=== PATIENT | female | born 2000 | race Caucasian/White ===

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

== ENCOUNTER 2021-01-22 05:12 | Emergency (ER) | payer OTHER, SELFPAY ==
[2021-01-22 05:13] VITALS: BP 128/77; PULSE 70; RESP 18; TEMP 37.1; O2SAT 97; BMI 33.5
--- NOTE | 2021-01-22 05:40 | CT_ITS ---
PROCEDURE INFORMATION: Exam: CT Abdomen And Pelvis With Contrast Exam date and time: 01/22/2021 5:40 AM Age: 20 years old Clinical indication: Nausea and other: Diarrhea; Abdominal pain; Localized; Right upper quadrant (ruq); Patient HX: Ruq pain with nausea and diarrhea TECHNIQUE: Imaging protocol: Computed tomography of the abdomen and pelvis with contrast. Radiation optimization: All CT scans at this facility use at least one of these dose optimization techniques: automated exposure control; mA and/or kV adjustment per patient size (includes targeted exams where dose is matched to clinical indication); or iterative reconstruction. Contrast material: ISOVUE; Contrast volume: 75 ml; Contrast route: IV; COMPARISON: CT ABDOMEN PELVIS W CON 03/16/2020 11:07 PM FINDINGS: Lungs: Patchy peripheral consolidation at the lung bases. Liver: Normal. No mass. Gallbladder and bile ducts: Cholelithiasis. There is no evidence of biliary ductal dilation. Pancreas: Normal. No ductal dilation. Spleen: Normal. No splenomegaly. Adrenal glands: Normal. No mass. Kidneys and ureters: Normal. No hydronephrosis. Stomach and bowel: There is no evidence of intestinal perforation or obstruction. Appendix: A normal appendix is identified. Intraperitoneal space: Unremarkable. No free air. No significant fluid collection. Vasculature: Unremarkable. No abdominal aortic aneurysm. Lymph nodes: Unremarkable. No enlarged lymph nodes. Urinary bladder: The bladder is decompressed. Reproductive: The uterus and left ovary are unremarkable. Simple appearing 3.5 cm right ovarian cyst. Bones/joints: Unremarkable. No acute fracture. Soft tissues: There is a fat-containing umbilical hernia. IMPRESSION: 1. 3.5 cm simple right ovarian cyst. 2. Patchy peripheral consolidation at the lung bases. Commonly reported imaging features of COVID-19 pneumonia are present. Other processes such as influenza pneumonia and organizing pneumonia, as can be seen with drug toxicity and connective tissue disease, can cause a similar imaging pattern. 3. Cholelithiasis.
[2021-01-22 05:49] LABS: Microscopic, Urine URINE MICROSCOPIC (MICROSCOPIC)
[2021-01-22 05:52] LABS: Basophils % 0.7 % (0.1-2.0); Eosinophils # 0.1 K/mm3 (0.0-0.4); Eosinophils % 1.8 % (0.1-12.0); Hematocrit 34.3 % (37.0-47.0); Lymphocytes # 1.8 K/mm3 (0.7-4.5); Lymphocytes % 31.5 % (10-50); Mean Corpuscular Hemoglobin 22.7 pg (27.0-31.2); Mean Corpuscular Volume 71.1 fl (81-99); Mean Platelet Volume 7.3 fl (7.4-10.4); Monocytes # 0.5 K/mm3 (0.1-1.0); Monocytes % 8.6 % (1.7-9.3); Neutrophils # 3.2 K/mm3 (1.8-7.8); Neutrophils % 57.3 % (37.0-80.0); Platelet Count 445 K/mm3 (142-424); Red Blood Count 4.83 M/mm3 (4.20-5.40); White Blood Count 5.5 K/mm3 (4.5-13.0)
[2021-01-22 06:05] LABS: Alanine Aminotransferase 40 U/L (12-78); Albumin Level 4.4 g/dl (3.5-5.0); Albumin/Globulin Ratio 1.5 (1.1-1.8); Alkaline Phosphatase 93 U/L (38-126); Amylase 50 U/L (30-110); Anion Gap 12.9 mEq/L (5-15); Aspartate Amino Transferase 37 U/L (14-36); Bilirubin,Total 0.4 mg/dl (0.2-1.3); Blood Urea Nitrogen 10 mg/dl (7-17); Calcium 9.1 mg/dl (8.4-10.2); Carbon Dioxide 25 mmol/L (22.0-30.0); Chloride 108 mmol/L (98-107); Creatinine Clearance Estimated 175 mL/min (50-200); Estimated Glomerular Filt Rate 108 ml/min (>60); GFR (African American) 130 ML/MIN (>60); Glucose 86 mg/dl (74-100); Potassium 3.9 mmoL/L (3.5-5.1); Sodium 142 mmol/L (136-145); Total Protein,Serum 7.4 g/dl (6.3-8.2)
[2021-01-22 06:06] LABS: Lipase 17 U/L (23-300)
[2021-01-22 06:10] LABS: Appearance,Urine CLEAR (Clear); Bilirubin,Urine Negative (Negative); Blood, Urine Negative (Negative); Color,Urine YELLOW (Yellow); Glucose,Urine (UA) Negative (Negative); Ketones,Urine Negative (Negative); Leukocyte Esterase,Urine Negative (Negative); Nitrate,Urine Negative (Negative); PH,Urine 5.5 (5.0-8.5); Protein,Urine Negative (Negative); Specific Gravity, Urine >= 1.030 (1.005-1.030); Urobilinogen,Urine 0.2 EU/dl (0.2)
[2021-01-22 06:11] LABS: C-Reactive Protein 6.7 mg/L (0-4)
[2021-01-22 06:14] LABS: Urine Pregnancy, HCG Qual. Negative (Negative)
[2021-01-22 06:25] LABS: Erythrocyte Sedimentation Rate 49 mm/hr (0-20)
--- NOTE | 2021-01-22 06:39 | XR_ITS ---
PROCEDURE INFORMATION: Exam: XR Chest Exam date and time: 01/22/2021 6:39 AM Age: 20 years old Clinical indication: Cough TECHNIQUE: Imaging protocol: XR of the chest. Views: 2 views. COMPARISON: CT ABDOMEN PELVIS W CON 01/22/2021 6:27 AM FINDINGS: Lungs: Patchy right greater than left pulmonary opacities mainly in the mid and lower lungs. Pleural spaces: Unremarkable. No pleural effusion. No pneumothorax. Heart/Mediastinum: Unremarkable. No cardiomegaly. Bones/joints: Unremarkable. IMPRESSION: Patchy right greater than left pulmonary opacities mainly in the mid and lower lungs. Commonly reported imaging features of COVID-19 pneumonia are present. Other processes such as influenza pneumonia and organizing pneumonia, as can be seen with drug toxicity and connective tissue disease, can cause a similar imaging pattern.
--- NOTE | 2021-01-22 06:53 | HMH.EDNVD ---
ED Disposition Clinical Impression: COVID-19 Cholelithiasis Qualifiers: Cholelithiasis location: gallbladder Cholecystitis presence: without cholecystitis Biliary obstruction: without biliary obstruction Qualified Code(s): K80.20 - Calculus of gallbladder without cholecystitis without obstruction Disposition: Home, Self-Care Condition on Discharge: Good Instructions: DI for COVID-19 (Suspected or Confirmed ), DI for Gallstones Additional Instructions: see surg for follow up Referrals: Hunter Chang MD [Primary Care Provider] - Kevyn Noyola MD [Staff Physician] - Osman Cabral MD [Staff Physician] - - Critical Care Critical Care Time: No Attestation: On 01/22/21, the high probability of a clinically significant, sudden or life threatening deterioration of the following system(s) required my full and direct attention, intervention and personal management. The time I documented below is in addition to time spent performing reported procedures but includes the following listed in this critical care notation. Medical Decision Making - Medical Records Medical records reviewed: Yes: I reviewed the patient's medical records. - Baljeet Inquiry Pt receiving controlled substance: No Vital Signs: 01/22/21 05:13 Temperature 98.8 F Temperature Source Oral Pulse Rate [Right] 70 Respiratory Rate 18 Blood Pressure [Right Arm] 128/77 Blood Pressure Mean [Right Arm] 94 02 Sat by Pulse Oximetry 97 - Lab Data Lab results reviewed: Yes: I reviewed the patient's lab results. Lab Results 01/22/21 05:20: Urine Color Yellow, Urine Appearance Clear, Urine pH 5.5, Ur Specific [place] >= 1.030, Urine Protein Negative, Urine Glucose (UA) Negative, Urine Ketones Negative, Urine Blood Negative, Urine Nitrate Negative, Urine Bilirubin Negative, Urine Urobilinogen 0.2, Ur Leukocyte Esterase Negative, Urine RBC None, Urine WBC 3-5, Ur Squamous Epith Cells 3-5, Urine Bacteria None 01/22/21 05:20: Urine HCG, Qual Negative 01/22/21 05:29: WBC 5.5, RBC 4.83, Hgb 11.0 L, Hct 34.3 L, MCV 71.1 L, MCH 22.7 L, MCHC 32.0, RDW 16.0, Plt Count 445 H, MPV 7.3 L, Neut % (Auto) 57.3, Lymph % (Auto) 31.5, [place] % (Auto) 8.6, Eos % (Auto) 1.8, Baso % (Auto) 0.7, Neut # (Auto) 3.2, Lymph # (Auto) 1.8, [place] # (Auto) 0.5, Eos # (Auto) 0.1, Baso # (Auto) 0.0, ESR 49 H 01/22/21 05:29: Sodium 142, Potassium 3.9, Chloride 108 H, Carbon Dioxide 25, Anion Gap 12.9, BUN 10, Creatinine 0.70, Estimated Creat Clear 175, Estimated GFR 108, Est GFR ( Amer) 130, Glucose 86, Calcium 9.1, Total Bilirubin 0.4, AST 37 H, ALT 40, Alkaline Phosphatase 93, C-Reactive Protein 6.7 H, Total Protein 7.4, Albumin 4.4, Globulin 3.0, Albumin/Globulin Ratio 1.5, Amylase 50 01/22/21 05:29: Lipase 17 L 01/22/21 07:57: SARS-CoV-2 (PCR) Detected A, Influenza A Untype (PCR) Not detected, Influenza Type B (PCR) Not detected Result diagrams: 01/22/21 05:29 01/22/21 05:29 Orders (Tests/Meds): ED MEDICATIONS Discontinued Medications Generic Name Dose Route Start Last Admin Trade Name Freq PRN Reason Stop Dose Admin Iopamidol 75 ml 01/22/21 06:34 01/22/21 06:34 Iopamidol-370 (76%);100ml Bottle IV 01/22/21 06:35 75 ml ONCE ONE Administration Sodium Chloride 10 ml 01/22/21 06:34 01/22/21 06:34 Sodium Chloride 0.9% 10ml Syr (Rad Only) IV 01/22/21 06:35 10 ml ONCE ONE Administration ORDERS Category Date Time Status US gallbladder Stat Exams 01/22/21 08:33 Ordered - Radiology Data #1 Image(s): Chest Image Reviewed: Yes I reviewed the patient's radiology image, Yes I have reviewed radiologist's interpretation Preliminary Findings: Abnormal - CT Data CT Scan: Abdomen, Pelvis Time Received: 10:[address] Reviewed: Yes: I have viewed the radiologist's interpretation Preliminary Findings: Abnormal (see report ) - US Data US Images: Gallbladder ED US Reviewed: Yes: I have viewed radiologist's interpretation Findings Narrative:
[2021-01-22 08:07] LABS: Influenza A, PCR Not Detected (NotDetected); Influenza B, PCR Not Detected (NotDetected)
[2021-01-22 08:32] LABS: Coronavirus 19, PCR Detected (NotDetected)
--- NOTE | 2021-01-22 08:33 | US_ITS ---
PROCEDURE: US GALLBLADDER CLINICAL INDICATION: RUQ pain COMPARISON: No exams were available for comparison FINDINGS: Pancreas: Unremarkable/Not well seen Liver: Unremarkable. There is appropriate direction of blood flow within a non dilated portal vein. Right kidney: Unremarkable appearing. No hydronephrosis. Gallbladder: Gallbladder is slightly distended measuring 10 cm longitudinal. Stones are present in the fundus of the gallbladder. No gallbladder wall thickening. No pericholecystic fluid. IMPRESSION: Mildly distended gallbladder with cholelithiasis. Dictated by: Darin Jamison MD 01/22/2021 11:18 Darin Jamison MD in OV 01/22/2021 11:18
--- NOTE | 2021-01-22 08:33 | PC.NURSE ---
notified ER of pt covid positive result called per lab
--- NOTE | 2021-01-22 09:08 | PC.NURSE ---
rad at BS for u/s
[2021-01-22 10:55] VITALS: BP 110/69; PULSE 72; RESP 20; TEMP 36.8; O2SAT 97
== END 2021-01-22 10:55 | disposition home or self-care (01) ==
PROVIDERS: Emergency Provider Emergency Medicine; PCP Internal Medicine Adolescent Medicine
DX: U07.1 COVID-19 (principal); K80.20 Calculus of gallbladder without cholecystitis without obstruction
CPT/HCPCS: 71046; 74177; 76705; 80053; 81001; 81025; 82150; 83690; 85025; 85651; 86140; 99283; Q9967; U0003

== ENCOUNTER → 2021-01-23 13:53 | Outpatient (CLI) | payer OTHER, SELFPAY ==
[2021-01-23 14:01] LABS: Basophils # 0.1 K/mm3 (0-0.2); Basophils % 0.6 % (0.1-2.0); Eosinophils # 0.2 K/mm3 (0.0-0.4); Eosinophils % 2.1 % (0.1-12.0); Hematocrit 32.8 % (37.0-47.0); Hemoglobin 10.4 g/dL (12.2-16.2); Lymphocytes # 1.8 K/mm3 (0.7-4.5); Mean Corpuscular HGB Conc 31.6 g/dL (31.8-35.4); Mean Corpuscular Hemoglobin 22.7 pg (27.0-31.2); Mean Corpuscular Volume 71.9 fl (81-99); Mean Platelet Volume 7.1 fl (7.4-10.4); Monocytes # 0.5 K/mm3 (0.1-1.0); Monocytes % 6.1 % (1.7-9.3); Neutrophils # 5.4 K/mm3 (1.8-7.8); Neutrophils % 68.2 % (37.0-80.0); Platelet Count 466 K/mm3 (142-424); Red Blood Count 4.57 M/mm3 (4.20-5.40); Red Cell Distribution Width 16.3 % (11.5-17.5)
[2021-01-23 16:13] LABS: Chloride 108 mmol/L (98-107); Potassium 4.4 mmoL/L (3.5-5.1); Sodium 141 mmol/L (136-145)
[2021-01-23 16:15] LABS: Alanine Aminotransferase 28 U/L (12-78); Alkaline Phosphatase 99 U/L (38-126); Anion Gap 13.4 mEq/L (5-15); Aspartate Amino Transferase 30 U/L (14-36); Bilirubin,Total 0.2 mg/dl (0.2-1.3); Blood Urea Nitrogen 8 mg/dl (7-17); Carbon Dioxide 24 mmol/L (22.0-30.0); Estimated Glomerular Filt Rate 108 ml/min (>60); GFR (African American) 130 ML/MIN (>60)
[2021-01-23 16:16] LABS: Albumin/Globulin Ratio 1.5 (1.1-1.8); Calcium 8.7 mg/dl (8.4-10.2); Globulin 2.7 g/dL (1.3-3.2); Glucose 88 mg/dl (74-100); Lipase 28 U/L (23-300); Total Protein,Serum 6.7 g/dl (6.3-8.2)
== END ==
PROVIDERS: Visit Provider Internal Medicine Adolescent Medicine
DX: R10.11 Right upper quadrant pain (principal)
CPT/HCPCS: 80053; 83690; 85025

== ENCOUNTER 2021-02-07 06:02 | Day surgery (SDC) | payer OTHER, SELFPAY ==
[2021-01-29 14:07] VITALS: BMI 33.5
[2021-02-07] VITALS (11 sets, daily range): BP systolic 114–145; BP diastolic 59–85; PULSE 64–93; RESP 14–18; TEMP 36.1–36.6; O2SAT 97–100
[2021-02-07 06:21] LABS: Urine Pregnancy, HCG Qual. Negative (Negative)
--- NOTE | 2021-02-07 08:50 | HMH.OPNOTE ---
Date of procedure: 02/07/21 Pre-op Diagnosis:: Symptomatic cholelithiasis Post-op Diagnosis:: Acute calculus cholecystitis Gallbladder hydrops Procedure performed:: Laparoscopic cholecystectomy Surgeon:: Osman Cabral MD Anesthesia: GETYaya Estimated blood loss (mL): 10 Operative findings:: Hydropic gallbladder Severe infundibular thickening Dome down approach utilized secondary to severe infundibular/cystic duct thickening Operative note:: After informed consent was obtained, the patient was taken to the operating room and placed in the supine position. General anesthesia was induced and the abdomen was prepped and draped in a sterile fashion. After infiltration with local anesthetic an infraumbilical incision was made. A Veress needle was placed in position. The abdomen was insufflated. A 5 mm optical trocar was placed in position. Under direct visualization, a 12 mm trocar was placed in the subxiphoid position and 2 additional 5 mm trocars were placed in the right upper quadrant. The gallbladder was elevated up and over the liver margin. The tissue around the cystic duct and artery was carefully dissected. Gallbladder hydrops confirmed. Fairly severe distention noted. Severe thickening of the infundibulum and cystic duct region was noted. Careful dissection was completed bluntly and the decision was made to proceed with a dome down approach. The cystic artery itself was also fairly large. Clips were placed on the artery prior to transection with harmonic hussein. Harmonic hussein were used to separate the gallbladder from the liver margin. Endoloops (x2) were placed at the infundibulum/cystic duct margin. The gallbladder was transected above the Endoloops and placed in a retrieval bag. It was then removed through the subxiphoid trocar site. The right upper quadrant was thoroughly irrigated. No active bleeding or bile leak was noted. Fascia at the subxiphoid trocar site was reapproximated utilizing 0 Ethibond. The remaining trocars were removed. All wounds were irrigated and skin was closed with 4-0 Monocryl in a subcuticular fashion. Steri-Strips were applied. The patient's anesthetic agents were reversed and extubation was completed prior to transfer to recovery in stable condition. Condition: stable Disposition: PACU Specimens:: Gallbladder and contents Complications:: No immediate
--- NOTE | 2021-02-07 09:08 | HMH.ANESCL ---
[facility] Anesthesia Checklist - Patient Identification Patient Identification: Arm Band, Verbal (Name & ) - Structural Data Admitted From: Home Planned Operative Procedure/s: lap choly Consent for Planned Operative Procedure(s) Verified: Yes Verified Documents: History and Physical - NPO Status Verified Time NPO: 00:00 - Chart Verification Results Verified: CBC, BMP - Additional verifications Patient : No Anesthesia Reactions: No Hx Blood Transfusions: No Blood Transfusion Reaction: No Cephalosporin Allergy: No Previous Colonoscopy: No - Cardiovascular Assessment Heart Sounds: S1 & S2 Pulse Strength: Baseline Pulse Rhythm: Regular Peripheral Edema: No - Airway Assessment C-Spine Mobility Assessed: Yes TMJ Mobility Assessed: Yes Dentition: Good Dentition - Neurological Assessment Level of Consciousness: Awake, Alert, Appropriate Hx Seizures: No Numbness or tingling in extremities: No - Anesthesia Plan Anesthesia Risk discussed: Yes Anesthesia Plan: Verified ASA Class: II Anesthesia Type: General [facility] History I have reviewed the patient's past medical history: Yes Medical History: Denies:: Cancer, Diabetes Mellitus Type 1, Diabetes Mellitus Type 2, Internal Pacemaker, MRSA, Seizures *Have you ever received a pneumonia vaccine?: No *Have you received a flu vaccine this season?: No Other Medical History: Denies: Blood Transfusion Reaction Anesthesia experience/problems:: none Other Surgeries: Yes: No Previous Surgery. No: , Pacemaker Amputation: No Fractures: No - *Social History Last grade of school completed: High school graduate Smoking Status: Never smoker Alcohol Intake: never Alcohol Intake Frequency:: other Substance Use Type: denies use *Occupational Status:: employed Housing: house Household Members: family *Travel in the last 8 weeks: None Family Hx:: No significant family history
--- NOTE | 2021-02-07 09:09 | P.PN_ITS ---
[facility] Anesthesia Record Part I Intake, IV Amount: 750 Estimated blood loss (mL): 10 Urine output (mL): 0 Blood Products used (#): none Blood Pressure: 124/75 SaO2: 100 Pulse Rate: 83 Respiratory Rate: 16 Temperature: 97.0 F Patient is:: Drowsy, Nasal O2, Stable Stable to PACU at:: 09:03
--- NOTE | 2021-02-07 10:41 | P.PN_ITS ---
[facility] Anesthesia Record Part II Discharge Time: 09:33 Destination: Surgical Day Care (OP Surgery) PACU nurse assessment reviewed?: Yes Patient Condition:: Good Anesthesia Complications:: None Swallowing reflex intact?: Yes Cyanosis?: No Blood Pressure: 145/85 Pulse Rate: 64 Temperature: 97.0 F Mental Status: Alert & Oriented Pain level:: 2 Nausea and/or vomitting:: None Intake, IV Amount: 50
== END 2021-02-07 10:20 | disposition home or self-care (01) ==
LOC: OR 06:04
PROVIDERS: PCP Internal Medicine Adolescent Medicine; Visit Provider Surgery
PROC: 0FT44ZZ Resection of Gallbladder, Percutaneous Endoscopic Approach (ICD-10-PCS; CPT 47562; principal; 2021-02-07 07:30)
DX: K80.00 Calculus of gallbladder with acute cholecystitis without obstruction (principal); K82.1 Hydrops of gallbladder; Z86.16 Personal history of COVID-19
CPT/HCPCS: 47562; 81025; 96374; J0131; J2405; J2710

== ENCOUNTER 2021-03-09 20:11 | Emergency (ER) | payer OTHER, SELFPAY ==
[2021-03-09 20:20] VITALS: BP 132/78; PULSE 79; RESP 18; TEMP 36.6; O2SAT 100; BMI 24.7
--- NOTE | 2021-03-09 20:26 | PC.NURSE ---
Triaged pt- she has been having several faint positive urine tests with spotting. She is supposed to be having an IUD placed tomorrow. She is also concerned about occasional side pain that alternates from R to L, intermittent nausea, and headache. Pt elected to go to the [facility] d/t her baby in the car and family waiting. Pt states I just want my urine and blood checked for .
[2021-03-09 20:30] VITALS: BP 132/78; PULSE 79; RESP 18; TEMP 36.6; O2SAT 100; BMI 24.7
[2021-03-09 20:47] LABS: Apearance,Urine Clear (Clear); Color,Urine Yellow (Yellow)
[2021-03-09 20:47] LABS: UTC Pregnancy Test, Urine Negative (Negative)
[2021-03-09 20:48] LABS: Bilirubin,Urine Negative (Negative); Blood, Urine 3+ (Negative); Glucose,Urine (UA) Negative (Negative); Ketones,Urine TRACE (Negative); Protein,Urine 1+ (Negative); Specific Gravity, Urine 1.025 (1.005-1.030); UTC Leukocyte Esterase,Urine Negative (Negative); UTC Nitrate,Urine Negative (Negative); Urobilinogen,Urine 0.2 EU/dl (0.2)
--- NOTE | 2021-03-09 20:51 | HMH.EDUTC ---
[facility] [place] Disposition Clinical Impression: Negative test Disposition: Home, Self-Care Condition on Discharge: Good Instructions: DI for Nausea -- Adult, Nausea and Vomiting-Adult Additional Instructions: Follow up with OBGYN as scheduled tomorrow for further evaluation and treatment Return if needed Straight to ER if any life threatening symptoms Follow up with Family Doctor if no improvement Referrals: Hunter Chang MD [Primary Care Provider] - As needed Rodo Church MD [Staff Physician] - Time of Disposition: 21:13 Medical Decision Making - Baljeet Inquiry Pt receiving controlled substance: No Baljeet was queried for this patient: No Vital Signs: 03/09/21 20:20 03/09/21 20:30 Temperature 97.9 F 97.9 F Temperature Source Oral Oral Pulse Rate [Left] 79 79 Respiratory Rate 18 18 Blood Pressure [Left Arm] 132/78 132/78 Blood Pressure Mean [Left Arm] 96 96 Blood Pressure Source [Left Arm] Automatic Cuff Automatic Cuff Blood Pressure Position [Left Arm] Sitting 02 Sat by Pulse Oximetry 100 100 Oxygen Delivery Method Room Air Room Air - Lab Data Lab results reviewed: Yes: I reviewed the patient's lab results. Lab Results 03/09/21 20:39: Urine Color Yellow, Urine Appearance Clear, Urine pH 6.0, Ur Specific [place] 1.025, Urine Protein 1+, Urine Glucose (UA) Negative, Urine Ketones Trace, Urine Blood 3+, Urine Nitrate Negative, Urine Bilirubin Negative, Urine Urobilinogen 0.2, Ur Leukocyte Esterase Negative 03/09/21 20:40: [facility] Clinic Negative 03/09/21 20:55: Serum HCG, Qual Negative [facility] [place] HPI - General Stated complaint: V/D, OCHOA stomach and back pain Time Seen by Provider: 03/09/21 20:51 Mode of Arrival: Ambulatory Source of Information: Patient Limitations: No Limitations Description of Symptoms (Recalled from Triage Doc. by RN): PATIENT C/O SHARP PAIN TO BLQ AND CRAMPING X 2 WEEKS AND NAUSEA THAT STARTED THIS WEEK. ALSO C/O SPOTTING HEENT Symptoms (Recalled from RN notes): No Resp Symptoms (Recalled from RN notes): No Skin Symptoms (Recalled from RN notes): No MS Symptoms (Recalled from RN notes): No Functional Status (Recalled from RN notes): WNL - History of Present Illness Provider Complaint: Patient states that she had baby about 3 mths ago and recently had her gallbladder removed States that she is scheduled to have IUD placed tomorrow and has been having some spotting and Nausea States that she took a urine test at home and she could see a faint line States that she wanted to get checked for here tonight with urine and blood before her procedure tomorrow - Related Data Home Medications Medication Instructions Recorded Confirmed norgestimate-ethinyl estradioL 1 tab PO DAILY 03/09/21 03/09/21 [Previfem Tablet] Allergies Allergy/AdvReac Type Severity Reaction Status Date / Time No Known Allergies Allergy Verified 02/25/21 14:04 - Worker's Comp Is this a Worker's Comp case?: No [facility] History - Hepatitis A Screen Drug use history?: No High risk sexual behaviors?: No History of sexually transmitted infection?: No Currently employed?: No Childcare worker?: No Do you have indoor plumbing?: Yes Do you have electricity?: Yes Attestation statement:: This patient has been screened for Hepatitis A risk factors. I have reviewed the patient's past medical history: Yes Medical History: Denies:: Cancer, Diabetes Mellitus Type 1, Diabetes Mellitus Type 2, Internal Pacemaker, MRSA, Seizures Other Medical History: Denies: Blood Transfusion Reaction Other Surgeries: Yes: No Previous Surgery. No: , Pacemaker Amputation: No Fractures: No - Social History Smoking Status: Never smoker Alcohol Intake: never Alcohol Intake Frequency:: other Substance Use Type: denies use Occupational Status: employed Housing: house Household Members: family Family Hx:: No significant family history ROS Obtained: Yes All systems reviewed & no additiona
[2021-03-09 21:09] LABS: HCG Qualitative, Serum Negative (Negative)
[2021-03-09 21:13] VITALS: BP 132/78; PULSE 79; RESP 18; TEMP 36.6; O2SAT 100
== END 2021-03-09 21:18 | disposition home or self-care (01) ==
PROVIDERS: Emergency Provider Nurse Practitioner; PCP Internal Medicine Adolescent Medicine
DX: R10.30 Lower abdominal pain, unspecified (principal); Z32.02 Encounter for pregnancy test, result negative
CPT/HCPCS: 81003; 81025; 84703; 99203; G0463

== ENCOUNTER → 2021-03-17 13:52 | Outpatient (CLI) | payer OTHER, SELFPAY ==
--- NOTE | 2021-03-17 13:52 | US_ITS ---
PROCEDURE: US TRANSVAGINAL CLINICAL INDICATION: following up to ovarian cyst and pelvic pain COMPARISON: CT CT ABDOMEN PELVIS W CON from 01/22/2021 FINDINGS: UTERUS: 9cm x 5cmx 4cm with a combined endometrial thickness of 5.3mm LEFT OVARY: [id number] with a volume of 11.6ml. RIGHT OVARY: [id number] with a volume of 14.8ml. There are numerous small follicles involving both ovaries more numerous on the right compared to the left. The largest cyst on the right is approximately 14 mm. No cul-de-sac fluid is evident. IMPRESSION: Multiple small follicles involving the right ovary consistent with a polycystic ovary. The largest cyst is 14 mm. There are a few small follicles of the left ovary but does not meet the criteria for polycystic ovary Dictated by: Darin Jamison MD 03/18/2021 07:55 Darin Jamison MD in OV 03/18/2021 07:55
== END ==
PROVIDERS: PCP Internal Medicine Adolescent Medicine; Visit Provider Nurse Practitioner Obstetrics & Gynecology
DX: R10.2 Pelvic and perineal pain (principal); N83.209 Unspecified ovarian cyst, unspecified side
CPT/HCPCS: 76830

== ENCOUNTER 2021-03-27 02:28 | Emergency (ER) | payer OTHER, SELFPAY ==
[2021-03-27 02:29] VITALS: BP 109/76; PULSE 80; RESP 18; TEMP 36.6; O2SAT 99; BMI 27.4
--- NOTE | 2021-03-27 02:55 | XR_ITS ---
PROCEDURE INFORMATION: Exam: XR Abdomen Exam date and time: 03/27/2021 2:55 AM Age: 20 years old Clinical indication: Abdominal pain; Localized; Right; Prior surgery; Surgery date: 1-6 months; Patient HX: Gallbladder removed 2 months ago and is still having pain; Additional info: Epigastric pain with tenderness TECHNIQUE: Imaging protocol: XR of the abdomen. Views: 2 Views. Upright and supine views. COMPARISON: CT ABDOMEN PELVIS W CON 01/22/2021 6:27 AM FINDINGS: Gastrointestinal tract: There are clips identified within the right upper quadrant, compatible prior cholecystectomy. The abdominal bowel gas pattern is unremarkable. No evidence of soft tissue mass within the abdomen. The lung bases are unremarkable. Intraperitoneal space: Normal. No free air. Bones/joints: Unremarkable for age. IMPRESSION: No acute findings.
[2021-03-27 03:05] LABS: Microscopic, Urine URINE MICROSCOPIC (MICROSCOPIC)
[2021-03-27 03:06] LABS: Appearance,Urine SL CLOUDY (Clear); Bilirubin,Urine Negative (Negative); Blood, Urine TRACE-I (Negative); Color,Urine YELLOW (Yellow); Glucose,Urine (UA) Negative (Negative); Ketones,Urine Negative (Negative); Leukocyte Esterase,Urine TRACE (Negative); Nitrate,Urine Negative (Negative); PH,Urine 5.5 (5.0-8.5); Protein,Urine Negative (Negative); Specific Gravity, Urine >= 1.030 (1.005-1.030); Urobilinogen,Urine 0.2 EU/dl (0.2)
[2021-03-27 03:16] LABS: Urine Pregnancy, HCG Qual. Negative (Negative)
[2021-03-27 03:16] LABS: Basophils # 0.1 K/mm3 (0-0.2); Basophils % 0.6 % (0.1-2.0); Eosinophils # 0.1 K/mm3 (0.0-0.4); Eosinophils % 1.3 % (0.1-12.0); Hematocrit 35.6 % (37.0-47.0); Hemoglobin 10.6 g/dL (12.2-16.2); Lymphocytes # 1.9 K/mm3 (0.7-4.5); Lymphocytes % 18.8 % (10-50); Mean Corpuscular HGB Conc 29.8 g/dL (31.8-35.4); Mean Corpuscular Hemoglobin 23.4 pg (27.0-31.2); Mean Corpuscular Volume 78.3 fl (81-99); Mean Platelet Volume 7.8 fl (7.4-10.4); Monocytes # 0.4 K/mm3 (0.1-1.0); Monocytes % 4.3 % (1.7-9.3); Neutrophils # 7.5 K/mm3 (1.8-7.8); Neutrophils % 75.2 % (37.0-80.0); Platelet Count 352 K/mm3 (142-424); Red Blood Count 4.55 M/mm3 (4.20-5.40); Red Cell Distribution Width 15.2 % (11.5-17.5)
[2021-03-27 03:17] LABS: Bacteria,Urine 3+ /lpf; Mucus,Urine 2+ /lpf
--- NOTE | 2021-03-27 03:19 | HMH.EDNVD ---
ED Disposition Clinical Impression: Abdominal pain Qualifiers: Abdominal location: epigastric Qualified Code(s): R10.13 - Epigastric pain Disposition: Home, Self-Care Condition on Discharge: Good Instructions: DI for Acute Abdominal Pain Additional Instructions: use meds and call pcp for follow up Referrals: Hunter Chang MD [Primary Care Provider] - - Critical Care Critical Care Time: No Attestation: On 03/27/21, the high probability of a clinically significant, sudden or life threatening deterioration of the following system(s) required my full and direct attention, intervention and personal management. The time I documented below is in addition to time spent performing reported procedures but includes the following listed in this critical care notation. Medical Decision Making - Medical Records Medical records reviewed: Yes: I reviewed the patient's medical records. - Baljeet Inquiry Pt receiving controlled substance: No Vital Signs: 03/27/21 02:29 Temperature 97.9 F Temperature Source Oral Pulse Rate [Right] 80 Respiratory Rate 18 Blood Pressure [Right Arm] 109/76 L Blood Pressure Mean [Right Arm] 87 Blood Pressure Source [Right Arm] Automatic Cuff 02 Sat by Pulse Oximetry 99 Oxygen Delivery Method Room Air - Lab Data Lab results reviewed: Yes: I reviewed the patient's lab results. Lab Results 03/27/21 02:35: Urine Color Yellow, Urine Appearance Sl cloudy, Urine pH 5.5, Ur Specific [place] >= 1.030, Urine Protein Negative, Urine Glucose (UA) Negative, Urine Ketones Negative, Urine Blood Trace-i, Urine Nitrate Negative, Urine Bilirubin Negative, Urine Urobilinogen 0.2, Ur Leukocyte Esterase Trace, Urine RBC 3-5, Urine WBC 5-10, Ur Squamous Epith Cells 10-20, Urine Bacteria 3+, Urine Mucus 2+ 03/27/21 02:35: Urine HCG, Qual Negative 03/27/21 03:00: WBC 10.0, RBC 4.55, Hgb 10.6 L, Hct 35.6 L, MCV 78.3 L, MCH 23.4 L, MCHC 29.8 L, RDW 15.2, Plt Count 352, MPV 7.8, Neut % (Auto) 75.2, Lymph % (Auto) 18.8, [place] % (Auto) 4.3, Eos % (Auto) 1.3, Baso % (Auto) 0.6, Neut # (Auto) 7.5, Lymph # (Auto) 1.9, [place] # (Auto) 0.4, Eos # (Auto) 0.1, Baso # (Auto) 0.1 03/27/21 03:00: Sodium 140, Potassium 3.9, Chloride 106, Carbon Dioxide 26, Anion Gap 11.9, BUN 9, Creatinine 0.70, Estimated Creat Clear 148, Estimated GFR 108, Est GFR ( Amer) 130, Glucose 102 H, Calcium 9.0, Total Bilirubin 0.2, AST 75 H, ALT 44, Alkaline Phosphatase 85, C-Reactive Protein 2.7, Total Protein 6.9, Albumin 4.0, Globulin 2.9, Albumin/Globulin Ratio 1.4, Amylase 65, Lipase 27 Result diagrams: 03/27/21 03:00 03/27/21 03:00 Orders (Tests/Meds): ED MEDICATIONS Generic Name Dose Route Start Last Admin Trade Name Freq PRN Reason Stop Dose Admin Sodium Chloride 1,000 mls @ 999 mls/hr 03/27/21 03:15 03/27/21 03:00 Sod Chlor 0.9% 1000ml Bag IV 03/27/21 04:15 999 mls/hr .[id number] CHENCHO Administration Discontinued Medications Generic Name Dose Route Start Last Admin Trade Name Freq PRN Reason Stop Dose Admin Ketorolac Tromethamine 30 mg 03/27/21 03:01 03/27/21 03:22 Ketorolac 30mg/Ml Vial IV 03/27/21 03:02 30 mg ONCE ONE Administration Lorazepam 0.5 mg 03/27/21 03:01 03/27/21 03:22 Lorazepam 0.5mg Tablet PO 03/27/21 03:02 0.5 mg ONCE ONE Administration Ondansetron HCl 4 mg 03/27/21 03:01 03/27/21 03:22 Ondansetron 4mg/2ml Vial IV 03/27/21 03:02 4 mg ONCE ONE Administration ORDERS Category Date Time Status XR abdomen min 2V Stat Exams 03/27/21 02:55 Taken Amylase Stat Lab 03/27/21 03:00 Results C-Reactive Protein Stat Lab 03/27/21 03:00 Results Complete Blood Count Auto Diff Stat Lab 03/27/21 03:00 Results Comprehensive Metabolic Panel Stat Lab 03/27/21 03:00 Results Erythrocyte Sedimentation Rate Stat Lab 03/27/21 03:00 Results Lipase Stat Lab 03/27/21 03:00 Results Procalcitonin Stat Lab 03/27/21 03:00 Results Urine Culture Stat Micro 03/27/21 02:35 Received
[2021-03-27 03:22] LABS: Alanine Aminotransferase 44 U/L (12-78); Albumin/Globulin Ratio 1.4 (1.1-1.8); Alkaline Phosphatase 85 U/L (38-126); Amylase 65 U/L (30-110); Anion Gap 11.9 mEq/L (5-15); Aspartate Amino Transferase 75 U/L (14-36); Bilirubin,Total 0.2 mg/dl (0.2-1.3); Blood Urea Nitrogen 9 mg/dl (7-17); Carbon Dioxide 26 mmol/L (22.0-30.0); Chloride 106 mmol/L (98-107); Creatinine Clearance Estimated 148 mL/min (50-200); Estimated Glomerular Filt Rate 108 ml/min (>60); GFR (African American) 130 ML/MIN (>60); Globulin 2.9 g/dL (1.3-3.2); Glucose 102 mg/dl (74-100); Lipase 27 U/L (23-300); Potassium 3.9 mmoL/L (3.5-5.1); Sodium 140 mmol/L (136-145); Total Protein,Serum 6.9 g/dl (6.3-8.2)
[2021-03-27 03:28] LABS: C-Reactive Protein 2.7 mg/L (0-4)
[2021-03-27 03:49] VITALS: BP 111/70; PULSE 74; RESP 18; TEMP 36.7; O2SAT 99
[2021-03-27 03:56] LABS: Procalcitonin < 0.030 ng/mL (0.0-2.0)
[2021-03-27 05:04] LABS: Erythrocyte Sedimentation Rate 20 mm/hr (0-20)
== END 2021-03-27 03:59 | disposition home or self-care (01) ==
PROVIDERS: Emergency Provider Emergency Medicine; PCP Internal Medicine Adolescent Medicine
DX: M54.50 Low back pain, unspecified (principal); R10.13 Epigastric pain
CPT/HCPCS: 74019; 80053; 81001; 81025; 82150; 83690; 84145; 85025; 85651; 86140; 87086; 96365; 96375; 99283; J2405

== ENCOUNTER 2021-07-14 14:12 | Emergency (ER) | payer OTHER, SELFPAY ==
[2021-07-14 15:44] LABS: UTC Pregnancy Test, Urine Negative (Negative)
[2021-07-14 15:47] VITALS: BP 109/75; PULSE 81; RESP 16; TEMP 36.7; O2SAT 100; BMI 33.6
--- NOTE | 2021-07-14 15:53 | HMH.EDUTC ---
[facility] [place] Clinical Impression: Viral syndrome, Exposure to COVID-19 virus Pharyngitis Qualifiers: Pharyngitis/tonsillitis etiology: unspecified etiology Qualified Code(s): J02.9 - Acute pharyngitis, unspecified Disposition: Home, Self-Care Condition on Discharge: Good Instructions: Preventing the Spread of Coronavirus Discharge Instructions, DI for COVID-19 (Suspected or Confirmed ), DI for Pharyngitis/Tonsillopharyngitis -- Adult, Strep Throat, Sore Throat Additional Instructions: Drink plenty of fluids. Take tylenol or ibuprofen for pain or fever. Take the medications as directed. Follow up with your regular doctor. GO TO THE ER FOR ANY WORSENING SYMPTOMS Quarantine until you know the results of your covid-19 test. Notify your school or workplace of your results and follow their instructions regarding return to work/school. Prescriptions: Brompheniramine/Pseudoephed/Dm [Bromfed Dm Cough Syrup] 5 ml PO Q6HP PRN #240 ml PRN Reason: Cough Transmission Status: Sent to [facility] Ondansetron [Zofran 4mg ODT] 4 mg PO Q8HP PRN #20 tab PRN Reason: Nausea Transmission Status: Sent to [facility] methylPREDNISolone [Medrol] 4 mg PO DIRECTED 6 Days #21 packet Transmission Status: Sent to [facility] Azithromycin [Z-Sam 250mg Tab*] 250 mg PO UD DOSE PK #6 tab Transmission Status: Sent to [facility] Referrals: Hunter Chang MD [Primary Care Provider] - Forms: Work/School Release Time of Disposition: 16:31 Medical Decision Making - Medical Records Medical records reviewed: No: I reviewed the patient's medical records. - Baljeet Inquiry Pt receiving controlled substance: No Vital Signs: 07/14/21 15:47 Temperature 98.0 F Temperature Source Oral Pulse Rate [Right Brachial] 81 Respiratory Rate 16 Blood Pressure [Right Arm] 109/75 L Blood Pressure Mean [Right Arm] 86 Blood Pressure Source [Right Arm] Automatic Cuff 02 Sat by Pulse Oximetry 100 Oxygen Delivery Method Room Air - Lab Data Lab results reviewed: Yes: I reviewed the patient's lab results. Lab Results 07/14/21 15:39: Group A Strep Rapid Negative 07/14/21 15:40: [facility]st Clinic Negative Orders (Tests/Meds): ORDERS Category Date Time Status Strep Screen Confirmation Stat Micro 07/14/21 15:39 Received Urine Culture Stat Micro 07/14/21 15:59 Received [facility] [place] - General Stated complaint: sore throat, stomach pain Time Seen by Provider: 07/14/21 15:53 - History of Present Illness Provider Complaint: She states that for the past 1 weeks she has had a sore throat and felt bad. She has had nausea and gi upset at times. She also has had some body aches and chilling, but no documented fever. She denies any known exposure to covid-19. She has not been vaccinated against covid-19. - Related Data Home Medications Medication Instructions Recorded Confirmed fluticasone propionate 50 ml INTRANASAL 04/23/21 04/23/21 mcg/actuation nasal spray,suspension Previous Rx's Medication Instructions Recorded ibuprofen 200 mg capsule 200 mg PO ONCE #4 cap 04/23/21 terconazole 0.8 % vaginal cream 1 appful VAGINAL HS 3 Days #20 g 04/23/21 Azithromycin [Z-Sam 250mg Tab*] 250 mg PO UD DOSE PK #6 tab 07/14/21 Brompheniramine/Pseudoephed/Dm 5 ml PO Q6HP PRN #240 ml 07/14/21 [Bromfed Dm Cough Syrup] Ondansetron [Zofran 4mg ODT] 4 mg PO Q8HP PRN #20 tab 07/14/21 methylPREDNISolone [Medrol] 4 mg PO DIRECTED 6 Days #21 07/14/21 packet Allergies Allergy/AdvReac Type Severity Reaction Status Date / Time No Known Allergies Allergy Verified 04/23/21 16:16 [facility] History - Hepatitis A Screen Attestation statement:: This patient has been screened for Hepatitis A risk factors. I have reviewed the patient's past medical history: Yes Medical History: Denies:: Cancer, Diabetes Mellitus Type 1, Diabetes Mellitus Type 2, Internal Pacemaker,
[2021-07-14 16:09] LABS: Strep Scrn Group A (Rapid) Negative (Negative)
[2021-07-14 16:37] VITALS: BP 109/75; PULSE 81; RESP 16; TEMP 36.7; O2SAT 100
== END 2021-07-14 16:37 | disposition home or self-care (01) ==
PROVIDERS: Emergency Provider Nurse Practitioner Family; PCP Internal Medicine Adolescent Medicine
DX: J02.9 Acute pharyngitis, unspecified (principal); Z20.822 Contact with and (suspected) exposure to COVID-19
CPT/HCPCS: 81025; 87086; 87430; 99202; C9803; G0463; U0003; U0005

== ENCOUNTER 2021-08-20 18:26 | Emergency (ER) | payer OTHER, SELFPAY ==
[2021-08-20 19:04] VITALS: BP 141/81; PULSE 77; RESP 18; TEMP 37.1; O2SAT 98; BMI 31.9
[2021-08-20 19:05] LABS: Apearance,Urine Clear (Clear); Blood, Urine Trace (Negative); Color,Urine Yellow (Yellow); Glucose,Urine (UA) Negative (Negative); Ketones,Urine Negative (Negative); Protein,Urine Negative (Negative); Specific Gravity, Urine 1.025 (1.005-1.030)
[2021-08-20 19:06] LABS: Bilirubin,Urine Negative (Negative); UTC Leukocyte Esterase,Urine Negative (Negative); UTC Nitrate,Urine Negative (Negative); UTC Pregnancy Test, Urine Negative (Negative); Urobilinogen,Urine 0.2 EU/dl (0.2)
--- NOTE | 2021-08-20 19:22 | HMH.EDUTC ---
[facility] [place] Clinical Impression: Flank pain Disposition: Home, Self-Care Condition on Discharge: Good Instructions: DI for Low Back Pain Additional Instructions: Follow with OBGYN for further evaluation and examination Follow up with your Family Doctor if no improvement or any worsening of symptoms Return if needed Straight to ER if any life threatening symptoms Referrals: Hunter Chang MD [Primary Care Provider] - As needed Time of Disposition: 19:33 Medical Decision Making - Baljeet Inquiry Pt receiving controlled substance: No Baljeet was queried for this patient: No Vital Signs: 08/20/21 19:04 Temperature 98.7 F Temperature Source Oral Pulse Rate [Left] 77 Respiratory Rate 18 Blood Pressure [Right Arm] 141/81 H Blood Pressure Mean [Right Arm] 101 02 Sat by Pulse Oximetry 98 - Lab Data Lab results reviewed: Yes: I reviewed the patient's lab results. Lab Results 08/20/21 19:05: Urine Color Yellow, Urine Appearance Clear, Urine pH 6.0, Ur Specific [place] 1.025, Urine Protein Negative, Urine Glucose (UA) Negative, Urine Ketones Negative, Urine Blood Trace, Urine Nitrate Negative, Urine Bilirubin Negative, Urine Urobilinogen 0.2, Ur Leukocyte Esterase Negative, Tst Clinic Negative Medical Decision Narrative: Patient states that she has seen her PCP for this before and was diagnosed with IBS Discussed with patient and recommended follow up with PCP and OBGYN if symptoms persist [facility] [place] - General Stated complaint: BACK AND STOMACH CRAMPING Time Seen by Provider: 08/20/21 19:22 Mode of Arrival: Ambulatory Source of Information: Patient Limitations: No Limitations Description of Symptoms (Recalled from Triage Doc. by RN): PT C/O LOWER ABD PAIN AND LOWER BACK PAIN. X1 WK. PT STATES SHE IS HAVING MINIMAL BURNING WITH URINATION THAT COMES AND GOES. HEENT Symptoms (Recalled from RN notes): No Resp Symptoms (Recalled from RN notes): No Skin Symptoms (Recalled from RN notes): No MS Symptoms (Recalled from RN notes): No Functional Status (Recalled from RN notes): WNL - History of Present Illness Provider Complaint: Patient states that he has been having left side pain and lower back area on and off for about a year States that it seems to come and go States that he has been happening now on and off for about a week and she was having a little burning at times when she would urinate so she was worried that she may have a UTI - Related Data Home Medications Medication Instructions Recorded Confirmed fluticasone propionate 50 ml INTRANASAL 04/23/21 07/22/21 mcg/actuation nasal spray,suspension buspirone 10 mg tablet 10 mg PO tab 07/22/21 07/22/21 Previous Rx's Medication Instructions Recorded ibuprofen 200 mg capsule 200 mg PO ONCE #4 cap 04/23/21 Ondansetron [Zofran 4mg ODT] 4 mg PO Q8HP PRN #20 tab 07/14/21 naproxen 500 mg tablet 500 mg PO BID #60 tab 07/22/21 norgestimate 0.25 mg-ethinyl 1 tab PO DAILY #84 tab 07/22/21 estradiol 35 mcg tablet Allergies Allergy/AdvReac Type Severity Reaction Status Date / Time No Known Allergies Allergy Verified 07/22/21 10:55 - Worker's Comp Is this a Worker's Comp case?: No [facility] History - Hepatitis A Screen Drug use history?: No High risk sexual behaviors?: No History of sexually transmitted infection?: No Currently employed?: No Childcare worker?: No Do you have indoor plumbing?: Yes Do you have electricity?: Yes Attestation statement:: This patient has been screened for Hepatitis A risk factors. I have reviewed the patient's past medical history: Yes Medical History: Denies:: Cancer, Diabetes Mellitus Type 1, Diabetes Mellitus Type 2, Internal Pacemaker, MRSA, Seizures Other Medical History: Denies: Blood Transfusion Reaction Other Surgeries: Yes: No Previous Surgery. No: , Pacemaker Amputation: No Fractures: No - Social History Smoking Status: Never smoker Alcohol Intake: never
[2021-08-20 19:40] VITALS: BP 141/81; PULSE 77; RESP 18; TEMP 37.1
== END 2021-08-20 19:41 | disposition home or self-care (01) ==
PROVIDERS: Emergency Provider Nurse Practitioner; PCP Internal Medicine Adolescent Medicine
DX: R10.30 Lower abdominal pain, unspecified (principal); M54.50 Low back pain, unspecified
CPT/HCPCS: 81003; 81025; 99212; G0463

== ENCOUNTER → 2021-08-22 13:56 | Outpatient (CLI) | payer OTHER, SELFPAY ==
[2021-08-22 17:10] LABS: HCG,Quantitative < 2 mIU/ml (0-5.42)
== END ==
PROVIDERS: Visit Provider Nurse Practitioner Obstetrics & Gynecology
DX: N92.6 Irregular menstruation, unspecified (principal)
CPT/HCPCS: 36415; 84702

== ENCOUNTER → 2021-08-27 07:27 | Outpatient (CLI) | payer OTHER, SELFPAY ==
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
== END ==
PROVIDERS: PCP Internal Medicine Adolescent Medicine; Visit Provider Nurse Practitioner Obstetrics & Gynecology
DX: R10.2 Pelvic and perineal pain (principal); M54.50 Low back pain, unspecified
CPT/HCPCS: 74176

== ENCOUNTER → 2021-09-09 13:47 | Outpatient (CLI) | payer OTHER, SELFPAY ==
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
== END ==
PROVIDERS: PCP Internal Medicine Adolescent Medicine; Visit Provider Nurse Practitioner Obstetrics & Gynecology
DX: N83.202 Unspecified ovarian cyst, left side (principal)
CPT/HCPCS: 76830

== ENCOUNTER 2021-09-22 13:57 | Emergency (ER) | payer OTHER, SELFPAY ==
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
[2021-09-22 15:11] VITALS: BP 116/89; PULSE 61; RESP 19; TEMP 36.8; O2SAT 100; BMI 35.4
[2021-09-22 15:13] LABS: UTC Pregnancy Test, Urine Negative (Negative)
[2021-09-22 15:37] VITALS: BP 116/89; PULSE 61; RESP 19; TEMP 36.8
== END 2021-09-22 15:38 | disposition home or self-care (01) ==
PROVIDERS: Emergency Provider Nurse Practitioner Family; PCP Internal Medicine Adolescent Medicine
DX: M54.41 Lumbago with sciatica, right side (principal); R42 Dizziness and giddiness; Z79.1 Long term (current) use of non-steroidal anti-inflammatories (NSAID); Z79.51 Long term (current) use of inhaled steroids; Z79.890 Hormone replacement therapy; Z79.899 Other long term (current) drug therapy; V89.2XXA Person injured in unspecified motor-vehicle accident, traffic, initial encounter
CPT/HCPCS: 72100; 81025; 99213; G0463

== ENCOUNTER → 2021-10-11 11:44 | Outpatient (CLI) | payer OTHER, SELFPAY | PROVIDERS: PCP Nurse Practitioner Family; Visit Provider Nurse Practitioner Family | DX: R00.2 Palpitations (principal) | CPT/HCPCS: 93225; 93226 ==

== ENCOUNTER 2022-02-03 13:41 | Emergency (ER) | payer OTHER, SELFPAY ==
[2022-02-03 15:05] VITALS: BP 121/67; PULSE 113; RESP 20; TEMP 36.9; O2SAT 96; BMI 35.4
--- NOTE | 2022-02-03 15:30 | EXP.UTC ---
Discharge Plan Prescriptions Prescriptions: No Action fluticasone propionate 50 mcg/actuation spray,suspension INTRANASAL ibuprofen 200 mg capsule 200 mg PO ONCE Qty: 4 0RF naproxen 500 mg tablet 500 mg PO BID Qty: 60 1RF norgestimate-ethinyl estradiol [Sprintec (28)] 0.25-35 mg-mcg tablet 1 tab PO DAILY Qty: 84 4RF cyclobenzaprine 10 MG tablet 10 mg PO BIDP PRN (Reason: Muscle Spasm) Qty: 20 0RF ibuprofen 800 MG tablet 800 mg PO Q8HP PRN (Reason: Moderate Pain) Qty: 30 0RF Referrals Follow up/Referrals: Hunter Chang MD [Primary Care Provider] - See instructions Activity Restrictions/Add. Instructions Additional Instructions/Restrictions: *Monitor Temp, Over the counter Motrin or Tylenol as directed/as needed Tylenol every 4 hours and Motrin every 6 hours (as long as your family doctor has told you that you can take it) for fever or pain. and straight to ER if unable to lower temp less than 101.0 after medication given *Warm salt water gargles may help to soothe the throat *Throat Lozenges? *Warm fluids like tea with honey may help to soothe the throat? *Sleep elevated *Humidifier/Vaporizer Follow up IMMEDIATELY for new or worsening symptoms or no Noticeable improvement over the next 48-72 hours. 911 for difficulty breathing or swallowing You were tested for today for COVID19 your test result should be back in the next 24-48 hours, you may check your results on the [facility] My Health Portal Make sure to take your Vitamins Vit. C Vit D and Zinc if you can take them Clinical Impressions Clinical Impression: Exposure to COVID-19 virus Stand Alone Forms Stand Alone Forms: Work/School Release Instructions Patient Instructions: Coronavirus Disease 2019, Preventing the Spread of Coronavirus Discharge Instructions Discharge ED Provider: Sylvia Busby [facility] [place] General Stated complaint: Sore throat, cough, congestion, OCHOA Mode of Arrival: Ambulatory Source of Information: Patient Limitations: No Limitations Time Seen by Provider: 02/03/22 15:30 Description of Symptoms (Recalled from Triage Doc. by RN): COVID TEST D/T EXPOSURE. 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 States that yesterday she started with body aches, headache, sore throat and cough and achy feeling in her ears State that she wanted to get tested to see if she may have it now too Related Data Home Medications Medication Instructions Recorded Confirmed fluticasone propionate 50 ml intranasal 04/23/21 08/26/21 mcg/actuation nasal spray,suspension Previous Rx's Medication Instructions Recorded ibuprofen 200 mg capsule 200 mg PO ONCE pain #4 caps 04/23/21 naproxen 500 mg tablet 500 mg PO BID #60 tabs 07/22/21 cyclobenzaprine 10 mg tablet 10 mg PO BIDP PRN Muscle Spasm #20 09/22/21 tabs ibuprofen 800 mg tablet 800 mg PO Q8HP PRN Moderate Pain 09/22/21 #30 tabs norgestimate 0.25 mg-ethinyl 1 tab PO DAILY #84 tabs 11/18/21 estradiol 35 mcg tablet (Sprintec (28)) Allergies Allergy/AdvReac Type Severity Reaction Status Date / Time No Known Allergies Allergy Verified 08/26/21 10:20 Worker's Comp Is this a Worker's Comp case?: No PFSH PFSH Medical History (Updated 02/03/22 @ 15:35 by Sylvia Busby APRN) Dizziness Edema Social History Smoking Status: Never smoker second hand exposure: Yes alcohol intake: never substance use type: denies use current occupational status: employed household members: family housing: house current occupation: [employer] current
[2022-02-03 15:31] VITALS: BP 121/67; PULSE 113; RESP 20; TEMP 36.9; O2SAT 96
== END 2022-02-03 16:04 | disposition home or self-care (01) ==
LOC: UTC 13:42
PROVIDERS: Emergency Provider Nurse Practitioner; PCP Internal Medicine Adolescent Medicine
DX: U07.1 COVID-19
CPT/HCPCS: 99212; C9803; G0463; U0003; U0005

== ENCOUNTER 2022-03-10 20:01 | Emergency (ER) | payer OTHER, SELFPAY ==
[2022-03-10 20:15] VITALS: BP 111/76; PULSE 86; RESP 16; TEMP 36.9; O2SAT 99; BMI 35.4
--- NOTE | 2022-03-10 20:37 | CT_ITS ---
PROCEDURE INFORMATION: Exam: CT Abdomen And Pelvis Without Contrast Exam date and time: 03/10/2022 8:53 PM Age: 21 years old Clinical indication: Abdominal pain; Localized; Patient HX: Left lower abd pain , n/v TECHNIQUE: Imaging protocol: Computed tomography of the abdomen and pelvis without contrast. Radiation optimization: All CT scans at this facility use at least one of these dose optimization techniques: automated exposure control; mA and/or kV adjustment per patient size (includes targeted exams where dose is matched to clinical indication); or iterative reconstruction. COMPARISON: CT ABDOMEN PELVIS WO CON 08/27/2021 7:33 AM FINDINGS: Liver: Normal. No mass. Gallbladder and bile ducts: Gallbladder is surgically absent. No pathologic dilation of the biliary tree. Pancreas: Normal. No ductal dilation. Spleen: Normal. No splenomegaly. Adrenal glands: Normal. No mass. Kidneys and ureters: Normal. No hydronephrosis. Stomach and bowel: Unremarkable. No obstruction. No mucosal thickening. Appendix: No evidence of appendicitis. Intraperitoneal space: Unremarkable. No free air. No significant fluid collection. Vasculature: Unremarkable. No abdominal aortic aneurysm. Lymph nodes: A few prominent lymph nodes within the mid mesentery might be reflective of mesenteric adenitis or early adenopathy. These are unchanged. Urinary bladder: Unremarkable as visualized. Reproductive: Unremarkable as visualized. Bones/joints: Unremarkable. No acute fracture. Soft tissues: Unremarkable. IMPRESSION: 1. Gallbladder is surgically absent. No pathologic dilation of the biliary tree. 2. A few prominent lymph nodes within the mid mesentery might be reflective of mesenteric adenitis or early adenopathy. These are unchanged.
[2022-03-10 20:46] LABS: Appearance,Urine CLEAR (Clear); Bilirubin,Urine Negative (Negative); Blood, Urine 1+ (Negative); Color,Urine YELLOW (Yellow); Glucose,Urine (UA) Negative (Negative); Ketones,Urine Negative (Negative); Leukocyte Esterase,Urine Negative (Negative); Microscopic, Urine URINE MICROSCOPIC (MICROSCOPIC); Nitrate,Urine Negative (Negative); Protein,Urine Negative (Negative); Urobilinogen,Urine 0.2 EU/dl (0.2)
[2022-03-10 20:47] LABS: Basophils # 0.2 K/mm3 (0-0.2); Basophils % 1.4 % (0.1-2.0); Eosinophils # 0.2 K/mm3 (0.0-0.4); Eosinophils % 1.8 % (0.1-12.0); Hematocrit 41.2 % (37.0-47.0); Hemoglobin 13.2 g/dL (12.2-16.2); Lymphocytes # 2.8 K/mm3 (0.7-4.5); Lymphocytes % 24.8 % (10-50); Mean Corpuscular HGB Conc 32.1 g/dL (31.8-35.4); Mean Corpuscular Hemoglobin 26.4 pg (27.0-31.2); Mean Corpuscular Volume 82.2 fl (81-99); Mean Platelet Volume 7.3 fl (7.4-10.4); Monocytes # 0.6 K/mm3 (0.1-1.0); Monocytes % 5.5 % (1.7-9.3); Neutrophils # 7.5 K/mm3 (1.8-7.8); Neutrophils % 66.5 % (37.0-80.0); Platelet Count 439 K/mm3 (142-424); Red Blood Count 5.01 M/mm3 (4.20-5.40); Red Cell Distribution Width 14.8 % (11.5-17.5); White Blood Count 11.3 K/mm3 (4.5-13.0)
[2022-03-10 20:49] LABS: Amylase 57 U/L (30-110)
[2022-03-10 20:50] LABS: Alanine Aminotransferase 21 U/L (12-78); Albumin Level 4.3 g/dl (3.5-5.0); Albumin/Globulin Ratio 1.3 (1.1-1.8); Alkaline Phosphatase 89 U/L (38-126); Anion Gap 16.1 mEq/L (5-15); Aspartate Amino Transferase 28 U/L (14-36); Blood Urea Nitrogen 7 mg/dl (7-17); Calcium 8.8 mg/dl (8.4-10.2); Carbon Dioxide 24 mmol/L (22.0-30.0); Chloride 103 mmol/L (98-107); Creatinine Clearance Estimated 184 mL/min (50-200); Estimated Glomerular Filt Rate 107 ml/min (>60); GFR (African American) 129 ML/MIN (>60); Globulin 3.3 g/dL (1.3-3.2); Glucose 85 mg/dl (74-100); Lipase 31 U/L (23-300); Potassium 4.1 mmoL/L (3.5-5.1); Sodium 139 mmol/L (136-145); Total Protein,Serum 7.6 g/dl (6.3-8.2)
[2022-03-10 20:51] LABS: Urine Pregnancy, HCG Qual. Negative (Negative)
[2022-03-10 20:55] LABS: C-Reactive Protein 6.1 mg/L (0-4)
[2022-03-10 21:05] VITALS: BP 122/65; PULSE 61; RESP 18; O2SAT 100
[2022-03-10 21:07] VITALS: BP 122/65; PULSE 64; RESP 18; O2SAT 100
[2022-03-10 21:22] LABS: Bilirubin,Total < 0.1 mg/dl (0.2-1.3); Procalcitonin < 0.030 ng/mL (0.0-2.0)
[2022-03-10 21:25] LABS: Erythrocyte Sedimentation Rate 15 mm/hr (0-20)
[2022-03-10 21:30] VITALS: BP 128/70; PULSE 63; RESP 18; O2SAT 100
--- NOTE | 2022-03-10 21:31 | PC.NURSE ---
Patient is resting in bed. States that the medication is helping with both the nausea and the abdominal pain.
--- NOTE | 2022-03-10 21:38 | HMH.EDABDPAI ---
Discharge Plan Disposition Patient Disposition: Home, Self-Care Chief Complaint: Abdominal Pain Referrals Follow up/Referrals: Hunter Chang MD [Primary Care Provider] - See instructions Clinical Impressions Clinical Impression: Abdominal pain Instructions Patient Instructions: DI for Acute Abdominal Pain Discharge ED Provider: Mateo Noyola Abdominal Pain HPI General Chief Complaint: Abdominal Pain Stated Complaint: Abd Pain, Vomiting Time Seen by Provider: 03/10/22 21:38 Mode of Arrival: Ambulatory Source of Information: Patient and Medical Record Limitations: No Limitations Description of Symptoms (Recalled from ER Triage Doc. by RN): Pt c/o left sided lower abd pain that radiates into her left lower back. Says the abdominal pain has been going on for the prior month, the back pain for the prior week but the nausea and vomiting is new and she has been having difficulty keeping fluids down. History of Present Illness HPI narrative: lt sided lt lower abd pain over the last few days - assoc with n/v MD complaint: abdominal pain Onset (ago): day(s) Consistency: intermittent Location: LLQ Severity: moderate Quality: sharp Associated symptoms: nausea and vomiting Related Data Allergies Allergy/AdvReac Type Severity Reaction Status Date / Time No Known Allergies Allergy Verified 08/26/21 10:20 PFSH PFSH Medical History (Updated 03/10/22 @ 23:55 by Mateo Noyola MD) Dizziness Edema Social History (Updated 02/03/22 @ 15:35 by Sylvia Busby APRN) Smoking Status: Never smoker second hand exposure: Yes alcohol intake: never substance use type: denies use current occupational status: employed Travel in the last 8 weeks: None household members: family housing: house current occupation: [employer] current occupational exposures/hazards: No caffeine: Yes ROS Obtained: Yes All systems reviewed & no additional complaints except as documented Physical Exam General General appearance: alert and in no apparent distress Head Head exam: normocephalic Eye Eye exam: Present PERRL and EOMI ENT ENT exam: Present normal oropharynx Neck Neck exam: Present trachea midline Respiratory Respiratory exam: Absent respiratory distress Cardiovascular Cardiovascular exam: Present regular rate Abdominal Exam Abdominal exam: Present soft Extremities Exam Extremities exam: Present full ROM Neurological Exam Neurological exam: Present alert, oriented X3 and CN II-XII intact Psychiatric Psychiatric exam: Present normal affect Skin Skin exam: Absent rash Medical Decision Making Medical Records Medical records reviewed: Yes I reviewed the patient's medical records. Baljeet Inquiry Pt receiving controlled substance: No Vital Signs: 03/10/22 20:15 03/10/22 21:05 03/10/22 21:07 Temperature 98.4 F Temperature Source Oral Pulse Rate 61 64 Pulse Rate [Apical] 86 Respiratory Rate 16 18 18 Blood Pressure 122/65 122/65 Blood Pressure [Right Arm] 111/76 Blood Pressure Mean 91 Blood Pressure Mean [Right Arm] 87 Blood Pressure Source [Right Arm] Automatic Cuff Blood Pressure Position [Right Arm] Sitting 02 Sat by Pulse Oximetry 99 100 100 Oxygen Delivery Method Room Air 03/10/22 21:30 Temperature Temperature Source Pulse Rate 63 Pulse Rate [Apical] Respiratory Rate 18 Blood Pressure 128/70 Blood Pressure [Right Arm] Blood Pressure Mean 96 Blood Pressure Mean [Right Arm] Blood Pressure Source [Right Arm] Blood Pressure Position [Right Arm] 02 Sat by Pulse Oximetry 100 Oxygen Delivery Method Lab Data Lab results reviewed: Yes I reviewed the patient's lab results. Lab Results 03/10/22 20:11: Urine Color Yellow, Urine Appearance Clear, Urine pH 8.0, Ur Specific [place] 1.020, Urine Protein Negative, Urine Glucose (UA) Negative, Urine Ketones Negative, Urine Blood 1+, Urine Nitrate Negative, Urine Bilirubin Negative, Urine Urobilinogen 0.2
[2022-03-10 21:47] LABS: Bacteria,Urine 1+ /lpf
[2022-03-10 23:55] VITALS: BP 125/49; PULSE 67; RESP 16; TEMP 36.6; O2SAT 99
== END 2022-03-11 00:02 | disposition home or self-care (01) ==
PROVIDERS: Emergency Provider Emergency Medicine; PCP Internal Medicine Adolescent Medicine
DX: R10.9 Unspecified abdominal pain (principal)
CPT/HCPCS: 74176; 80053; 81001; 81025; 82150; 83690; 84145; 85025; 85651; 86140; 96365; 96375; 99284; J2405

== ENCOUNTER 2022-04-08 18:06 | Emergency (ER) | payer OTHER, SELFPAY ==
[2022-04-08 18:08] VITALS: BP 117/71; PULSE 82; RESP 16; TEMP 36.9; O2SAT 97; BMI 35.4
[2022-04-08 18:24] VITALS: BMI 35.4
[2022-04-08 18:29] LABS: Microscopic, Urine URINE MICROSCOPIC (MICROSCOPIC)
[2022-04-08 18:37] LABS: Appearance,Urine CLEAR (Clear); Blood, Urine 3+ (Negative); Color,Urine YELLOW (Yellow); Glucose,Urine (UA) Negative (Negative); Ketones,Urine 3+ (Negative); Leukocyte Esterase,Urine Negative (Negative); Nitrate,Urine Negative (Negative); Protein,Urine 1+ (Negative); Specific Gravity, Urine >= 1.030 (1.005-1.030)
[2022-04-08 18:40] LABS: Urine Pregnancy, HCG Qual. Positive (Negative)
[2022-04-08 19:00] VITALS: BP 119/70; PULSE 79; RESP 18; O2SAT 100
[2022-04-08 19:00] LABS: Bilirubin,Urine 2+ (Negative)
[2022-04-08 19:02] LABS: Bacteria,Urine 2+ /lpf
--- NOTE | 2022-04-08 19:02 | PC.NURSE ---
SPOKE WITH NIGHTWATCH REGARDING ZOFRAN FOR EARLY , THAT IS THEIR RECOMMENDATION
[2022-04-08 19:07] LABS: Basophils # 0.1 K/mm3 (0-0.2); Basophils % 0.6 % (0.1-2.0); Eosinophils # 0.1 K/mm3 (0.0-0.4); Eosinophils % 0.7 % (0.1-12.0); Hematocrit 40.7 % (37.0-47.0); Hemoglobin 13.7 g/dL (12.2-16.2); Lymphocytes # 1.7 K/mm3 (0.7-4.5); Lymphocytes % 12.8 % (10-50); Mean Corpuscular HGB Conc 33.6 g/dL (31.8-35.4); Mean Corpuscular Hemoglobin 27.6 pg (27.0-31.2); Mean Platelet Volume 7.4 fl (7.4-10.4); Monocytes # 0.6 K/mm3 (0.1-1.0); Monocytes % 4.1 % (1.7-9.3); Neutrophils # 10.9 K/mm3 (1.8-7.8); Neutrophils % 81.8 % (37.0-80.0); Platelet Count 451 K/mm3 (142-424); Red Blood Count 4.96 M/mm3 (4.20-5.40); Red Cell Distribution Width 14.3 % (11.5-17.5); White Blood Count 13.3 K/mm3 (4.5-13.0)
[2022-04-08 19:09] LABS: Chloride 97 mmol/L (98-107); Sodium 135 mmol/L (136-145)
[2022-04-08 19:10] LABS: Potassium 3.8 mmoL/L (3.5-5.1)
[2022-04-08 19:12] LABS: Alanine Aminotransferase 41 U/L (12-78); Alkaline Phosphatase 100 U/L (38-126); Anion Gap 19.8 mEq/L (5-15); Aspartate Amino Transferase 41 U/L (14-36); Blood Urea Nitrogen 13 mg/dl (7-17); Carbon Dioxide 22 mmol/L (22.0-30.0); Creatinine Clearance Estimated 184 mL/min (50-200); Estimated Glomerular Filt Rate 107 ml/min (>60); GFR (African American) 129 ML/MIN (>60); Lipase 22 U/L (23-300)
[2022-04-08 19:13] LABS: Albumin Level 4.6 g/dl (3.5-5.0); Albumin/Globulin Ratio 1.4 (1.1-1.8); Calcium 9.6 mg/dl (8.4-10.2); Globulin 3.4 g/dL (1.3-3.2); Glucose 67 mg/dl (74-100); Magnesium 1.8 mg/dl (1.6-2.3)
--- NOTE | 2022-04-08 19:19 | PC.NURSE ---
shift change report given to mindy stafford and rajeevrn
--- NOTE | 2022-04-08 19:40 | HMH.EDGENADL ---
Discharge Plan Disposition Patient Disposition: Home, Self-Care Condition: Good Prescriptions Prescriptions: New ondansetron 4 mg tablet,disintegrating 4 mg PO Q8H PRN (Reason: nausea and vomiting) 4 Days Qty: 12 0RF Referrals Follow up/Referrals: Hunter Chang MD [Primary Care Provider] - See instructions Activity Restrictions/Add. Instructions Additional Instructions/Restrictions: You were evaluated in the emergency department today for vomiting. supervisor [employer] your prescription for Zofran and take as needed. Follow-up with your primary care provider over the next 3 days. Follow-up with OB. Return to the emergency department for any new or worsening symptoms. Clinical Impressions Clinical Impression: Hyperemesis affecting , antepartum Instructions Patient Instructions: DI for Hyperemesis Gravidarum Discharge ED Provider: Barbi Foreman General Adult HPI General Chief complaint: Nausea/Vomiting/Diarrhea Stated complaint: 7 weeks with vomiting,lightheaded Time Seen by Provider: 04/08/22 18:23 Mode of Arrival: Ambulatory Source of Information: Patient Limitations: No Limitations Description of Symptoms (Recalled from ER Triage Doc. by RN): Pt reports approx 7 weeks gestation, see OB for first visit on Wednesday of this week, states will be seeing Dr. Church. Reports has been vomiting multiple times a day everyday for approx 1 week. Pt reports not peeing much. Pt reports has had a headache today and feels dizzy at times. History of Present Illness HPI narrative: This patient is a 21-year-old female G2, P1 presenting to the emergency department for evaluation of vomiting. She reports that she has been vomiting for 1 week and took a test and found that she is , approximately 7 weeks by last menstrual period. She states that she had issues like this with her first , and she had to come to the hospital frequently for IV fluids because she vomits this to many times. She states that she is not even able to keep down water. She denies any fevers, chills, abdominal pain, abnormal vaginal discharge, vaginal bleeding, or other concerns she also denies any dysuria. Nothing seems to make her symptoms better or worse Related Data Previous Rx's Medication Instructions Recorded ondansetron 4 mg disintegrating 4 mg PO Q8H PRN nausea and 04/08/22 tablet vomiting 4 days #12 tabs Allergies Allergy/AdvReac Type Severity Reaction Status Date / Time No Known Allergies Allergy Verified 08/26/21 10:20 PFSH PFSH Medical History Dizziness Edema Social History Smoking Status: Never smoker second hand exposure: Yes alcohol intake: never substance use type: denies use current occupational status: employed Travel in the last 8 weeks: None household members: family housing: house current occupation: [employer] current occupational exposures/hazards: No caffeine: Yes ROS Obtained: Yes All systems reviewed & no additional complaints except as documented 14 point review of systems obtained and negative except as mentioned in HPI. Physical Exam General General appearance: alert and in no apparent distress Head Head exam: atraumatic and normocephalic Eye Eye exam: Present normal appearance, PERRL and EOMI ENT ENT exam: Present normal exam and normal oropharynx Neck Neck exam: Present normal inspection and full ROM Chest Chest inspection: Present normal inspection and symmetric chest wall rise Respiratory Respiratory exam: Present normal lung sounds bilaterally; Absent respiratory distress Cardiovascular Cardiovascular exam: Present regular rate and normal rhythm Abdominal Exam Abdominal exam: Present soft; Absent distention, tenderness or guarding Extremities Exam Extremities exam: Present normal inspection Back Exam Back exam: Present normal
[2022-04-08 20:04] LABS: HCG,Quantitative 63665 mIU/ml (0-5.42)
[2022-04-08 20:35] VITALS: BP 122/69; PULSE 79; RESP 18; TEMP 36.9; O2SAT 100
== END 2022-04-08 20:36 | disposition home or self-care (01) ==
PROVIDERS: Emergency Provider Emergency Medicine; PCP Internal Medicine Adolescent Medicine
DX: O21.1 Hyperemesis gravidarum with metabolic disturbance (principal); O26.91 Pregnancy related conditions, unspecified, first trimester; R51.9 Headache, unspecified; O12.01 Gestational edema, first trimester; Z3A.01 Less than 8 weeks gestation of pregnancy
CPT/HCPCS: 80053; 81001; 81025; 83690; 83735; 84702; 85025; 87086; 96361; 96374; 99284; J2405

== ENCOUNTER → 2022-04-10 17:00 | Outpatient (CLI) | payer OTHER, SELFPAY ==
[2022-04-14 03:36] LABS: Neisseria gonorrhoeae, NAA Negative (Negative)
== END ==
PROVIDERS: Visit Provider Nurse Practitioner Obstetrics & Gynecology
DX: Z34.90 Encounter for supervision of normal pregnancy, unspecified, unspecified trimester (principal)
CPT/HCPCS: 87491; 87591

== ENCOUNTER → 2022-06-16 10:21 | Outpatient (CLI) | payer OTHER, SELFPAY ==
--- NOTE | 2022-06-16 10:21 | US_ITS ---
FINAL REPORT CLINICAL HISTORY: for dates FINDINGS: There is a single live intrauterine gestation. Presentation is breech. The cervix is closed and measures 4.5 cm. Placenta is anterior grade 1. movement is noted. Heart rate is detected at 147 beats per minute. MEASUREMENTS: ULTRASOUND AGE: 17 weeks 2 days. GESTATION AGE: 16 weeks 6 days. ESTIMATED WEIGHT: 185 g GROWTH PERCENTILE: 66 % BPD: 3.63 cm corresponding to 17 weeks 1 day. OFD: 4.90 cm corresponding to 17 weeks 6 days. HC: 13.55 cm corresponding to 7 weeks 1 day. AC: 12.13 cm corresponding to 17 weeks 6 days. FL: 2.20 cm corresponding to 16 weeks 5 days. HC/AC: 1.12 CI: 74% FL/BPD: 61% FL/AC: 18% IMPRESSION: Single living IUP with an ultrasound age of 17 weeks 2 days. Reviewed, Interpreted and Dictated by Kevyn Segura III, MD Transcribed by Ella Edmond Authenticated and . [facility]
== END ==
PROVIDERS: PCP Internal Medicine Adolescent Medicine; Visit Provider Nurse Practitioner Obstetrics & Gynecology
DX: Z34.90 Encounter for supervision of normal pregnancy, unspecified, unspecified trimester (principal); Z3A.11 11 weeks gestation of pregnancy
CPT/HCPCS: 76805

== ENCOUNTER 2022-06-30 19:51 | Emergency (ER) | payer OTHER, SELFPAY ==
[2022-06-30 20:14] VITALS: BMI 34.5
[2022-06-30 20:18] VITALS: BP 129/81; PULSE 78; RESP 18; TEMP 36.6; O2SAT 98; BMI 34.5
[2022-06-30 20:21] LABS: Microscopic, Urine URINE MICROSCOPIC (MICROSCOPIC)
--- NOTE | 2022-06-30 20:24 | PC.NURSE ---
heart tones obtained. 158bpm
[2022-06-30 20:28] LABS: Appearance,Urine CLEAR (Clear); Bilirubin,Urine Negative (Negative); Blood, Urine 1+ (Negative); Color,Urine YELLOW (Yellow); Glucose,Urine (UA) Negative (Negative); Ketones,Urine Negative (Negative); Leukocyte Esterase,Urine Negative (Negative); Nitrate,Urine Negative (Negative); Protein,Urine Negative (Negative); Urobilinogen,Urine 0.2 EU/dl (0.2)
[2022-06-30 20:34] VITALS: BP 113/67; PULSE 75; RESP 14; O2SAT 98
[2022-06-30 20:39] LABS: Bacteria,Urine Trace /lpf; RBC,Urine Occasional #/hpf (0-3)
[2022-06-30 20:46] LABS: Basophils # 0.1 K/mm3 (0-0.2); Basophils % 0.7 % (0.1-2.0); Eosinophils # 0.3 K/mm3 (0.0-0.4); Hematocrit 35.3 % (37.0-47.0); Hemoglobin 11.9 g/dL (12.2-16.2); Lymphocytes # 2.9 K/mm3 (0.7-4.5); Mean Corpuscular HGB Conc 33.6 g/dL (31.8-35.4); Mean Corpuscular Volume 83.3 fl (81-99); Mean Platelet Volume 7.7 fl (7.4-10.4); Monocytes # 0.8 K/mm3 (0.1-1.0); Monocytes % 5.8 % (1.7-9.3); Neutrophils # 9.6 K/mm3 (1.8-7.8); Neutrophils % 70.5 % (37.0-80.0); Platelet Count 443 K/mm3 (142-424); Red Blood Count 4.24 M/mm3 (4.20-5.40); Red Cell Distribution Width 13.7 % (11.5-17.5); White Blood Count 13.7 K/mm3 (4.5-13.0)
[2022-06-30 20:51] LABS: Chloride 110 mmol/L (98-107); Potassium 3.7 mmoL/L (3.5-5.1); Sodium 140 mmol/L (136-145)
[2022-06-30 20:53] LABS: Lipase 27 U/L (23-300)
[2022-06-30 20:54] LABS: Alanine Aminotransferase 14 U/L (12-78); Albumin Level 3.7 g/dl (3.5-5.0); Albumin/Globulin Ratio 1.1 (1.1-1.8); Alkaline Phosphatase 66 U/L (38-126); Amylase 59 U/L (30-110); Anion Gap 12.7 mEq/L (5-15); Aspartate Amino Transferase 19 U/L (14-36); Bilirubin,Total 0.2 mg/dl (0.2-1.3); Blood Urea Nitrogen 2 mg/dl (7-17); Calcium 8.6 mg/dl (8.4-10.2); Carbon Dioxide 21 mmol/L (22.0-30.0); Creatinine Clearance Estimated 251 mL/min (50-200); Estimated Glomerular Filt Rate 157 ml/min (>60); GFR (African American) 190 ML/MIN (>60); Globulin 3.3 g/dL (1.3-3.2); Glucose 77 mg/dl (74-100)
[2022-06-30 21:12] VITALS: BP 117/57; PULSE 77; RESP 12; O2SAT 99
[2022-06-30 21:18] LABS: HCG Qualitative, Serum Positive (Negative)
--- NOTE | 2022-06-30 21:28 | PC.NURSE ---
Dr. Noyola s/w Dr. Church
--- NOTE | 2022-06-30 21:30 | PC.NURSE ---
ER speaking with pt at this time
--- NOTE | 2022-06-30 21:33 | HMH.EDABDPAI ---
Discharge Plan Disposition Patient Disposition: Home, Self-Care Chief Complaint: Abdominal Pain Prescriptions Prescriptions: No Action prenat.vits,leila,[id number] Tablet 1 tab PO DAILY promethazine 12.5 mg tablet 12.5 mg PO Q6H PRN (Reason: nausea and vomiting) Qty: 30 1RF promethazine 12.5 mg suppository 12.5 mg OK Q6H PRN (Reason: nausea and vomiting) Qty: 12 2RF ondansetron 4 mg tablet,disintegrating 4 mg PO Q6H Referrals Follow up/Referrals: Hunter Chang MD [Primary Care Provider] - See instructions Rodo Church MD [Staff Physician] - See instructions Clinical Impressions Clinical Impression: Instructions Patient Instructions: DI for -- Discomforts and Remedies Discharge ED Provider: Mateo Noyola Abdominal Pain HPI General Chief Complaint: Abdominal Pain Stated Complaint: 19 WK Preg Abd Pain, Bleeding Time Seen by Provider: 06/30/22 21:33 Mode of Arrival: Ambulatory Source of Information: Patient, Spouse and Medical Record Limitations: No Limitations Description of Symptoms (Recalled from ER Triage Doc. by RN): Patient arrived pov c co abdominal pain and vaginal spotting. Pt states that she is 19 weeks and has had abdominal pain and spotting throughout her entire . States that she has been having lower abdominal pain that is occassionally sharp, hurts bilaterally but is worse in her right side. Occassionally has accompanying lower back pain that is occassionally sharp. States that this pain is similar to what she has been experiencing, however, tonight she noticed that she was spotting was slightly heavier than what she has been having. States that the bleeding is just slightly heavier than spotting tonight which is more than what it has been. States she saw her obgyn 2 weeks ago for these symptoms and obtained an ultrasound but she has not heard back regarding the results of her ultrasound. Denies any burning with urination. History of Present Illness HPI narrative: has crampy abd pain with spotting over the last few weeks - recent u/s was ok and fht ok - no fever or vomiting complaint: abdominal pain Onset (ago): day(s) Severity: mild Related Data Home Medications Medication Instructions Recorded Confirmed prenat.vits,leila,[id number] 1 tab PO DAILY supplemental 04/10/22 06/30/22 ondansetron 4 mg disintegrating 4 mg PO Q6H Nausea & vomiting 06/30/22 06/30/22 tablet Previous Rx's Medication Instructions Recorded promethazine 12.5 mg tablet 12.5 mg PO Q6H PRN nausea and 04/10/22 vomiting #30 tabs promethazine 12.5 mg rectal 12.5 mg OK Q6H PRN nausea and 04/16/22 suppository vomiting #12 ea Allergies Allergy/AdvReac Type Severity Reaction Status Date / Time No Known Allergies Allergy Verified 06/09/22 10:46 [facility] Disclaimer: The information contained in this section may have been updated after the patient was seen, as this information can be updated by other users. Medical History Dizziness Edema Social History Smoking Status: Never smoker second hand exposure: Yes alcohol intake: never substance use type: denies use current occupational status: employed Travel in the last 8 weeks: None household members: family housing: house current occupation: [employer] current occupational exposures/hazards: No caffeine: Yes ROS Obtained: Yes All systems reviewed & no additional complaints except as documented Physical Exam General General appearance: alert Head Head exam: normocephalic Eye Eye exam: Present PERRL and EOMI ENT ENT exam: Present mucous membranes moist Neck Neck exam: Absent tenderness Respiratory Respiratory exam: Absent respiratory distress Cardiovascular Cardiovascular exam: Present regular rate Abdominal Exam Abdominal exam: Present soft
[2022-06-30 21:45] VITALS: BP 110/70; PULSE 75; RESP 12; O2SAT 100
[2022-06-30 21:50] VITALS: BP 110/70; PULSE 70; RESP 18; TEMP 36.6; O2SAT 99
== END 2022-06-30 21:51 | disposition home or self-care (01) ==
PROVIDERS: Emergency Provider Emergency Medicine; PCP Internal Medicine Adolescent Medicine
DX: O46.8X2 Other antepartum hemorrhage, second trimester (principal); Z3A.19 19 weeks gestation of pregnancy; O26.892 Other specified pregnancy related conditions, second trimester; R10.30 Lower abdominal pain, unspecified
CPT/HCPCS: 80053; 81001; 82150; 83690; 84703; 85025; 99285

== ENCOUNTER → 2022-07-07 13:29 | Outpatient (CLI) | payer OTHER, SELFPAY ==
--- NOTE | 2022-07-07 13:29 | US_ITS ---
FINAL REPORT CLINICAL HISTORY: sga FINDINGS: There is a single live intrauterine gestation. Presentation is cephalic. The cervix is closed and measures 3.6 cm. Placenta is anterior, grade 1. There are multiple vascular lacunae noted in the placenta. There is also absence of the retroplacental clear zone in some areas. 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 There is no evidence of placental previa identified. movement is noted. Three-vessel cord with satisfactory umbilical cord insertion. Four-chamber heart is noted. brain and ventricles are unremarkable. Chest and diaphragm are unremarkable. ABDOMEN: Both kidneys are unremarkable. Stomach is unremarkable. SPINE: No anomalies identified. Both arms and legs noted. AMNIOTIC FLUID: Appropriate amount. MEASUREMENTS: ULTRASOUND AGE: 20 weeks 1 days. GESTATION AGE: 19 weeks 6 days. ESTIMATED WEIGHT: 344 g GROWTH PERCENTILE: 70% LMP percentile BPD: 4.5 cm corresponding with 19 weeks 6 days. OFD: 6.0 cm corresponding with 20 weeks 3 days. HC: 16.7 cm corresponding with 19 weeks 3 days. AC: 15.3 cm corresponding with 20 weeks 4 days. FL: 3.3 cm corresponding with 20 weeks 2 days. CEREBELLUM: 2.0 cm corresponding with 20 weeks 1 days. HUMERUS: 3.1 cm corresponding with 20 weeks 4 days. HC/AC: 1.09 CI: 76% FL/BPD: 72% FL/AC: 21% IMPRESSION: Single living IUP with an ultrasound age of 20 weeks 1 day. 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 Additional follow-up ultrasound may be helpful. Reviewed, Interpreted and Dictated by Kevyn Segura III, MD Transcribed by Homa Hoyos Authenticated and . [facility]
== END ==
PROVIDERS: PCP Internal Medicine Adolescent Medicine; Visit Provider Nurse Practitioner Obstetrics & Gynecology
DX: Z34.90 Encounter for supervision of normal pregnancy, unspecified, unspecified trimester (principal)
CPT/HCPCS: 76811

== ENCOUNTER → 2022-08-27 09:35 | Outpatient (CLI) | payer OTHER, SELFPAY ==
[2022-08-27 09:54] LABS: Basophils # 0.1 K/mm3 (0-0.2); Basophils % 0.7 % (0.1-2.0); Eosinophils # 0.3 K/mm3 (0.0-0.4); Eosinophils % 2.3 % (0.1-12.0); Hematocrit 32.9 % (37.0-47.0); Lymphocytes # 2.9 K/mm3 (0.7-4.5); Lymphocytes % 19.4 % (10-50); Mean Corpuscular HGB Conc 33.4 g/dL (31.8-35.4); Mean Corpuscular Hemoglobin 26.9 pg (27.0-31.2); Mean Corpuscular Volume 80.6 fl (81-99); Monocytes # 0.8 K/mm3 (0.1-1.0); Monocytes % 5.1 % (1.7-9.3); Neutrophils # 10.7 K/mm3 (1.8-7.8); Neutrophils % 72.5 % (37.0-80.0); Platelet Count 449 K/mm3 (142-424); Red Blood Count 4.09 M/mm3 (4.20-5.40); Red Cell Distribution Width 13.9 % (11.5-17.5); White Blood Count 14.7 K/mm3 (4.8-10.8)
[2022-08-27 10:11] LABS: Glucose,Fasting 80 mg/dl (74-100)
[2022-08-27 11:35] LABS: Glucose 1 Hour 133 mg/dL (74-100)
== END ==
PROVIDERS: PCP Internal Medicine Adolescent Medicine; Visit Provider Nurse Practitioner Obstetrics & Gynecology
DX: Z34.90 Encounter for supervision of normal pregnancy, unspecified, unspecified trimester (principal); Z3A.27 27 weeks gestation of pregnancy
CPT/HCPCS: 36415; 82951; 85025

== ENCOUNTER 2022-09-21 15:03 | Outpatient (CLI) | payer OTHER, SELFPAY ==
[2022-09-21 15:24] VITALS: BP 121/81; PULSE 86; RESP 18; TEMP 36.8; O2SAT 98; BMI 38.0
[2022-09-21 16:07] LABS: Microscopic, Urine URINE MICROSCOPIC (MICROSCOPIC)
[2022-09-21 16:11] LABS: Appearance,Urine CLEAR (Clear); Bilirubin,Urine Negative (Negative); Blood, Urine 1+ (Negative); Color,Urine YELLOW (Yellow); Glucose,Urine (UA) Negative (Negative); Ketones,Urine Negative (Negative); Leukocyte Esterase,Urine Negative (Negative); Nitrate,Urine Negative (Negative); Protein,Urine Negative (Negative); Urobilinogen,Urine 0.2 EU/dl (0.2)
[2022-09-21 16:24] LABS: Creatinine,Urine Random 136 mg/dL (Not Estab.); RBC,Urine Occasional #/hpf (0-3)
[2022-09-21 16:26] LABS: Microalbumin/Creatinine Ratio 14.4
[2022-09-21 16:28] LABS: Amphetamine/Metha Screen,Urine Negative ng/ml (<1000)
[2022-09-21 16:29] LABS: Barbiturates Screen,Urine Negative ng/ml (<200)
[2022-09-21 16:30] LABS: Benzodiazepines Screen,Urine Negative ng/ml (<200); Cocaine Screen,Urine Negative ng/ml (<300)
[2022-09-21 16:31] LABS: Methadone Screen,Urine Negative ng/ml (<300)
[2022-09-21 16:32] LABS: Cannabinoid Screen,Urine Negative ng/ml (<50); Opiate Screen,Urine Negative ng/ml (<300)
[2022-09-21 16:33] LABS: Phencyclidine Screen,Urine Negative ng/ml (<25)
[2022-09-21 16:37] LABS: Basophils % 0.2 % (0.1-2.0); Eosinophils # 0.2 K/mm3 (0.0-0.4); Eosinophils % 1.4 % (0.1-12.0); Hematocrit 33.7 % (37.0-47.0); Hemoglobin 10.7 g/dL (12.2-16.2); Lymphocytes # 2.7 K/mm3 (0.7-4.5); Lymphocytes % 18.2 % (10-50); Mean Corpuscular HGB Conc 31.7 g/dL (31.8-35.4); Mean Corpuscular Hemoglobin 24.9 pg (27.0-31.2); Mean Corpuscular Volume 78.4 fl (81-99); Mean Platelet Volume 7.4 fl (7.4-10.4); Monocytes # 0.8 K/mm3 (0.1-1.0); Monocytes % 5.1 % (1.7-9.3); Platelet Count 443 K/mm3 (142-424); Red Cell Distribution Width 14.5 % (11.5-17.5); White Blood Count 14.7 K/mm3 (4.8-10.8)
[2022-09-21 16:43] LABS: Alanine Aminotransferase 21 U/L (12-78); Albumin Level 3.6 g/dl (3.5-5.0); Albumin/Globulin Ratio 1.1 (1.1-1.8); Alkaline Phosphatase 116 U/L (38-126); Anion Gap 7.8 mEq/L (5-15); Aspartate Amino Transferase 23 U/L (14-36); Bilirubin,Total 0.3 mg/dl (0.2-1.3); Blood Urea Nitrogen 3 mg/dl (7-17); Calcium 8.5 mg/dl (8.4-10.2); Carbon Dioxide 20 mmol/L (22.0-30.0); Chloride 107 mmol/L (98-107); Creatinine Clearance Estimated 274 mL/min (50-200); Estimated Glomerular Filt Rate 156 ml/min (>60); GFR (African American) 188 ML/MIN (>60); Globulin 3.4 g/dL (1.3-3.2); Glucose 62 mg/dl (74-100); Potassium 3.8 mmoL/L (3.5-5.1); Sodium 131 mmol/L (136-145)
[2022-09-23 11:15] LABS: Rapid Plasma Reagin Ab Titer Non Reactive (NonRea<1:1); Rubella Antibodies, IgG <0.90 index (Immune >0.99)
[2022-09-23 15:01] LABS: HIV Screen 4th Generation wRfx Non Reactive (Non Reactive); Hepatitis B Surface Antigen Negative (Negative)
== END 2022-09-21 16:25 | disposition home or self-care (01) ==
LOC: OBOUT 15:05 → OB 15:06
PROVIDERS: PCP Internal Medicine Adolescent Medicine; Visit Provider Obstetrics & Gynecology
DX: O16.9 Unspecified maternal hypertension, unspecified trimester (principal); O26.891 Other specified pregnancy related conditions, first trimester; Z3A.31 31 weeks gestation of pregnancy
CPT/HCPCS: 36415; 59025; 80053; 80305; 81001; 82043; 82570; 84550; 85025; 86593; 86762; 86850; 87340; G0463

== ENCOUNTER 2022-10-10 11:52 | Outpatient (CLI) | payer OTHER, SELFPAY ==
[2022-10-10 12:04] VITALS: BMI 37.5
[2022-10-10 12:11] LABS: Microscopic, Urine URINE MICROSCOPIC (MICROSCOPIC)
[2022-10-10 12:13] LABS: Appearance,Urine CLEAR (Clear); Bilirubin,Urine Negative (Negative); Blood, Urine TRACE-I (Negative); Color,Urine YELLOW (Yellow); Glucose,Urine (UA) Negative (Negative); Ketones,Urine Negative (Negative); Leukocyte Esterase,Urine Negative (Negative); Nitrate,Urine Negative (Negative); Protein,Urine Negative (Negative); Specific Gravity, Urine 1.015 (1.005-1.030); Urobilinogen,Urine 0.2 EU/dl (0.2)
[2022-10-10 12:25] LABS: Barbiturates Screen,Urine Negative ng/ml (<200)
[2022-10-10 12:26] LABS: Benzodiazepines Screen,Urine Negative ng/ml (<200)
[2022-10-10 12:27] LABS: Amphetamine/Metha Screen,Urine Negative ng/ml (<1000); Cannabinoid Screen,Urine Negative ng/ml (<50)
[2022-10-10 12:28] LABS: Cocaine Screen,Urine Negative ng/ml (<300); Methadone Screen,Urine Negative ng/ml (<300)
[2022-10-10 12:29] LABS: Bacteria,Urine Trace /lpf; Opiate Screen,Urine Negative ng/ml (<300); RBC,Urine Occasional #/hpf (0-3); Squamous Epithelial Cell,Urine Occasional #/hpf (0-5)
[2022-10-10 12:30] LABS: Phencyclidine Screen,Urine Negative ng/ml (<25)
[2022-10-10 12:42] VITALS: BP 121/61; PULSE 92; RESP 16; TEMP 36.7; O2SAT 98; BMI 37.5
[2022-10-10 13:33] LABS: Fetal Fibronectin (Rapid) Negative (Negative)
== END 2022-10-10 13:50 | disposition home or self-care (01) ==
LOC: OBOUT 11:53 → OB 11:53
PROVIDERS: PCP Internal Medicine Adolescent Medicine; Visit Provider Obstetrics & Gynecology
DX: O26.893 Other specified pregnancy related conditions, third trimester (principal); Z3A.33 33 weeks gestation of pregnancy; R10.9 Unspecified abdominal pain
CPT/HCPCS: 59025; 80305; 81001; 82731; 87086; G0463

== ENCOUNTER 2022-10-11 19:24 | Outpatient (CLI) | payer OTHER, SELFPAY ==
[2022-10-11 19:32] VITALS: BMI 37.5
[2022-10-11 19:38] LABS: Microscopic, Urine URINE MICROSCOPIC (MICROSCOPIC)
[2022-10-11 19:39] LABS: Appearance,Urine CLEAR (Clear); Bilirubin,Urine Negative (Negative); Blood, Urine Negative (Negative); Color,Urine YELLOW (Yellow); Glucose,Urine (UA) Negative (Negative); Ketones,Urine Negative (Negative); Leukocyte Esterase,Urine Negative (Negative); Nitrate,Urine Negative (Negative); PH,Urine 6.5 (5.0-8.5); Protein,Urine Negative (Negative); Urobilinogen,Urine 0.2 EU/dl (0.2)
[2022-10-11 19:50] VITALS: BP 122/74; PULSE 100; RESP 18; TEMP 36.9; O2SAT 98
[2022-10-11 19:51] LABS: Benzodiazepines Screen,Urine Negative ng/ml (<200)
[2022-10-11 19:52] LABS: Amphetamine/Metha Screen,Urine Negative ng/ml (<1000)
[2022-10-11 19:53] LABS: Bacteria,Urine Trace /lpf; Barbiturates Screen,Urine Negative ng/ml (<200); Cannabinoid Screen,Urine Negative ng/ml (<50); Squamous Epithelial Cell,Urine Occasional #/hpf (0-5); WBC,Urine Occasional #/hpf (0-3)
[2022-10-11 19:54] LABS: Cocaine Screen,Urine Negative ng/ml (<300)
[2022-10-11 19:55] LABS: Methadone Screen,Urine Negative ng/ml (<300)
[2022-10-11 19:56] LABS: Opiate Screen,Urine Negative ng/ml (<300)
[2022-10-11 19:57] LABS: Phencyclidine Screen,Urine Negative ng/ml (<25)
[2022-10-11 20:07] LABS: Fetal Membrane Rupture (Rapid) Negative (Negative)
[2022-10-11 20:25] VITALS: BP 120/73; PULSE 88; RESP 16; TEMP 36.7; O2SAT 99
[2022-10-11 20:26] VITALS: BP 122/74; PULSE 100; RESP 18; TEMP 36.9; O2SAT 98; BMI 37.5
== END 2022-10-11 20:50 | disposition home or self-care (01) ==
LOC: OBOUT 19:25 → OB 19:26
PROVIDERS: PCP Internal Medicine Adolescent Medicine; Visit Provider Obstetrics & Gynecology
DX: O47.03 False labor before 37 completed weeks of gestation, third trimester (principal); O36.8130 Decreased fetal movements, third trimester, not applicable or unspecified; R11.0 Nausea; R51.9 Headache, unspecified; Z3A.34 34 weeks gestation of pregnancy
CPT/HCPCS: 59025; 80305; 81001; 84112; G0463

== ENCOUNTER → 2022-10-29 23:35 | Outpatient (CLI) | payer OTHER, SELFPAY | PROVIDERS: PCP Internal Medicine Adolescent Medicine; Visit Provider Nurse Practitioner Obstetrics & Gynecology | DX: Z34.90 Encounter for supervision of normal pregnancy, unspecified, unspecified trimester (principal) | CPT/HCPCS: 86403 ==

== ENCOUNTER → 2022-11-04 16:27 | Outpatient (CLI) | payer OTHER, SELFPAY ==
--- NOTE | 2022-11-04 16:29 | US_ITS ---
PROCEDURE INFORMATION: Exam: US After First Trimester, Transabdominal Exam date and time: 11/04/2022 4:33 PM Age: 22 years old Clinical indication: Lmp or gestational age (in weeks): 37+2; Other: Sga; TECHNIQUE: Imaging protocol: Real-time transabdominal obstetrical ultrasound of the maternal pelvis and a second or third trimester with image documentation. COMPARISON: US OB /MATERNAL DETAIL 07/07/2022 1:32 PM FINDINGS: Uterus: A single, live intrauterine gestation in cephalic/vertex presentation. Normal cardiac activity was seen at 134 bmp. . Amniotic Fluid: HANH 11.1 cm, MVP 5.3 cm. . Placenta: The placenta is anterior, Grade 1, without evidence of previa or placental abruption. . measurements: BPD - 35 weeks and 3 days HC - 35 weeks and 6 days AC - 37 weeks and 4 days FL - 35 weeks and 1 day . Sonographic Gestational Age: Composite gestational age is 36 weeks and 0 days ??? 1-2 weeks with estimated date of confinement of 12/02/2022. Estimated Weight is 2945 g corresponding to 36 percentile. . Survey: Visualized anatomy is unremarkable. . Adnexa: No adnexal mass or abnormality. No free fluid within the pelvis. IMPRESSION: Single VIABLE intrauterine gestation. COMMENT: Estimated date of confinement by current sonogram is 12/02/2022 compared to 11/23/2022 by prior sonogram dated 07/07/2022.
== END ==
PROVIDERS: PCP Internal Medicine Adolescent Medicine; Visit Provider Nurse Practitioner Obstetrics & Gynecology
DX: O09.299 Supervision of pregnancy with other poor reproductive or obstetric history, unspecified trimester (principal)
CPT/HCPCS: 76816

== ENCOUNTER 2022-11-15 00:11 | Outpatient (CLI) | payer OTHER, SELFPAY ==
[2022-11-15 00:14] VITALS: BMI 38.4
[2022-11-15 00:28] LABS: Microscopic, Urine URINE MICROSCOPIC (MICROSCOPIC)
[2022-11-15 00:34] LABS: Appearance,Urine CLEAR (Clear); Bilirubin,Urine Negative (Negative); Blood, Urine Negative (Negative); Color,Urine YELLOW (Yellow); Glucose,Urine (UA) Negative (Negative); Ketones,Urine Negative (Negative); Leukocyte Esterase,Urine TRACE (Negative); Nitrate,Urine Negative (Negative); Protein,Urine Negative (Negative); Urobilinogen,Urine 0.2 EU/dl (0.2)
[2022-11-15 00:39] VITALS: BP 123/70; PULSE 79; RESP 18; TEMP 36.7; O2SAT 98; BMI 38.4
[2022-11-15 00:49] LABS: Amorphous Sediment,Urine Trace /lpf; Bacteria,Urine Trace /lpf; RBC,Urine Occasional #/hpf (0-3); WBC,Urine Occasional #/hpf (0-3)
[2022-11-15 00:55] LABS: Amphetamine/Metha Screen,Urine Negative ng/ml (<1000)
[2022-11-15 00:56] LABS: Barbiturates Screen,Urine Negative ng/ml (<200); Benzodiazepines Screen,Urine Negative ng/ml (<200)
[2022-11-15 00:57] LABS: Cannabinoid Screen,Urine Negative ng/ml (<50)
[2022-11-15 00:58] LABS: Cocaine Screen,Urine Negative ng/ml (<300); Methadone Screen,Urine Negative ng/ml (<300)
[2022-11-15 00:59] LABS: Opiate Screen,Urine Negative ng/ml (<300)
[2022-11-15 01:00] LABS: Phencyclidine Screen,Urine Negative ng/ml (<25)
[2022-11-15 01:06] LABS: Fetal Membrane Rupture (Rapid) Negative (Negative)
== END 2022-11-15 02:00 | disposition home or self-care (01) ==
LOC: OBOUT 00:11 → OB 00:12
PROVIDERS: PCP Internal Medicine Adolescent Medicine; Visit Provider Obstetrics & Gynecology
DX: Z34.90 Encounter for supervision of normal pregnancy, unspecified, unspecified trimester (principal)
CPT/HCPCS: 59025; 80305; 81001; 84112; G0463

== ENCOUNTER 2022-11-16 05:02 | Inpatient (IN) | payer OTHER, SELFPAY ==
[2022-11-16 05:12] VITALS: BMI 38.4
[2022-11-16 05:40] LABS: Microscopic, Urine URINE MICROSCOPIC (MICROSCOPIC)
[2022-11-16 05:40] LABS: Coronavirus 19, PCR Not Detected (NotDetected); Influenza A, PCR Not Detected (NotDetected); Influenza B, PCR Not Detected (NotDetected)
[2022-11-16 05:44] LABS: Appearance,Urine CLEAR (Clear); Bilirubin,Urine Negative (Negative); Blood, Urine TRACE-I (Negative); Color,Urine YELLOW (Yellow); Glucose,Urine (UA) Negative (Negative); Ketones,Urine 1+ (Negative); Leukocyte Esterase,Urine TRACE (Negative); Nitrate,Urine Negative (Negative); PH,Urine 5.5 (5.0-8.5); Protein,Urine Negative (Negative); Specific Gravity, Urine 1.025 (1.005-1.030); Urobilinogen,Urine 0.2 EU/dl (0.2)
[2022-11-16 05:46] LABS: Basophils % 0.3 % (0.1-2.0); Eosinophils # 0.2 K/mm3 (0.0-0.4); Eosinophils % 1.7 % (0.1-12.0); Hemoglobin 9.7 g/dL (12.2-16.2); Lymphocytes # 2.8 K/mm3 (0.7-4.5); Lymphocytes % 20.2 % (10-50); Mean Corpuscular HGB Conc 31.3 g/dL (31.8-35.4); Mean Corpuscular Hemoglobin 22.1 pg (27.0-31.2); Mean Corpuscular Volume 70.8 fl (81-99); Mean Platelet Volume 8.4 fl (7.4-10.4); Monocytes # 0.7 K/mm3 (0.1-1.0); Monocytes % 4.7 % (1.7-9.3); Neutrophils # 10.2 K/mm3 (1.8-7.8); Neutrophils % 73.1 % (37.0-80.0); Platelet Count 462 K/mm3 (142-424); Red Blood Count 4.39 M/mm3 (4.20-5.40); Red Cell Distribution Width 16.5 % (11.5-17.5); White Blood Count 13.9 K/mm3 (4.8-10.8)
[2022-11-16 05:56] LABS: Amphetamine/Metha Screen,Urine Negative ng/ml (<1000); Barbiturates Screen,Urine Negative ng/ml (<200)
[2022-11-16 05:57] LABS: Benzodiazepines Screen,Urine Negative ng/ml (<200)
[2022-11-16 05:58] LABS: Cannabinoid Screen,Urine Negative ng/ml (<50); Cocaine Screen,Urine Negative ng/ml (<300)
[2022-11-16 05:59] LABS: Methadone Screen,Urine Negative ng/ml (<300)
[2022-11-16 06:00] LABS: Bacteria,Urine Trace /lpf; Opiate Screen,Urine Negative ng/ml (<300); Phencyclidine Screen,Urine Negative ng/ml (<25); WBC,Urine Occasional #/hpf (0-3)
[2022-11-16 06:01] VITALS: BP 106/58; PULSE 89; RESP 17; O2SAT 98; BMI 38.4
--- NOTE | 2022-11-16 07:11 | HMH.PHAINT1 ---
Pharmacy Intervention Comments: MEDICATION RECONCILIATION COMPLETED ON PATIENT USING EXTERNAL FILL HISTORY FROM PHARMACY. -KANDIS FELTON, DEVAND
--- NOTE | 2022-11-16 09:56 | P.PN_ITS ---
[facility] Disclaimer: The information contained in this section may have been updated after the patient was seen, as this information can be updated by other users. Medical History Cholelithiasis Circumvallate placenta during in second trimester, antepartum Dizziness Edema Maternal obesity affecting , antepartum Placenta previa affecting delivery Rubella non-immune status, antepartum Surgical History History of cholecystectomy Family History Other No significant family history Social History (Updated 11/16/22 @ 06:07 by Lisa Mujica RN) Smoking Status: Never smoker second hand exposure: Yes alcohol intake: never substance use type: denies use current occupational status: unemployed Travel in the last 8 weeks: None household members: family housing: house current occupation: [employer] current occupational exposures/hazards: No caffeine: Yes [facility] Anesthesia Checklist Patient Identification Patient Identification: Arm Band Structural Data Admitted From: Inpatient Planned Operative Procedure/s: Labor Epidural Consent for Planned Operative Procedure(s) Verified: Yes Verified Documents: Surgical Consent and History and Physical NPO Status Verified Time NPO: 00:00 Additional verifications Anesthesia Reactions: No Hx Blood Transfusions: No Blood Transfusion Reaction: No Airway Assessment C-Spine Mobility Assessed: Yes TMJ Mobility Assessed: Yes Neurological Assessment Level of Consciousness: Awake and Alert Anesthesia Plan Anesthesia Risk discussed: Yes Anesthesia Plan: Verified ASA Class: II Anesthesia Type: Epidural
--- NOTE | 2022-11-16 12:22 | EXP.LABOR.NO ---
Labor Note Subjective: Date: 11/16/22 Time: 08:30 regular contraction Objective: NST:: Reactive Contractions:: every 2-3 minutes Cervical Dilation:: 3 Effacement:: 75% Station: -2 Membranes: artificially ruptured Fetus: Monitoring?: Yes monitoring type:: External Comment:: I ruptured her membranes and there was clear fluid. Assessment: Labor progressing?: Yes Cephalopelvic disproportion?: No Plan: Anesthesia for epidural?: Yes Continue to labor down?: Yes Plan for ?: No Continue to monitor?: Yes Start pushing?: No
--- NOTE | 2022-11-16 12:23 | EXP.LABOR.NO ---
Labor Note Subjective: Date: 11/16/22 Time: 12:23 regular contraction Objective: NST:: Reactive Contractions:: every 2-3 minutes Cervical Dilation:: 8-9 Effacement:: 100% Station: 0 Membranes: artificially ruptured Fetus: Monitoring?: Yes monitoring type:: Internal and External Comment:: I inserted an IUPC. Assessment: Labor progressing?: Yes Cephalopelvic disproportion?: No Plan: Anesthesia for epidural?: Yes Continue to labor down?: Yes Plan for ?: No Continue to monitor?: Yes Start pushing?: No
--- NOTE | 2022-11-16 15:19 | P.PCN_ITS ---
Delivery Note Delivery Date:: 11/16/22 Delivery Time:: 14:47 Anesthesia Type: Epidural Was labor medically induced?: Yes Induction method: per pitocin protocol Gestational age (weeks): 39 delivered prior to 39 weeks?: No Infant Gender: Female at 1 minute: 8 at 5 minutes: 9 LAC or MLE?: LAC Delivery Procedure:: She was started on IV oxytocin and had her membranes ruptured. Under labor epidural she progressed to full dilation and delivered spontaneously a liveborn female child at 2:47 PM in the afternoon of November 16, 2022. On delivery the head there was a loose nuchal cord which was reduced. This was followed by the anterior shoulder and the rest the infant's body atraumatically. The oropharynx and nasopharynx were bulb suction and the baby cried spontaneously. We allowed the cord to continue to pulsate for approximately 1 minute. The cord was then doubly clamped and cut and the was placed on the mother's abdomen for further care. The nurse assigned Apgars of 8 at 1 minute and 9 at 5 minutes. We then obtained cord blood. She received IV oxytocin using gentle traction on the cord and countertraction the fundus I was able to easily deliver the placenta intact. It had a normal three-vessel cord. She had a small first-degree posterior vaginal laceration that was repaired with a single interrupted 3-0 Vicryl Rapide suture. Her deoiling machine operator is Dr. Jolley. She had an estimated blood loss of 200 cc. Laceration:: vaginal Placental Delivery Description: Spontaneous
--- NOTE | 2022-11-16 15:23 | EXP.HP ---
History of Present Illness *Admission Date: 11/16/22 *Reason for visit:: Induction for vaginal delivery. *History of present illness: She is a 22-year-old 2 para 1 who is 39+ weeks gestational age. She has had some contractions and pressure and wanted to go ahead and deliver. As result of that she was offered induction of labor at term. [facility] Disclaimer: The information contained in this section may have been updated after the patient was seen, as this information can be updated by other users. Medical History Cholelithiasis Circumvallate placenta during in second trimester, antepartum Dizziness Edema Maternal obesity affecting , antepartum Placenta previa affecting delivery Rubella non-immune status, antepartum Surgical History History of cholecystectomy Family History No significant family history Social History Smoking Status: Never smoker second hand exposure: Yes alcohol intake: never substance use type: denies use current occupational status: unemployed Travel in the last 8 weeks: None household members: family housing: house current occupation: [employer] current occupational exposures/hazards: No caffeine: Yes Review of Systems Review of Systems Review of systems:: pertinent systems reviewed and negative unless documented below Meds Home Medications and Allergies Home Medications Medication Instructions Recorded Confirmed Type ondansetron 4 mg disintegrating 4 mg PO Q6HP PRN Nausea And 06/30/22 11/16/22 History tablet Vomiting vits no.124-ferrous fum 1 tab PO DAILY Supplement 11/16/22 11/16/22 History 27 mg iron-folic acid 800 mcg tablet ( Vitamin) New Prescriptions to Start Prescriptions: Allergies Allergy/AdvReac Type Severity Reaction Status Date / Time No Known Allergies Allergy Verified 11/11/22 16:33 Exam Data for Last 24 hours Vital signs and Labs for Last 24 Hours: Pulse Resp BP Pulse Ox 89 17 106/58 L 98 11/16/22 06:01 11/16/22 06:01 11/16/22 06:01 11/16/22 06:01 Laboratory Results - last 24 hr 11/16/22 05:20: Urine Color Yellow, Urine Appearance Clear, Urine pH 5.5, Ur Specific [place] 1.025, Urine Protein Negative, Urine Glucose (UA) Negative, Urine Ketones 1+, Urine Blood Trace-i, Urine Nitrate Negative, Urine Bilirubin Negative, Urine Urobilinogen 0.2, Ur Leukocyte Esterase Trace, Urine RBC None, Urine WBC Occasional, Ur Squamous Epith Cells 5-10, Urine Bacteria Trace 11/16/22 05:20: Urine Opiates Screen Negative, Urine Methadone Screen Negative, Ur Barbituates Screen Negative, Ur Phencyclidine Scrn Negative, Ur Amphetamines Screen Negative, U Benzodiazepines Scrn Negative, Urine Cocaine Screen Negative, U Marijuana (THC) Screen Negative 11/16/22 05:23: SARS-CoV-2 (PCR) Not detected, Influenza A Untype (PCR) Not detected, Influenza Type B (PCR) Not detected 11/16/22 05:25: WBC 13.9 H, RBC 4.39, Hgb 9.7 L, Hct 31.0 L, MCV 70.8 L, MCH 22.1 L, MCHC 31.3 L, RDW 16.5, Plt Count 462 H, MPV 8.4, Neut % (Auto) 73.1, Lymph % (Auto) 20.2, [place] % (Auto) 4.7, Eos % (Auto) 1.7, Baso % (Auto) 0.3, Neut # (Auto) 10.2 H, Lymph # (Auto) 2.8, [place] # (Auto) 0.7, Eos # (Auto) 0.2, Baso # (Auto) 0.0 11/16/22 05:25: Blood Type A Positive, Antibody Screen Negative I & O for Last 24 hours: Intake & Output 11/14/22 11/15/22 11/16/22 11/17/22 11:59 11:59 11:59 11:59 Weight 217 lb 0.016 oz Constitutional Constitutional: no acute distress *Routine HEENT Exam Head: Present normocephalic Eye: Present EOMI and PERRL ENT: Present mucous membranes moist *Routine Neck Exam Neck: Present supple; Absent lymphadenopathy *Routine Respiratory Exam Respiratory: Present CTA bilaterally *Routine Cardio
[2022-11-17 07:29] LABS: Hematocrit 28.3 % (37.0-47.0); Hemoglobin 8.9 g/dL (12.2-16.2)
--- NOTE | 2022-11-17 08:19 | EXP.ACUTE.PN ---
Subjective *Date: 11/17/22 *Time: 08:19 Interval history: She is doing well this morning. She is eating and drinking and ambulating. Her hemoglobin is slightly low. She was anemic prior to her delivery. We plan to give her some Venofer this morning. Medical Exam Vital signs and Labs for Last 24 Hours: Laboratory Results - last 24 hr 11/17/22 06:16: Hgb 8.9 L, Hct 28.3 L I & O for Labs for Last 24 Hours: Intake & Output 11/14/22 11/15/22 11/16/22 11/17/22 11:59 11:59 11:59 11:59 Weight 217 lb 0.016 oz Head: Present atraumatic Neck: Present normal inspection Respiratory: Present normal respiratory effort; Absent accessory muscle use Assessment and Plan *Assessment and plan (1) Rubella non-immune status, antepartum: Status: Acute Category: Medical Code(s): O09.899 - Supervision of other high risk pregnancies, unspecified trimester; Z28.39 - Other underimmunization status (2) Maternal obesity affecting , antepartum: Status: Acute Category: Medical Code(s): O99.210 - Obesity complicating , unspecified trimester (3) Normal delivery: Status: Resolved Category: Medical Code(s): O80 - Encounter for full-term uncomplicated delivery (4) Anemia during , delivered, current hospitalization: Status: Acute Category: Medical Code(s): O99.02 - Anemia complicating childbirth Plan She is doing very well this morning. We will plan to give her Venofer this morning since she has iron deficiency anemia. We will plan to discharge her home tomorrow.
[2022-11-17 08:39] VITALS: BP 117/66; PULSE 81; RESP 18; TEMP 36.6; O2SAT 99
[2022-11-17 16:20] VITALS: BP 156/59; PULSE 78; RESP 18; TEMP 36.7; O2SAT 92
[2022-11-18 08:26] VITALS: BP 117/69; PULSE 85; RESP 16; TEMP 36.5; O2SAT 98
--- NOTE | 2022-11-18 09:24 | EXP.DC.SUM ---
General Admission date:: 11/16/22 Discharge date: 11/18/22 HPI HPI HPI: PPD # 2 s/p She is feeling well. Pain controlled. Light lochia. She is formula feeding. Tolerating regular diet. Voiding without difficulty and passing flatus. She has had a BM since delivery. Denies fever/chills, chest pain and shortness of breath. No headaches or vision changes. Admits to lower extremity swelling. Ambulating well ad matt. Hospital Course Hospital Course Hospital Course: Ms Anai Duncan is a 22 yo at 39w0d who presented to [facility] for scheduled elective induction of labor. She underwent induction of labor with Pitocin. GBS negative. She had a normal spontaneous vaginal delivery with 1st degree perineal laceration on 11/16/22 at 1447. She delivered a live female baby (baby's name is Samina) weighing 7 lb 8 oz, APGARs 8, 9. EBL 200 mL. She did well . Pain controlled. She is formula feeding. Light lochia. Tolerating regular diet. Voiding without difficulty and passing flatus. She had a BM after delivery. Vital signs stable, afebrile. She received Venofer 200 mg IV x 1 dose for acute blood loss anemia. Heart was regular rate and rhythm. Lungs clear to ascultation. Abdomen soft, nontender. She had +1 bilateral lower extremity edema, no calf tenderness to palpation. Normal hospital course. Exam Data for Last 24 hours Vital signs and Labs for Last 24 Hours: Temp Pulse Resp BP Pulse Ox 97.7 F 85 16 117/69 98 11/18/22 08:26 11/18/22 08:26 11/18/22 08:26 11/18/22 08:26 11/18/22 08:26 I & O for Last 24 hours: Intake & Output 11/15/22 11/16/22 11/17/22 11/18/22 23:59 23:59 23:59 23:59 Weight 217 lb 0.016 oz Constitutional Constitutional: no acute distress *Routine HEENT Exam Head: Present normocephalic and atraumatic Eye: Absent conjunctivae pink ENT: Present mucous membranes moist *Routine Neck Exam Neck: Present full ROM *Routine Respiratory Exam Respiratory: Present CTA bilaterally and normal respiratory effort *Routine Cardiovascular Exam Cardiovascular: Present RRR *Routine Abdominal Exam Abdominal: Present soft and normoactive bowel sounds; Absent tenderness or distended Comments: Uterine fundus firm and below umbilicus *Routine Rectal Exam Patient deferred: visual exam *Routine Exam Patient deferred: external exam *Routine Extremities Exam Extremities: Present edema (+1 bilateral lower extremity edema) and full ROM; Absent calf tenderness *Routine Neurological Exam Neurological: Present alert, oriented X3 and moving all extremities Routine Psychiatric Exam Psychiatric: Present normal affect and cooperative DS: Diagnosis Discharge Diagnosis (1) with 39 completed weeks gestation: Status: Acute Code(s): Z3A.39 - 39 weeks gestation of (2) Maternal obesity affecting , antepartum: Status: Acute Code(s): O99.210 - Obesity complicating , unspecified trimester (3) Anemia during , delivered, current hospitalization: Status: Acute Code(s): O99.02 - Anemia complicating childbirth (4) Rubella non-immune status, antepartum: Status: Acute Code(s): O09.899 - Supervision of other high risk pregnancies, unspecified trimester; Z28.39 - Other underimmunization status (5) Normal delivery: Status: Resolved Code(s): O80 - Encounter for full-term uncomplicated delivery (6) Acute blood loss anemia: Status: Acute Code(s): D62 - Acute posthemorrhagic anemia Meds Home Medications and Allergies Home Medications Medication Instructions Recorded Confirmed Type ibuprofen 400 mg tablet 800 mg PO Q8HP PRN pain #40 tabs 11/18/22 Rx New Prescriptions to Start Prescriptions: Nuria Kirkland Allergies Allergy/AdvReac Type Severity Reaction Status Date / Time No Known Allergies Allergy Verified 11/11/22 16:33 Discharge Plan Di
--- NOTE | 2022-11-19 09:21 | P.PNANES_ITS ---
[facility] Anesthesia Record Part II Anesthesia Record Part II Discharge Time: 14:47 Destination: Obstetric PACU nurse assessment reviewed?: Yes Patient Condition:: Good Anesthesia Complications:: None Swallowing reflex intact?: Yes Cyanosis?: No Blood Pressure: 153/63 Pulse Rate: 75 Temperature: 97.8 F Mental Status: Alert & Oriented Pain level:: 0 Nausea and/or vomitting:: None Intake, IV Amount: 0
[2022-11-19 09:25] VITALS: BP 153/63; PULSE 75; TEMP 36.6
== END 2022-11-18 11:55 | disposition home or self-care (01) | DRG 806 ==
PROVIDERS: Admitting Provider Nurse Practitioner Obstetrics & Gynecology; PCP Internal Medicine Adolescent Medicine; Visit Provider Nurse Practitioner Obstetrics & Gynecology
DX: O69.81X0 Labor and delivery complicated by cord around neck, without compression, not applicable or unspecified (principal); D62 Acute posthemorrhagic anemia; Z37.0 Single live birth; O70.0 First degree perineal laceration during delivery; Z23 Encounter for immunization; O99.02 Anemia complicating childbirth; Z3A.39 39 weeks gestation of pregnancy; O99.214 Obesity complicating childbirth
CPT/HCPCS: 59409; 59025; 80305; 81001; 84112; 85014; 85018; 85025; 86850; 87636; 94761; C1758; C9803; G0283; G0463; J1756; J2405; U0003; U0005

== ENCOUNTER 2022-12-15 09:49 | Outpatient (CLI) | payer OTHER, SELFPAY ==
[2022-12-15 10:10] VITALS: BP 101/58; PULSE 48; RESP 18; TEMP 36.4; O2SAT 96
[2022-12-15 10:44] VITALS: BP 119/80; PULSE 68; RESP 18
== END 2022-12-15 10:44 | disposition home or self-care (01) ==
LOC: INF 09:50
PROVIDERS: PCP Internal Medicine; Visit Provider Nurse Practitioner Obstetrics & Gynecology
DX: E61.1 Iron deficiency (principal)
CPT/HCPCS: 96365; J1439

== ENCOUNTER 2022-12-22 10:01 | Outpatient (CLI) | payer OTHER, SELFPAY ==
[2022-12-22 10:30] VITALS: BP 107/68; PULSE 56; RESP 18; O2SAT 99
[2022-12-22 11:05] VITALS: BP 121/77; PULSE 50; RESP 18
== END 2022-12-22 11:05 | disposition home or self-care (01) ==
LOC: INF 10:02
PROVIDERS: PCP Internal Medicine; Visit Provider Nurse Practitioner Obstetrics & Gynecology
DX: E61.1 Iron deficiency (principal)
CPT/HCPCS: 96365; J1439

== ENCOUNTER → 2022-12-23 09:31 | Outpatient (CLI) | payer OTHER, SELFPAY ==
--- NOTE | 2022-12-23 09:39 | ECG_ITS ---
APPROVED REPORT Exam: Resting ECG HR:56 bpm ECG Measurements Heart Rate 56 AXES VT 150 P 40 QRSd 83 QRS 35 QT 391 T 17 QTc 382 Conclusion SINUS BRADYCARDIA WITH MARKED SINUS ARRHYTHMIA LOW QRS VOLTAGE IN PRECORDIAL LEADS [QRS DEFLECTION < 1.0 mV IN CHEST LEADS] BORDERLINE ECG UNCONFIRMED REPORT Electronically signed by : Hunter Chang MD 12/23/2022 21:01:38
[2022-12-23 10:00] LABS: Basophils # 0.1 K/mm3 (0-0.2); Basophils % 0.8 % (0.1-2.0); Eosinophils # 0.3 K/mm3 (0.0-0.4); Eosinophils % 4.3 % (0.1-12.0); Hematocrit 34.8 % (37.0-47.0); Lymphocytes # 2.1 K/mm3 (0.7-4.5); Lymphocytes % 32.8 % (10-50); Mean Corpuscular HGB Conc 31.6 g/dL (31.8-35.4); Mean Corpuscular Hemoglobin 23.9 pg (27.0-31.2); Mean Corpuscular Volume 75.6 fl (81-99); Mean Platelet Volume 7.4 fl (7.4-10.4); Monocytes # 0.3 K/mm3 (0.1-1.0); Monocytes % 5.3 % (1.7-9.3); Neutrophils # 3.6 K/mm3 (1.8-7.8); Neutrophils % 56.9 % (37.0-80.0); Platelet Count 359 K/mm3 (142-424); Red Blood Count 4.61 M/mm3 (4.20-5.40); Red Cell Distribution Width 20.4 % (11.5-17.5); White Blood Count 6.3 K/mm3 (4.8-10.8)
[2022-12-23 11:08] LABS: HCG,Quantitative < 2 mIU/ml (0-5.42)
[2022-12-24 10:13] LABS: Rapid Plasma Reagin Ab Titer Non Reactive (NonRea<1:1)
[2023-01-16 17:06] LABS: HIV Screen 4th Generation wRfx Non Reactive; Hepatitis B Surface Antigen Negative
[2023-01-16 17:07] LABS: Hepatitis C Antibody Non Reactive; Rubella Antibodies, IgG <0.90
== END ==
PROVIDERS: PCP Internal Medicine; Visit Provider Nurse Practitioner Obstetrics & Gynecology
DX: Z39.2 Encounter for routine postpartum follow-up (principal); R09.89 Other specified symptoms and signs involving the circulatory and respiratory systems
CPT/HCPCS: 84702; 85025; 86593; 86703; 86762; 86850; 87340; 87380; 93005; G0432

== ENCOUNTER → 2023-01-05 09:58 | Outpatient (CLI) | payer OTHER, SELFPAY ==
[2023-01-05 10:36] LABS: Basophils % 0.5 % (0.1-2.0); Eosinophils # 0.4 K/mm3 (0.0-0.4); Eosinophils % 4.9 % (0.1-12.0); Hematocrit 38.7 % (37.0-47.0); Hemoglobin 12.2 g/dL (12.2-16.2); Lymphocytes # 2.1 K/mm3 (0.7-4.5); Mean Corpuscular HGB Conc 31.5 g/dL (31.8-35.4); Mean Corpuscular Hemoglobin 24.5 pg (27.0-31.2); Mean Corpuscular Volume 77.8 fl (81-99); Mean Platelet Volume 7.2 fl (7.4-10.4); Monocytes # 0.4 K/mm3 (0.1-1.0); Monocytes % 5.1 % (1.7-9.3); Neutrophils # 4.2 K/mm3 (1.8-7.8); Neutrophils % 59.4 % (37.0-80.0); Platelet Count 374 K/mm3 (142-424); Red Blood Count 4.98 M/mm3 (4.20-5.40); Red Cell Distribution Width 21.4 % (11.5-17.5)
[2023-01-05 11:30] LABS: Alanine Aminotransferase 26 U/L (12-78); Albumin Level 4.1 g/dl (3.5-5.0); Alkaline Phosphatase 82 U/L (38-126); Anion Gap 12.3 mEq/L (5-15); Aspartate Amino Transferase 26 U/L (14-36); Bilirubin,Indirect 0.3 mg/dL (0.0-0.9); Bilirubin,Total 0.3 mg/dl (0.2-1.3); Bilirubin,Unconjugated 0.5 mg/dL (0.0-1.1); Blood Urea Nitrogen 10 mg/dl (7-17); Carbon Dioxide 25 mmol/L (22.0-30.0); Chloride 108 mmol/L (98-107); Chol/HDL Ratio 4.3 (1-3.5); Cholesterol 154 mg/dl (140-200); Estimated Glomerular Filt Rate 106 ml/min (>60); GFR (African American) 128 ML/MIN (>60); Glucose 81 mg/dl (74-100); HDL Cholesterol 36 mg/dl (40-60); Magnesium 1.7 mg/dl (1.6-2.3); Potassium 4.3 mmoL/L (3.5-5.1); Sodium 141 mmol/L (136-145); Total Protein,Serum 6.8 g/dl (6.3-8.2); Triglycerides 157 mg/dl (30-150); VLDL Cholesterol 31 mg/dL (0-40)
[2023-01-05 11:47] LABS: Free T4 (Free Thyroxine) 0.71 ng/dl (0.78-2.19)
[2023-01-05 11:52] LABS: Direct LDL Cholesterol 85.97 mg/dL (100-129)
[2023-01-05 12:01] LABS: Thyroid Stimulating Hormone 3.46 uIU/mL (0.465-4.68)
== END ==
PROVIDERS: PCP Internal Medicine; Visit Provider Internal Medicine
DX: R06.00 Dyspnea, unspecified (principal); O90.89 Other complications of the puerperium, not elsewhere classified; R00.1 Bradycardia, unspecified; R42 Dizziness and giddiness; D62 Acute posthemorrhagic anemia
CPT/HCPCS: 36415; 80048; 80061; 80076; 83735; 84439; 84443; 85025; 93225; 93226

== ENCOUNTER → 2023-01-07 08:31 | Outpatient (CLI) | payer OTHER, SELFPAY ==
--- NOTE | 2023-01-07 10:29 | CA_ITS ---
APPROVED REPORT Exam: Exercise Treadmill Technologist: Leslie Jacobson, Ht: 5 ft 3 in Wt: 201 lbs BSA: 1.94 m2 HR: 67 bpm BP: 121/66 mmHg Rhythm: NSR Medical History Medications: Ferrous sulfate,,,,, Ibuprofen,,,,, Stress Test Details Test: Dayron HR Resting HR: 73 bpm Max Heart Rate (APMHR): 199 bpm Max HR Achieved: 168 bpm Target HR (85% APMHR): 169 bpm % of APMHR: 84 Recovery HR: 72 bpm HR response to stress: Borderline normal HR response to stress BP Resting BP: 123.0/65.0 mmHg Max BP: 166.0/70.0 mmHg Recovery BP: 105.0/68.0 mmHg BP response to stress: Normal blood pressure response to stress. ECG Resting ECG: Sinus arrhythmia Stress ECG: < 0.[address] depression Arrhythmia: PACs Recovery ECG: Return to baseline within 3 minutes of recovery Recovery Arrhythmia: PACs Clinical Exercise duration: 09:00 min Highest Stage Achieved: III Exercise capacity: 10.1 METs Overall Exercise Capacity for Age: Average Stress ECG Conclusion The patient was able to exercise for a total of 9:00 on Dayron Protocol. She achieved 10.1 METs. She has an average exercise capacity compared to age and sex matched peers. She has normal HR and BP response to exercise. Max HR: 168 % of PM: 84% Max BP: 166/70 METs: 10.1 Test stopped due to: SOA, fatigue Symptoms: Sharp CP at peak exercise. Arrhythmias/Ectopy: PACs ST-T Changes: Normal ST response to exercise. Conclusion: Chest pain at peak stress. average exercise capacity. Normal ECG stress findings to HR achieved. GXT only (no imaging) Test Summary REST . . . . . . . Sitting REST . . . . . . . Standing REST 03:12 0.0 0.0 73 . 123/ 65 . . Stage 1 01:00 10.0 1.7 111 . . . . Stage 1 02:00 10.0 1.7 123 . . . . Stage 1 03:00 10.0 1.7 115 . 136/ 80 . . Stage 2 01:00 12.0 2.5 126 . . . . Stage 2 02:00 12.0 2.5 137 . . . . Stage 2 03:00 12.0 2.5 139 . 150/ 74 . . Stage 3 01:00 14.0 3.4 156 . . . . Stage 3 02:00 14.0 3.4 165 . . . . Stage 3 03:00 14.0 3.4 167 . 166/ 70 . Stop exercise at 09:00 RECOVERY 01:00 0.0 0.0 115 . . . . RECOVERY 02:00 0.0 0.0 76 . . . . RECOVERY 03:00 0.0 0.0 90 . 142/ 71 . . RECOVERY 04:00 0.0 0.0 70 . 124/ 55 . . RECOVERY 05:00 0.0 0.0 77 . 105/ 68 . . RECOVERY 05:13 0.0 0.0 79 . 105/ 68 . . Electronically signed by : Alberta Canales, 01/10/2023 19:20:44
== END ==
LOC: RT 08:32
PROVIDERS: PCP Internal Medicine; Visit Provider Internal Medicine
DX: R06.00 Dyspnea, unspecified (principal); R00.1 Bradycardia, unspecified; R42 Dizziness and giddiness; O90.89 Other complications of the puerperium, not elsewhere classified
CPT/HCPCS: 93017

== ENCOUNTER → 2023-01-20 08:09 | Outpatient (CLI) | payer OTHER, SELFPAY ==
--- NOTE | 2023-01-20 08:10 | CA_ITS ---
APPROVED REPORT EXAM: Comprehensive 2D, Doppler, and color-flow Echocardiogram Sap Basis: Kait Deutsch RVT Ht: 5 ft 3 in Wt: 201lbs BSA: 1.94 BP: 111/68 mmHg Indications: BRADYCARDIA,SOA 2D Dimensions LVOT 2.13 cm (M/F) 1.5-2.5 LA Volume 32.10 mL LA Volume Index 16.55 mL/m2 (M/F) 16-34 M-Mode Dimensions RVDd 3.14 cm (0.9-2.6) LA Diam 3.58 cm (1.9-4.0) LVDd 3.96 cm (3.5-5.7) Ao Diam 2.65 cm (2.0-3.7) LVDs 2.53 cm (3.5-5.7) IVSd 0.71 cm (0.6-1.1) PWd 0.36 cm (0.6-1.1) EF (Teich) 66.30% FS 36.10% EDV (Teich) 68.30 mL TAPSE 2.70 (<1.7) ESV (Teich) 23.00 mL LV Diastology E Decel Time 150.00 (160-240 msec) E/A Ratio 1.5 MED E' 12.40 (< 7 cm/sec) E'/MED E' Ratio 6.85 (>14) LAT E' 16.60 (<10 cm/sec) E/LAT E' Ratio 5.12 (>14) Aortic Valve AO Peak GR. 4.80 mmHg Mitral Valve MV E Max Sunil. 85.00 (40-130 cm/s) MV A Velocity 57.00 (40-130 cm/s) E/A Ratio 1.49 MV Decel. Time 150.00 (160-240 ms) MV PHT 44.00 ms Pulmonary Valve PV Peak Velocity 100.00 (50-150 cm/s) Left Ventricle The left ventricle is normal size. The left ventricular systolic function is normal. The left ventricular ejection fraction is within the normal range. There is normal left ventricular wall thickness. There is normal LV segmental wall motion. The left ventricular diastolic function is normal. LVEF is 60%. Right Ventricle The right ventricle is mildly dilated. The right ventricular systolic function is normal. Atria The left atrium size is normal. The right atrium size is normal. There is no Doppler evidence of interatrial shunt. Aortic Valve The aortic valve is normal in structure. There is no aortic valvular stenosis. No aortic regurgitation is present. Mitral Valve The mitral valve is normal in structure. No evidence of mitral valve stenosis. There is trace mitral valve regurgitation noted. Tricuspid Valve The tricuspid valve leaflets are thin and pliable. Trace tricuspid regurgitation. RVSP is normal. Pulmonic Valve The pulmonary valve is normal in structure. Trace pulmonic regurgitation. Great Vessels The aortic root is normal in size. The ascending aorta is normal in size. IVC is normal in size and collapses >50% with inspiration. Pericardium There is no pericardial effusion. Conclusion Normal biventricular systolic function. No significant valvular disease. Electronically signed by : Alberta Canales, 01/21/2023 11:00:18
== END ==
PROVIDERS: PCP Internal Medicine; Visit Provider Internal Medicine
DX: R06.00 Dyspnea, unspecified (principal); R42 Dizziness and giddiness; R00.1 Bradycardia, unspecified; O90.89 Other complications of the puerperium, not elsewhere classified
CPT/HCPCS: 93306

== ENCOUNTER → 2023-02-17 08:07 | Outpatient (CLI) | payer OTHER, SELFPAY ==
[2023-02-17 08:53] VITALS: BMI 35.4
[2023-02-17 09:04] LABS: Anion Gap 12.8 mEq/L (5-15); Blood Urea Nitrogen 10 mg/dl (7-17); Calcium 8.7 mg/dl (8.4-10.2); Carbon Dioxide 24 mmol/L (22.0-30.0); Chloride 105 mmol/L (98-107); Creatinine Clearance Estimated 182 mL/min (50-200); Estimated Glomerular Filt Rate 106 ml/min (>60); GFR (African American) 128 ML/MIN (>60); Glucose 80 mg/dl (74-100); Potassium 3.8 mmoL/L (3.5-5.1); Sodium 138 mmol/L (136-145)
[2023-02-17 09:05] LABS: Urine Pregnancy, HCG Qual. Negative (Negative)
[2023-02-17 09:21] VITALS: BP 139/71; PULSE 58
--- NOTE | 2023-02-17 09:21 | PC.NURSE ---
Taken to CT, BP 139/71 Notro 0.8mg SL given per CTA standing orders.
[2023-02-17 10:02] VITALS: BP 128/82
--- NOTE | 2023-02-17 10:02 | PC.NURSE ---
CTA complete, VSS. Transported to post op-stable. Report given to Sol Casillas RN.
[2023-02-17 10:08] VITALS: BP 134/71; PULSE 50; RESP 17; O2SAT 100
== END | disposition home or self-care (01) ==
PROVIDERS: PCP Internal Medicine Adolescent Medicine; Visit Provider Internal Medicine
DX: R00.1 Bradycardia, unspecified (principal); R06.00 Dyspnea, unspecified; R07.9 Chest pain, unspecified; R42 Dizziness and giddiness
CPT/HCPCS: 75574; 80048; 81025; Q9967

== ENCOUNTER → 2023-03-16 18:19 | Outpatient (CLI) | payer OTHER, SELFPAY | PROVIDERS: PCP Nurse Practitioner Family; Visit Provider Nurse Practitioner Family | DX: M54.50 Low back pain, unspecified (principal) | CPT/HCPCS: 87086 ==

== ENCOUNTER 2023-03-22 20:50 | Emergency (ER) | payer OTHER, SELFPAY ==
[2023-03-22 20:52] VITALS: BP 129/75; PULSE 83; RESP 16; TEMP 36.8; O2SAT 99; BMI 35.2
--- NOTE | 2023-03-22 21:33 | XR_ITS ---
PROCEDURE INFORMATION: Exam: XR Right Knee Exam date and time: 03/22/2023 9:53 PM Age: 22 years old Clinical indication: Pain; Knee; Right; Additional info: Right knee pop and pain TECHNIQUE: Imaging protocol: Radiologic exam of the right knee. Views: 3 views. COMPARISON: CR [id number] XR knee RT 3V 07/20/2018 10:12 AM FINDINGS: Bones/joints: Normal. Soft tissues: Normal. IMPRESSION: No acute findings.
--- NOTE | 2023-03-22 22:00 | HMH.EDGENADL ---
Discharge Plan Disposition Patient Disposition: Home, Self-Care Chief Complaint: Extremity Injury, Lower Prescriptions Prescriptions: No Action famotidine 20 mg tablet 20 mg PO DAILY Qty: 30 2RF Referrals Follow up/Referrals: Hunter Chang MD [Primary Care Provider] - See instructions Activity Restrictions/Add. Instructions Additional Instructions/Restrictions: Call your family doctor to establish care for this visit to the emergency department and schedule follow-up within 48 hours to ensure improvement. If you have any worsening of your condition or any other concerning signs or symptoms, return to the emergency department or your primary care doctor for further evaluation. If you continue to have pain, talk to family doctor about following up with orthopedics for further imaging. Take Tylenol 1000 mg every 6 hours (4 times daily) and ibuprofen 400 mg every 6 hours (4 times daily) as needed with food and water to prevent GI upset and kidney damage. Clinical Impressions Clinical Impression: MCL sprain of right knee Qualifiers: Encounter type: initial encounter Qualified Code(s): S83.411A - Sprain of medial collateral ligament of right knee, initial encounter Discharge ED Provider: Ramiro Pearce General Adult HPI General Chief complaint: Extremity Injury, Lower Stated complaint: right knee pain swelling Time Seen by Provider: 03/22/23 21:09 Mode of Arrival: Ambulatory Source of Information: Patient Limitations: No Limitations Description of Symptoms (Recalled from ER Triage Doc. by RN): pt c/o rt knee pain after getting off the floor. History of Present Illness HPI narrative: 22-year-old female with history of previous right knee injury presenting with right knee pain. Patient states that 24 hours prior to arrival, she was standing up with her legs crossed and felt a pop. Grinding noise. Had immediate pain, has not had swelling, but has had difficulty bearing weight. Was initially more painful than it is now. Initially improved, is now a little bit worse. Able to bear weight, but with pain. Pain is moderate in intensity, does not radiate. Made worse by straightening leg. Has not noticed anything that makes it better. Related Data Previous Rx's Medication Instructions Recorded famotidine 20 mg tablet 20 mg PO DAILY #30 tabs 03/16/23 Allergies Allergy/AdvReac Type Severity Reaction Status Date / Time No Known Allergies Allergy Verified 03/16/23 16:06 [facility] Disclaimer: The information contained in this section may have been updated after the patient was seen, as this information can be updated by other users. Medical History Acute blood loss anemia Cholelithiasis Dizziness Dyspnea Edema Lightheadedness Placenta previa affecting delivery complication Rubella non-immune status, antepartum Surgical History History of cholecystectomy Family History Other No significant family history Social History Smoking Status: Current every day smoker second hand exposure: Yes alcohol intake: never substance use type: denies use current occupational status: employed Travel in the last 8 weeks: None household members: family housing: house current occupation: [employer] current occupational exposures/hazards: No caffeine: Yes ROS Obtained: Yes All systems reviewed & no additional complaints except as documented Physical Exam General General appearance: alert and in no apparent distress Head Head exam: atraumatic and normocephalic Eye Eye exam: Present normal appearance, PERRL and EOMI ENT ENT exam: Present mucous membranes moist Neck Neck exam: Present normal inspection, full ROM and trachea midline Respiratory Respiratory exam: Absent respiratory di
[2023-03-22 23:37] VITALS: BP 117/75; PULSE 80; RESP 16; TEMP 36.8; O2SAT 99
== END 2023-03-22 23:42 | disposition home or self-care (01) ==
PROVIDERS: Emergency Provider Emergency Medicine; PCP Internal Medicine Adolescent Medicine
DX: S83.411A Sprain of medial collateral ligament of right knee, initial encounter (principal); F17.210 Nicotine dependence, cigarettes, uncomplicated; X50.0XXA Overexertion from strenuous movement or load, initial encounter
CPT/HCPCS: 73562; 99283

== ENCOUNTER → 2023-04-01 14:57 | Outpatient (CLI) | payer OTHER, SELFPAY | PROVIDERS: PCP Nurse Practitioner Family; Visit Provider Nurse Practitioner Family | DX: M25.561 Pain in right knee (principal) ==

== ENCOUNTER → 2023-04-20 07:36 | Outpatient (CLI) | payer OTHER, SELFPAY | PROVIDERS: PCP Orthopaedic Surgery; Visit Provider Orthopaedic Surgery | DX: M25.561 Pain in right knee (principal) ==

== ENCOUNTER → 2023-04-20 15:16 | Outpatient (CLI) | payer OTHER, SELFPAY | PROVIDERS: PCP Nurse Practitioner Family; Visit Provider Nurse Practitioner Family | DX: R50.9 Fever, unspecified (principal) | CPT/HCPCS: 87635 ==

== ENCOUNTER → 2023-04-21 08:34 | Outpatient (CLI) | payer OTHER, SELFPAY ==
--- NOTE | 2023-04-21 08:35 | MR_ITS ---
FINAL REPORT CLINICAL HISTORY: right knee pain. KNEE POPPED AND MEDIAL SIDED KNEE PAIN. KNEE INSTABILITY. COMPARISON: 07/26/2017 FINDINGS: Multi planar MR imaging was performed of the right knee. The anterior and posterior cruciate ligaments are intact. The quadriceps and patellar tendons are intact. The medial and lateral menisci are intact without evidence of tear. The medial and lateral collateral ligaments appear intact. The medial and lateral retinacula appear intact. There is no evidence of bone marrow edema or osteochondral defect. No evidence of soft tissue inflammatory reaction. IMPRESSION: No evidence of significant internal derangement. Reviewed, Interpreted and Dictated by Warren Valenzuela MD Transcribed by Mercedez Poon Authenticated and [facility]
== END ==
PROVIDERS: PCP Orthopaedic Surgery; Visit Provider Orthopaedic Surgery
DX: S83.411A Sprain of medial collateral ligament of right knee, initial encounter (principal)
CPT/HCPCS: 73721

== ENCOUNTER 2023-04-23 14:31 | Emergency (ER) | payer OTHER, SELFPAY ==
[2023-04-23 14:33] VITALS: BP 121/81; PULSE 59; RESP 16; TEMP 36.6; O2SAT 98; BMI 34.7
--- NOTE | 2023-04-23 14:51 | US_ITS ---
PROCEDURE INFORMATION: Exam: US Pelvis, Transvaginal Exam date and time: 04/23/2023 3:09 PM Age: 22 years old Clinical indication: Pelvic pain; Additional info: Sudden pelvic pain/ RO torsion/ovarian cyst TECHNIQUE: Imaging protocol: Real-time transvaginal pelvic ultrasound with image documentation. Transvaginal imaging was used for better evaluation of the endometrium, adnexa, and/or cervix. COMPARISON: US TRANSVAGINAL 09/09/2021 1:55 PM FINDINGS: Uterus: Uterus measures 8.93 cm x 3.73 cm. Endometrial stripe thickness 8 mm anterior-posterior. Intrauterine device appears to be in correct position. Right ovary/adnexa: Right ovary measures 3.69 cm x 2.71 cm x 2.65 cm. Right ovarian volume is 13.88 mL. Multiple right ovarian follicles suggestive of polycystic ovary. Left ovary/adnexa: Left ovary measures 4.43 cm x 3.25 cm x 3.46 cm. Left ovarian volume is 26.08 mL. 2.4 x 1.4 x 2.4 cm partially collapsed simple appearing left ovarian cyst. Intraperitoneal space: Small simple appearing fluid in the posterior pelvic cul-de-sac. IMPRESSION: 1. 2.4 x 1.4 x 2.4 cm partially collapsed simple appearing left ovarian cyst. 2. Multiple right ovarian follicles suggestive of polycystic ovary. 3. No ultrasound evidence of ovarian torsion. 4. Small simple appearing fluid in the posterior pelvic cul-de-sac.
--- NOTE | 2023-04-23 14:53 | HMH.EDGENADL ---
Discharge Plan Disposition Patient Disposition: Home, Self-Care Prescriptions Prescriptions: No Action famotidine 20 mg tablet 20 mg PO DAILY Qty: 30 2RF sertraline 25 mg tablet 25 mg PO DAILY Qty: 30 2RF hydroxyzine pamoate 25 mg capsule 25 mg PO BID PRN (Reason: anxiety) Qty: 30 2RF Referrals Follow up/Referrals: Jo Barragan APRN [Primary Care Provider] - See instructions Activity Restrictions/Add. Instructions Additional Instructions/Restrictions: Call your family doctor to establish care for this visit to the emergency department and schedule follow-up within 48 hours to ensure improvement. If you have any worsening of your condition or any other concerning signs or symptoms, return to the emergency department or your primary care doctor for further evaluation. Take Tylenol 1000 mg every 6 hours (4 times daily) and ibuprofen 400 mg every 6 hours (4 times daily) as needed with food and water to prevent GI upset and kidney damage. Clinical Impressions Clinical Impression: Pelvic pain, Ruptured cyst of left ovary Discharge ED Provider: Ramiro Pearce General Adult HPI <Last Bertrand MD - Last Filed: 04/23/23 14:55> General Chief complaint: PAIN Stated complaint: IUD may be out place, physican referral Time Seen by Provider: 04/23/23 14:47 Mode of Arrival: Family Vehicle Source of Information: Patient Limitations: No Limitations Description of Symptoms (Recalled from ER Triage Doc. by RN): Pt c/o low pelvic and L > R pain. States it started suddenly around 1330 today. She had a IUD placed by Dr. Church approx 3 mn ago and she called his office and directed her to the ER to ensure the IUD has not migrated. She also reports nausea. States pain worsens with movement, sitting or bending. States she was supposed to have a CT scan to check for kidney stones. She is approx 5 mn post-. Denies any gross hematuria, dysuria, vaginal discharge, fever, or chills. History of Present Illness HPI narrative: Patient is a 22-year-old female presented today with sudden suprapubic and bilateral adnexal pain which began about 130 earlier today. She states she had an IUD placed 3 to 4 months ago and has not had any significant abnormalities associated with this. She called her physician Dr. Pinedo who told her to come to the emergency department. She has had no symptoms associated with dysuria frequency urgency any vaginal bleeding or vaginal discharge. She has a history of an ovarian cyst in the past. Related Data Previous Rx's Medication Instructions Recorded famotidine 20 mg tablet 20 mg PO DAILY #30 tabs 03/16/23 hydroxyzine pamoate 25 mg capsule 25 mg PO BID PRN anxiety #30 caps 04/23/23 sertraline 25 mg tablet 25 mg PO DAILY #30 tabs 04/23/23 Allergies Allergy/AdvReac Type Severity Reaction Status Date / Time No Known Allergies Allergy Verified 04/23/23 10:11 [facility] <J Melquiades Bertrand MD - Last Filed: 04/23/23 14:55> [facility] Disclaimer: The information contained in this section may have been updated after the patient was seen, as this information can be updated by other users. Medical History Acute blood loss anemia Cholelithiasis Dizziness Dyspnea Edema Lightheadedness Placenta previa affecting delivery complication Rubella non-immune status, antepartum Surgical History History of cholecystectomy Family History Other No significant family history Social History Smoking Status: Current some day smoker second hand exposure: Yes alcohol intake: never substance use type: denies use current occupational status: employed Travel in the last 8 weeks: None household members: family housing: house current occupation: [employer] current occupational
[2023-04-23 15:12] LABS: Microscopic, Urine URINE MICROSCOPIC (MICROSCOPIC)
[2023-04-23 15:14] LABS: Basophils % 0.5 % (0.1-2.0); Eosinophils # 0.3 K/mm3 (0.0-0.4); Eosinophils % 3.2 % (0.1-12.0); Hematocrit 41.7 % (37.0-47.0); Hemoglobin 13.9 g/dL (12.2-16.2); Mean Corpuscular HGB Conc 33.4 g/dL (31.8-35.4); Mean Corpuscular Hemoglobin 29.5 pg (27.0-31.2); Mean Corpuscular Volume 88.3 fl (81-99); Mean Platelet Volume 7.5 fl (7.4-10.4); Monocytes # 0.4 K/mm3 (0.1-1.0); Monocytes % 5.1 % (1.7-9.3); Neutrophils # 5.7 K/mm3 (1.8-7.8); Neutrophils % 67.2 % (37.0-80.0); Platelet Count 352 K/mm3 (142-424); Red Blood Count 4.72 M/mm3 (4.20-5.40); White Blood Count 8.5 K/mm3 (4.8-10.8)
[2023-04-23 15:24] LABS: HCG Qualitative, Serum Negative (Negative)
[2023-04-23 15:32] LABS: Appearance,Urine CLEAR (Clear); Bilirubin,Urine Negative (Negative); Blood, Urine 1+ (Negative); Color,Urine YELLOW (Yellow); Glucose,Urine (UA) Negative (Negative); Ketones,Urine Negative (Negative); Leukocyte Esterase,Urine Negative (Negative); Nitrate,Urine Negative (Negative); Protein,Urine Negative (Negative); Specific Gravity, Urine 1.025 (1.005-1.030); Urobilinogen,Urine 0.2 EU/dl (0.2)
[2023-04-23 15:56] LABS: RBC,Urine Occasional #/hpf (0-3); Squamous Epithelial Cell,Urine Occasional #/hpf (0-5)
[2023-04-23 16:07] LABS: Chloride 106 mmol/L (98-107)
[2023-04-23 16:08] LABS: Potassium 3.9 mmoL/L (3.5-5.1); Sodium 139 mmol/L (136-145)
[2023-04-23 16:10] LABS: Alanine Aminotransferase 29 U/L (12-78); Alkaline Phosphatase 72 U/L (38-126); Aspartate Amino Transferase 31 U/L (14-36); Bilirubin,Total 0.5 mg/dl (0.2-1.3); Blood Urea Nitrogen 7 mg/dl (7-17); Creatinine Clearance Estimated 156 mL/min (50-200); Estimated Glomerular Filt Rate 91 ml/min (>60); GFR (African American) 110 ML/MIN (>60)
[2023-04-23 16:11] LABS: Albumin Level 4.5 g/dl (3.5-5.0); Albumin/Globulin Ratio 1.5 (1.1-1.8); Anion Gap 9.9 mEq/L (5-15); Calcium 8.8 mg/dl (8.4-10.2); Carbon Dioxide 27 mmol/L (22.0-30.0); Glucose 75 mg/dl (74-100); Total Protein,Serum 7.5 g/dl (6.3-8.2)
[2023-04-23 16:21] VITALS: BP 112/69; PULSE 75; RESP 18; TEMP 36.7; O2SAT 98
== END 2023-04-23 16:22 | disposition home or self-care (01) ==
PROVIDERS: Student in an Organized Health Care Education/Training Program; Emergency Provider Emergency Medicine; PCP Nurse Practitioner Family
DX: R10.2 Pelvic and perineal pain (principal); N83.292 Other ovarian cyst, left side; F17.210 Nicotine dependence, cigarettes, uncomplicated
CPT/HCPCS: 76830; 80053; 81001; 84703; 85025; 96361; 96374; 99284

== ENCOUNTER → 2023-04-23 23:31 | Outpatient (CLI) | payer OTHER, SELFPAY ==
[2023-04-23 17:12] LABS: Basophils # 0.1 K/mm3 (0-0.2); Basophils % 0.9 % (0.1-2.0); Eosinophils # 0.2 K/mm3 (0.0-0.4); Eosinophils % 2.8 % (0.1-12.0); Hematocrit 41.2 % (37.0-47.0); Lymphocytes # 1.9 K/mm3 (0.7-4.5); Mean Corpuscular HGB Conc 34.1 g/dL (31.8-35.4); Mean Corpuscular Hemoglobin 30.3 pg (27.0-31.2); Mean Corpuscular Volume 88.9 fl (81-99); Mean Platelet Volume 8.2 fl (7.4-10.4); Monocytes # 0.5 K/mm3 (0.1-1.0); Monocytes % 6.2 % (1.7-9.3); Neutrophils % 65.2 % (37.0-80.0); Platelet Count 358 K/mm3 (142-424); Red Blood Count 4.64 M/mm3 (4.20-5.40); Red Cell Distribution Width 13.2 % (11.5-17.5); White Blood Count 7.7 K/mm3 (4.8-10.8)
[2023-04-23 17:47] LABS: T4 (Thyroxine) 6.1 ug/dl (5.53-11.0); Triiodothryronine (T3) Uptake 32 % (23.5-40.5)
[2023-04-23 18:01] LABS: Thyroid Stimulating Hormone 1.03 uIU/mL (0.465-4.68)
== END ==
LOC: LAB.DROPOF 23:33
PROVIDERS: PCP Nurse Practitioner Family; Visit Provider Nurse Practitioner Family
DX: R53.83 Other fatigue (principal)
CPT/HCPCS: 84436; 84443; 84479; 85025

== ENCOUNTER 2023-06-22 18:29 | Emergency (ER) | payer OTHER, SELFPAY ==
[2023-06-22 18:40] VITALS: BP 123/72; PULSE 68; RESP 20; TEMP 37.2; O2SAT 98; BMI 34.7
--- NOTE | 2023-06-22 18:48 | EXP.UTC ---
Discharge Plan Disposition Patient Disposition: Still a Patient Condition: Good Referrals Follow up/Referrals: Jo Barragan APRN [Primary Care Provider] - See instructions [place]charge ED Provider[place] Syl[place] Bus[place] [facility] [place] General Stated complaint: headaches, back pain , abdominal pain Mode of Arrival: Ambulatory Source of Information: Patient Limitations: No Limitations Time Seen by Provider: 06/22/23 18:49 Description of Symptoms (Recalled from Triage Doc. by RN): PATIENT C/O HEADACHE, DIZZINESS, FEELING SHAKY, LOWER BACK AND SIDE PAIN X 2 WEEKS HEENT Symptoms (Recalled from RN notes): Yes Resp Symptoms (Recalled from RN notes): No Skin Symptoms (Recalled from RN notes): No MS Symptoms (Recalled from RN notes): Yes Functional Status (Recalled from RN notes): WNL History of Present Illness Provider Complaint: Patient states that for the last 2 weeks she has been having headache, dizziness on and off and pain in her left flank area that shoots around her side into her lower abdomen that has continued to get worse States that earlier she felt a little shaky feeling States that she has hx of ruptured ovarian cyst States that this evening the pain in her flank and lower abdomen was worse this evening so she came in Related Data Allergies Allergy/AdvReac Type Severity Reaction Status Date / Time No Known Allergies Allergy Verified 04/28/23 09:43 Worker's Comp Is this a Worker's Comp case?: No [facility] Disclaimer: The information contained in this section may have been updated after the patient was seen, as this information can be updated by other users. Medical History (Updated 04/28/23 @ 09:44 by ALISON Figueroa) Acute blood loss anemia Cholelithiasis Dizziness Dyspnea Edema Lightheadedness Rubella non-immune status, antepartum Surgical History History of cholecystectomy Family History Other No significant family history Social History (Updated 04/28/23 @ 09:52 by ALISON Figueroa) Smoking Status: Former smoker second hand exposure: Yes alcohol intake: never substance use type: denies use current occupational status: employed Travel in the last 8 weeks: None household members: family housing: house current occupation: [employer] current occupational exposures/hazards: No caffeine: Yes ROS Obtained: Yes All systems reviewed & no additional complaints except as documented and Yes Systems reviewed as appropriate & no additional complaints except as documented Constitutional Constitutional: Reports system reviewed and no additional complaints, except as documented, Reports as per HPI and Reports headache(s) ENT Ears, Nose, Mouth, and Throat: Reports system reviewed and no additional complaints, except as documented, Reports dizziness and Reports headache(s) Cardiovascular Cardiovascular: Reports system reviewed and no additional complaints, except as documented and Reports as per HPI Respiratory Respiratory: Reports system reviewed and no additional complaints, except as documented and Reports as per HPI Gastrointestinal Gastrointestingal: Reports system reviewed and no additional complaints, except as documented, as per HPI and abdominal pain (left lower abdomen pain); Denies nausea or vomiting Genitourinary Female Genitourinary: Reports system reviewed and no additional complaints, except as documented, Reports as per HPI and Reports flank pain (left flank that radiates around left side to left lower abdomen) Musculoskeletal Musculoskeletal: Reports system reviewed and no additional complaints, except as documented and Reports as per HPI Neurologic Neurologic: Reports system reviewed and no additional complaints, except as documented, Reports as per HPI, Reports dizziness, Reports headache(s) and Reports other (felt shaky earlier ) Physical Exam General General appearance: alert and in no apparent distress Respiratory Respiratory exam: Present normal lung sounds bilaterally; Absent respiratory distress or wheezes Cardiovascular Cardiovascular exam: Present regular rate, normal rhythm and normal heart sounds Abdominal Exam Abdominal exam: Present soft and tenderness (reports tenderness with palpation in left lower abdomen) Neurological Exam Neurological exam: Present alert, oriented X3 and normal gait Medical Decision Making Baljeet Inquiry Pt receiving controlled substance: No Baljeet was queried for this patient: No Vital Signs: 06/22/23 18:40 Temperature 98.9 F Temperature Source Oral Pulse Rate [Right Brachial] 68 Respiratory Rate 20 Blood Pressure [Right Arm] 123/72 Blood Pressure Mean [Right Arm] 89 Blood Pressure Source [Right Arm] Automatic Cuff Blood Pressure Position [Right Arm] Sitting 02 Sat by Pulse Oximetry 98 Oxygen Delivery Method Room Air Lab Data Lab results reviewed: Yes I reviewed the patient's lab results. Medical Decision Narrative: [facility] showed Mod[facility] Blood with small leukocytes concerned with kidney stone, patient has hx of ruptured ovarian cyst Discussed with patient and recommended transfer to the ED for further work up and evaluation and patient agreed Called ED spoke with staff and patient will be moved to the ED for further work up and evaluation
[2023-06-22 18:52] LABS: Apearance,Urine Clear (Clear); Bilirubin,Urine Negative (Negative); Blood, Urine 2+ (Negative); Color,Urine Yellow (Yellow); Glucose,Urine (UA) Negative (Negative); Ketones,Urine Negative (Negative); PH,Urine 5.5 (5.0-8.5); Protein,Urine Negative (Negative); Specific Gravity, Urine 1.025 (1.005-1.030); UTC Leukocyte Esterase,Urine 1+ (Negative); UTC Nitrate,Urine Negative (Negative); Urobilinogen,Urine 0.2 EU/dl (0.2)
[2023-06-22 18:59] LABS: UTC Pregnancy Test, Urine Negative (Negative)
--- NOTE | 2023-06-22 19:10 | PC.NURSE ---
PATIENT SENT TO ER PER Paris HENRIQUEZ APRN FOR FURTHER EVALUATION. REPORT GIVEN TO DR. LEW BY Paris HENRIQUEZ APRN. PATIENT AMBULATED TO ER WITH [facility] STAFF ASSIST
--- NOTE | 2023-06-22 19:17 | ED_ITS ---
Discharge Plan Disposition Patient Disposition: Home, Self-Care Condition: Good Referrals Follow up/Referrals: Jo Barragan APRN [Primary Care Provider] - See instructions Activity Restrictions/Add. Instructions Additional Instructions/Restrictions: Call your family doctor to establish care for this visit to the emergency department and schedule follow-up within 48 hours to ensure improvement. If you have any worsening of your condition or any other concerning signs or symptoms, return to the emergency department or your primary care doctor for further evaluation. Take cefdinir twice daily for 10 days Clinical Impressions Clinical Impression: Acute flank pain, Hematuria, UTI (urinary tract infection), Left nephrolithiasis Instructions Patient Instructions: DI for Acute Abdominal Pain Discharge ED Provider: Ramiro Pearce General Adult HPI General Chief complaint: Abdominal Pain Stated complaint: headaches, back pain , abdominal pain Time Seen by Provider: 06/22/23 18:49 Mode of Arrival: Ambulatory Source of Information: Patient Limitations: No Limitations Description of Symptoms (Recalled from ER Triage Doc. by RN): PATIENT C/O HEADACHE, DIZZINESS, FEELING SHAKY, LOWER BACK AND SIDE PAIN X 2 WEEKS History of Present Illness HPI narrative: 22-year-old female history of ovarian cysts and ruptured ovarian cyst, abdominal pain, cholelithiasis presenting with left flank pain. Patient states been going on for about 2 weeks. Since that it has gotten a little bit worse, is now mostly in her left lower quadrant. No dysuria or hematuria. No change in bowel. No fevers or chills, nausea or vomiting or overlying skin changes. Patient went to the urgent care, was sent here out of concern for kidney stone. Related Data Allergies Allergy/AdvReac Type Severity Reaction Status Date / Time No Known Allergies Allergy Verified 04/28/23 09:43 [facility] Disclaimer: The information contained in this section may have been updated after the patient was seen, as this information can be updated by other users. Medical History (Updated 06/22/23 @ 19:46 by Ramiro Pearce MD) Acute blood loss anemia Cholelithiasis Dizziness Dyspnea Edema Lightheadedness Rubella non-immune status, antepartum Surgical History History of cholecystectomy Family History Other No significant family history Social History (Updated 04/28/23 @ 09:52 by ALISON Figueroa) Smoking Status: Current every day smoker second hand exposure: Yes alcohol intake: never substance use type: denies use current occupational status: employed Travel in the last 8 weeks: None household members: family housing: house current occupation: [employer] current occupational exposures/hazards: No caffeine: Yes ROS Obtained: Yes All systems reviewed & no additional complaints except as documented Physical Exam General General appearance: alert and in no apparent distress Head Head exam: atraumatic and normocephalic Eye Eye exam: Present normal appearance, PERRL and EOMI ENT ENT exam: Present mucous membranes moist Neck Neck exam: Present normal inspection, full ROM and trachea midline Respiratory Respiratory exam: Absent respiratory distress, wheezes, stridor, accessory muscle use or prolonged expiratory phase Cardiovascular Cardiovascular exam: Present normal rhythm Abdominal Exam Abdominal exam: Present soft; Absent distention, tenderness, guarding, rebound or rigidity Extremities Exam Extremities exam: Absent edema Back Exam Back exam: Present CVA tenderness (L); Absent CVA tenderness (R) Neurological Exam Neurological exam: Present alert, oriented X3, CN II-XII intact and normal gait; Absent motor sensory deficit Skin Skin exam: Present warm and dry; Absent diaphoresis or erythema Medical Decision Making Medical Records Medical records reviewed: Yes I reviewed the patient's medical records. Baljeet Inquiry Pt receiving controlled substance: No Baljeet was queried for this patient: No Vital Signs: 06/22/23 18:40 06/22/23 19:23 Temperature 98.9 F 98.3 F Temperature Source Oral Oral Pulse Rate [Right Brachial] 68 92 H Respiratory Rate 20 16 Blood Pressure [Right Arm] 123/72 117/80 Blood Pressure Mean [Right Arm] 89 92 Blood Pressure Source [Right Arm] Automatic Cuff Automatic Cuff Blood Pressure Position [Right Arm] Sitting Sitting 02 Sat by Pulse Oximetry 98 98 Oxygen Delivery Method Room Air Room Air Lab Data Lab Results 06/22/23 18:51: Urine Color Yellow, Urine Appearance Clear, Urine pH 5.5, Ur Specific [place] 1.025, Urine Protein Negative, Urine Glucose (UA) Negative, Urine Ketones Negative, Urine Blood 2+, Urine Nitrate Negative, Urine Bilirubin Negative, Urine Urobilinogen 0.2, Ur Leukocyte Esterase 1+ A, Tst Clinic Negative Orders (Tests/Meds): ED MEDICATIONS Discontinued Medications Generic Name Dose Route Start Last Admin Trade Name Ananthq PRN Reason Stop Dose Admin Cefdinir 300 mg 06/22/23 19:46 06/22/23 19:53 Cefdinir 300mg Capsule PO 06/22/23 19:47 300 mg ONCE ONE Administration ORDERS Category Date Time Status POCUS Point of Care (ER Only) Stat Exams 06/22/23 19:31 Ordered Urine Culture Stat Micro 06/22/23 18:40 Received Medical Decision Narrative: 22-year-old female history of ovarian cysts and ruptured ovarian cyst, abdominal pain, cholelithiasis presenting with left flank pain. Patient states been going on for about 2 weeks. Since that it has gotten a little bit worse, is now mostly in her left lower quadrant. No dysuria or hematuria. No change in bowel. No fevers or chills, nausea or vomiting or overlying skin changes. Patient went to the urgent care, was sent here out of concern for kidney stone. History was obtained via conversation with patient. On arrival, patient hemodynamically stable, alert, oriented x4, appropriate, GCS 15, moving all extremities spontaneously, pupils equal and reactive to light. Full physical exam performed and significant for well-appearing, no acute distress. Patient has no abdominal tenderness on my exam, but does have left flank tenderness. No overlying skin changes. Differential includes nephrolithiasis, ureterolithiasis, UTI, pyelonephritis, , or ruptured ovarian cyst, among others. Patient was given cefdinir p.o. for symptomatic management and correction of underlying abnormalities. Workup independently interpreted and significant for hematuria and leukocyte esterase on UA. Bedside [id number] ultrasound concerning for ureteral dilation without hydronephrosis, which is concerning for distal stone. On reevaluation, patient resting comfortably bed, given first dose of cefdinir. Conversation was had with patient regarding CT scan versus not, she opted for no CT scan at this time, I think this is very reasonable given workup and imaging. Given patient presentation, workup, history, this most likely represents left- sided ureterolithiasis with associated UTI. Because patient at baseline without signs or symptoms of clinical decompensation, deemed appropriate for discharge. Results were relayed to patient who voiced understanding and were agreeable to outpatient management and follow up. At the time of discharge the patient was hemodynamically stable, tolerating PO, and mobilizing appropriately. Return precautions given Procedures Limited Ultrasound Indication:: Limited renal ultrasound Indication: A focused ultrasound of the kidneys was performed to evaluate for hydronephrosis and nephrolithiasis. The ultrasound was performed with the following indications, as noted in the H&P: Flank pain, left lower abdominal pain Identified structures: Left kidney Findings: Left kidney with hydroureter without hydronephrosis. Flank tenderness on ultrasound examination Impression: Left-sided hydroureter without significant hydronephrosis or visualized calculus. Images were saved to permanent archive The study was technically adequate CPT: 94028-44 This study was performed by me, and I personally interpreted all images/videos. Based on my clinical judgement, these images were adequate and did not necessitate further imaging. Critical Care Critical Care Time Critical Care Time: No
[2023-06-22 19:23] VITALS: BP 117/80; PULSE 92; RESP 16; TEMP 36.8; O2SAT 98; BMI 34.7
[2023-06-22] MEDS: CEFDINIR 300MG CAPSULE 300 MG PO (19:53)
[2023-06-22 20:06] VITALS: BP 111/73; PULSE 86; RESP 16; TEMP 36.7; O2SAT 98
== END 2023-06-22 20:10 | disposition home or self-care (01) ==
LOC: UTC 19:05 → ER 19:12
PROVIDERS: Nurse Practitioner; Emergency Provider Emergency Medicine; PCP Nurse Practitioner Family
DX: N39.0 Urinary tract infection, site not specified (principal); B96.29 Other Escherichia coli [E. coli] as the cause of diseases classified elsewhere; R10.32 Left lower quadrant pain; N20.0 Calculus of kidney; N13.4 Hydroureter; R31.9 Hematuria, unspecified; F17.210 Nicotine dependence, cigarettes, uncomplicated
CPT/HCPCS: 81003; 81025; 87086; 99284

== ENCOUNTER 2023-06-28 17:45 | Emergency (ER) | payer OTHER, SELFPAY ==
[2023-06-28 17:47] VITALS: BP 144/84; PULSE 58; RESP 16; TEMP 37; O2SAT 100; BMI 34.7
[2023-06-28 18:13] LABS: Microscopic, Urine URINE MICROSCOPIC (MICROSCOPIC)
[2023-06-28 18:19] LABS: Appearance,Urine CLEAR (Clear); Bilirubin,Urine Negative (Negative); Blood, Urine 2+ (Negative); Color,Urine YELLOW (Yellow); Glucose,Urine (UA) Negative (Negative); Ketones,Urine Negative (Negative); Leukocyte Esterase,Urine Negative (Negative); Nitrate,Urine Negative (Negative); Protein,Urine Negative (Negative); Urobilinogen,Urine 0.2 EU/dl (0.2)
[2023-06-28 18:27] LABS: Alanine Aminotransferase 29 U/L (12-78); Albumin Level 4.4 g/dl (3.5-5.0); Albumin/Globulin Ratio 1.4 (1.1-1.8); Alkaline Phosphatase 68 U/L (38-126); Anion Gap 9.2 mEq/L (5-15); Aspartate Amino Transferase 24 U/L (14-36); Bilirubin,Total 0.3 mg/dl (0.2-1.3); Blood Urea Nitrogen 10 mg/dl (7-17); Calcium 8.7 mg/dl (8.4-10.2); Carbon Dioxide 28 mmol/L (22.0-30.0); Chloride 106 mmol/L (98-107); Creatinine Clearance Estimated 156 mL/min (50-200); Estimated Glomerular Filt Rate 91 ml/min (>60); GFR (African American) 110 ML/MIN (>60); Globulin 3.1 g/dL (1.3-3.2); Glucose 89 mg/dl (74-100); Potassium 4.2 mmoL/L (3.5-5.1); Sodium 139 mmol/L (136-145); Total Protein,Serum 7.5 g/dl (6.3-8.2)
[2023-06-28 18:28] LABS: Basophils # 0.1 K/mm3 (0-0.2); Basophils % 0.8 % (0.1-2.0); Eosinophils # 0.2 K/mm3 (0.0-0.4); Eosinophils % 2.3 % (0.1-12.0); Hematocrit 42.5 % (37.0-47.0); Hemoglobin 14.5 g/dL (12.2-16.2); Lymphocytes # 2.6 K/mm3 (0.7-4.5); Lymphocytes % 29.2 % (10-50); Mean Corpuscular Hemoglobin 30.5 pg (27.0-31.2); Mean Corpuscular Volume 89.7 fl (81-99); Mean Platelet Volume 7.5 fl (7.4-10.4); Monocytes # 0.5 K/mm3 (0.1-1.0); Monocytes % 5.5 % (1.7-9.3); Neutrophils # 5.6 K/mm3 (1.8-7.8); Neutrophils % 62.3 % (37.0-80.0); Platelet Count 335 K/mm3 (142-424); Red Blood Count 4.74 M/mm3 (4.20-5.40); Red Cell Distribution Width 12.4 % (11.5-17.5)
[2023-06-28 18:35] LABS: HCG Qualitative, Serum Negative (Negative)
[2023-06-28 18:58] LABS: Bacteria,Urine Trace /lpf
--- NOTE | 2023-06-28 19:54 | CT_ITS ---
PROCEDURE INFORMATION: Exam: CT Abdomen And Pelvis With Contrast Exam date and time: 06/28/2023 8:09 PM Age: 22 years old Clinical indication: Abdominal pain; Additional info: L flank pain, now R flank pain with hematuria TECHNIQUE: Imaging protocol: Computed tomography of the abdomen and pelvis with contrast. Radiation optimization: All CT scans at this facility use at least one of these dose optimization techniques: automated exposure control; mA and/or kV adjustment per patient size (includes targeted exams where dose is matched to clinical indication); or iterative reconstruction. Contrast material: ISOVUE; Contrast volume: 75 ml; Contrast route: IV; COMPARISON: CT ABDOMEN PELVIS WO CON 03/10/2022 8:53 PM FINDINGS: Liver: Normal. No mass. Gallbladder and bile ducts: Status post cholecystectomy. No significant biliary ductal dilitation. Pancreas: Normal. No ductal dilation. Spleen: Normal. No splenomegaly. Adrenal glands: Normal. No mass. Kidneys and ureters: Normal. No hydronephrosis. Stomach and bowel: Unremarkable. No obstruction. No mucosal thickening. Appendix: No evidence of appendicitis. Intraperitoneal space: Unremarkable. No free air. No significant fluid collection. Vasculature: Unremarkable. No abdominal aortic aneurysm. Lymph nodes: Unremarkable. No enlarged lymph nodes. Urinary bladder: Unremarkable as visualized. Reproductive: IUD is positioned in the endometrial canal. The position appears oblique to the endometrium and the arms of the IUD may be extending into the myometrium. Bones/joints: Unremarkable. No acute fracture. Soft tissues: Small fat containing umbilical hernia. IMPRESSION: 1. No acute findings. 2. IUD is positioned in the endometrial canal. The position appears oblique to the endometrium and the arms of the IUD may be extending into the myometrium.
--- NOTE | 2023-06-28 19:54 | ED_ITS ---
Discharge Plan Disposition Patient Disposition: Home, Self-Care Chief Complaint: Abdominal Pain Prescriptions Prescriptions: No Action cephalexin 500 mg capsule 1,000 mg PO BID 7 Days Qty: 28 0RF Referrals Follow up/Referrals: Ryne Pérez MD [Primary Care Provider] - See instructions Activity Restrictions/Add. Instructions Additional Instructions/Restrictions: At this time it was felt you are safe to be discharged home. If new or worsening symptoms please do not hesitate to return the emergency department. If symptoms persist please follow-up with your family doctor or director water and waste services as you are able. Please take your antibiotics that were previously prescribed you. You did have a small amount of blood and bacteria in your urine which may be indicative of continued infection. Please follow-up for repeat urinalysis with your family doctor to ensure it resolves. Clinical Impressions Clinical Impression: Malpositioned intrauterine device, Abdominal pain, Hematuria Instructions Patient Instructions: DI for Acute Abdominal Pain Discharge ED Provider: Vick Nur General Adult HPI General Chief complaint: Abdominal Pain Stated complaint: Abdominal pain,nausea,lower back pain,unable to pe Time Seen by Provider: 06/28/23 19:00 Mode of Arrival: Ambulatory Source of Information: Patient Limitations: No Limitations Description of Symptoms (Recalled from ER Triage Doc. by RN): pt presents to ED c/o low back pain, abdominal pain, and difficulty urinating. per report pt was seen in ED recently and diagnosed with UTI and kidney stone. pt states she was unable to get her antibiotics filled. History of Present Illness HPI narrative: Patient is a 22-year-old with past medical history of recently diagnosed urinary tract infection who presents emergency department for evaluation abdominal pain. Patient states that she was diagnosed with a suspected kidney stone based on ultrasound and was discharged with a course of antibiotics. She has been unable to fill those antibiotics until today, her left flank pain has since evolved into bilateral flank pain and nausea. No other acute complaints at this time. Related Data Previous Rx's Medication Instructions Recorded cephalexin 500 mg capsule 1,000 mg PO BID 7 days #28 caps 06/23/23 Allergies Allergy/AdvReac Type Severity Reaction Status Date / Time No Known Allergies Allergy Verified 04/28/23 09:43 [facility] Disclaimer: The information contained in this section may have been updated after the patient was seen, as this information can be updated by other users. Medical History (Updated 06/28/23 @ 21:00 by Vick Nur MD) Acute blood loss anemia Cholelithiasis Dizziness Dyspnea Edema Lightheadedness Rubella non-immune status, antepartum Surgical History History of cholecystectomy Family History Other No significant family history Social History (Updated 04/28/23 @ 09:52 by ALISON Figueroa) Smoking Status: Never smoker second hand exposure: Yes alcohol intake: never substance use type: denies use current occupational status: employed Travel in the last 8 weeks: None household members: family housing: house current occupation: [employer] current occupational exposures/hazards: No caffeine: Yes ROS Obtained: Yes Systems reviewed as appropriate & no additional complaints except as documented Physical Exam General General appearance: alert and in no apparent distress Head Head exam: atraumatic and normocephalic Eye Eye exam: Present PERRL and EOMI ENT ENT exam: Present mucous membranes moist Neck Neck exam: Present normal inspection Chest Chest inspection: Present normal inspection and symmetric chest wall rise Respiratory Respiratory exam: Present normal lung sounds bilaterally; Absent respiratory distress Cardiovascular Cardiovascular exam: Present regular rate and normal rhythm Abdominal Exam Abdominal exam: Present soft and tenderness (Left flank); Absent guarding Extremities Exam Extremities exam: Present normal inspection Neurological Exam Neurological exam: Present alert Psychiatric Psychiatric exam: Present normal affect Skin Skin exam: Present warm and dry Medical Decision Making Baljeet Inquiry Pt receiving controlled substance: No Vital Signs: 06/28/23 17:47 Temperature 98.6 F Temperature Source Oral Pulse Rate [Left Apical] 58 L Respiratory Rate 16 Blood Pressure [Left Arm] 144/84 H Blood Pressure Mean [Left Arm] 104 Blood Pressure Source [Left Arm] Automatic Cuff Blood Pressure Position [Left Arm] Sitting 02 Sat by Pulse Oximetry 100 Oxygen Delivery Method Room Air Lab Data Lab Results 06/28/23 18:05: Urine Color Yellow, Urine Appearance Clear, Urine pH 7.0, Ur Specific [place] 1.020, Urine Protein Negative, Urine Glucose (UA) Negative, Urine Ketones Negative, Urine Blood 2+, Urine Nitrate Negative, Urine Bilirubin Negative, Urine Urobilinogen 0.2, Ur Leukocyte Esterase Negative, Urine RBC 5- 10, Urine WBC None, Ur Squamous Epith Cells 10-20, Urine Bacteria Trace 06/28/23 18:06: WBC 9.0, RBC 4.74, Hgb 14.5, Hct 42.5, MCV 89.7, MCH 30.5, MCHC 34.0, RDW 12.4, Plt Count 335, MPV 7.5, Neut % (Auto) 62.3, Lymph % (Auto) 29.2, [place] % (Auto) 5.5, Eos % (Auto) 2.3, Baso % (Auto) 0.8, Neut # (Auto) 5.6, Lymph # (Auto) 2.6, [place] # (Auto) 0.5, Eos # (Auto) 0.2, Baso # (Auto) 0.1, Sodium 139, Potassium 4.2, Chloride 106, Carbon Dioxide 28, Anion Gap 9.2, BUN 10, Creatinine 0.80, Estimated Creat Clear 156, Estimated GFR 91, Est GFR ( Amer) 110, Glucose 89, Calcium 8.7, Total Bilirubin 0.3, AST 24, ALT 29, Alkaline Phosphatase 68, Total Protein 7.5, Albumin 4.4, Globulin 3.1, Albumin/G lobulin Ratio 1.4, Serum HCG, Qual Negative 06/28/23 18:06 06/28/23 18:06 Orders (Tests/Meds): ED MEDICATIONS Generic Name Dose Route Start Last Admin Trade Name Freq PRN Reason Stop Dose Admin Sodium Chloride 10 ml 06/28/23 18:05 Sodium Chloride 0.9% 10ml Flush Syringe IV 07/28/23 18:04 NEEDED PRN Maintain IV Site Sodium Chloride 10 ml 06/28/23 20:14 06/28/23 20:14 Sodium Chloride 0.9% 10ml Syr (Rad Only) IV 07/28/23 20:13 10 ml NEEDED PRN Administration Maintain IV Site Discontinued Medications Generic Name Dose Route Start Last Admin Trade Name Freq PRN Reason Stop Dose Admin Acetaminophen 1,000 mg 06/28/23 19:58 06/28/23 20:12 Acetaminophen 1,000mg/100ml Vial IV 06/28/23 19:59 1,000 mg ONCE ONE Administration Iopamidol 75 ml 06/28/23 20:14 06/28/23 20:14 Iopamidol-370 (76%);100ml Bottle IV 06/28/23 20:15 75 ml ONCE ONE Administration Ketorolac Tromethamine 30 mg 06/28/23 19:58 06/28/23 20:12 Ketorolac 30mg/Ml Vial IV 06/28/23 19:59 30 mg ONCE ONE Administration Ondansetron HCl 4 mg 06/28/23 19:58 06/28/23 20:13 Ondansetron 4mg/2ml Vial IV 06/28/23 19:59 4 mg ONCE ONE Administration ORDERS Category Date Time Status CT abdomen pelvis w con Stat Cat Scan 06/28/23 19:54 Completed Complete Blood Count Auto Diff Stat Lab 06/28/23 18:06 Completed Comprehensive Metabolic Panel Stat Lab 06/28/23 18:06 Completed HCG Qualitative, Serum Stat Lab 06/28/23 18:06 Completed Urinalysis and Microscopic Stat Lab 06/28/23 18:05 Completed Medical Decision Narrative: In summary patient is a 22-year-old female past medical history described above who presents emergency department for evaluation of bilateral flank pain. Patient is hemodynamically stable nontoxic-appearing upon arrival, afebrile. Differential diagnosis includes ureterolithiasis, bladder outlet stone, urinary tract infection, among others. Workup will be conducted with hematologic labs, CT abdomen pelvis IV contrast, urinalysis. Interventions include Tylenol, Toradol, Zofran. Initial workup reviewed by me, hematologic labs are nonactionable, hCG negative. Urinalysis has red blood cells, trace bacteria, significantly contaminated with squamous cells. CT imaging shows no acute findings, IUD may be malpositioned which could explain patient's pain. On repeat evaluation patient was tolerating p.o. and remained hemodynamically stable and is appropriate for discharge at this time. Critical Care Critical Care Time Critical Care Time: No
[2023-06-28] MEDS: KETOROLAC 30MG/ML VIAL 30 MG IV (20:12)
[2023-06-28] MEDS: ACETAMINOPHEN 1,000MG/100ML VIAL 1000 MG IV (20:12)
[2023-06-28] MEDS: ONDANSETRON 4MG/2ML VIAL 4 MG IV (20:13)
[2023-06-28] MEDS: IOPAMIDOL-370 (76%);100ML BOTTLE 75 ML IV (20:14)
[2023-06-28] MEDS: SODIUM CHLORIDE 0.9% 10ML SYR (RAD ONLY) 10 ML IV (20:14)
[2023-06-28 21:02] VITALS: BP 125/76; PULSE 75; RESP 18; TEMP 36.7
== END 2023-06-28 21:13 | disposition home or self-care (01) ==
PROVIDERS: Emergency Provider Emergency Medicine; PCP Family Medicine
DX: R10.9 Unspecified abdominal pain (principal); M54.50 Low back pain, unspecified; R31.9 Hematuria, unspecified; T83.32XA Displacement of intrauterine contraceptive device, initial encounter
CPT/HCPCS: 74177; 80053; 81001; 84703; 85025; 96374; 96375; 99285; J0131; J2405; Q9967

== ENCOUNTER 2023-07-19 08:55 | Emergency (ER) | payer OTHER, SELFPAY ==
[2023-07-19 10:25] VITALS: BP 110/71; PULSE 67; RESP 21; TEMP 36.8; O2SAT 97; BMI 35.5
--- NOTE | 2023-07-19 10:41 | EXP.UTC ---
Discharge Plan Disposition Patient Disposition: Home, Self-Care Condition: Good Prescriptions Prescriptions: New amoxicillin 500 mg capsule 500 mg PO BID 10 Days Qty: 20 0RF No Action sertraline 50 mg tablet 50 mg PO DAILY Qty: 30 2RF Referrals Follow up/Referrals: Jo Barragan APRN [Primary Care Provider] - See instructions Activity Restrictions/Add. Instructions Additional Instructions/Restrictions: *Monitor Temp, Over the counter Motrin or Tylenol as directed/as needed Tylenol every 4 hours and Motrin every 6 hours (as long as your family doctor has told you that you can take it) for fever or pain. and straight to ER if unable to lower temp less than 101.0 after medication given *Warm salt water gargles may help to soothe the throat *Throat Lozenges? *Warm fluids like tea with honey may help to soothe the throat? *Sleep elevated *Humidifier/Vaporizer *If you did not take Penicillin shot or was unable to, start taking antibiotic immediately and make sure that you take it for the FULL length of time although you should start to feel better in 24-48 hours *change toothbrush and toothpaste 24-48 hours after starting to take antibiotics so you do not reinfect yourself Monitor Temp. Tylenol and/or Ibuprofen as needed. ER if fever is no less than 101 despite alternating Tylenol and Ibuprofen * Encourage fluids, water, Gatorade, powerade, pedialyte if infant/toddler/or child *Cold fluids, popsicles and ice cream may feel good on his throat Follow up IMMEDIATELY for new or worsening symptoms or no Noticeable improvement over the next 48-72 hours. 911 for difficulty breathing or swallowing Clinical Impressions Clinical Impression: Strep throat Stand Alone Forms Stand Alone Forms: Work/School Release Instructions Patient Instructions: Strep Throat, DI for Strep Throat Discharge ED Provider: Sylvia Busby [facility] [place] HPI General Stated complaint: body aches, fever, cough Mode of Arrival: Ambulatory Source of Information: Patient Limitations: No Limitations Time Seen by Provider: 07/19/23 10:41 Description of Symptoms (Recalled from Triage Doc. by RN): PATIENT C/O BODY ACHES, FEVER, CONGESTION, AND SORE THROAT THAT STARTED THIS MORNING HEENT Symptoms (Recalled from RN notes): Yes Resp Symptoms (Recalled from RN notes): No Skin Symptoms (Recalled from RN notes): No MS Symptoms (Recalled from RN notes): No Functional Status (Recalled from RN notes): WNL History of Present Illness Provider Complaint: Patient states that he daughter had flu last week and now she has started this morning with fever, chills, sore throat, headache and body aches so she came in to get checked Related Data Previous Rx's Medication Instructions Recorded sertraline 50 mg tablet 50 mg PO DAILY #30 tabs 07/06/23 amoxicillin 500 mg capsule 500 mg PO BID 10 days #20 caps 07/19/23 Allergies Allergy/AdvReac Type Severity Reaction Status Date / Time No Known Allergies Allergy Verified 07/06/23 09:56 Worker's Comp Is this a Worker's Comp case?: No [facility] Disclaimer: The information contained in this section may have been updated after the patient was seen, as this information can be updated by other users. Medical History Acute blood loss anemia Cholelithiasis Dizziness Dyspnea Edema Lightheadedness Rubella non-immune status, antepartum Surgical History History of cholecystectomy Family History Other No significant family history Social History Smoking Status: Never smoker second hand exposure: Yes alcohol intake: never substance use type: denies use current occupational status: employed Travel in the last 8 weeks: None household members: family housing: house current occupation: [employer] current occupational exposures/hazards: No caffeine: Yes ROS Obtained: Yes All systems reviewed & no additional complaints except as documented and Yes Systems reviewed as appropriate & no additional complaints except as documented Constitutional Constitutional: Reports system reviewed and no additional complaints, except as documented, Reports as per HPI, Reports body ache, Reports chills, Reports fever(s) and Reports headache(s) ENT Ears, Nose, Mouth, and Throat: Reports system reviewed and no additional complaints, except as documented, Reports as per HPI, Reports headache(s) and Reports sore throat Cardiovascular Cardiovascular: Reports system reviewed and no additional complaints, except as documented and Reports as per HPI Respiratory Respiratory: Reports system reviewed and no additional complaints, except as documented and Reports as per HPI Gastrointestinal Gastrointestingal: Reports system reviewed and no additional complaints, except as documented and as per HPI Neurologic Neurologic: Reports headache(s) Physical Exam General General appearance: alert and in no apparent distress ENT ENT exam: Present mucous membranes moist Expanded ENT Exam Nose exam: Absent sinus tenderness Throat exam: Present tonsillar erythema and tonsillar exudate Respiratory Respiratory exam: Present normal lung sounds bilaterally; Absent respiratory distress or wheezes Cardiovascular Cardiovascular exam: Present regular rate, normal rhythm and normal heart sounds Abdominal Exam Abdominal exam: Present soft and normal bowel sounds; Absent distention or tenderness Neurological Exam Neurological exam: Present alert, oriented X3 and normal gait Medical Decision Making Baljeet Inquiry Pt receiving controlled substance: No Baljeet was queried for this patient: No Vital Signs: 07/19/23 10:25 Temperature 98.2 F Temperature Source Oral Pulse Rate [Left Brachial] 67 Respiratory Rate 21 Blood Pressure [Left Arm] 110/71 Blood Pressure Mean [Left Arm] 84 Blood Pressure Source [Left Arm] Automatic Cuff Blood Pressure Position [Left Arm] Sitting 02 Sat by Pulse Oximetry 97 Oxygen Delivery Method Room Air Lab Data Lab results reviewed: Yes I reviewed the patient's lab results.
[2023-07-19 10:49] LABS: UTC Strep Screen (Rapid) Positive (Negative)
[2023-07-19 10:50] VITALS: BP 110/71; PULSE 67; RESP 21; TEMP 36.8; O2SAT 97
[2023-07-19 10:50] LABS: UTC Influenza A Antigen Negative (Negative); UTC Influenza B Antigen Negative (Negative)
== END 2023-07-19 10:53 | disposition home or self-care (01) ==
PROVIDERS: Emergency Provider Nurse Practitioner; PCP Nurse Practitioner Family
DX: J02.0 Streptococcal pharyngitis (principal); R07.0 Pain in throat; R50.9 Fever, unspecified; R51.9 Headache, unspecified; M79.18 Myalgia, other site
CPT/HCPCS: 87804; 87880; 99212; 99214; G0463

== ENCOUNTER 2023-08-24 09:24 | Emergency (ER) | payer OTHER, SELFPAY ==
[2023-08-24 09:25] VITALS: BP 118/80; PULSE 75; RESP 16; TEMP 36.8; O2SAT 100; BMI 35.4
--- NOTE | 2023-08-24 09:25 | PC.NURSE ---
Dr. Pearce at [facility] for pt eval
--- NOTE | 2023-08-24 09:31 | US_ITS ---
PROCEDURE INFORMATION: Exam: US Pelvis, Transvaginal Exam date and time: 08/24/2023 10:05 AM Age: 23 years old Clinical indication: Pelvic pain; Additional info: History of pelvic cysts, acute severe pain LABS AND CLINICAL REPORTS: Last menstrual period start date: 08/04/2023 TECHNIQUE: Imaging protocol: Real-time transvaginal pelvic ultrasound with image documentation. Transvaginal imaging was used for better evaluation of the endometrium, adnexa, and/or cervix. COMPARISON: US TRANSVAGINAL 04/23/2023 3:09 PM FINDINGS: Uterus: Uterus measures 9.6 cm x 5.1 cm x 3.7 cm. Endometrium measures 0.8-1.1 cm. Right ovary/adnexa: Right ovary measures 4.1 cm x 2.4 cm x 2.7 cm. Right ovarian volume is 13.56 mL. Several subcentimeter follicles are peripherally arranged. Left ovary/adnexa: Left ovary measures 3.6 cm x 2.9 cm x 2.4 cm. Left ovarian volume is 13.05 mL. Several subcentimeter follicles are peripherally arranged. Central 1.3 cm simple cyst. Intraperitoneal space: No free fluid. IMPRESSION: 1. Ovaries have peripherally arranged subcentimeter follicles that may indicate polycystic ovary syndrome. 2. Previous 2.4 cm left ovary cyst now measures 1.3 cm. 3. No other acute findings in the pelvis.
--- NOTE | 2023-08-24 09:33 | ED_ITS ---
Discharge Plan Disposition Patient Disposition: Home, Self-Care Prescriptions Prescriptions: New ondansetron 4 mg tablet,disintegrating 4 mg PO Q6H PRN (Reason: nausea and vomiting) Qty: 10 0RF No Action norgestimate-ethinyl estradiol [Sprintec (28)] 0.25-35 mg-mcg tablet 1 tab PO DAILY sertraline 50 mg tablet 50 mg PO DAILY Qty: 30 2RF Referrals Follow up/Referrals: Provider,Referral, MD [Primary Care Provider] - See instructions Activity Restrictions/Add. Instructions Additional Instructions/Restrictions: Call your family doctor to establish care for this visit to the emergency department and schedule follow-up within 48 hours to ensure improvement. If you have any worsening of your condition or any other concerning signs or symptoms, return to the emergency department or your primary care doctor for further evaluation. Clinical Impressions Clinical Impression: Abdominal pain, Vomiting Instructions Patient Instructions: DI for Acute Abdominal Pain Discharge ED Provider: Ramiro Pearce General Adult HPI General Chief complaint: Abdominal Pain Stated complaint: phy ref, possible cyst rupture Time Seen by Provider: 08/24/23 09:26 History of Present Illness HPI narrative: This is a 21-year-old female with history of pelvic cysts, chronic abdominal pain, IBS presenting with abdominal pain and pelvic pain. Patient states that last night, 08/22 around 11 PM or midnight she had an acute onset, left-sided lower pelvic pain. It has been 8-10 out of 10 in intensity, more or less waxing and waning. She has not taken any meds for the pain. It is stabbing, sharp, does not radiate. Patient states that she is spotting, but no abnormal vaginal discharge or bleeding otherwise. No diarrhea, constipation, urinary symptoms, fevers or chills. Patient states that she had 1 episode of vomiting just prior to this visit today secondary to pain. Called NURSE ADMINISTRATOR's office NURSE ADMINISTRATOR recommended she come to the emergency department for further evaluation Please note that above description of symptoms, in this electronic medical record under categorization of recalled from ER triage doctor by RN are reflective of an initial nursing assessment, however, is not reflective of my full history and physical exam that was personally taken and clarified. Consequentially, this preceding description of symptoms, which may include the patient's categorized chief complaint in the EMR, do not reflect my personal clinical impression, and the ultimate description of history of present illness and patient stated complaints should be deferred to this section of the note. Unless stated otherwise or congruent with this section of the note, additional signs, symptoms, or incongruence should be interpreted as inaccurate with my clinical impression. Related Data Home Medications Medication Instructions Recorded Confirmed norgestimate 0.25 mg-ethinyl 1 tab PO DAILY 07/19/23 08/23/23 estradiol 35 mcg tablet (Sprintec (28)) Previous Rx's Medication Instructions Recorded sertraline 50 mg tablet 50 mg PO DAILY #30 tabs 07/06/23 ondansetron 4 mg disintegrating 4 mg PO Q6H PRN nausea and 08/24/23 tablet vomiting #10 tabs Allergies Allergy/AdvReac Type Severity Reaction Status Date / Time No Known Allergies Allergy Verified 08/23/23 10:08 [facility] Disclaimer: The information contained in this section may have been updated after the patient was seen, as this information can be updated by other users. Medical History Lightheadedness Dyspnea Cholelithiasis Dizziness Edema Surgical History History of cholecystectomy Family History Other No significant family history Social History Smoking Status: Current every day smoker second hand exposure: Yes alcohol intake: never substance use type: denies use current occupational status: employed Travel in the last 8 weeks: None household members: family housing: house current occupation: [employer] current occupational exposures/hazards: No caffeine: Yes ROS Obtained: Yes All systems reviewed & no additional complaints except as documented Physical Exam General General appearance: alert and in no apparent distress Head Head exam: atraumatic and normocephalic Eye Eye exam: Present normal appearance, PERRL and EOMI ENT ENT exam: Present mucous membranes moist Neck Neck exam: Present normal inspection, full ROM and trachea midline Respiratory Respiratory exam: Absent respiratory distress, wheezes, stridor, accessory muscle use or prolonged expiratory phase Cardiovascular Cardiovascular exam: Present normal rhythm Abdominal Exam Abdominal exam: Present soft, tenderness and guarding (Involuntary right and left lower quadrants); Absent distention, rebound or rigidity Abdominal tenderness: Present RLQ, LLQ and moderate Extremities Exam Extremities exam: Absent edema Neurological Exam Neurological exam: Present alert, oriented X3, CN II-XII intact and normal gait; Absent motor sensory deficit Skin Skin exam: Present warm and dry; Absent diaphoresis or erythema Medical Decision Making Medical Records Medical records reviewed: Yes I reviewed the patient's medical records. Baljeet Inquiry Pt receiving controlled substance: No Baljeet was queried for this patient: No Vital Signs: 08/24/23 09:25 08/24/23 09:54 08/24/23 10:00 Temperature 98.2 F Temperature Source Oral Pulse Rate 73 87 Pulse Rate [Right] 75 Respiratory Rate 16 Blood Pressure 108/64 L 106/69 L Blood Pressure [Right Arm] 118/80 Blood Pressure Mean [Right Arm] 92 Blood Pressure Source [Right Arm] Automatic Cuff 02 Sat by Pulse Oximetry 100 98 97 Oxygen Delivery Method Room Air Room Air Room Air Lab Data Lab Results 08/24/23 09:32: WBC 9.3, RBC 4.73, Hgb 14.9, Hct 44.2, MCV 93.4, MCH 31.5 H, MCHC 33.7, RDW 12.3, Plt Count 357, MPV 7.6, Neut % (Auto) 71.2, Lymph % (Auto) 21.7, [place] % (Auto) 3.7, Eos % (Auto) 2.4, Baso % (Auto) 0.9, Neut # (Auto) 6.7, Lymph # (Auto) 2.0, [place] # (Auto) 0.4, Eos # (Auto) 0.2, Baso # (Auto) 0.1, Sodium 138, Potassium 3.9, Chloride 105, Carbon Dioxide 27, Anion Gap 9.9, BUN 12, Creatinine 0.80, Estimated Creat Clear 158, Estimated GFR 90, Est GFR ( Amer) 109, Glucose 84, Calcium 9.1, Total Bilirubin 0.4, AST 30, ALT 35, Alkaline Phosphatase 74, Total Protein 7.3, Albumin 4.3, Globulin 3.0, Albumin/Globulin Ratio 1.4, HCG, Quant < 2 08/24/23 09:37: Urine Color Straw, Urine Appearance Clear, Urine pH 5.5, Ur Specific [place] <= 1.005, Urine Protein Negative, Urine Glucose (UA) Negative, Urine Ketones Negative, Urine Blood 2+, Urine Nitrate Negative, Urine Bilirubin Negative, Urine Urobilinogen 0.2, Ur Leukocyte Esterase Negative, Urine RBC 3-5, Urine WBC 3-5, Ur Squamous Epith Cells 3-5, Urine Bacteria Trace 08/24/23 09:32 08/24/23 09:32 Orders (Tests/Meds): ED MEDICATIONS Generic Name Dose Route Start Last Admin Trade Name Freq PRN Reason Stop Dose Admin Sodium Chloride 10 ml 08/24/23 09:42 Sodium Chloride 0.9% 10ml Flush Syringe IV 09/23/23 09:41 NEEDED PRN Maintain IV Site Discontinued Medications Generic Name Dose Route Start Last Admin Trade Name Freq PRN Reason Stop Dose Admin Acetaminophen 1,000 mg 08/24/23 09:31 08/24/23 09:43 Acetaminophen 500mg Tab PO 08/24/23 09:32 1,000 mg ONCE ONE Administration Ketorolac Tromethamine 15 mg 08/24/23 09:31 08/24/23 09:43 Ketorolac 30mg/Ml Vial IV 08/24/23 09:32 15 mg ONCE ONE Administration Ondansetron HCl 4 mg 08/24/23 09:31 08/24/23 09:43 Ondansetron 4mg/2ml Vial IV 08/24/23 09:32 4 mg ONCE ONE Administration ORDERS Category Date Time Status US transvaginal Stat Exams 08/24/23 09:31 Taken CBC w/Auto Diff [Complete Blood Count Auto Diff] Stat Lab 08/24/23 09:32 Completed CMP [Comprehensive Metabolic Panel] Stat Lab 08/24/23 09:32 Completed HCG,Quantitative Stat Lab 08/24/23 09:32 Completed UA [Urinalysis and Microscopic] Stat Lab 08/24/23 09:37 Completed Medical Decision Narrative: This is a 21-year-old female with history of pelvic cysts status post debridement and drainage of left ovarian cyst, cholecystectomy, chronic abdominal pain, IBS presenting with abdominal pain and pelvic pain. Patient states that last night, 08/22 around 11 PM or midnight she had an acute onset, left-sided lower pelvic pain. It has been 8-10 out of 10 in intensity, more or less waxing and waning. She has not taken any meds for the pain. It is stabbing, sharp, does not radiate. Patient states that she is spotting, but no abnormal vaginal discharge or bleeding otherwise. No diarrhea, constipation, urinary symptoms, fevers or chills. Patient states that she had 1 episode of vomiting just prior to this visit today secondary to pain. Called NURSE ADMINISTRATOR's office NURSE ADMINISTRATOR recommended she come to the emergency department for further evaluation. History was obtained via conversation with patient. On arrival, patient hemodynamically stable, alert, oriented x4, appropriate, GCS 15, moving all extremities spontaneously, pupils equal and reactive to light. Full physical exam performed and significant for no abdominal distention. Patient does have moderate tenderness in bilateral lower quadrants with involuntary guarding concerning for peritoneal irritation. It is most noticeable in the left lower quadrant, mild in the right. No overlying skin changes. Patient has no flank tenderness. Differential includes , ectopic , ovarian torsion, ovarian cyst rupture, PID, SBO, colitis, diverticulitis, nephrolithiasis, UTI, , appendicitis, hepatitis, among others Patient was given Toradol IV 15 mg, 1000 mg Tylenol p.o. for symptomatic management and correction of underlying abnormalities. Workup independently interpreted and significant for nonactionable CBC or chemistry. Kidney function normal. Patient has scant blood. In urine, likely secondary to vaginal spotting. No concern for UTI. Pelvic ultrasound with bilateral ovarian cysts about 1 cm in max diameter. No evidence of torsion. No free fluid. IUD not currently in place. See radiology read for full review of final results. On reevaluation, patient feeling better, although still having mild pain. Repeat abdominal exam without guarding and patient appears to be much more comfortable. Conversation was had with patient regarding home-going versus CT. Given that patient is feeling so much better, looks comfortable, and had CT scan within the last few weeks with no renal pathology, bowel pathology, or anything to explain patient's current pain, after shared decision making and discussion of risks and benefits, patient opted for home-going and conservative management. Given patient presentation, workup, history, this most likely represents intra- abdominal adhesion related pain. Because patient at baseline without signs or symptoms of clinical decompensation, deemed appropriate for discharge. Results were relayed to patient who voiced understanding and were agreeable to outpatient management and follow up. I discussed my clinical impression with patient and answered all questions. At this time, the evidence for any other entities in the differential is insufficient to warrant any further testing or ED observation. This was explained as well. Advisory was given that persistent or worsening symptoms require further evaluation. I confirmed the understanding of this discussion. Critical Care Critical Care Time Critical Care Time: No
--- NOTE | 2023-08-24 09:39 | PC.NURSE ---
PT ambulatory to bathroom and back to bed. Pt changed into gown and provided with a warm blanket.
[2023-08-24 09:41] LABS: Microscopic, Urine URINE MICROSCOPIC (MICROSCOPIC)
[2023-08-24] MEDS: ONDANSETRON 4MG/2ML VIAL 4 MG IV (09:43)
[2023-08-24] MEDS: KETOROLAC 30MG/ML VIAL 15 MG IV (09:43)
[2023-08-24] MEDS: ACETAMINOPHEN 500MG TAB 1000 MG PO (09:43)
[2023-08-24 09:47] LABS: Appearance,Urine CLEAR (Clear); Bilirubin,Urine Negative (Negative); Blood, Urine 2+ (Negative); Glucose,Urine (UA) Negative (Negative); Ketones,Urine Negative (Negative); Leukocyte Esterase,Urine Negative (Negative); Nitrate,Urine Negative (Negative); PH,Urine 5.5 (5.0-8.5); Protein,Urine Negative (Negative); Specific Gravity, Urine <= 1.005 (1.005-1.030); Urobilinogen,Urine 0.2 EU/dl (0.2)
[2023-08-24 09:50] LABS: Color,Urine Straw (Yellow)
[2023-08-24 09:53] LABS: Chloride 105 mmol/L (98-107)
[2023-08-24 09:54] VITALS: BP 108/64; PULSE 73; O2SAT 98
[2023-08-24 09:54] LABS: Potassium 3.9 mmoL/L (3.5-5.1); Sodium 138 mmol/L (136-145)
[2023-08-24 09:56] LABS: Alanine Aminotransferase 35 U/L (12-78); Alkaline Phosphatase 74 U/L (38-126); Anion Gap 9.9 mEq/L (5-15); Aspartate Amino Transferase 30 U/L (14-36); Basophils # 0.1 K/mm3 (0-0.2); Basophils % 0.9 % (0.1-2.0); Bilirubin,Total 0.4 mg/dl (0.2-1.3); Blood Urea Nitrogen 12 mg/dl (7-17); Carbon Dioxide 27 mmol/L (22.0-30.0); Creatinine Clearance Estimated 158 mL/min (50-200); Eosinophils # 0.2 K/mm3 (0.0-0.4); Eosinophils % 2.4 % (0.1-12.0); Estimated Glomerular Filt Rate 90 ml/min (>60); GFR (African American) 109 ML/MIN (>60); Hematocrit 44.2 % (37.0-47.0); Hemoglobin 14.9 g/dL (12.2-16.2); Lymphocytes % 21.7 % (10-50); Mean Corpuscular HGB Conc 33.7 g/dL (31.8-35.4); Mean Corpuscular Hemoglobin 31.5 pg (27.0-31.2); Mean Corpuscular Volume 93.4 fl (81-99); Mean Platelet Volume 7.6 fl (7.4-10.4); Monocytes # 0.4 K/mm3 (0.1-1.0); Monocytes % 3.7 % (1.7-9.3); Neutrophils # 6.7 K/mm3 (1.8-7.8); Neutrophils % 71.2 % (37.0-80.0); Platelet Count 357 K/mm3 (142-424); Red Blood Count 4.73 M/mm3 (4.20-5.40); Red Cell Distribution Width 12.3 % (11.5-17.5); White Blood Count 9.3 K/mm3 (4.8-10.8)
[2023-08-24 09:57] LABS: Albumin Level 4.3 g/dl (3.5-5.0); Albumin/Globulin Ratio 1.4 (1.1-1.8); Calcium 9.1 mg/dl (8.4-10.2); Glucose 84 mg/dl (74-100); Total Protein,Serum 7.3 g/dl (6.3-8.2)
--- NOTE | 2023-08-24 09:59 | PC.NURSE ---
radiology contacted about us order
[2023-08-24 10:00] VITALS: BP 106/69; PULSE 87; O2SAT 97
--- NOTE | 2023-08-24 10:06 | PC.NURSE ---
pt gone to u/s via wheelchair
[2023-08-24 10:11] LABS: Bacteria,Urine Trace /lpf
[2023-08-24 10:14] LABS: HCG,Quantitative < 2 mIU/ml (0-5.42)
--- NOTE | 2023-08-24 10:31 | PC.NURSE ---
Pt returned from u/s
--- NOTE | 2023-08-24 10:38 | PC.NURSE ---
Dr. Pearce at BS to update pt on results and POC
[2023-08-24 10:48] VITALS: BP 120/58; PULSE 67; RESP 16; TEMP 36.8; O2SAT 98
--- NOTE | 2023-08-24 10:49 | [facility].EDGENADL ---
Discharge Plan Disposition Patient Disposition: Home, Self-Care Prescriptions Prescriptions: New ondansetron 4 mg tablet,disintegrating 4 mg PO Q6H PRN (Reason: nausea and vomiting) Qty: 10 0RF No Action norgestimate-ethinyl estradiol [Sprintec (28)] 0.25-35 mg-mcg tablet 1 tab PO DAILY sertraline 50 mg tablet 50 mg PO DAILY Qty: 30 2RF Referrals Follow up/Referrals: Provider,Referral, MD [Primary Care Provider] - See instructions Activity Restrictions/Add. Instructions Additional Instructions/Restrictions: Call your family doctor to establish care for this visit to the emergency department and schedule follow-up within 48 hours to ensure improvement. If you have any worsening of your condition or any other concerning signs or symptoms, return to the emergency department or your primary care doctor for further evaluation. Clinical Impressions Clinical Impression: Abdominal pain, Vomiting Instructions Patient Instructions: DI for Acute Abdominal Pain Discharge ED Provider: Ramiro Pearce General Adult [facility] General Chief complaint: Abdominal Pain Stated complaint: phy ref, possible cyst rupture Time Seen by Provider: 08/24/23 09:26 Mode of Arrival: Ambulatory Source of Information: Patient Limitations: No Limitations Description of Symptoms (Recalled from ER Triage Doc. by RN): Patient states she feels like she has had an ovarian cyst rupture. Reports pain that started last night and has gotten worse. Patient states she has pain in left lower quadrant and low back with some vomiting and some spotting. Related Data Home Medications Medication Instructions Recorded Confirmed norgestimate 0.25 mg-ethinyl 1 tab PO DAILY 07/19/23 08/23/23 estradiol 35 mcg tablet (Sprintec (28)) Previous Rx's Medication Instructions Recorded sertraline 50 mg tablet 50 mg PO DAILY #30 tabs 07/06/23 ondansetron 4 mg disintegrating 4 mg PO Q6H PRN nausea and 08/24/23 tablet vomiting #10 tabs Allergies Allergy/AdvReac Type Severity Reaction Status Date / Time No Known Allergies Allergy Verified 08/23/23 10:08 [facility] Disclaimer: The information contained in this section may have been updated after the patient was seen, as this information can be updated by other users. Medical History Lightheadedness Dyspnea Cholelithiasis Dizziness Edema Surgical History History of cholecystectomy Family History Other No significant family history Social History Smoking Status: Current every day smoker second hand exposure: Yes alcohol intake: never substance use type: denies use current occupational status: employed Travel in the last 8 weeks: None household members: family housing: house current occupation: [employer] current occupational exposures/hazards: No caffeine: Yes Physical Exam General General appearance: alert and in no apparent distress Medical Decision Making Vital Signs: 08/24/23 09:25 08/24/23 09:54 08/24/23 10:00 Temperature 98.2 F Temperature Source Oral Pulse Rate 73 87 Pulse Rate [Right] 75 Respiratory Rate 16 Blood Pressure 108/64 L 106/69 L Blood Pressure [Right Arm] 118/80 Blood Pressure Mean [Right Arm] 92 Blood Pressure Source Blood Pressure Source [Right Arm] Automatic Cuff 02 Sat by Pulse Oximetry 100 98 97 Oxygen Delivery Method Room Air Room Air Room Air 08/24/23 10:48 Temperature 98.2 F Temperature Source Oral Pulse Rate 67 Pulse Rate [Right] Respiratory Rate 16 Blood Pressure 120/58 L Blood Pressure [Right Arm] Blood Pressure Mean [Right Arm] Blood Pressure Source Automatic Cuff Blood Pressure Source [Right Arm] 02 Sat by Pulse Oximetry Oxygen Delivery Method Room Air Lab Data Lab Results 08/24/23 09:32: WBC 9.3, RBC 4.73, Hgb 14.9, Hct 44.2, MCV 93.4, MCH 31.5 H, MCHC 33.7, RDW 12.3, Plt Count 357, MPV 7.6, Neut % (Auto) 71.2, Lymph % (Auto) 21.7, [place] % (Auto) 3.7, Eos % (Auto) 2.4, Baso % (Auto) 0.9, Neut # (Auto) 6.7, Lymph # (Auto) 2.0, [place] # (Auto) 0.4, Eos # (Auto) 0.2, Baso # (Auto) 0.1, Sodium 138, Potassium 3.9, Chloride 105, Carbon Dioxide 27, Anion Gap 9.9, BUN 12, Creatinine 0.80, Estimated Creat Clear 158, Estimated GFR 90, Est GFR ( Amer) 109, Glucose 84, Calcium 9.1, Total Bilirubin 0.4, AST 30, ALT 35, Alkaline Phosphatase 74, Total Protein 7.3, Albumin 4.3, Globulin 3.0, Albumin/Globulin Ratio 1.4, HCG, Quant < 2 08/24/23 09:37: Urine Color Straw, Urine Appearance Clear, Urine pH 5.5, Ur Specific [place] <= 1.005, Urine Protein Negative, Urine Glucose (UA) Negative, Urine Ketones Negative, Urine Blood 2+, Urine Nitrate Negative, Urine Bilirubin Negative, Urine Urobilinogen 0.2, Ur Leukocyte Esterase Negative, Urine RBC 3-5, Urine WBC 3-5, Ur Squamous Epith Cells 3-5, Urine Bacteria Trace 08/24/23 09:32 08/24/23 09:32 Orders (Tests/Meds): ED MEDICATIONS Discontinued Medications Generic Name Dose Route Start Last Admin Trade Name Freq PRN Reason Stop Dose Admin Acetaminophen 1,000 mg 08/24/23 09:31 08/24/23 09:43 Acetaminophen 500mg Tab PO 08/24/23 09:32 1,000 mg ONCE ONE Administration Ketorolac Tromethamine 15 mg 08/24/23 09:31 08/24/23 09:43 Ketorolac 30mg/Ml Vial IV 08/24/23 09:32 15 mg ONCE ONE Administration Ondansetron HCl 4 mg 08/24/23 09:31 08/24/23 09:43 Ondansetron 4mg/2ml Vial IV 08/24/23 09:32 4 mg ONCE ONE Administration Sodium Chloride 10 ml 08/24/23 09:42 Sodium Chloride 0.9% 10ml Flush Syringe IV 09/23/23 09:41 NEEDED PRN Maintain IV Site ORDERS Category Date Time Status US transvaginal Stat Exams 08/24/23 09:31 Completed CBC w/Auto Diff [Complete Blood Count Auto Diff] Stat Lab 08/24/23 09:32 Completed CMP [Comprehensive Metabolic Panel] Stat Lab 08/24/23 09:32 Completed HCG,Quantitative Stat Lab 08/24/23 09:32 Completed UA [Urinalysis and Microscopic] Stat Lab 08/24/23 09:37 Completed
== END 2023-08-24 10:50 | disposition home or self-care (01) ==
PROVIDERS: Emergency Provider Emergency Medicine
DX: R10.2 Pelvic and perineal pain (principal); R11.10 Vomiting, unspecified; F17.200 Nicotine dependence, unspecified, uncomplicated; N83.201 Unspecified ovarian cyst, right side; N83.202 Unspecified ovarian cyst, left side
CPT/HCPCS: 76830; 80053; 81001; 84702; 85025; 96374; 96375; 99285; J2405

== ENCOUNTER 2023-10-17 20:13 | Emergency (ER) | payer OTHER, SELFPAY ==
[2023-10-17 20:15] VITALS: BP 117/76; PULSE 74; RESP 16; TEMP 36.7; O2SAT 100; BMI 35.4
--- NOTE | 2023-10-17 20:33 | XR_ITS ---
PROCEDURE INFORMATION: Exam: XR Left Foot Exam date and time: 10/17/2023 8:37 PM Age: 23 years old Clinical indication: Pain; Foot; Left TECHNIQUE: Imaging protocol: Radiologic exam of the left foot. Views: 3 or more views. COMPARISON: No relevant prior studies available. FINDINGS: Bones/joints: Osseous alignment is normal. No acute fracture. No significant arthritic change. Soft tissues: Normal. IMPRESSION: Negative left foot
--- NOTE | 2023-10-17 20:43 | ED_ITS ---
<Statement entered by Vick Nur MD - 10/17/23 23:42> I was consulted by the HELENE, and we discussed the complexity of the problems being addressed. I approved the treatment and management plan for this patient's care in the emergency department, thus performing a substantive portion of the medical decision making. Vick Nur MD Discharge Plan Disposition Patient Disposition: Home, Self-Care Condition: Good Prescriptions Prescriptions: New levofloxacin 750 mg tablet 750 mg PO DAILY 7 Days Qty: 7 0RF sulfamethoxazole-trimethoprim [Bactrim DS] 800-160 mg tablet 1 tab PO Q12H 7 Days Qty: 14 0RF No Action norgestimate-ethinyl estradiol [Sprintec (28)] 0.25-35 mg-mcg tablet 1 tab PO DAILY sertraline 50 mg tablet 50 mg PO DAILY Qty: 30 2RF sumatriptan succinate 25 mg tablet See Rx Instructions PO .COMPLEX Qty: 14 1RF Rx Instructions: take 1 tab at onset of headache; if no relief may repeat 1 tab after at least 2 hrs; max = 4 tabs/24 hr PO Referrals Follow up/Referrals: Jo Barragan APRN [Primary Care Provider] - See instructions Activity Restrictions/Add. Instructions Additional Instructions/Restrictions: Please call in the morning to make an appointment with Dr. Dawson. Your prescriptions have been sent to your pharmacy. Return to the emergency department as needed for any worsening signs or symptoms. Clinical Impressions Clinical Impression: Arthralgia of ankle, left Discharge ED Provider: Vick Nur General Adult HPI General Chief complaint: PAIN Stated complaint: Left foot swollen,red Time Seen by Provider: 10/17/23 20:24 Mode of Arrival: Ambulatory Source of Information: Patient Limitations: No Limitations Description of Symptoms (Recalled from ER Triage Doc. by RN): Pt presents to ED for L foot pain and swelling with NKI. Pt rates pain 6. Pt is A&O*4 at this time History of Present Illness HPI narrative: Patient presents for evaluation of left ankle pain. Patient reports that yesterday she began having discomfort at the lateral malleolus inferiorly without any known trauma. This morning she woke up and she noted that her pain was worse along with some redness about the lateral malleolus along with some swelling. Patient again denies any known trauma although she did go fishing yesterday. She denies subjective fever chills hemoptysis hematochezia melena nausea vomit diarrhea. Related Data Home Medications Medication Instructions Recorded Confirmed norgestimate 0.25 mg-ethinyl 1 tab PO DAILY 07/19/23 09/06/23 estradiol 35 mcg tablet (Sprintec (28)) Previous Rx's Medication Instructions Recorded sertraline 50 mg tablet 50 mg PO DAILY #30 tabs 07/06/23 sumatriptan succinate 25 mg tablet See Rx Instructions PO .COMPLEX 09/06/23 #14 tabs levofloxacin 750 mg tablet 750 mg PO DAILY 7 days #7 tabs 10/17/23 sulfamethoxazole 800 1 tab PO Q12H 7 days #14 tabs 10/17/23 mg-trimethoprim 160 mg tablet (Bactrim DS) Allergies Allergy/AdvReac Type Severity Reaction Status Date / Time No Known Allergies Allergy Verified 09/06/23 10:33 [facility] Disclaimer: The information contained in this section may have been updated after the patient was seen, as this information can be updated by other users. Medical History Lightheadedness Dyspnea Cholelithiasis Dizziness Edema Surgical History History of cholecystectomy Family History Other No significant family history Social History Smoking Status: Never smoker second hand exposure: Yes alcohol intake: never substance use type: denies use current occupational status: employed Travel in the last 8 weeks: None household members: family housing: house current occupation: [employer] current occupational exposures/hazards: No caffeine: Yes ROS Obtained: Yes Systems reviewed as appropriate & no additional complaints except as documented Physical Exam General General appearance: alert Respiratory Respiratory exam: Present normal lung sounds bilaterally Cardiovascular Cardiovascular exam: Present regular rate Neurological Exam Neurological exam: Present alert and oriented X3 Other Other exam information: Patient has tenderness to palpation inferiorly to the lateral malleolus of the left ankle. There is erythema in the same area along with some slight fullness. I do not feel any deformities. I do not feel any fluctuance. Patient is neurovascular intact distally. Medical Decision Making Medical Records Medical records reviewed: Yes I reviewed the patient's medical records. Baljeet Inquiry Pt receiving controlled substance: No Vital Signs: 10/17/23 20:15 Temperature 98.0 F Temperature Source Oral Pulse Rate [Left] 74 Respiratory Rate 16 Blood Pressure [Right Arm] 117/76 Blood Pressure Mean [Right Arm] 89 02 Sat by Pulse Oximetry 100 Oxygen Delivery Method Room Air Lab Data Lab results reviewed: Yes I reviewed the patient's lab results. Lab Results 10/17/23 22:02: WBC 9.1, RBC 4.41, Hgb 13.3, Hct 40.4, MCV 91.7, MCH 30.2, MCHC 32.9, RDW 12.7, Plt Count 343, MPV 7.6, Neut % (Auto) 63.8, Lymph % (Auto) 28.0, [place] % (Auto) 4.9, Eos % (Auto) 2.5, Baso % (Auto) 0.7, Neut # (Auto) 5.8, Lymph # (Auto) 2.6, [place] # (Auto) 0.5, Eos # (Auto) 0.2, Baso # (Auto) 0.1, ESR 16, Sodium 140, Potassium 4.0, Chloride 104, Carbon Dioxide 28, Anion Gap 12.0, BUN 9, Creatinine 0.80, Estimated Creat Clear 158, Estimated GFR 90, Est GFR ( Amer) 109, Glucose 84, Uric Acid 4.7, Calcium 9.4, C-Reactive Protein 2.6 10/17/23 22:02 10/17/23 22:02 Orders (Tests/Meds): ED MEDICATIONS Generic Name Dose Route Start Last Admin Trade Name Freq PRN Reason Stop Dose Admin Levofloxacin 750 mg 10/17/23 22:35 Levofloxacin 750 Mg Tablet PO 10/17/23 22:36 ONCE ONE Trimethoprim/Sulfamethoxazole 1 each 10/17/23 22:35 Sulfa/Trimethoprim 1 Tablet PO 10/17/23 22:36 ONCE ONE Discontinued Medications Generic Name Dose Route Start Last Admin Trade Name Freq PRN Reason Stop Dose Admin Acetaminophen 1,000 mg 10/17/23 20:35 10/17/23 20:55 Acetaminophen 500mg Tab PO 10/17/23 20:36 1,000 mg ONCE ONE Administration Dexamethasone Sodium Phosphate 10 mg 10/17/23 22:27 10/17/23 22:35 Dexamethasone 4mg/Ml 5ml Mdv IV 10/17/23 22:28 10 mg ONCE ONE Administration Ibuprofen 800 mg 10/17/23 20:39 10/17/23 20:55 Ibuprofen 800 Mg Tablet PO 10/17/23 20:40 800 mg ONCE ONE Administration ORDERS Category Date Time Status XR foot LT min 3V Stat Exams 10/17/23 20:33 Completed BMP [Basic Metabolic Panel] Stat Lab 10/17/23 22:02 Completed CBC w/Auto Diff [Complete Blood Count Auto Diff] Stat Lab 10/17/23 22:02 Completed CRP [C-Reactive Protein] Stat Lab 10/17/23 22:02 Completed ESR [Erythrocyte Sedimentation Rate] Stat Lab 10/17/23 22:02 Completed Uric Acid Stat Lab 10/17/23 22:02 Completed Medical Decision Narrative: In summary patient is a 23-year-old female who presents to the emergency department for evaluation of ankle pain. Patient is hemodynamically stable upon arrival, afebrile. Physical exam is remarkable for tenderness to palpation at the lateral malleolus without any evidence of trauma but there is some erythema and edema noted. Patient is neurovascular intact distally. Differential diagnosis includes arthralgia versus arthritis versus infection versus sprain versus strain. Initial workup will be conducted with hematologic labs plain film x-rays. Initial interventions include Toradol and Tylenol. Initial workup reviewed by me is that her hematologic labs are nonactionable and my informal review of her plain film x-ray shows no acute processes. Upon repeat evaluation patient still reports the exact same level of pain and discomfort. At this point we have ruled out any acute or serious condition however an over abundance of caution we will initiate the patient on p.o. antibiotics with first dose given here. Given this patient is appropriate for discharge with referral to Dr. Dr. Dawson for further evaluation. Critical Care Critical Care Time Critical Care Time: No
[2023-10-17] MEDS: ACETAMINOPHEN 500MG TAB 1000 MG PO (20:55)
[2023-10-17] MEDS: IBUPROFEN 800 MG TABLET PO (20:55)
[2023-10-17 22:13] LABS: Basophils # 0.1 K/mm3 (0-0.2); Basophils % 0.7 % (0.1-2.0); Eosinophils # 0.2 K/mm3 (0.0-0.4); Eosinophils % 2.5 % (0.1-12.0); Hematocrit 40.4 % (37.0-47.0); Hemoglobin 13.3 g/dL (12.2-16.2); Lymphocytes # 2.6 K/mm3 (0.7-4.5); Mean Corpuscular HGB Conc 32.9 g/dL (31.8-35.4); Mean Corpuscular Hemoglobin 30.2 pg (27.0-31.2); Mean Corpuscular Volume 91.7 fl (81-99); Mean Platelet Volume 7.6 fl (7.4-10.4); Monocytes # 0.5 K/mm3 (0.1-1.0); Monocytes % 4.9 % (1.7-9.3); Neutrophils # 5.8 K/mm3 (1.8-7.8); Neutrophils % 63.8 % (37.0-80.0); Platelet Count 343 K/mm3 (142-424); Red Blood Count 4.41 M/mm3 (4.20-5.40); Red Cell Distribution Width 12.7 % (11.5-17.5); White Blood Count 9.1 K/mm3 (4.8-10.8)
[2023-10-17 22:18] LABS: Blood Urea Nitrogen 9 mg/dl (7-17); Calcium 9.4 mg/dl (8.4-10.2); Carbon Dioxide 28 mmol/L (22.0-30.0); Chloride 104 mmol/L (98-107); Creatinine Clearance Estimated 158 mL/min (50-200); Estimated Glomerular Filt Rate 90 ml/min (>60); GFR (African American) 109 ML/MIN (>60); Glucose 84 mg/dl (74-100); Sodium 140 mmol/L (136-145); Uric Acid 4.7 mg/dl (2.5-6.2)
[2023-10-17 22:24] LABS: C-Reactive Protein 2.6 mg/L (0-4)
[2023-10-17] MEDS: DEXAMETHASONE 4MG/ML 5ML MDV 10 MG IV (22:35)
[2023-10-17 22:40] LABS: Erythrocyte Sedimentation Rate 16 mm/hr (0-20)
[2023-10-17] MEDS: SULFA/TRIMETHOPRIM 1 TABLET 1 EACH PO (22:41)
[2023-10-17] MEDS: levoFLOXacin 750 MG TABLET PO (22:41)
[2023-10-17 22:45] VITALS: BP 122/87; PULSE 65; RESP 18; TEMP 36.4; O2SAT 97
== END 2023-10-17 22:48 | disposition home or self-care (01) ==
PROVIDERS: Physician Assistant; Emergency Provider Emergency Medicine; PCP Nurse Practitioner Family
DX: M25.572 Pain in left ankle and joints of left foot (principal)
CPT/HCPCS: 73630; 80048; 84550; 85025; 85651; 86140; 96374; 99284

== ENCOUNTER 2023-12-29 13:06 | Outpatient (CLI) | payer OTHER, SELFPAY ==
[2023-12-29 14:12] LABS: HCG,Quantitative 5 mIU/ml (0-5.42)
[2023-12-31 08:21] LABS: Progesterone 3.6 ng/mL (.)
== END 2023-12-29 23:59 | disposition home or self-care (01) ==
LOC: LAB 13:07
PROVIDERS: PCP Nurse Practitioner Family; Visit Provider Nurse Practitioner Obstetrics & Gynecology
DX: Z30.9 Encounter for contraceptive management, unspecified (principal)
CPT/HCPCS: 36415; 84144; 84702

== ENCOUNTER 2023-12-31 14:34 | Outpatient (CLI) | payer OTHER, SELFPAY ==
[2023-12-31 16:53] LABS: HCG,Quantitative 4 mIU/ml (0-5.42)
== END 2023-12-31 23:59 | disposition home or self-care (01) ==
LOC: LAB 14:35
PROVIDERS: PCP Nurse Practitioner Family; Visit Provider Obstetrics & Gynecology
DX: N92.6 Irregular menstruation, unspecified (principal)
CPT/HCPCS: 36415; 84702

== ENCOUNTER 2024-01-01 15:28 | Emergency (ER) | payer OTHER, SELFPAY ==
[2024-01-01 15:30] VITALS: BP 124/76; PULSE 73; RESP 18; TEMP 36.9; O2SAT 100; BMI 35.4
[2024-01-01 15:33] VITALS: BP 124/76; PULSE 76
--- NOTE | 2024-01-01 15:49 | US_ITS ---
PROCEDURE INFORMATION: Exam: US , Transvaginal Exam date and time: 01/01/2024 4:29 PM Age: 23 years old Clinical indication: complicated by abdominal or pelvic pain; Left lower quadrant; First trimester (<14 weeks 0 days); Gestational age or lmp: 4w 5d; ; Additional info: Llq pain, early , no imaging hcg not risi LABS AND CLINICAL REPORTS: Last menstrual period start date: 11/29/2023 Gestational age (Established): 4 w 5 d Estimated due date (Established): 09/04/2024 TECHNIQUE: Imaging protocol: Real-time transvaginal obstetrical ultrasound of the maternal pelvis with image documentation. Transvaginal imaging was used for better evaluation of the fetus, adnexa, and/or cervix. COMPARISON: US TRANSVAGINAL 08/24/2023 10:05 AM FINDINGS: Gestation: No intrauterine gestation. MATERNAL: Uterus: Normal-appearing uterus without fibroids. Normal endometrial thickness measuring 7 mm. Right ovary/adnexa: Normal. Normal blood flow. Right ovary measures 3.3 x 2.4 x 2.4 cm. Right ovarian volume is 10.3 mL. Left ovary/adnexa: Normal. Normal blood flow. Left ovary measures 3.3 x 2.1 x 2.2 cm. Left ovarian volume is 8.0 mL. Intraperitoneal space: No pelvic free fluid. IMPRESSION: No intrauterine gestation or adnexal masses. No pelvic free fluid. In the setting of a positive test findings are consistent with a of uncertain location which could be due to an early or recent failure.
--- NOTE | 2024-01-01 15:51 | HMH.EDGENADL ---
Discharge Plan Disposition Patient Disposition: Home, Self-Care Condition: Good Chief Complaint: Urogenital-Female Prescriptions Prescriptions: No Action omeprazole 20 mg capsule,delayed release(DR/EC) PO DAILY etonogestrel-ethinyl estradiol [NuvaRing] 0.12-0.015 mg/24 hr ring 1 vag ring vaginal Q4W Qty: 3 0RF Rx Instructions: leave in place for 3 weeks of a 4-week cycle amitriptyline 25 mg tablet 25 mg PO HS Qty: 30 2RF rizatriptan 10 mg tablet,disintegrating See Rx Instructions PO .COMPLEX Qty: 14 2RF Rx Instructions: take 1 tab at onset of headache; if no relief may repeat 1 tab after at least 2 hrs; max = 3 tabs/24 hr PO sertraline 50 mg tablet 50 mg PO DAILY Qty: 30 2RF Referrals Follow up/Referrals: Jo Barragan APRN [Primary Care Provider] - See instructions Nuria Ivan DO [Staff Physician] - See instructions Activity Restrictions/Add. Instructions Additional Instructions/Restrictions: Your repeat hCG today was 4 which was consistent with that taken yesterday. Your ultrasound did not show a at this time. You should follow-up closely with your OB for continued management and return for any new or worsening symptoms. Clinical Impressions Clinical Impression: Vaginal bleeding in patient at less than 20 weeks gestation Instructions Patient Instructions: DI for Vaginal Bleeding During , Early Bleeding Print Language Print Language: Greek Discharge ED Provider: Lisa Cullen Adult [facility] General Chief complaint: Urogenital-Female Stated complaint: 4 wk cramping, spotting Time Seen by Provider: 01/01/24 15:35 Mode of Arrival: Ambulatory Source of Information: Patient Limitations: No Limitations Description of Symptoms (Recalled from ER Triage Doc. by RN): early bleeding History of Present Illness HPI narrative: Patient is a 23-year-old female with past medical history PCOS, IBS, nephrolithiasis and migraines presenting with abdominal pain and vaginal bleeding. She states that she had a positive test on 724 with an hCG level of 5 after some home test that were positive. She had her level rechecked on 12/30 but she was not able to see the level, per chart review it was 4. She had some abdominal pain worse on the left and started to have some vaginal bleeding no more than adequate. Today but she was told that if she starts to bleed to come to the emergency department for further evaluation. She does note some lightheadedness during this time but denies any fevers, dysuria, nausea, vomiting. Related Data Home Medications ?Medication ?Instructions ?Recorded ?Confirmed omeprazole 20 mg capsule,delayed mg PO DAILY 10/27/23 12/17/23 release Previous Rx's ?Medication ?Instructions ?Recorded sertraline 50 mg tablet 50 mg PO DAILY #30 tabs 07/06/23 etonogestrel 0.12 mg-ethinyl 1 vag ring vaginal Q4W #3 ea 11/25/23 estradiol 0.015 mg/24 hr vaginal ring (NuvaRing) amitriptyline 25 mg tablet 25 mg PO HS #30 tabs 12/17/23 rizatriptan 10 mg disintegrating See Rx Instructions PO .COMPLEX 12/17/23 tablet #14 tabs Allergies Allergy/AdvReac Type Severity Reaction Status Date / Time No Known Allergies Allergy Verified 12/17/23 11:19 [facility] Disclaimer: The information contained in this section may have been updated after the patient was seen, as this information can be updated by other users. Medical History Dysmenorrhea Irregular periods/menstrual cycles Endometriosis Dyspareunia Lightheadedness Dyspnea Cholelithiasis Dizziness Edema Surgical History History of cholecystectomy Family History Other No significant family history Social History Smoking Status: Current every day smoker second hand exposure: Yes alcohol intake: never substance use type: denies use current occupational status: employed Travel in the last 8 weeks: None household members: family housing: house current occupation: [employer] current occupational exposures/hazards: No caffeine: Yes ROS Obtained: Yes All systems reviewed & no additional complaints except as documented Physical Exam General General appearance: alert and in no apparent distress Respiratory Respiratory exam: Present normal lung sounds bilaterally; Absent respiratory distress Cardiovascular Cardiovascular exam: Present regular rate and normal rhythm Abdominal Exam Abdominal exam: Present soft and tenderness (Tenderness to palpation in the lower abdomen particularly on the left without rebound or guarding) Extremities Exam Extremities exam: Present normal inspection Neurological Exam Neurological exam: Present alert and oriented X3 Skin Skin exam: Present warm and dry Medical Decision Making Medical Records Medical records reviewed: Yes I reviewed the patient's medical records. Baljeet Inquiry Pt receiving controlled substance: No Baljeet was queried for this patient: No Vital Signs: 01/01/24 15:30 01/01/24 15:33 Temperature 98.4 F Temperature Source Oral Pulse Rate 76 Pulse Rate [Right] 73 Respiratory Rate 18 Blood Pressure 124/76 Blood Pressure [Right Arm] 124/76 Blood Pressure Mean [Right Arm] 92 02 Sat by Pulse Oximetry 100 Oxygen Delivery Method Room Air Lab Data Lab results reviewed: Yes I reviewed the patient's lab results. Lab Results 01/01/24 15:40: Urine Color Dark yellow, Urine Appearance Slightly cloudy, Urine pH 6.0, Ur Specific [place] >= 1.030, Urine Protein 1+, Urine Glucose (UA) Negative, Urine Ketones Negative, Urine Blood 3+, Urine Nitrate Negative, Urine Bilirubin 1+ A, Urine Urobilinogen 0.2, Ur Leukocyte Esterase Trace, Urine RBC 50-100, Urine WBC 5-10, Ur Squamous Epith Cells 5-10, Urine Bacteria 1+ 01/01/24 16:04: WBC 7.5, RBC 4.14 L, Hgb 13.0, Hct 37.8, MCV 91.4, MCH 31.4 H, MCHC 34.3, RDW 12.7, Plt Count 350, MPV 7.6, Neut % (Auto) 61.7, Lymph % (Auto) 29.1, [place] % (Auto) 6.5, Eos % (Auto) 1.9, Baso % (Auto) 0.8, Neut # (Auto) 4.7, Lymph # (Auto) 2.2, [place] # (Auto) 0.5, Eos # (Auto) 0.1, Baso # (Auto) 0.1, Sodium 141, Potassium 4.1, Chloride 110 H, Carbon Dioxide 27, Anion Gap 8.1, BUN 7, Creatinine 0.80, Estimated Creat Clear 158, Estimated GFR 90, Est GFR ( Amer) 109, Glucose 80, Calcium 9.1, Total Bilirubin 0.3, AST 25, ALT 23, Alkaline Phosphatase 66, Total Protein 7.0, Albumin 4.1, Globulin 2.9, Albumin/Globulin Ratio 1.4, HCG, Quant 4 01/01/24 16:04 01/01/24 16:04 Orders (Tests/Meds): ORDERS Category Date Time Status CBC w/Auto Diff [Complete Blood Count Auto Diff] Stat Lab 01/01/24 16:04 Completed CMP [Comprehensive Metabolic Panel] Stat Lab 01/01/24 16:04 Completed HCG,Quantitative Stat Lab 01/01/24 16:04 Completed Urinalysis-Acute [Urinalysis and Microscopic] Stat Lab 01/01/24 15:40 Completed US OB transvaginal Stat Ultrasound 01/01/24 15:49 Completed Medical Decision Narrative: Patient is a 23-year-old female with past medical history PCOS, migraine, nephrolithiasis presenting with abdominal pain worse on the left, early test 3 days ago with hCG of 5 and repeat 1 day ago with hCG of 4 and now with vaginal bleeding. She states that the pain preceded the vaginal bleeding which started today and has no more than that of a normal period, not bleeding through more than 1 pad an hour. She does note some lightheadedness. Her exam is overall unremarkable except for some lower abdominal tenderness to palpation particularly worse on the left without rebound or guarding. Will obtain labs and imaging for further evaluation considering hCG not rising as expected with the and concern for rule out ectopic. CBC and CMP nonactionable, UA does appear consistent with blood present likely in the setting of vaginal bleeding, does have positive leukocyte esterase and some epithelial cells but does not appear consistent with a UTI. hCG remains for today which is the same as yesterday. We did perform a transvaginal ultrasound today to rule out ectopic given inappropriately rising hCG and patient's pain with vaginal bleeding and this was negative for ectopic or identified . Did discuss with patient results and that this could be consistent with early miscarriage or nonviable but would recommend close follow-up with her OB provider Dr. Ivan to which patient is agreeable. Discharged in stable condition. Critical Care Critical Care Time Critical Care Time: No
[2024-01-01 16:01] LABS: Microscopic, Urine URINE MICROSCOPIC (MICROSCOPIC)
[2024-01-01 16:04] LABS: Blood, Urine 3+ (Negative); Glucose,Urine (UA) Negative (Negative); Ketones,Urine Negative (Negative); Leukocyte Esterase,Urine TRACE (Negative); Nitrate,Urine Negative (Negative); Protein,Urine 1+ (Negative); Specific Gravity, Urine >= 1.030 (1.005-1.030); Urobilinogen,Urine 0.2 EU/dl (0.2)
[2024-01-01 16:17] LABS: Albumin Level 4.1 g/dl (3.5-5.0); Chloride 110 mmol/L (98-107); Potassium 4.1 mmoL/L (3.5-5.1); Sodium 141 mmol/L (136-145)
[2024-01-01 16:20] LABS: Alanine Aminotransferase 23 U/L (12-78); Albumin/Globulin Ratio 1.4 (1.1-1.8); Alkaline Phosphatase 66 U/L (38-126); Anion Gap 8.1 mEq/L (5-15); Aspartate Amino Transferase 25 U/L (14-36); Bilirubin,Total 0.3 mg/dl (0.2-1.3); Blood Urea Nitrogen 7 mg/dl (7-17); Calcium 9.1 mg/dl (8.4-10.2); Carbon Dioxide 27 mmol/L (22.0-30.0); Creatinine Clearance Estimated 158 mL/min (50-200); Estimated Glomerular Filt Rate 90 ml/min (>60); GFR (African American) 109 ML/MIN (>60); Globulin 2.9 g/dL (1.3-3.2); Glucose 80 mg/dl (74-100)
--- NOTE | 2024-01-01 16:32 | PC.NURSE ---
PT TO US
[2024-01-01 16:37] LABS: HCG,Quantitative 4 mIU/ml (0-5.42)
--- NOTE | 2024-01-01 16:55 | PC.NURSE ---
PT RETURNED FROM US
[2024-01-01 17:16] LABS: Appearance,Urine Slightly Cloudy (Clear); Bilirubin,Urine 1+ (Negative); Color,Urine Dark Yellow (Yellow)
[2024-01-01 17:18] LABS: Bacteria,Urine 1+ /lpf; RBC,Urine 50-100 #/hpf (0-3)
[2024-01-01 17:23] LABS: Basophils # 0.1 K/mm3 (0-0.2); Basophils % 0.8 % (0.1-2.0); Eosinophils # 0.1 K/mm3 (0.0-0.4); Eosinophils % 1.9 % (0.1-12.0); Hematocrit 37.8 % (37.0-47.0); Lymphocytes # 2.2 K/mm3 (0.7-4.5); Lymphocytes % 29.1 % (10-50); Mean Corpuscular HGB Conc 34.3 g/dL (31.8-35.4); Mean Corpuscular Hemoglobin 31.4 pg (27.0-31.2); Mean Corpuscular Volume 91.4 fl (81-99); Mean Platelet Volume 7.6 fl (7.4-10.4); Monocytes # 0.5 K/mm3 (0.1-1.0); Monocytes % 6.5 % (1.7-9.3); Neutrophils # 4.7 K/mm3 (1.8-7.8); Neutrophils % 61.7 % (37.0-80.0); Platelet Count 350 K/mm3 (142-424); Red Blood Count 4.14 M/mm3 (4.20-5.40); Red Cell Distribution Width 12.7 % (11.5-17.5); White Blood Count 7.5 K/mm3 (4.8-10.8)
[2024-01-01 17:53] VITALS: BP 124/76; PULSE 76; RESP 16; TEMP 36.7; O2SAT 99
== END 2024-01-01 17:54 | disposition home or self-care (01) ==
PROVIDERS: Emergency Provider Emergency Medicine; PCP Nurse Practitioner Family
DX: O20.9 Hemorrhage in early pregnancy, unspecified (principal); R10.32 Left lower quadrant pain; R42 Dizziness and giddiness; Z3A.01 Less than 8 weeks gestation of pregnancy
CPT/HCPCS: 76817; 80053; 81001; 84702; 85025; 99284

== ENCOUNTER 2024-01-03 11:07 | Outpatient (CLI) | payer OTHER, SELFPAY ==
[2024-01-03 12:05] LABS: HCG,Quantitative 5 mIU/ml (0-5.42)
[2024-01-04 12:55] LABS: Progesterone 0.3 ng/mL (.)
== END 2024-01-03 23:59 | disposition home or self-care (01) ==
LOC: LAB 11:08
PROVIDERS: PCP Nurse Practitioner Family; Visit Provider Obstetrics & Gynecology
DX: N92.6 Irregular menstruation, unspecified (principal)
CPT/HCPCS: 36415; 84144; 84702

== ENCOUNTER 2024-01-10 11:40 | Outpatient (CLI) | payer OTHER, SELFPAY ==
[2024-01-10 13:15] LABS: HCG,Quantitative < 2 mIU/ml (0-5.42)
[2024-01-11 08:54] LABS: LH 8.4 mIU/mL (.)
== END 2024-01-10 23:59 | disposition home or self-care (01) ==
LOC: LAB 11:41
PROVIDERS: PCP Nurse Practitioner Family; Visit Provider Obstetrics & Gynecology
DX: N80.9 Endometriosis, unspecified (principal); N92.6 Irregular menstruation, unspecified
CPT/HCPCS: 36415; 83002; 84702

== ENCOUNTER 2024-01-20 12:33 | Emergency (ER) | payer OTHER, SELFPAY ==
[2024-01-20 13:05] VITALS: BP 102/65; PULSE 85; RESP 18; TEMP 37.2; O2SAT 97; BMI 35.4
--- NOTE | 2024-01-20 13:42 | EXP.UTC ---
Discharge Plan Disposition Patient Disposition: Home, Self-Care Condition: Good Prescriptions Prescriptions: New [id number] [Bromfed DM] 2-30-10 mg/5 mL Syrup 5 ml PO Q6H PRN (Reason: Cough) Qty: 240 0RF ondansetron 4 mg Tablet,Disintegrating 4 mg PO Q8H PRN (Reason: Nausea) Qty: 12 0RF No Action amitriptyline 25 mg tablet 25 mg PO HS Qty: 30 2RF rizatriptan 10 mg tablet,disintegrating See Rx Instructions PO .COMPLEX Qty: 14 2RF Rx Instructions: take 1 tab at onset of headache; if no relief may repeat 1 tab after at least 2 hrs; max = 3 tabs/24 hr PO sertraline 50 mg tablet 50 mg PO DAILY Qty: 30 2RF Referrals Follow up/Referrals: Jo Barragan APRN [Primary Care Provider] - See instructions Activity Restrictions/Add. Instructions Additional Instructions/Restrictions: Drink plenty of fluids. Take tylenol or ibuprofen for pain or fever. Take the medications as directed. Follow up with your regular doctor. GO TO THE ER FOR ANY WORSENING SYMPTOMS Clinical Impressions Clinical Impression: Acute viral syndrome, Exposure to 2019 novel coronavirus Stand Alone Forms Stand Alone Forms: Work/School Release Instructions Patient Instructions: Coronavirus Disease 2019, Preventing the Spread of Coronavirus Discharge Instructions Print Language Print Language: [place] Discharge ED Provider: Philippe Cottrell [facility] [place] General Stated complaint: headache, runny nose, vomiting Mode of Arrival: Ambulatory Source of Information: Patient Limitations: No Limitations Time Seen by Provider: 01/20/24 13:33 Description of Symptoms (Recalled from Triage Doc. by RN): headache,body aches,runny nose,cough HEENT Symptoms (Recalled from RN notes): Yes Resp Symptoms (Recalled from RN notes): Yes Skin Symptoms (Recalled from RN notes): No MS Symptoms (Recalled from RN notes): No Functional Status (Recalled from RN notes): na Related Data Previous Rx's ?Medication ?Instructions ?Recorded sertraline 50 mg tablet 50 mg PO DAILY #30 tabs 07/06/23 amitriptyline 25 mg tablet 25 mg PO HS #30 tabs 12/17/23 rizatriptan 10 mg disintegrating See Rx Instructions PO .COMPLEX 12/17/23 tablet #14 tabs [id number] 5 ml PO Q6H PRN Cough #240 mL 01/20/24 2 mg-30 mg-10 mg/5 mL oral syrup (Bromfed DM) ondansetron 4 mg disintegrating 4 mg PO Q8H PRN Nausea #12 tabs 01/20/24 tablet Allergies Allergy/AdvReac Type Severity Reaction Status Date / Time No Known Allergies Allergy Verified 01/06/24 14:51 Worker's Comp Is this a Worker's Comp case?: No Is this an [facility] Worker's Comp?: No Is this a [place] Worker's Comp?: No [facility] Disclaimer: The information contained in this section may have been updated after the patient was seen, as this information can be updated by other users. Medical History Dysmenorrhea Irregular periods/menstrual cycles Endometriosis Dyspareunia Lightheadedness Dyspnea Cholelithiasis Dizziness Edema Surgical History History of cholecystectomy Family History Other No significant family history Social History Smoking Status: Current every day smoker second hand exposure: Yes alcohol intake: never substance use type: denies use current occupational status: employed Travel in the last 8 weeks: None household members: family housing: house current occupation: [employer] current occupational exposures/hazards: No caffeine: Yes ROS Obtained: Yes All systems reviewed & no additional complaints except as documented Constitutional Constitutional: Reports chills and Reports fever(s) Eyes Eyes: Denies eye discharge ENT Ears, Nose, Mouth, and Throat: Reports as per HPI Cardiovascular Cardiovascular: Denies chest pain Respiratory Respiratory: Denies chest congestion and Reports cough Gastrointestinal Gastrointestingal: Reports nausea; Denies abdominal pain, constipation, cramping, diarrhea or vomiting Musculoskeletal Musculoskeletal: Denies arthralgias Integumentary/Breasts Skin/Breast: Denies rash Neurologic Neurologic: Denies paresthesias Physical Exam General General appearance: alert and in no apparent distress Head Head exam: atraumatic, normocephalic and normal inspection Eye Eye exam: Present normal appearance, PERRL and EOMI ENT ENT exam: Present normal exam, normal oropharynx, mucous membranes moist, TM's normal bilaterally and normal external ear exam Neck Neck exam: Present normal inspection, full ROM and trachea midline; Absent meningismus or lymphadenopathy Chest Chest inspection: Present normal inspection and symmetric chest wall rise; Absent tenderness Respiratory Respiratory exam: Present normal lung sounds bilaterally; Absent respiratory distress Cardiovascular Cardiovascular exam: Present regular rate and normal rhythm; Absent JVD Abdominal Exam Abdominal exam: Present soft and normal bowel sounds; Absent distention, tenderness or guarding Extremities Exam Extremities exam: Present normal inspection, full ROM and normal capillary refill; Absent calf tenderness Back Exam Back exam: Present normal inspection; Absent tenderness Neurological Exam Neurological exam: Present alert and oriented X3 Psychiatric Psychiatric exam: Present normal affect and normal mood Skin Skin exam: Present warm, dry, intact and normal color Lymphatic Lymphatic Findings: no adenopathy Medical Decision Making Medical Records Medical records reviewed: Yes I reviewed the patient's medical records. Baljeet Inquiry Pt receiving controlled substance: No Vital Signs: 01/20/24 13:05 Temperature 99 F Temperature Source Oral Pulse Rate [Right] 85 Respiratory Rate 18 Blood Pressure [Right Arm] 102/65 L Blood Pressure Mean [Right Arm] 77 02 Sat by Pulse Oximetry 97 Oxygen Delivery Method Room Air Lab Data Lab results reviewed: Yes I reviewed the patient's lab results. Orders (Tests/Meds): ORDERS Category Date Time Status Covid-19 Nasal PCR ([facility]) Routine Lab 01/20/24 12:52 Received
[2024-01-20 13:53] VITALS: BP 102/65; PULSE 85; RESP 18; TEMP 37.2; O2SAT 97
== END 2024-01-20 13:54 | disposition home or self-care (01) ==
PROVIDERS: Emergency Provider Nurse Practitioner Family; PCP Nurse Practitioner Family
DX: R51.9 Headache, unspecified (principal); R05.9 Cough, unspecified; R09.81 Nasal congestion; M79.18 Myalgia, other site; B34.9 Viral infection, unspecified; Z20.822 Contact with and (suspected) exposure to COVID-19
CPT/HCPCS: 87635; 99212; 99214; G0463

== ENCOUNTER 2024-02-04 15:23 | Emergency (ER) | payer OTHER, SELFPAY ==
[2024-02-04 15:40] VITALS: BP 116/62; PULSE 83; RESP 19; TEMP 37.1; O2SAT 98; BMI 35.4
[2024-02-04 15:55] LABS: UTC Strep Screen (Rapid) Negative (Negative)
--- NOTE | 2024-02-04 16:03 | EXP.UTC ---
Discharge Plan Disposition Patient Disposition: Home, Self-Care Condition: Good Referrals Follow up/Referrals: Jo Barragan APRN [Primary Care Provider] - See instructions Activity Restrictions/Add. Instructions Additional Instructions/Restrictions: Monitor Temp, Over the counter Motrin or Tylenol as directed/as needed Tylenol every 4 hours and Motrin every 6 hours (as long as your family doctor has told you that you can take it) for fever or pain. and straight to ER if unable to lower temp less than 101.0 after medication given *Warm salt water gargles may help to soothe the throat *Throat Lozenges? *Warm fluids like tea with honey may help to soothe the throat? *Sleep elevated *Humidifier/Vaporizer Your throat swab was sent for culture. Those results are typically sent to your primary care. Be sure to follow up in 2-3 days with your family doctor/primary care physician if no improvement so they can review those result and treat if necessary. If you don?t have a primary care doctor, I recommend you get one but in the mean time, you will have to return to a walk in clinic Follow up IMMEDIATELY for new or worsening symptoms or no Noticeable improvement over the next 48-72 hours. 911 for difficulty breathing or swallowing You were tested for today for COVID19 your test result should be back in the next 24 hours, you may check your [facility] for your results they will post there for you to review your results Clinical Impressions Clinical Impression: Viral upper respiratory infection Instructions Patient Instructions: Sore Throat, DI for Nasal Congestion Print Language Print Language: Ethiopian Discharge ED Provider: Sylvia Busby [facility] [place] General Stated complaint: sore throat,OCHOA,congestion Mode of Arrival: Ambulatory Source of Information: Patient Limitations: No Limitations Time Seen by Provider: 02/04/24 16:04 Description of Symptoms (Recalled from Triage Doc. by RN): PATIENT C/O COUGH, SORE THROAT AND CONGESTION THAT STARTED TODAY HEENT Symptoms (Recalled from RN notes): Yes Resp Symptoms (Recalled from RN notes): Yes Skin Symptoms (Recalled from RN notes): No MS Symptoms (Recalled from RN notes): No Functional Status (Recalled from RN notes): WNL History of Present Illness Provider Complaint: Patient states that she woke up this morning with nasal congestion, sore throat and a little cough States that as the day went on her throat continued to bother her so she came in to get checked worried she may have strep throat Related Data Allergies Allergy/AdvReac Type Severity Reaction Status Date / Time No Known Allergies Allergy Verified 01/06/24 14:51 Worker's Comp Is this a Worker's Comp case?: No PFSH PFS Disclaimer: The information contained in this section may have been updated after the patient was seen, as this information can be updated by other users. Medical History Dysmenorrhea Irregular periods/menstrual cycles Endometriosis Dyspareunia Lightheadedness Dyspnea Cholelithiasis Dizziness Edema Surgical History History of cholecystectomy Family History Other No significant family history Social History Smoking Status: Current every day smoker second hand exposure: Yes alcohol intake: never substance use type: denies use current occupational status: employed Travel in the last 8 weeks: None household members: family housing: house current occupation: [employer] current occupational exposures/hazards: No caffeine: Yes ROS Obtained: Yes All systems reviewed & no additional complaints except as documented and Yes Systems reviewed as appro
[2024-02-04 16:10] VITALS: BP 116/62; PULSE 83; RESP 19; TEMP 37.1; O2SAT 98
== END 2024-02-04 16:16 | disposition home or self-care (01) ==
PROVIDERS: Emergency Provider Nurse Practitioner; PCP Nurse Practitioner Family
DX: R07.0 Pain in throat (principal); J06.9 Acute upper respiratory infection, unspecified; B34.9 Viral infection, unspecified
CPT/HCPCS: 87635; 87880; 99212; 99213; G0463

== ENCOUNTER 2024-03-10 11:37 | Outpatient (CLI) | payer OTHER, SELFPAY ==
[2024-03-10 12:09] LABS: Albumin Level 4.6 g/dl (3.5-5.0); Chloride 103 mmol/L (98-107); Potassium 3.9 mmoL/L (3.5-5.1); Sodium 139 mmol/L (136-145)
[2024-03-10 12:12] LABS: Alanine Aminotransferase 31 U/L (12-78); Albumin/Globulin Ratio 1.5 (1.1-1.8); Alkaline Phosphatase 73 U/L (38-126); Anion Gap 11.9 mEq/L (5-15); Aspartate Amino Transferase 30 U/L (14-36); Bilirubin,Total 0.4 mg/dl (0.2-1.3); Blood Urea Nitrogen 9 mg/dl (7-17); Calcium 9.7 mg/dl (8.4-10.2); Carbon Dioxide 28 mmol/L (22.0-30.0); Estimated Glomerular Filt Rate 90 ml/min (>60); GFR (African American) 109 ML/MIN (>60); Globulin 3.1 g/dL (1.3-3.2); Glucose 71 mg/dl (74-100); Total Protein,Serum 7.7 g/dl (6.3-8.2)
[2024-03-10 12:19] LABS: Basophils # 0.1 K/mm3 (0-0.2); Basophils % 1.1 % (0.1-2.0); Eosinophils # 0.2 K/mm3 (0.0-0.4); Eosinophils % 2.7 % (0.1-12.0); Hematocrit 43.2 % (37.0-47.0); Hemoglobin 14.1 g/dL (12.2-16.2); Lymphocytes # 1.6 K/mm3 (0.7-4.5); Lymphocytes % 22.3 % (10-50); Mean Corpuscular HGB Conc 32.7 g/dL (31.8-35.4); Mean Corpuscular Hemoglobin 30.1 pg (27.0-31.2); Mean Corpuscular Volume 92.3 fl (81-99); Mean Platelet Volume 6.8 fl (7.4-10.4); Monocytes # 0.5 K/mm3 (0.1-1.0); Monocytes % 6.1 % (1.7-9.3); Neutrophils % 67.8 % (37.0-80.0); Platelet Count 357 K/mm3 (142-424); Red Blood Count 4.69 M/mm3 (4.20-5.40); Red Cell Distribution Width 12.3 % (11.5-17.5); White Blood Count 7.3 K/mm3 (4.8-10.8)
[2024-03-10 12:33] LABS: HCG,Quantitative < 2 mIU/ml (0-5.42)
== END 2024-03-10 23:59 | disposition home or self-care (01) ==
LOC: PREOP 11:40
PROVIDERS: PCP Nurse Practitioner Family; Visit Provider Obstetrics & Gynecology
DX: N94.6 Dysmenorrhea, unspecified (principal)
CPT/HCPCS: 80053; 84702; 85025

== ENCOUNTER 2024-03-11 12:46 | Emergency (ER) | payer OTHER, SELFPAY ==
[2024-03-11 14:01] VITALS: BP 105/68; PULSE 65; RESP 16; TEMP 36.6; O2SAT 100; BMI 35.6
--- NOTE | 2024-03-11 14:25 | EXP.UTC ---
Discharge Plan Disposition Patient Disposition: Home, Self-Care Condition: Good Prescriptions Prescriptions: No Action amitriptyline 10 mg tablet 10 mg PO HS phentermine [Adipex-P] 37.5 mg tablet 37.5 mg PO DAILY Qty: 30 1RF Rx Instructions: must administer 30 minutes before or 1-2 hours after breakfast Referrals Follow up/Referrals: Jo Barragan APRN [Primary Care Provider] - See instructions Activity Restrictions/Add. Instructions Additional Instructions/Restrictions: use Biofreeze or muscle rub on the neck and shoulder area as needed. As you are having surgery on Wednesday take only Tylenol as needed for pain. Clinical Impressions Clinical Impression: Muscle ache Instructions Patient Instructions: DI for Cervical Muscle Strain Print Language Print Language: Ethiopian Discharge ED Provider: Nuria Gonzalez [facility] General Stated complaint: painful knot on neck Mode of Arrival: Ambulatory Source of Information: Patient Time Seen by Provider: 03/11/24 14:24 Description of Symptoms (Recalled from Triage Doc. by RN): KNOT ON RIGHT SIDE OF NECK HEENT Symptoms (Recalled from RN notes): No Resp Symptoms (Recalled from RN notes): No Skin Symptoms (Recalled from RN notes): Yes MS Symptoms (Recalled from RN notes): Yes Functional Status (Recalled from RN notes): WNL History of Present Illness Provider Complaint: Pt reports that she has had pain in the right side of her neck when she lays on that side and it goes down into her shoulder. She reports that she feels a small knot on that side and wants to make sure she does not have an infection as she is having surgery on Wednesday. Related Data Home Medications ?Medication ?Instructions ?Recorded ?Confirmed amitriptyline 10 mg tablet 10 mg PO HS 02/16/24 03/11/24 Previous Rx's ?Medication ?Instructions ?Recorded phentermine 37.5 mg tablet 37.5 mg PO DAILY Weight loss #30 03/01/24 (Adipex-P) tabs Allergies Allergy/AdvReac Type Severity Reaction Status Date / Time No Known Allergies Allergy Verified 03/10/24 11:44 Worker's Comp Is this a Worker's Comp case?: No [facility] Disclaimer: The information contained in this section may have been updated after the patient was seen, as this information can be updated by other users. Medical History Dysmenorrhea Irregular periods/menstrual cycles Endometriosis Dyspareunia Lightheadedness Dyspnea Cholelithiasis Dizziness Edema Surgical History History of cholecystectomy Family History Other No significant family history Social History Smoking Status: Current every day smoker second hand exposure: Yes alcohol intake: never substance use type: denies use current occupational status: employed Travel in the last 8 weeks: None household members: family housing: house current occupation: [employer] current occupational exposures/hazards: No caffeine: Yes ROS Obtained: Yes All systems reviewed & no additional complaints except as documented Constitutional Constitutional: Reports system reviewed and no additional complaints, except as documented Eyes Eyes: Reports system reviewed and no additional complaints, except as documented ENT Ears, Nose, Mouth, and Throat: Reports system reviewed and no additional complaints, except as documented and Reports neck pain Cardiovascular Cardiovascular: Reports system reviewed and no additional complaints, except as documented Respiratory Respiratory: Reports system reviewed and no additional complaints, except as documented Gastrointestinal Gastrointestingal: Reports system reviewed and no additional complaints, except as documented Genitourinary Female Genitourinary: Reports system reviewed and no additional complaints, except as documented Musculoskeletal Musculoskeletal: Reports system reviewed and no additional complaints, except as documented, Reports myalgias, Reports neck pain and Reports stiffness Integumentary/Breasts Skin/Breast: Reports system reviewed and no additional complaints, except as documented Neurologic Neurologic: Reports system reviewed and no additional complaints, except as documented Endocrine Endocrine: Reports system reviewed and no additional complaints, except as documented Hematologic/Lymphatic Henatologic/Lymphatic: Reports system reviewed and no additional complaints, except as documented Allergic/Immunologic Allergic/Immunologic: Reports system reviewed and no additional complaints, except as documented Physical Exam General General appearance: alert and in no apparent distress Head Head exam: atraumatic and normocephalic Eye Eye exam: Present normal appearance ENT ENT exam: Present normal exam and normal oropharynx Neck Neck exam: Present lymphadenopathy (pea sized anterior neck right side) Expanded Neck Exam Neck exam focused ED: Present tenderness (other) Comment: right side of neck with tenderness noted with palpitation . Chest Chest inspection: Present normal inspection and symmetric chest wall rise Respiratory Respiratory exam: Present normal lung sounds bilaterally Cardiovascular Cardiovascular exam: Present regular rate and normal rhythm Abdominal Exam Abdominal exam: Present soft and normal bowel sounds Extremities Exam Extremities exam: Present tenderness (right shoulder with palpitation) Back Exam Back exam: Present normal inspection Neurological Exam Neurological exam: Present alert and oriented X3 Psychiatric Psychiatric exam: Present normal affect and normal mood Skin Skin exam: Present warm, dry and intact Lymphatic Lymphatic Findings: no adenopathy Medical Decision Making Medical Records Screening: Per USPSTF and CDC recommendations, given the prevalence of disease in our region, it is our hospital?s policy to screen for HIV and viral Hepatitis for all patients aged 18 and over and those with ongoing risk factors. Baljeet Inquiry Pt receiving controlled substance: No Baljeet was queried for this patient: No Vital Signs: 03/11/24 14:01 Temperature 97.9 F Temperature Source Oral Pulse Rate [Left Radial] 65 Respiratory Rate 16 Blood Pressure [Left Arm] 105/68 L Blood Pressure Mean [Left Arm] 80 02 Sat by Pulse Oximetry 100
[2024-03-11 14:36] VITALS: BP 105/68; PULSE 65; RESP 16; TEMP 36.6
== END 2024-03-11 14:39 | disposition home or self-care (01) ==
PROVIDERS: Emergency Provider Nurse Practitioner Family; PCP Nurse Practitioner Family
DX: M79.10 Myalgia, unspecified site (principal)
CPT/HCPCS: 99213; G0381

== ENCOUNTER 2024-03-13 06:07 | Day surgery (SDC) | payer OTHER, SELFPAY ==
[2024-03-08 11:50] VITALS: BMI 35.9
[2024-03-13] VITALS (10 sets, daily range): BP systolic 105–130; BP diastolic 55–69; PULSE 61–89; RESP 16–18; TEMP 36.2–37.2; O2SAT 98–100
[2024-03-13] MEDS: LACTATED RINGERS 1000ML 1,000 ML 25 ML IV (06:27)
[2024-03-13] MEDS: ACETAMINOPHEN 500MG TAB 1000 MG PO (06:27)
--- NOTE | 2024-03-13 07:01 | P.PNANES_ITS ---
[facility] Disclaimer: The information contained in this section may have been updated after the patient was seen, as this information can be updated by other users. Medical History Dysmenorrhea Irregular periods/menstrual cycles Endometriosis Dyspareunia Lightheadedness Dyspnea Cholelithiasis Dizziness Edema Surgical History History of cholecystectomy Family History Other No significant family history Social History Smoking Status: Current every day smoker second hand exposure: Yes alcohol intake: never substance use type: denies use current occupational status: employed Travel in the last 8 weeks: None household members: family housing: house current occupation: [employer] current occupational exposures/hazards: No caffeine: Yes [facility] Anesthesia Checklist Patient Identification Patient Identification: Arm Band and Family Structural Data Admitted From: Home Planned Operative Procedure/s: Diagnostic Lap to check for endometriosis Consent for Planned Operative Procedure(s) Verified: Yes Verified Documents: Surgical Consent and History and Physical NPO Status Verified Time NPO: 00:00 Additional verifications Patient : No Anesthesia Reactions: No Hx Blood Transfusions: No Blood Transfusion Reaction: No Cephalosporin Allergy: No Previous Colonoscopy: Yes Airway Assessment Mallampati Score:: Class II C-Spine Mobility Assessed: Yes TMJ Mobility Assessed: Yes Dentition: Good Dentition Neurological Assessment Level of Consciousness: Awake, Alert, Appropriate and Follows Commands Hx Seizures: No Numbness or tingling in extremities: No Anesthesia Plan Anesthesia Risk discussed: Yes ASA Class: II Anesthesia Type: General Preoperative Comments Pre-Operative Comments: Checking for endometriosis. Two broken teeth, upper back.
[2024-03-13] MEDS: LIDOCAINE 1% W/EPI 1:100,000 20ML VIAL 20 ML (07:48)
--- NOTE | 2024-03-13 08:20 | EXP.ANES.CKL ---
[facility] Disclaimer: The information contained in this section may have been updated after the patient was seen, as this information can be updated by other users. Medical History Dysmenorrhea Irregular periods/menstrual cycles Endometriosis Dyspareunia Lightheadedness Dyspnea Cholelithiasis Dizziness Edema Surgical History History of cholecystectomy Family History Other No significant family history Social History Smoking Status: Current every day smoker second hand exposure: Yes alcohol intake: never substance use type: denies use current occupational status: employed Travel in the last 8 weeks: None household members: family housing: house current occupation: [employer] current occupational exposures/hazards: No caffeine: Yes [facility] Anesthesia Checklist Patient Identification Patient Identification: Verbal (Name & ) Structural Data Admitted From: Home Planned Operative Procedure/s: dx lap NPO Status Verified Time NPO: 00:00 Additional verifications Anesthesia Reactions: No Hx Blood Transfusions: No Blood Transfusion Reaction: No Cephalosporin Allergy: No Airway Assessment Mallampati Score:: Class II C-Spine Mobility Assessed: Yes TMJ Mobility Assessed: Yes Dentition: Good Dentition Neurological Assessment Level of Consciousness: Awake, Alert and Appropriate Anesthesia Plan Anesthesia Risk discussed: Yes Anesthesia Plan: Verified ASA Class: II Anesthesia Type: General
--- NOTE | 2024-03-13 08:20 | EXP.ANES.I ---
[facility] Anesthesia Record Part I Anesthesia Record I Intake, IV Amount: 1,500 Hydration: Adequate Estimated blood loss (mL): 0 Urine output (mL): 0 Blood Pressure: 122/64 SaO2: 100 Pulse Rate: 84 Airway Patency: Patent Respiratory Rate: 16 Temperature: 99 F Patient is:: Awake and Stable Stable to PACU at:: 08:20
--- NOTE | 2024-03-13 08:37 | P.OP_ITS ---
Date of procedure: 03/13/24 Pre-op Diagnosis:: 1. Dysmenorrhea 2. Irregular periods/menstrual cycles 3. Endometriosis 4. Dyspareunia 5. Abdominal pain Post-op Diagnosis:: 1. Dysmenorrhea 2. Irregular periods/menstrual cycles 3. Endometriosis 4. Dyspareunia 5. Abdominal pain Procedure performed:: Diagnostic laparoscopy Surgeon:: Nuria Ivan DO Ticket Speculator(s):: N/a TRANSPORTATION OFFICER:: Joni Horton Anesthesia: GETA Estimated blood loss (mL): 0 Clinical Note:: Ms Anai Gray is a 23 yo P2002 who presents to [facility] for scheduled procedure. She complains of LLQ pain and dyspareunia, dysmenorrhea and AUB. She had IUD in place and developed sudden LLQ pain in April 2023. Pelvic ultrasound demonstrated IUD looked to be in correct position but pain persisted. IUD was removed and pain persisted. She states she saw GI for possible IBS and had a colonoscopy and all was normal. Pelvic ultrasound 08/24/23 demonstrated ovaries have peripherally arranged subcentimeter follicles that may indicate polycystic ovary syndrome. 2. Previous 2.4 cm left ovary cyst now measures 1.3 cm. 3. No other acute findings in the pelvis. She tried Sprintec for one month and admits OCPS make her feel crazy. She doesn't tolerate them well. She admits LLQ pain is always present but worse with intercourse. She reports two periods a month and pain with periods. She admits she can't really have intercourse because the pain is so bad. P2002 - x 2. Pelvic ultrasound 01/01/24 demonstrated normal-appearing uterus without fibroids. Normal endometrial thickness measuring 7 mm. Right ovary/adnexa: Normal. Normal blood flow. Right ovary measures 3.3 x 2.4 x 2.4 cm. Right ovarian volume is 10.3 mL. Left ovary/adnexa: Normal. Normal blood flow. Left ovary measures 3.3 x 2.1 x 2.2 cm. Left ovarian volume is 8.0 mL. In traperitoneal space: No pelvic free fluid. Operative findings:: 1. Upon bimanual exam, uterus normal size and shape, midposition. No adnexal masses palpated 2. On laparoscopic exam, liver, stomach, omentum and bowel appeared grossly normal. Uterus, bilateral fallopian tubes and ovaries appeared grossly normal. No endomtriosis, lesions, cysts or masses noted. Operative note:: Risks, benefits and alternatives were discussed with the patient. Risks include but are not limited to bleeding, infection, damage to adjacent structures and VTE. Patient voiced understanding and agreed to proceed with surgery. She was wheeled back to the operating room and placed under general anesthesia without difficulty. She was placed in the dorsal lithotomy position and prepped and draped in normal sterile fashion. A straight catheter was used to drain the bladder. A bimanual exam was performed. A weighted Auvard was placed in the vaginal vault. A single tooth tenaculum was placed on the anterior lip of the cervix. [place] manipulator was inserted into the cervical canal and attached to the tenaculum. Weighted Auvard was removed from the vagina. Attention was then drawn to the abdomen. A 1.5cm infraumbilical incision was made. Veress needle was tested and inserted intraabdominally without difficulty. Opening pressure of 9 mm Hg. Veress needle was removed and reinserted with opening pressure of 8 mm Hg that quickly increased to 12. Veress needle was removed. Laparoscope was inserted into 11 mm trocar and trocar was inserted under direct visualization. Opening pressure of 4 mm Hg when CO2 was started. Abdomen was then insulflated to 15 mm Hg. Abdomen was viewed in its entirety. See findings above. Pictures were taken. Pneumoperitoneum was released into the atmosphere. Infraumbilical trocar was removed under direct laparoscopic visualization to ensure no herniation of bowel or omentum. Skin incision was closed with 3-0 Vicryl. Dermabond was applied over closed skin incision. All instruments were removed from the vagina. Tenaculum site was noted to be hemostatic. Patient was cleaned and placed into the dorsal supine position. She awoke from anesthesia without difficulty. She was transported to the recovery room in stable condition. She was given instructions for discharge and to follow-up in the office in 2 weeks. Condition: stable Disposition: same day Specimens:: N/a Complications:: None
--- NOTE | 2024-03-13 14:34 | P.PNANES_ITS ---
[facility] Anesthesia Record Part II Anesthesia Record Part II Discharge Time: 08:50 Destination: Surgical Day Care (OP Surgery) PACU nurse assessment reviewed?: Yes Patient Condition:: Good Anesthesia Complications:: None Swallowing reflex intact?: Yes Airway Patency: Patent Cyanosis?: No Blood Pressure: 117/55 SaO2: 100 Respiratory Rate: 18 Pulse Rate: 74 Temperature: 99 F Mental Status: Alert & Oriented Pain level:: 0 Nausea and/or vomitting:: None Intake, IV Amount: 0 Hydration: Adequate
== END 2024-03-13 09:12 | disposition home or self-care (01) ==
PROVIDERS: PCP Nurse Practitioner Family; Visit Provider Obstetrics & Gynecology
PROC: (CPT 49320; principal; 2024-03-13 07:30)
DX: N94.6 Dysmenorrhea, unspecified (principal); N92.1 Excessive and frequent menstruation with irregular cycle; N94.10 Unspecified dyspareunia; R10.32 Left lower quadrant pain
CPT/HCPCS: 49320; J1100; J2250; J2405; J2710; J3010; J7120

== ENCOUNTER 2024-04-09 13:24 | Outpatient (CLI) | payer OTHER, SELFPAY | END 2024-04-09 23:59 | disposition home or self-care (01) | LOC: LAB.DROPOF 05-10 09:30 | PROVIDERS: PCP Family Medicine; Visit Provider Family Medicine | DX: R82.79 Other abnormal findings on microbiological examination of urine (principal) | CPT/HCPCS: 87086 ==

== ENCOUNTER 2024-05-02 18:05 | Emergency (ER) | payer OTHER, SELFPAY ==
[2024-05-02 19:15] VITALS: BP 133/78; PULSE 75; RESP 20; TEMP 36.9; O2SAT 100; BMI 32.9
--- NOTE | 2024-05-02 19:39 | EXP.UTC ---
Discharge Plan Disposition Patient Disposition: Home, Self-Care Condition: Good Prescriptions Prescriptions: No Action phentermine 37.5 mg tablet 37.5 mg PO DIRECTED Patient Comments: 37.5 mg orally daily for Weight loss; must administer 30 minutes before or 1-2 hours after breakfast amitriptyline 25 mg tablet 25 mg PO DIRECTED Referrals Follow up/Referrals: Ryne Pérez MD [Primary Care Provider] - See instructions Activity Restrictions/Add. Instructions Additional Instructions/Restrictions: GO home lay down and sleep If you continue having headaches and elevated blood pressures follow up with your Family Doctor Make sure while taking Phenteramine that you are drinking plenty of water, no staying hydrated enough on this medication can cause headaches Straight to ER if any life threatening symptoms Clinical Impressions Clinical Impression: Headache Qualifiers: Headache type: unspecified Headache chronicity pattern: unspecified pattern Intractability: not intractable Qualified Code(s): R51.9 - Headache, unspecified Instructions Patient Instructions: DI for Migraine, DI for Headache Print Language Print Language: [place] Discharge ED [place] [facility] [place] General Stated complaint: OCHOA, HBP Mode of Arrival: Ambulatory Source of Information: Patient Time Seen by Provider: 05/02/24 19:39 Description of Symptoms (Recalled from Triage Doc. by RN): MIGRAIN X3-4 DAYS AND BP 140S/90S STATES SHE GETS BLURRY VISION FROM IT HEENT Symptoms (Recalled from RN notes): Yes Resp Symptoms (Recalled from RN notes): No Skin Symptoms (Recalled from RN notes): No MS Symptoms (Recalled from RN notes): No Functional Status (Recalled from RN notes): WNL History of Present Illness Provider Complaint: Patient states that she started with headache on Wednesday States that she has a hx of migraines and this is like others she has had in the past States that her eyes have felt tired and she noticed her blood pressure was slightly elevated earlier today so she came in to see if she could get something to help with the migraine, her migraine medication hasnt worked and she took Motrin this morning and Tylenol this evening Denies blurry vision at this time Denies worse headache of her life Related Data Home Medications ?Medication ?Instructions ?Recorded ?Confirmed amitriptyline 25 mg tablet 25 mg PO DIRECTED 05/02/24 05/02/24 phentermine 37.5 mg tablet 37.5 mg PO DIRECTED 05/02/24 05/02/24 Allergies Allergy/AdvReac Type Severity Reaction Status Date / Time No Known Allergies Allergy Verified 04/04/24 13:01 Worker's Comp Is this a Worker's Comp case?: No PFSH PFS Disclaimer: The information contained in this section may have been updated after the patient was seen, as this information can be updated by other users. Medical History Dysmenorrhea Irregular periods/menstrual cycles Endometriosis Dyspareunia Lightheadedness Dyspnea Cholelithiasis Dizziness Edema Surgical History Hx of laparoscopy History of cholecystectomy Family History Other No significant family history Social History Smoking Status: Current every day smoker second hand exposure: Yes alcohol intake: never substance use type: denies use current occupational status: employed household members: family housing: house current occupation: [employer] current occupational exposures/hazards: No caffeine: Yes ROS Obtained: Yes All systems reviewed & no additional complaints except as documented and Yes Systems reviewed as appropriate & no additional complaints except as documented Constitutional Constitutional: Reports system reviewed and no additional complaints, except as documented, Reports as per HPI and Reports headache(s) Eyes Eyes: Reports system reviewed and no additional complaints, except as documented, Reports as per HPI and Reports blurry vision (on Wednesday none since reports eye just felt tired ) ENT Ears, Nose, Mouth, and Throat: Reports system reviewed and no additional complaints, except as documented, Reports as per HPI and Reports headache(s) Cardiovascular Cardiovascular: Reports system reviewed and no additional complaints, except as documented, Reports as per HPI and Denies chest pain Respiratory Respiratory: Reports system reviewed and no additional complaints, except as documented and Reports as per HPI Gastrointestinal Gastrointestingal: Reports system reviewed and no additional complaints, except as documented and as per HPI Genitourinary Female Genitourinary: Reports system reviewed and no additional complaints, except as documented and Reports as per HPI Neurologic Neurologic: Reports headache(s) Physical Exam General General appearance: alert and in no apparent distress Eye Eye exam: Present normal appearance, PERRL and EOMI ENT ENT exam: Present normal exam, normal oropharynx, mucous membranes moist and TM's normal bilaterally Respiratory Respiratory exam: Present normal lung sounds bilaterally; Absent respiratory distress or wheezes Cardiovascular Cardiovascular exam: Present regular rate, normal rhythm and normal heart sounds Abdominal Exam Abdominal exam: Present soft and normal bowel sounds; Absent distention, tenderness or guarding Neurological Exam Neurological exam: Present alert, oriented X3 and normal gait Medical Decision Making Medical Records Screening: Per USPSTF and CDC recommendations, given the prevalence of disease in our region, it is our hospital?s policy to screen for HIV and viral Hepatitis for all patients aged 18 and over and those with ongoing risk factors. Baljeet Inquiry Pt receiving controlled substance: No Baljeet was queried for this patient: No Vital Signs: 05/02/24 19:15 Temperature 98.4 F Temperature Source Oral Pulse Rate [Left Radial] 75 Respiratory Rate 20 Blood Pressure [Right Arm] 133/78 Blood Pressure Mean [Right Arm] 96 02 Sat by Pulse Oximetry 100 Medical Decision Narrative: Patient denies just got off her period Discussed migraine cocktail and patient declined just wanting the Toradol injection to help with the migraine
[2024-05-02] MEDS: KETOROLAC 30MG/ML VIAL 30 MG IM (19:48)
[2024-05-02 20:04] VITALS: BP 133/78; PULSE 75; RESP 20; TEMP 36.9
== END 2024-05-02 20:08 | disposition home or self-care (01) ==
PROVIDERS: Emergency Provider Nurse Practitioner; PCP Family Medicine
DX: R51.9 Headache, unspecified (principal)
CPT/HCPCS: 96372; 99213; G0381; J1885

== ENCOUNTER 2024-05-09 11:00 | Outpatient (CLI) | payer OTHER, SELFPAY | END 2024-05-09 23:59 | disposition home or self-care (01) | LOC: LAB.DROPOF 05-16 10:32 | PROVIDERS: PCP Family Medicine; Visit Provider Family Medicine | DX: N39.0 Urinary tract infection, site not specified (principal); R11.2 Nausea with vomiting, unspecified | CPT/HCPCS: 87086 ==

== ENCOUNTER 2024-05-13 11:10 | Outpatient (CLI) | payer OTHER, SELFPAY ==
[2024-05-13 13:06] LABS: HCG,Quantitative < 2 mIU/ml (0-5.42)
[2024-05-14 06:41] LABS: Progesterone 4.2 ng/mL (.)
== END 2024-05-13 23:59 | disposition home or self-care (01) ==
LOC: LAB 11:12
PROVIDERS: PCP Nurse Practitioner Family; Visit Provider Obstetrics & Gynecology
DX: Z34.90 Encounter for supervision of normal pregnancy, unspecified, unspecified trimester (principal)
CPT/HCPCS: 36415; 84144; 84702

== ENCOUNTER 2024-05-23 10:53 | Emergency (ER) | payer OTHER, SELFPAY ==
[2024-05-23 11:05] VITALS: BP 120/80; PULSE 96; RESP 19; TEMP 37; O2SAT 97; BMI 33.1
[2024-05-23 11:23] LABS: UTC Strep Screen (Rapid) Negative (Negative)
[2024-05-23 11:24] LABS: UTC Influenza A Antigen Negative (Negative); UTC Influenza B Antigen Negative (Negative)
--- NOTE | 2024-05-23 11:33 | ED_ITS ---
Discharge Plan Disposition Patient Disposition: Home, Self-Care Condition: Good Prescriptions Prescriptions: No Action phentermine 37.5 mg tablet 37.5 mg PO DIRECTED Patient Comments: 37.5 mg orally daily for Weight loss; must administer 30 minutes before or 1- 2 hours after breakfast Referrals Follow up/Referrals: Jo Barragan APRN [Primary Care Provider] - See instructions Activity Restrictions/Add. Instructions Additional Instructions/Restrictions: *Monitor Temp, Over the counter Motrin or Tylenol as directed/as needed Tylenol every 4 hours and Motrin every 6 hours (as long as your family doctor has told you that you can take it) for fever or pain. and straight to ER if unable to lower temp less than 101.0 after medication given *Warm salt water gargles may help to soothe the throat *Throat Lozenges? *Warm fluids like tea with honey may help to soothe the throat? *Sleep elevated *Humidifier/Vaporizer Your throat swab was sent for culture. Those results are typically sent to your primary care. Be sure to follow up in 2-3 days with your family doctor/primary care physician if no improvement so they can review those result and treat if necessary. If you don?t have a primary care doctor, I recommend you get one but in the mean time, you will have to return to a walk in clinic Follow up IMMEDIATELY for new or worsening symptoms or no Noticeable improvement over the next 48-72 hours. 911 for difficulty breathing or swallowing You was tested for COVID your test result should be back later today and available on the [facility] Clinical Impressions Clinical Impression: Viral syndrome Instructions Patient Instructions: DI for Viral Syndrome Print Language Print Language: [place] Discharge ED Provider: Sylvia Busby [facility] [place] HPI General Stated complaint: sore throat, headache, body aches Mode of Arrival: Ambulatory Source of Information: Patient Limitations: No Limitations Time Seen by Provider: 05/23/24 11:33 Description of Symptoms (Recalled from Triage Doc. by RN): PATIENT C/O COUGH, HEADACHE, FEVER, SORE THROAT, BODY ACHES, NAUSEA, EAR PAIN AND CONGESTION THAT STARTED LAST NIGHT HEENT Symptoms (Recalled from RN notes): Yes Resp Symptoms (Recalled from RN notes): Yes Skin Symptoms (Recalled from RN notes): No MS Symptoms (Recalled from RN notes): No Functional Status (Recalled from RN notes): WNL History of Present Illness Provider Complaint: Patient states that she started feeling bad last night with flu like symptoms States that she has started with cough, nasal congestion, runny nose, sore throat, body ache, chills, headache and feeling achy all over States sister dx with walking pneumonia yesterday Related Data Home Medications ?Medication ?Instructions ?Recorded ?Confirmed phentermine 37.5 mg tablet 37.5 mg PO DIRECTED 05/02/24 05/23/24 Allergies Allergy/AdvReac Type Severity Reaction Status Date / Time No Known Allergies Allergy Verified 05/09/24 12:57 Worker's Comp Is this a Worker's Comp case?: No [facility] Disclaimer: The information contained in this section may have been updated after the patient was seen, as this information can be updated by other users. Medical History Dysmenorrhea Irregular periods/menstrual cycles Endometriosis Dyspareunia Lightheadedness Dyspnea Cholelithiasis Dizziness Edema Surgical History Hx of laparoscopy History of cholecystectomy Family History Other No significant family history Social History Smoking Status: Current every day smoker second hand exposure: Yes alcohol intake: never substance use type: denies use current occupational status: employed Travel in the last 8 weeks: None household members: family housing: house current occupation: [employer] current occupational exposures/hazards: No caffeine: Yes Have you lived/traveled outside [place] in past 30 days?: No Contact w/someone who lives/traveled outside US past 30 days?: No Exposure to someone with infectious disease in past 14 days?: No Do you have a fever (greater than 100.4 F or 38 C)?: No Have you tested positive for COVID-19: No Exposed to someone with COVID-19 in past 14 days?: No Do you have a sore throat?: Yes Do you have a cough?: No Do you have any weakness?: No Do you have any diarrhea?: No Are you experiencing any unusual bleeding?: No Do you have any muscle aches/pain?: Yes Do you have any abdominal pain?: No Are you experiencing loss of taste or smell?: No ROS Obtained: Yes All systems reviewed & no additional complaints except as documented and Yes Systems reviewed as appropriate & no additional complaints except as documented Constitutional Constitutional: Reports system reviewed and no additional complaints, except as documented, Reports as per HPI, Reports body ache, Reports chills and Reports headache(s) ENT Ears, Nose, Mouth, and Throat: Reports system reviewed and no additional complaints, except as documented, Reports as per HPI, Reports otalgia, Reports headache(s), Reports nasal congestion, Reports nasal discharge and Reports sore throat Cardiovascular Cardiovascular: Reports system reviewed and no additional complaints, except as documented and Reports as per HPI Respiratory Respiratory: Reports system reviewed and no additional complaints, except as documented, Reports as per HPI, Denies shortness of breath, Denies chest congestion, Reports cough, Denies pain on inspiration and Denies pain with cough Gastrointestinal Gastrointestingal: Reports system reviewed and no additional complaints, except as documented and as per HPI Neurologic Neurologic: Reports headache(s) Physical Exam General General appearance: alert and in no apparent distress ENT ENT exam: Present normal exam, normal oropharynx, mucous membranes moist and TM's normal bilaterally Respiratory Respiratory exam: Present normal lung sounds bilaterally; Absent respiratory distress or wheezes Cardiovascular Cardiovascular exam: Present regular rate, normal rhythm and normal heart sounds Abdominal Exam Abdominal exam: Present soft and normal bowel sounds; Absent distention or tenderness Neurological Exam Neurological exam: Present alert, oriented X3 and normal gait Medical Decision Making Medical Records Screening: Per USPSTF and CDC recommendations, given the prevalence of disease in our region, it is our hospital?s policy to screen for HIV and viral Hepatitis for all patients aged 18 and over and those with ongoing risk factors. Baljeet Inquiry Pt receiving controlled substance: No Baljeet was queried for this patient: No Vital Signs: 05/23/24 11:05 Temperature 98.6 F Temperature Source Oral Pulse Rate [Left Brachial] 96 H Respiratory Rate 19 Blood Pressure [Left Arm] 120/80 Blood Pressure Mean [Left Arm] 93 Blood Pressure Source [Left Arm] Automatic Cuff Blood Pressure Position [Left Arm] Sitting 02 Sat by Pulse Oximetry 97 Oxygen Delivery Method Room Air Lab Data Lab results reviewed: Yes I reviewed the patient's lab results. Lab Results 05/23/24 11:04: Influenza Type A Ag Negative, Influenza Type B Ag Negative, Strep Scn Rapid Clinic Negative Orders (Tests/Meds): ORDERS Category Date Time Status Covid-19 Nasal PCR ([facility]) Routine Lab 05/23/24 11:32 Ordered Strep Screen Confirmation Stat Micro 05/23/24 11:04 Received
[2024-05-23 11:42] VITALS: BP 120/80; PULSE 96; RESP 19; TEMP 37; O2SAT 97
== END 2024-05-23 11:44 | disposition home or self-care (01) ==
PROVIDERS: Emergency Provider Nurse Practitioner; PCP Nurse Practitioner Family
DX: B34.9 Viral infection, unspecified (principal); R07.0 Pain in throat; R51.9 Headache, unspecified; R50.9 Fever, unspecified; R11.0 Nausea; H92.09 Otalgia, unspecified ear; R09.81 Nasal congestion; R05.9 Cough, unspecified
CPT/HCPCS: 87635; 87804; 87880; 99212; G0381

== ENCOUNTER 2024-07-05 10:17 | Emergency (ER) | payer OTHER, SELFPAY ==
[2024-07-05 11:52] VITALS: BP 115/70; PULSE 93; RESP 18; TEMP 37; O2SAT 100; BMI 32.1
--- NOTE | 2024-07-05 11:52 | ED_ITS ---
Discharge Plan Disposition Patient Disposition: Home, Self-Care Condition: Good Prescriptions Prescriptions: New oseltamivir [Tamiflu] 75 mg capsule 75 mg PO BID 5 Days Qty: 10 0RF [id number]-[id number] [Bromfed DM] 2-30-10 mg/5 mL Syrup 5 ml PO Q6H PRN (Reason: Cough) Qty: 240 0RF ondansetron 4 mg Tablet,Disintegrating 4 mg PO Q8H PRN (Reason: Nausea) Qty: 12 0RF No Action phentermine 37.5 mg tablet 37.5 mg PO DIRECTED Patient Comments: 37.5 mg orally daily for Weight loss; must administer 30 minutes before or 1- 2 hours after breakfast Referrals Follow up/Referrals: Jo Barragan APRN [Primary Care Provider] - See instructions Activity Restrictions/Add. Instructions Additional Instructions/Restrictions: Drink plenty of fluids. Take tylenol or ibuprofen for pain or fever. Take the medications as directed. Follow up with your regular doctor. GO TO THE ER FOR ANY WORSENING SYMPTOMS Clinical Impressions Clinical Impression: Influenza, Acute viral syndrome Instructions Patient Instructions: DI for Influenza -- Adult, Ondansetron, Oseltamivir Print Language Print Language: German Discharge ED Provider: Philippe Cottrell [facility] General Stated complaint: cough, flu exp. Time Seen by Provider: 07/05/24 11:48 Related Data Home Medications ?Medication ?Instructions ?Recorded ?Confirmed phentermine 37.5 mg tablet 37.5 mg PO DIRECTED 05/02/24 06/19/24 Previous Rx's ?Medication ?Instructions ?Recorded ilrcagovaqtzldg-hrksdqrubujlejj-DS 5 ml PO Q6H PRN Cough #240 mL 07/05/24 2 mg-30 mg-10 mg/5 mL oral syrup (Bromfed DM) ondansetron 4 mg disintegrating 4 mg PO Q8H PRN Nausea #12 tabs 07/05/24 tablet oseltamivir 75 mg capsule (Tamiflu) 75 mg PO BID 5 days #10 caps 07/05/24 Allergies Allergy/AdvReac Type Severity Reaction Status Date / Time No Known Allergies Allergy Verified 05/09/24 12:57 [facility] Disclaimer: The information contained in this section may have been updated after the patient was seen, as this information can be updated by other users. Medical History Dysmenorrhea Irregular periods/menstrual cycles Endometriosis Dyspareunia Lightheadedness Dyspnea Cholelithiasis Dizziness Edema Surgical History Hx of laparoscopy History of cholecystectomy Family History Other No significant family history Social History Smoking Status: Current every day smoker second hand exposure: Yes alcohol intake: never substance use type: denies use current occupational status: employed Travel in the last 8 weeks: None household members: family housing: house current occupation: [employer] current occupational exposures/hazards: No caffeine: Yes Have you lived/traveled outside US in past 30 days?: No Contact w/someone who lives/traveled outside US past 30 days?: No Exposure to someone with infectious disease in past 14 days?: Yes Do you have a fever (greater than 100.4 F or 38 C)?: No Have you tested positive for COVID-19: No Exposed to someone with COVID-19 in past 14 days?: No Do you have a sore throat?: No Do you have a cough?: Yes Do you have any weakness?: No Do you have any diarrhea?: No Are you experiencing any unusual bleeding?: No Do you have any muscle aches/pain?: No Do you have any abdominal pain?: No Are you experiencing loss of taste or smell?: No ROS Obtained: Yes All systems reviewed & no additional complaints except as documented Constitutional Constitutional: Reports chills and Reports fever(s) Eyes Eyes: Denies eye discharge ENT Ears, Nose, Mouth, and Throat: Reports as per HPI Cardiovascular Cardiovascular: Denies chest pain Respiratory Respiratory: Denies chest congestion and Reports cough Gastrointestinal Gastrointestingal: Reports nausea; Denies abdominal pain, constipation, cramping, diarrhea or vomiting Musculoskeletal Musculoskeletal: Denies arthralgias Integumentary/Breasts Skin/Breast: Denies rash Neurologic Neurologic: Denies paresthesias Physical Exam General General appearance: alert and in no apparent distress Head Head exam: atraumatic, normocephalic and normal inspection Eye Eye exam: Present normal appearance, PERRL and EOMI ENT ENT exam: Present normal exam, normal oropharynx, mucous membranes moist, TM's normal bilaterally and normal external ear exam Neck Neck exam: Present normal inspection, full ROM and trachea midline; Absent meningismus or lymphadenopathy Chest Chest inspection: Present normal inspection and symmetric chest wall rise; Absent tenderness Respiratory Respiratory exam: Present normal lung sounds bilaterally; Absent respiratory distress Cardiovascular Cardiovascular exam: Present regular rate and normal rhythm; Absent JVD Abdominal Exam Abdominal exam: Present soft and normal bowel sounds; Absent distention, tenderness or guarding Extremities Exam Extremities exam: Present normal inspection, full ROM and normal capillary refill; Absent calf tenderness Back Exam Back exam: Present normal inspection; Absent tenderness Neurological Exam Neurological exam: Present alert and oriented X3 Psychiatric Psychiatric exam: Present normal affect and normal mood Skin Skin exam: Present warm, dry, intact and normal color Lymphatic Lymphatic Findings: no adenopathy Medical Decision Making Medical Records Medical records reviewed: No I reviewed the patient's medical records. Screening: Per USPSTF and CDC recommendations, given the prevalence of disease in our region, it is our hospital?s policy to screen for HIV and viral Hepatitis for all patients aged 18 and over and those with ongoing risk factors. Baljeet Inquiry Pt receiving controlled substance: No Lab Data Lab results reviewed: Yes I reviewed the patient's lab results.
[2024-07-05 12:01] LABS: UTC Influenza A Antigen Negative (Negative); UTC Influenza B Antigen Negative (Negative)
[2024-07-05 12:38] VITALS: BP 115/70; PULSE 93; RESP 18; TEMP 37
== END 2024-07-05 12:38 | disposition home or self-care (01) ==
PROVIDERS: Emergency Provider Nurse Practitioner Family; PCP Nurse Practitioner Family
DX: J11.1 Influenza due to unidentified influenza virus with other respiratory manifestations (principal); B34.9 Viral infection, unspecified
CPT/HCPCS: 87804; 99213; G0381

== ENCOUNTER 2024-07-12 10:50 | Emergency (ER) | payer OTHER, SELFPAY ==
[2024-07-12] VITALS (9 sets, daily range): BP systolic 91–117; BP diastolic 57–71; PULSE 58–93; RESP 14–16; TEMP 36.9; O2SAT 97–100; BMI 31.8
--- NOTE | 2024-07-12 11:11 | CT_ITS ---
FINAL REPORT TECHNIQUE: After the administration of oral and intravenous contrast, axial images were obtained through the abdomen and pelvis by computed tomography. The study was performed with techniques to keep radiation dose as low as reasonably achievable, (ALARA). Individual dose reduction techniques using automated exposure control or adjustment of mA and/or kV according to the patient's size were employed. CLINICAL HISTORY: LLQ pain/n/v/delaney COMPARISON: None FINDINGS: Abdomen: The lung bases are clear. The liver parenchyma is homogeneous. The gallbladder is absent. The spleen, pancreas, adrenals and kidneys appear unremarkable. The aorta is normal in caliber. There is no free fluid or adenopathy. Pelvis: The appendix is not identified. The urinary bladder is unremarkable. The uterus is anteverted. There is an enhancing mural nodule in the left adnexa adjacent to a left adnexal cyst, measuring up to 1.7 cm in size, best seen on image #99 of series 3. Favor physiologic etiology. There is no free fluid or adenopathy. IMPRESSION: Enhancing mural nodule in the left adnexa, 1.7 cm, favor physiologic. If clinically indicated, would suggest an endovaginal ultrasound in 6 weeks for further evaluation. Otherwise, unremarkable CT of the abdomen and pelvis. Reviewed, Interpreted and Dictated by Warren Valenzuela MD Transcribed by Mercedez Poon Authenticated and [facility]
[2024-07-12 11:15] LABS: Microscopic, Urine URINE MICROSCOPIC (MICROSCOPIC)
[2024-07-12 11:16] LABS: Basophils % 0.4 % (0.1-2.0); Eosinophils # 0.1 K/mm3 (0.0-0.4); Eosinophils % 1.3 % (0.1-12.0); Hematocrit 41.4 % (37.0-47.0); Hemoglobin 13.6 g/dL (12.2-16.2); Lymphocytes # 1.9 K/mm3 (0.7-4.5); Lymphocytes % 25.6 % (10-50); Mean Corpuscular HGB Conc 32.9 g/dL (31.8-35.4); Mean Corpuscular Hemoglobin 28.4 pg (27.0-31.2); Mean Corpuscular Volume 86.4 fl (81-99); Mean Platelet Volume 9.4 fl (7.4-10.4); Monocytes # 0.5 K/mm3 (0.1-1.0); Monocytes % 6.6 % (1.7-9.3); Neutrophils # 4.9 K/mm3 (1.8-7.8); Neutrophils % 65.8 % (37.0-80.0); Platelet Count 398 K/mm3 (142-424); Red Blood Count 4.79 M/mm3 (4.20-5.40); Red Cell Distribution Width 11.8 % (11.5-17.5); White Blood Count 7.5 K/mm3 (4.8-10.8)
[2024-07-12 11:17] LABS: Appearance,Urine CLEAR (Clear); Bilirubin,Urine Negative (Negative); Blood, Urine 2+ (Negative); Color,Urine YELLOW (Yellow); Glucose,Urine (UA) Negative (Negative); Ketones,Urine Negative (Negative); Leukocyte Esterase,Urine Negative (Negative); Nitrate,Urine Negative (Negative); Protein,Urine Negative (Negative); Specific Gravity, Urine 1.015 (1.005-1.030); Urobilinogen,Urine 0.2 EU/dl (0.2)
[2024-07-12 11:18] LABS: Albumin Level 4.8 g/dl (3.5-5.0); Chloride 106 mmol/L (98-107); Potassium 3.6 mmoL/L (3.5-5.1); Sodium 140 mmol/L (136-145)
--- NOTE | 2024-07-12 11:18 | HMH.EDGENADL ---
Discharge Plan Disposition Patient Disposition: Home, Self-Care Condition: Good Prescriptions Prescriptions: New ondansetron 4 mg tablet,disintegrating 4 mg PO Q8H PRN (Reason: nausea and vomiting) 4 Days Qty: 12 0RF Referrals Follow up/Referrals: Jo Barragan APRN [Primary Care Provider] - See instructions Activity Restrictions/Add. Instructions Additional Instructions/Restrictions: You were evaluated in the emergency department today. Please follow-up closely with your health insurance specialist for further evaluation of your ovarian cyst in about 6 weeks. For your nausea, vomiting, and diarrhea, I feel that this is most likely infectious. 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 Make sure you stay hydrated. Eat a bland diet until your symptoms have resolved. Return to the emergency department for new or worsening symptoms. Clinical Impressions Clinical Impression: Cyst of left ovary, Nausea, vomiting and diarrhea Stand Alone Forms Stand Alone Forms: Work/School Release Instructions Patient Instructions: DI for Diarrhea and Traveler's Diarrhea -- Adult, DI for Acute Abdominal Pain, DI for Vomiting -- Adult Print Language Print Language: [place] Discharge ED Provider: Barbi Foreman General Adult HPI General Chief complaint: Abdominal Pain Stated complaint: abd pain vomiting diharrea Time Seen by Provider: 07/12/24 11:00 Mode of Arrival: Ambulatory Source of Information: Patient Limitations: No Limitations Description of Symptoms (Recalled from ER Triage Doc. by RN): pt c/o LLQ pain and N/V/D. pt states the abd pain is sharp/shooting and 7/10. pt denies urinary symptoms, SOA, or chest pain. pt is tender to palpation on her LLQ. pt has a hx of a amanda and PCOS. History of Present Illness HPI narrative: This patient is a 23-year-old female who has a history of PCOS and prior cholecystectomy presenting to the emergency department for evaluation with concern for abdominal pain, nausea, vomiting, and diarrhea. Patient states that she has been having nausea for about a week, and now has significant pain in the left lower quadrant is 7 out of 10. She complains of vomiting and diarrhea that started today. Emesis and diarrhea are nonbloody. No fevers, chills, urinary symptoms, abnormal vaginal discharge, or other concerns. She states she has a history of prior colonoscopy which was normal. Related Data Previous Rx's ?Medication ?Instructions ?Recorded ondansetron 4 mg disintegrating 4 mg PO Q8H PRN nausea and 07/12/24 tablet vomiting 4 days #12 tabs Allergies Allergy/AdvReac Type Severity Reaction Status Date / Time No Known Allergies Allergy Verified 07/12/24 11:16 [facility] Disclaimer: The information contained in this section may have been updated after the patient was seen, as this information can be updated by other users. Medical History Dysmenorrhea Irregular periods/menstrual cycles Endometriosis Dyspareunia Lightheadedness Dyspnea Cholelithiasis Dizziness Edema Surgical History Hx of laparoscopy History of cholecystectomy Family History Other No significant family history Social History Smoking Status: Current every day smoker second hand exposure: Yes alcohol intake: never substance use type: denies use current occupational status: employed Travel in the last 8 weeks: None household members: family housing: house current occupation: [employer] current occupational exposures/hazards: No caffeine: Yes Have you lived/traveled outside [place] in past 30 days?: No Contact w/someone who lives/traveled outside [place] past 30 days?: No Exposure to someone with infectious disease in past 14 days?: No Do you have a fever (greater than 100.4 F or 38 C)?: No Have you tested positive for COVID-19: No Exposed to someone with COVID-19 in past 14 days?: No Do you have a sore throat?: No Do you have a cough?: No Do you have any weakness?: No Do you have any diarrhea?: Yes Are you experiencing any unusual bleeding?: No Do you have any muscle aches/pain?: No Do you have any abdominal pain?: Yes Are you experiencing loss of taste or smell?: No Other Medical History Have you received the Flu Vaccine for this season: No Have you received the Pneumonia Vaccine: No ROS Obtained: Yes All systems reviewed & no additional complaints except as documented Physical Exam General General appearance: alert and in no apparent distress Head Head exam: atraumatic and normocephalic Eye Eye exam: Present normal appearance, PERRL and EOMI ENT ENT exam: Present normal exam, normal oropharynx, mucous membranes moist and normal external ear exam Neck Neck exam: Present normal inspection, full ROM and trachea midline; Absent tenderness Chest Chest inspection: Present normal inspection and symmetric chest wall rise; Absent tenderness Respiratory Respiratory exam: Present normal lung sounds bilaterally; Absent respiratory distress, wheezes, stridor or accessory muscle use Cardiovascular Cardiovascular exam: Present regular rate and normal rhythm Abdominal Exam Abdominal exam: Present soft and tenderness (Left lower quadrant); Absent distention, guarding, rebound or rigidity Extremities Exam Extremities exam: Present normal inspection, full ROM and normal capillary refill; Absent tenderness or edema Back Exam Back exam: Present normal inspection and full ROM; Absent tenderness Neurological Exam Neurological exam: Present alert, oriented X3, CN II-XII intact and normal gait; Absent motor sensory deficit Psychiatric Psychiatric exam: Present normal affect and normal mood Skin Skin exam: Present warm and dry Medical Decision Making Medical Records Medical records reviewed: Yes I reviewed the patient's medical records. Screening: Per USPSTF and CDC recommendations, given the prevalence of disease in our region, it is our hospital?s policy to screen for HIV and viral Hepatitis for all patients aged 18 and over and those with ongoing risk factors. Baljeet Inquiry Pt receiving controlled substance: No Vital Signs: 07/12/24 10:59 07/12/24 11:00 07/12/24 11:02 Temperature 98.4 F Temperature Source Oral Pulse Rate 90 91 H Pulse Rate [Left] 84 Respiratory Rate 14 Blood Pressure 101/69 L 117/57 L Blood Pressure [Right Arm] 101/69 L Blood Pressure Mean 79 Blood Pressure Mean [Right Arm] 79 Blood Pressure Source [Right Arm] Automatic Cuff Blood Pressure Position [Right Arm] Sitting 02 Sat by Pulse Oximetry 100 99 100 Oxygen Delivery Method Room Air Room Air Room Air 07/12/24 11:31 07/12/24 12:00 07/12/24 12:30 Temperature Temperature Source Pulse Rate 84 66 58 L Pulse Rate [Left] Respiratory Rate Blood Pressure 93/58 L 101/61 L 93/57 L Blood Pressure [Right Arm] Blood Pressure Mean Blood Pressure Mean [Right Arm] Blood Pressure Source [Right Arm] Blood Pressure Position [Right Arm] 02 Sat by Pulse Oximetry 99 97 100 Oxygen Delivery Method Room Air Room Air Room Air 07/12/24 12:51 Temperature Temperature Source Pulse Rate 63 Pulse Rate [Left] Respiratory Rate Blood Pressure 91/58 L Blood Pressure [Right Arm] Blood Pressure Mean Blood Pressure Mean [Right Arm] Blood Pressure Source [Right Arm] Blood Pressure Position [Right Arm] 02 Sat by Pulse Oximetry 99 Oxygen Delivery Method Room Air Lab Data Lab results reviewed: Yes I reviewed the patient's lab results. Lab Results 07/12/24 10:55: Urine Color Yellow, Urine Appearance Clear, Urine pH 6.0, Ur Specific [place] 1.015, Urine Protein Negative, Urine Glucose (UA) Negative, Urine Ketones Negative, Urine Blood 2+ A, Urine Nitrate Negative, Urine Bilirubin Negative, Urine Urobilinogen 0.2, Ur Leukocyte Esterase Negative, Urine RBC 5-10, Urine WBC None, Ur Squamous Epith Cells 3-5, Urine Bacteria Trace 07/12/24 11:02: WBC 7.5, RBC 4.79, Hgb 13.6, Hct 41.4, MCV 86.4, MCH 28.4, MCHC 32.9, RDW 11.8, Plt Count 398, MPV 9.4, Neut % (Auto) 65.8, Lymph % (Auto) 25.6, Brantley % (Auto) 6.6, Eos % (Auto) 1.3, Baso % (Auto) 0.4, Neut # (Auto) 4.9, Lymph # (Auto) 1.9, Brantley # (Auto) 0.5, Eos # (Auto) 0.1, Baso # (Auto) 0.0, Sodium 140, Potassium 3.6, Chloride 106, Carbon Dioxide 25, Anion Gap 12.6, BUN 4 L, Creatinine 0.70, Estimated Creat Clear 162, Estimated GFR 105, Est GFR ( Amer) 127, Glucose 76, Calcium 8.7, Total Bilirubin 0.3, AST 31, ALT 37, Alkaline Phosphatase 84, Total Protein 7.3, Albumin 4.8, Globulin 2.5, Albumin/Globulin Ratio 1.9 H, Lipase 33, Serum HCG, Qual Negative, HCV Ab BRIDGETT w/Rflx PCR Qn Negative, HIV Ag/Ab Combo Qual Negative 07/12/24 11:18: SARS-CoV-2 (PCR) Not detected, Influenza A Untype (PCR) Not detected, Influenza Type B (PCR) Not detected 07/12/24 11:02 07/12/24 11:02 Orders (Tests/Meds): ED MEDICATIONS Discontinued Medications Generic Name Dose Route Start Last Admin Trade Name Edmund PRN Reason Stop Dose Admin Acetaminophen 1,000 mg 07/12/24 11:09 07/12/24 11:22 Acetaminophen 1,000mg/100ml Vial IV 07/12/24 11:10 1,000 mg ONCE ONE Administration Lactated Ringer's 1,000 mls @ 999 mls/hr 07/12/24 11:09 07/12/24 11:22 Lactated Ringer's 1000 Ml Bag IV 07/12/24 12:09 999 mls/hr .Q1H1M ONE Administration Iopamidol 75 ml 07/12/24 11:44 07/12/24 11:52 Iopamidol-370 (76%);100ml Bottle IV 07/12/24 11:45 75 ml ONCE ONE Administration Ketorolac Tromethamine 15 mg 07/12/24 11:09 07/12/24 11:56 Ketorolac 30mg/Ml Vial IV 07/12/24 11:10 15 mg ONCE ONE Administration Ondansetron HCl 4 mg 07/12/24 11:09 07/12/24 11:22 Ondansetron 4mg/2ml Vial IV 07/12/24 11:10 4 mg ONCE ONE Administration Sodium Chloride 10 ml 07/12/24 11:44 07/12/24 11:52 Sodium Chloride 0.9% 10ml Syr (Rad Only) IV 07/12/24 11:45 10 ml ONCE ONE Administration ORDERS Category Date Time Status CT abdomen pelvis w con Stat Cat Scan 07/12/24 11:11 Completed Complete Blood Count Auto Diff Stat Lab 07/12/24 11:02 Completed Comprehensive Metabolic Panel Stat Lab 07/12/24 11:02 Completed Diarrhea 23 Panel, PCR Stat Lab 07/12/24 11:09 Ordered HIV Combo Stat Lab 07/12/24 11:02 Completed Hepatitis C Ab Qual. W/ RFX Stat Lab 07/12/24 11:02 Completed Lipase Stat Lab 07/12/24 11:02 Completed Rapid PCR Covid and Flu A/B Stat Lab 07/12/24 11:18 Completed Serum [HCG Qualitative, Serum] Stat Lab 07/12/24 11:02 Completed UA [Urinalysis and Microscopic] Stat Lab 07/12/24 10:55 Completed Urine Chlam/Gono/Trich, RADHA Stat Lab 07/12/24 10:55 Received Medical Decision Narrative: In summary, this patient is a 23-year-old female presenting to the Emergency Department for evaluation of left lower quadrant abdominal pain, nausea, vomiting, and diarrhea. Differential diagnoses considered include but are not limited to infectious colitis, inflammatory colitis, gastroenteritis, diverticulitis, cystitis, pyelonephritis. Ruling out the most morbid conditions drove assessment. It should be noted patient's history includes PCOS and obesity which are not at goal therapy. This complicates all aspects of care by increasing patient's risk for morbidity. I reviewed patient's past medical records and noted previous evaluations for gynecology for dysmenorrhea with last evaluation 07/10/2024. On exam, the patient is lying in bed in no acute distress with reassuring vital signs on cardiac telemetry. She has left lower quadrant tenderness but no rebound or guarding. Workup included CBC, CMP, lipase, urinalysis, urine STI testing, diarrhea panel, test, CT abdomen pelvis with IV contrast. Patient was given a bolus of IV fluids as well as IV Toradol, acetaminophen, Zofran for symptomatic improvement. I independently interpreted CT scan prior to the radiologist read and noted no obvious inflammation of the colon. Please see their read for final interpretation. Labs were obtained that demonstrated reassuring CBC with no significant leukocytosis, reassuring chemistry with normal liver enzymes, normal kidney function. Urinalysis is not concerning for infection. test negative. On reassessment, patient had good improvement after administration of interventions above. She is able to tolerate oral intake and has not vomited since arrival to the emergency department. Abdominal exam remains benign. She did have a left ovarian cyst, which I notified her of and advised that she follow-up closely with gynecology for reassessment. Ultimately at this time, feel that she is appropriate for discharge home with instructions for supportive management of likely viral gastroenteritis. She was not able to provide stool specimen here for testing. She was given prescription for Zofran, instructions for close follow-up with primary care, instruction for supportive management, and strict return precautions. She was discharged after all questions were answered. Critical Care Critical Care Time Critical Care Time: No
--- NOTE | 2024-07-12 11:18 | PC.NURSE ---
covid/flu swab sent to lab. Pt reports no other needs at this time.
[2024-07-12 11:20] LABS: Alanine Aminotransferase 37 U/L (12-78); Aspartate Amino Transferase 31 U/L (14-36); Bilirubin,Total 0.3 mg/dl (0.2-1.3); Blood Urea Nitrogen 4 mg/dl (7-17); Creatinine Clearance Estimated 162 mL/min (50-200); Estimated Glomerular Filt Rate 105 ml/min (>60); GFR (African American) 127 ML/MIN (>60)
[2024-07-12 11:21] LABS: Coronavirus 19, PCR Not Detected (NotDetected); Influenza A, PCR Not Detected (NotDetected); Influenza B, PCR Not Detected (NotDetected)
[2024-07-12 11:21] LABS: Albumin/Globulin Ratio 1.9 (1.1-1.8); Alkaline Phosphatase 84 U/L (38-126); Anion Gap 12.6 mEq/L (5-15); Calcium 8.7 mg/dl (8.4-10.2); Carbon Dioxide 25 mmol/L (22.0-30.0); Globulin 2.5 g/dL (1.3-3.2); Glucose 76 mg/dl (74-100); Lipase 33 U/L (23-300); Total Protein,Serum 7.3 g/dl (6.3-8.2)
[2024-07-12] MEDS: ACETAMINOPHEN 1,000MG/100ML VIAL 1000 MG IV (11:22)
[2024-07-12] MEDS: LACTATED RINGERS 1000ML 1,000 ML 999 ML IV (11:22)
[2024-07-12] MEDS: ONDANSETRON 4MG/2ML VIAL 4 MG IV (11:22)
[2024-07-12 11:23] LABS: Bacteria,Urine Trace /lpf
[2024-07-12 11:31] LABS: HCG Qualitative, Serum Negative (Negative)
--- NOTE | 2024-07-12 11:32 | PC.NURSE ---
Dr. Foreman s/w MRI regarding imaging and order. States they can do this today and will come and get the pt in approx 15 min. Pt and her parents updated on this information.
[2024-07-12] MEDS: IOPAMIDOL-370 (76%);100ML BOTTLE 75 ML IV (11:52)
[2024-07-12] MEDS: SODIUM CHLORIDE 0.9% 10ML SYR (RAD ONLY) 10 ML IV (11:52)
[2024-07-12] MEDS: KETOROLAC 30MG/ML VIAL 15 MG IV (11:56)
--- NOTE | 2024-07-12 12:00 | PC.NURSE ---
I rounded on patient; pt sitting up on ED stretcher looking at phone. She is hooked up to monitor and reports no needs at this time. Call christian within reach
[2024-07-12 12:20] LABS: HIV Combo NEGATIVE (Negative)
[2024-07-12 12:28] LABS: Hepatitis C Ab Qual. W/ RFX NEGATIVE (Negative)
--- NOTE | 2024-07-12 12:53 | PC.NURSE ---
I rounded on the pt. I took her some peanut butter, crackers and water for a PO challenge. no new complaints. no needs voiced at this time. call christian in reach.
--- NOTE | 2024-07-12 12:58 | PC.NURSE ---
DR HANNON AT BEDSIDE TO UPDATE PT
--- NOTE | 2024-07-12 13:15 | PC.NURSE ---
pt had a successful PO challenge. no needs voiced. call christian in reach.
--- NOTE | 2024-07-12 13:37 | PC.NURSE ---
ROUNDED ON THE PT. THE PT VOICES THAT SHE DOES NOT NEED ANYTHING AT THIS TIME. CALL LIGHT IS WITHIN REACH OF THE PT.
[2024-07-13 08:38] LABS: Chlamydia trachomatis Negative (Negative); Neisseria gonorrhoeae Negative (Negative); Trichomonas vaginalis Negative (Negative)
== END 2024-07-12 13:39 | disposition home or self-care (01) ==
PROVIDERS: Emergency Provider Emergency Medicine; PCP Nurse Practitioner Family
DX: N83.202 Unspecified ovarian cyst, left side (principal); R11.2 Nausea with vomiting, unspecified; R19.7 Diarrhea, unspecified; R10.32 Left lower quadrant pain
CPT/HCPCS: 74177; 80053; 81001; 83690; 84703; 85025; 86803; 87389; 87491; 87591; 87636; 87661; 96365; 96374; 96375; 99285; J0131; J1885; J2405; J7120; Q9967

== ENCOUNTER 2024-08-08 09:43 | Outpatient (CLI) | payer OTHER, SELFPAY ==
[2024-08-08 20:04] LABS: HCG,Quantitative < 2 mIU/ml (0-5.42)
== END 2024-08-08 23:59 | disposition home or self-care (01) ==
LOC: LAB.DROPOF 08-09 09:44
PROVIDERS: PCP Obstetrics & Gynecology; Visit Provider Obstetrics & Gynecology
DX: Z32.01 Encounter for pregnancy test, result positive (principal)
CPT/HCPCS: 84144; 84702

== ENCOUNTER 2024-10-20 08:34 | Outpatient (CLI) | payer OTHER, SELFPAY ==
--- NOTE | 2024-10-20 08:45 | MR_ITS ---
FINAL REPORT TECHNIQUE: Multiplanar and multisequence imaging of the brain was obtained without contrast. CLINICAL HISTORY: MIGRAINE headache. DIZZINESS AND BLURRED VISION COMPARISON: None FINDINGS: Brain parenchymal: There is no mass effect or midline shift. There are no areas of abnormal signal intensity.The cerebellum and brainstem are without acute abnormality. Ventricles: The ventricles are symmetric in size and configuration without hydrocephalus. Extra-axial spaces: No extra-axial fluid collections. Diffusion imaging: No areas of restricted diffusion to suggest acute infarct. Flow voids: Flow voids within the major intracranial vessels are preserved. Soft tissues: There are mucous retention cysts or polyps present in the floors of the bilateral maxillary sinuses. IMPRESSION: No acute intracranial abnormality. Reviewed, Interpreted and Dictated by Ashley Wu MD Transcribed by Mercedez Poon Authenticated and [facility]
== END 2024-10-20 23:59 | disposition home or self-care (01) ==
LOC: RAD 08:34
PROVIDERS: PCP Obstetrics & Gynecology; Visit Provider Specialist
DX: R51.9 Headache, unspecified (principal); R42 Dizziness and giddiness; H53.8 Other visual disturbances; M27.40 Unspecified cyst of jaw
CPT/HCPCS: 70551

== ENCOUNTER 2024-11-28 10:36 | Outpatient (CLI) | payer OTHER, SELFPAY ==
--- OUTSIDE RECORDS SUMMARY | 2024-11-28 10:38 | XMS_ITS | Referral Summary ---
Author Organization [employer] Address [address] [place] [address] Care Team Providers Care Mobile Designer Name Role Phone Jo Barragan NP Primary Care Provider Encounters Date Type Department Care Team Description 08/29/2024 Travel 08/29/2024 10:42 AM EDT - 08/29/2024 12:42 PM EDT Emergency [facility] Emergency Department [address] [place] [phone] Silvia Velasquez MD Constipation, unspecified constipation type (Primary Dx) Discharge Disposition: Home or Self Care from Last 3 Months Allergies No known active allergies Medications No known medications Social History Tobacco Use Types Packs/Day Years Used Date Smoking Tobacco: Every Day Passive Smoke Exposure: Never Smokeless Tobacco: Never Comments:vape Alcohol Use Standard Drinks/Week Comments Never 0 (1 standard drink = 0.6 oz pur e alcohol) Comments No Sex and Gender Information Value Date Recorded Sex Assigned at Not on file Legal Sex Female 9:38 AM CDT Gender Identity Not on file Sexual Orientation Not on file Last Filed Vital Signs Vital Sign Reading Time Taken Comments Blood Pressure 100/63 08/29/2024 12:39 PM EDT Pulse 58 08/29/2024 12:40 PM EDT Temperature 36.8 C (98.2 F) 08/29/2024 10:54 AM EDT Respiratory Rate 16 08/29/2024 12:39 PM EDT Oxygen Saturation 96% 08/29/2024 12:40 PM EDT Inhaled Oxygen Concentration - - Weight - - Height - - Body Mass Index - - Plan of Treatment Not on file Procedures Procedure Name Priority Date/Time Associated Diagnosis Comments XR ABDOMEN/KUB 1 VIEW PORTABLE STAT 08/29/2024 11:22 AM EDT [place] RED TOP (EXTRA TUBES) STAT 08/29/2024 11:19 AM EDT [place] BLUE TOP (EXTRA TUBES) STAT 08/29/2024 11:19 AM EDT [place] EXTRA TUBES STAT 08/29/2024 11:19 AM EDT URINALYSIS MICROSCOPIC STAT 11:15 AM EDT SCREEN, URINE STAT 08/29/2024 11:15 AM EDT URINALYSIS, REFLEX MICROSCOPIC AND CULTURE IF INDICATED STAT 08/29/2024 11:15 AM EDT MAGNESIUM STAT 08/29/2024 11:13 AM EDT LIPASE STAT 08/29/2024 11:13 AM EDT COMPREHENSIVE METABOLIC PANEL STAT 08/29/2024 11:13 AM EDT CBC W/ AUTO DIFF STAT 08/29/2024 11:1 3 AM EDT from Last 3 Months Results * XR Abdomen / KUB 1 view portable (08/29/2024 11:22 AM EDT) Anatomical Region Laterality Modality Abdomen X-Ray 08/29/2024 12:2 6 PM EDT Impressions 08/29/2024 12:30 PM EDT Nonspecific bowel gas pattern. Images reviewed, interpreted, and dictated by Dr. Omid Willett. Transcribed by Grisel Britton PA-C. Narrative 08/29/2024 12:30 PM EDT SINGLE VIEW ABDOMEN HISTORY: Constipation. ABDOMEN: Single view of the abdomen demonstrates a nonspecific bowel gas pattern. No abnormal calcifications are identified. There are changes from prior cholecystectomy. Procedure Note Yaya Willett MD - 08/29/2024 SINGLE VIEW ABDOMEN HISTORY: Constipation. ABDOMEN: Single view of the abdomen demonstrates a nonspecific bowel gas pattern. No abnormal calcifications are identified. There are changes from prior cholecystectomy. IMPRESSION: Nonspecific bowel gas pattern. Images reviewed, interpreted, and dictated by Dr. Omid Willett. Transcribed by Grisel Britton PA-C. Renan Donald APRN IMG DIAGNOSTIC IMAGIN G ORDERABLES Final Result * Red Top Extra Tubes (08/29/2024 11:19 AM EDT) HOLD SPECIMEN (SJ - BKR) Hold for add-ons. 08/29/2024 1:00 PM EDT [facility] Comment:Auto resulted. Blood Venipuncture / Unknown 08/29/2024 11:19 AM EDT 08/29/2024 11:22 AM EDT Renan Donald COIN MACHINE ASSEMBLER LAB BLOOD ORDERABLES Final Result Performing Organization Address [facility]/ZIP Co de Phone Number [facility] [address] [place] [address] * Blue Top Extra Tubes (08/29/2024 11:19 AM EDT) HOLD SPECIMEN (SJ - BKR) Hold for add-ons. 08/29/2024 1:00 PM EDT [facility] Comment:Auto resulted. Blood Venipuncture / Unknown 08/29/2024 11:19 AM EDT 08/29/2024 11:22 AM EDT Renan Donald COIN MACHINE ASSEMBLER LAB BLOOD ORDERABLES Final Result Performing Organization Address [facility]/ZIP Co de Phone Number [facility] [address] [place] [address] * (ABNORMAL) Urinalysis, Reflex Microscopic and Culture If Indicated (08/29/2024 11:15 AM EDT) Color, UA Straw 08/29/2024 11:33 AM EDT [facility] Clarity, UA Clear 08/29/2024 11:33 AM EDT [facility] Specific Stanton, UA <=1.005 1.002 - 1.030 08/29/2024 11:33 AM EDT [facility] pH, UA 6.0 5.0 - 9.0 08/29/2024 11:33 AM EDT [facility] Leukocytes, UA Negative Negative 08/29/2024 11:33 AM EDT [facility] Nitrite, UA Negative Negative 08/29/2024 11:33 AM EDT [facility] Protein, UA Negative Negative 08/29/2024 11:33 AM EDT [facility] Glucose, UA Negative Negative 08/29/2024 11:33 AM EDT [facility] Ketones, UA Negative Negative 08/29/2024 11:33 AM EDT [facility] Bilirubin, UA Negative Negative 08/29/2024 11:33 AM EDT [facility] Blood, UA 2+(A) Negative 08/29/2024 11:33 AM EDT [facility] Urobilinogen, UA 0.2 mg/dL Normal 08/29/2024 11:33 AM EDT [facility] Specimen Source Urine, Clean Catch 08/29/2024 11:33 AM EDT [facility] Urine URINE SPECIMEN COLLECTION, CLEAN CATCH / Unknown 08/29/2024 11:15 AM EDT 08/29/2024 11:22 AM EDT us Renan Donald COIN MACHINE ASSEMBLER URINE ORDERABLES Hetal l Result [facility] [address] [place] [address] * (ABNORMAL) Urinalysis Microscopic Only (08/29/2024 11:15 AM EDT) WBC, UA Occasional None Seen, Occasional , 0-5 /HPF 08/29/2024 11:41 AM EDT [facility] RBC, UA 5-10(A) None Seen, Rare /HPF 08/29/2024 11:41 AM EDT [facility] Bacteria, UA Trace(A) None Seen 08/29/2024 11:41 AM EDT [facility] SQUAMOUS EPITHELIAL 0-5(A) None Seen, Rare /HPF 08/29/2024 11:41 AM EDT [facility] Urine URINE SPECIMEN COLLECTION, CLEAN CATCH / Unknown 08/29/2024 11:15 AM EDT 08/29/2024 11:22 AM EDT Renan Donald COIN MACHINE ASSEMBLER URINE ORDERABLES Hetal l Result [facility] [address] [place] [address] * Screen, urine (08/29/2024 11:15 AM EDT) Preg Test, Ur Negative Negative, Inconclusive 08/29/2024 11:32 AM EDT [facility] Urine 08/29/2024 11:1 5 AM EDT 08/29/2024 11:25 AM EDT Renan Donald COIN MACHINE ASSEMBLER URINE ORDERABLES Hetal l Result [facility] [address] [place] [address] * (ABNORMAL) CBC with Auto Diff (08/29/2024 11:13 AM EDT) WBC 7.9 4.8 - 10.8 K/ L 08/29/2024 11:26 AM EDT [facility] RBC 4.99 3.50 - 5.20 M/ L 08/29/2024 11:26 AM EDT [facility] Hemoglobin 14.6 11.7 - 15.8 GM/DL 08/29/2024 11:26 AM EDT [facility] Hematocrit 43.1 35.0 - 47.0 % 08/29/2024 11:26 AM EDT [facility] MCV 86 81 - 101 fL 08/29/2024 11:26 AM EDT [facility] MCH 29.3 27.0 - 34.0 pg 08/29/2024 11:26 AM EDT [facility] MCHC 33.9 32.0 - 36.0 GM/DL 08/29/2024 11:26 AM EDT [facility] RDW 11.8 11.5 - 14.5 % 08/29/2024 11:26 AM EDT [facility] Platelets 355 150 - 400 K/CU MM 08/29/2024 11:26 AM EDT [facility] MPV 9.4 9.4 - 12.4 fL 08/29/2024 11:26 AM EDT [facility] Nucleated Red Blood Cell 0.0 0 - 0.2 % 08/29/2024 11:26 AM EDT [facility] % Neutros 67 37 - 80 % 08/29/2024 11:26 AM EDT [facility] % Lymphs 23 10 - 50 % 08/29/2024 11:26 AM EDT [facility] % Monos 6 5 - 13 % 08/29/2024 11:26 AM EDT [facility] % Eos 2 0 - 7 % 08/29/2024 11:26 AM EDT [facility] % Baso 1 0 - 3 % 08/29/2024 11:26 AM EDT [facility] NRBC Absolute <0.01 0 - 0.012 K/ul 08/29/2024 11:26 AM EDT [facility] # Neutros 5.32 2.00 - 6.90 K/ L 08/29/2024 11:26 AM EDT [facility] # Lymphs 1.84 0.60 - 3.40 K/ L 08/29/2024 11:26 AM EDT [facility] # Monos 0.45 0.00 - 0.90 K/ L 08/29/2024 11:26 AM EDT [facility] # Eos 0.18 0.00 - 0.70 K/ L 08/29/2024 11:26 AM EDT [facility] # Baso 0.07 0.00 - 0.20 K/ L 08/29/2024 11:26 AM EDT [facility] Immature Granulocytes-Re lative 0.30 % 08/29/2024 11:26 AM EDT [facility] # IG 0.02(H) 0.00 - 0.00 K/uL 08/29/2024 11:26 AM EDT [facility] Blood Venipuncture / Unknown 08/29/2024 11:13 AM EDT 08/29/2024 11:22 AM EDT Narrative [facility] - 08/29/2024 11:26 AM EDT When CBC w/ Auto Diff is ordered the lab will add a Manual Differential as a quality check at no additional charge if: Lymphocytes greater than seventy five percent with normal or increased WBC Monocytes greater than Fifteen percent Basophil greater than four percent Bands >10% or several immature myeloids are seen on scan Blast? Flag noted Atypical Lymph flag noted Renan Donald APRN LAB BLOOD ORDERABLES Final Result [facility] [address] [place], [place] [address] [phone] * Magnesium (08/29/2024 11:13 AM EDT) Magnesium 1.9 1.8 - 2.4 mg/dL 08/29/2024 11:56 AM EDT [facility] Blood Venipuncture / Unknown 08/29/2024 11:13 AM EDT 08/29/2024 11:22 AM EDT Renan Donald COIN MACHINE ASSEMBLER LAB BLOOD ORDERABLES Final Result Performing Organization Address City/[facility]/ZIP Co de Phone Number [facility] [address] [place] [address] * (ABNORMAL) Lipase (08/29/2024 11:13 AM EDT) Lipase 15(L) 16 - 77 U/L 08/29/2024 11:56 AM EDT [facility] Blood Venipuncture / Unknown 08/29/2024 11:13 AM EDT 08/29/2024 11:22 AM EDT Renan Donald APRN LAB BLOOD ORDERABLES Final Result Performing Organization Address [facility] Co de Phone Number [facility] [address] [place] [address] * (ABNORMAL) Comprehensive metabolic panel (08/29/2024 11:13 AM EDT) Sodium 136 136 - 145 meq/L 08/29/2024 11:56 AM EDT [facility] Potassium 4.0 3.5 - 5.1 meq/L 08/29/2024 11:56 AM EDT [facility] Chloride 104 98 - 107 meq/L 08/29/2024 11:56 AM EDT [facility] CO2 26 21 - 32 meq/L 08/29/2024 11:56 AM EDT [facility] Calcium 8.9 8.5 - 10.1 mg/dL 08/29/2024 11:56 AM EDT [facility] Glucose 81 70 - 99 mg/dL 08/29/2024 11:56 AM EDT [facility] BUN 9.0 7.0 - 18.0 mg/dL 08/29/2024 11:56 AM EDT [facility] Creatinine 1.07 0.55 - 1.10 mg/dL 08/29/2024 11:56 AM EDT [facility] BUN/Creatinine 8 08/29/2024 11:56 AM EDT [facility] Albumin 4.0 3.4 - 5.0 g/dL 08/29/2024 11:56 AM EDT [facility] Alkaline Phosphatase 76 46 - 116 U/L 08/29/2024 11:56 AM EDT [facility] ALT 20 12 - 78 U/L 08/29/2024 11:56 AM EDT [facility] AST 14(L) 15 - 37 U/L 08/29/2024 11:56 AM EDT [facility] Total Bilirubin 0.4 0.2 - 1.0 mg/dL 08/29/2024 11:56 AM EDT [facility] Protein, Total 8.0 6.4 - 8.2 gm/dL 08/29/2024 11:56 AM EDT [facility] Anion Gap 10(L) 11 - 08/29/2024 11:56 AM EDT [facility] A/G Ratio 1.0 08/29/2024 11:56 AM EDT [facility] Globulin 4.0 g/dL 08/29/2024 11:56 AM EDT [facility] Osmolality Calc 269.7 mOsm/kg 11:56 AM EDT [facility] eGFR (mL/min/1.73m2) >60 >=60 mL/min/1.7 3m2 08/29/2024 11:56 AM EDT [facility] Comment:ESTIMATED GFR IS NOT ACCURATE CREATININE CLEARANCE IN PREDICTING GLOMERULAR FILTRATION RATE. ESTIMATED GFR IS NOT APPLICABLE FOR DIALYSIS PATIENTS. Blood Venipuncture / Unknown 08/29/2024 11:13 AM EDT 08/29/2024 11:22 AM EDT us Renan Donald COIN MACHINE ASSEMBLER LAB BLOOD ORDERABLES Final Result [facility] [address] [place] [address], [facility] [phone] from Last 3 Months Insurance [employer] [facility] Care Teams Mobile Designer Relationship Specialty Start Date End Date Jo Barragan NP [address] [place] [address] PCP - General Nurse Practitioner 08/29/24
--- OUTSIDE RECORDS SUMMARY | 2024-11-28 10:38 | XMS_ITS | Clinical Summary ---
Author Organization [employer] Address [address] [place] [address] Care Team Providers Care Cable Television Installer Name Role Phone Jo Barragan NP Primary Care Provider Allergies No known active allergies Medications No known medications Encounters Date Type Department Care Team Description 08/29/2024 10:42 AM EDT - 08/29/2024 12:42 PM EDT Emergency [facility] Emergency Department [address] [place] [phone] Silvia Velasquez MD Constipation, unspecified constipation type (Primary Dx) Discharge Disposition: Home or Self Care 08/29/2024 Travel from Last 3 Months Social History Tobacco Use Types Packs/Day Years [...] Mass Index - - Plan of Treatment Health Maintenance Due Date Last Done Comments Depression Screening (12+) 2013 Tobacco Cessation Counseling and Screening (12+) 07/28 HIV Screening 2016 Meningococcal B Vaccine (1 of 2 - Standard) 2017 Hepatitis C Screening 2019 DTAP/TDAP/TD VACCINES (1 - Tdap) 2020 Pneumococcal Vaccine: 0-49 Years (1 of 2 - PCV) 2020 Lipid Panel 2021 Pap Smear 2022 COVID-19 VACCINE (1 - season) 2024 Influenza Vaccine (Season Ended) 2025 Procedures Procedure Name Priority Date/Time Associated Diagnosis [...] are changes from prior cholecystectomy. Procedure Note Kristen Willett MD - 08/29/2024 SINGLE VIEW ABDOMEN [...] Hold for add-ons. 08/29/2024 1:00 PM EDT [facility] Comment:Auto resulted. Blood Venipuncture / Unknown 08/29/2024 11:19 AM EDT 08/29/2024 11:22 AM EDT Renan Donald APRN LAB BLOOD ORDERABLES Final Result [facility] [address] [place], [place] [id number] [phone] * Blue Top Extra Tubes (08/29/2024 11:19 AM EDT) HOLD SPECIMEN (SJ - BKR) Hold for add-ons. 08/29/2024 1:00 PM EDT [facility] Comment:Auto resulted. Blood Venipuncture / Unknown 08/29/2024 11:19 AM EDT 08/29/2024 11:22 AM EDT Renan Donald REGULATORY CONSULTANT LAB BLOOD ORDERABLES Final Result [facility] [address] [id number] [phone] * (ABNORMAL) Urinalysis, Reflex Microscopic and Culture If Indicated (08/29/2024 11:15 AM EDT) Color, UA Straw 08/29/2024 11:33 AM EDT [facility] Clarity, UA Clear 08/29/2024 11:33 AM EDT [facility] Specific [place], UA <=1.005 1.002 - 1.030 08/29/2024 11:33 AM EDT [facility] pH, UA 6.0 5.0 - 9.0 08/29/2024 11:33 AM EDT [facility] Leukocytes, UA Negative Negative 08/29/2024 11:33 AM EDT [facility] Nitrite, UA Negative Negative 08/29/2024 11:33 AM EDT [facility] Protein, UA Negative Negative 08/29/2024 11:33 AM EDT [facility] Glucose, UA Negative Negative 08/29/2024 11:33 AM EDT [facility] Ketones, UA Negative Negative 08/29/2024 11:33 AM EDT [facility] Bilirubin, UA Negative Negative 08/29/2024 11:33 AM EDT [facility] Blood, UA 2+(A) Negative 08/29/2024 11:33 AM EDT [facility] Urobilinogen, UA 0.2 mg/dL Normal 08/29/2024 11:33 AM EDT [facility] Specimen Source Urine, Clean Catch 08/29/2024 11:33 AM EDT [facility] Urine URINE SPECIMEN COLLECTION, CLEAN CATCH / Unknown 08/29/2024 11:15 AM EDT 08/29/2024 11:22 AM EDT Renan Donald REGULATORY CONSULTANT URINE ORDERABLES Hetal l Result Performing Organization Address City/[facility]/ZIP Co de Phone Number [facility] [address] [place] [address] * (ABNORMAL) Urinalysis Microscopic Only (08/29/2024 11:15 AM EDT) WBC, UA Occasional None Seen, Occasional , 0-5 /HPF 08/29/2024 11:41 AM EDT [facility] RBC, UA 5-10(A) None Seen, Rare /HPF 08/29/2024 11:41 AM EDT [facility] Bacteria, UA Trace(A) None Seen 08/29/2024 11:41 AM EDT [facility] SQUAMOUS EPITHELIAL 0-5(A) None Seen, Rare /HPF 08/29/2024 11:41 AM EDT [facility] Urine URINE SPECIMEN COLLECTION, CLEAN CATCH / Unknown 08/29/2024 11:15 AM EDT 08/29/2024 11:22 AM EDT Renan Donald APRN URINE ORDERABLES Hetal l Result [facility] [address] [place] [address] * Screen, urine (08/29/2024 11:15 AM EDT) Preg Test, Ur Negative Negative, Inconclusive 08/29/2024 11:32 AM EDT [facility] Urine 08/29/2024 11:1 5 AM EDT 08/29/2024 11:25 AM EDT us Renan Donald REGULATORY CONSULTANT URINE ORDERABLES Hetal l Result [facility] [address] [id number] [phone] * (ABNORMAL) CBC with Auto Diff (08/29/2024 11:13 AM EDT) WBC 7.9 4.8 - 10.8 K/ L 08/29/2024 11:26 AM EDT [facility] RBC 4.99 3.50 - 5.20 M/ L 08/29/2024 11:26 AM EDT [facility] Hemoglobin 14.6 11.7 - 15.8 GM/DL 08/29/2024 11:26 AM EDT [facility] Hematocrit 43.1 35.0 - 47.0 % 08/29/2024 11:26 AM EDT [facility] MCV 86 81 - 101 fL 08/29/2024 11:26 AM EDT [facility] MCH 29.3 27.0 - 34.0 pg 08/29/2024 11:26 AM EDT [facility] MCHC 33.9 32.0 - 36.0 GM/DL 08/29/2024 11:26 AM EDT [facility] RDW 11.8 11.5 - 14.5 % 08/29/2024 11:26 AM EDT [facility] Platelets 355 150 - 400 K/CU MM 08/29/2024 11:26 AM EDT [facility] MPV 9.4 9.4 - 12.4 fL 08/29/2024 11:26 AM EDT [facility] Nucleated Red Blood Cell 0.0 0 - 0.2 % 08/29/2024 11:26 AM EDT [facility] % Neutros 67 37 - 80 % 08/29/2024 11:26 AM EDT [facility] % Lymphs 23 10 - 50 % 08/29/2024 11:26 AM EDT [facility] % Monos 6 5 - 13 % 08/29/2024 11:26 AM EDT [facility] % Eos 2 0 - 7 % 08/29/2024 11:26 AM EDT [facility] % Baso 1 0 - 3 % 08/29/2024 11:26 AM EDT [facility] NRBC Absolute <0.01 0 - 0.012 K/ul 08/29/2024 11:26 AM EDT [facility] # Neutros 5.32 2.00 - 6.90 K/ L 08/29/2024 11:26 AM EDT [facility] # Lymphs 1.84 0.60 - 3.40 K/ L 08/29/2024 11:26 AM EDT [facility] # Monos 0.45 0.00 - 0.90 K/ L 08/29/2024 11:26 AM EDT [facility] # Eos 0.18 0.00 - 0.70 K/ L 08/29/2024 11:26 AM EDT [facility] # Baso 0.07 0.00 - 0.20 K/ L 08/29/2024 11:26 AM EDT [facility] Immature Granulocytes-Re lative 0.30 % 08/29/2024 11:26 AM EDT [facility] # IG 0.02(H) 0.00 - 0.00 K/uL 08/29/2024 11:26 AM EDT [facility] Blood Venipuncture / Unknown 08/29/2024 11:13 AM EDT 08/29/2024 11:22 AM EDT Narrative [facility] - 08/29/2024 11:26 AM EDT When [...] noted Atypical Lymph flag noted Renan Donald REGULATORY CONSULTANT LAB BLOOD ORDERABLES Final Result Performing Organization Address [facility]/ZIP Co de Phone Number [facility] [address] [place] [address] * Magnesium (08/29/2024 11:13 AM EDT) Pathologist [facility] Magnesium 1.9 1.8 - 2.4 mg/dL 08/29/2024 11:56 AM EDT [facility] Blood Venipuncture / Unknown 08/29/2024 11:13 AM EDT 08/29/2024 11:22 AM EDT Renan Donald APRN LAB BLOOD ORDERABLES Final Result Performing Organization Address [facility]/ZIP Co de Phone Number [facility] [address] [place] [address] * (ABNORMAL) Lipase (08/29/2024 11:13 AM EDT) [facility] Lipase 15(L) 16 - 77 U/L 08/29/2024 11:56 AM EDT [facility] Blood Venipuncture / Unknown 08/29/2024 11:13 AM EDT 08/29/2024 11:22 AM EDT Renan Donald APRN LAB BLOOD ORDERABLES Final Result Performing Organization Address [facility]/ZIP Co de Phone Number [facility] [address] [place] [address] * (ABNORMAL) Comprehensive metabolic panel (08/29/2024 11:13 AM EDT) Pathologist [facility] Sodium 136 136 - 145 meq/L 08/29/2024 11:56 AM EDT [facility] Potassium 4.0 3.5 - 5.1 meq/L 08/29/2024 11:56 AM EDT [facility] Chloride 104 98 - 107 meq/L 08/29/2024 11:56 AM EDT [facility] CO2 26 21 - 32 meq/L 08/29/2024 11:56 AM EDT [facility] Calcium 8.9 8.5 - 10.1 mg/dL 08/29/2024 11:56 AM EDT [facility] Glucose 81 70 - 99 mg/dL 08/29/2024 11:56 AM EDT [facility] BUN 9.0 7.0 - 18.0 mg/dL 08/29/2024 11:56 AM EDT [facility] Creatinine 1.07 0.55 - 1.10 mg/dL 08/29/2024 11:56 AM EDT [facility] BUN/Creatinine 8 08/29/2024 11:56 AM EDT [facility] Albumin 4.0 3.4 - 5.0 g/dL 08/29/2024 11:56 AM EDT [facility] Alkaline Phosphatase 76 46 - 116 U/L 08/29/2024 11:56 AM EDT [facility] ALT 20 12 - 78 U/L 08/29/2024 11:56 AM EDT [facility] AST 14(L) 15 - 37 U/L 08/29/2024 11:56 AM EDT [facility] Total Bilirubin 0.4 0.2 - 1.0 mg/dL 08/29/2024 11:56 AM EDT [facility] Protein, Total 8.0 6.4 - 8.2 gm/dL 08/29/2024 11:56 AM EDT [facility] Anion Gap 10(L) 11 - 08/29/2024 11:56 AM EDT [facility] A/G Ratio 1.0 08/29/2024 11:56 AM EDT [facility] Globulin 4.0 g/dL 08/29/2024 11:56 AM EDT [facility] Osmolality Calc 269.7 mOsm/kg 11:56 AM EDT [facility] eGFR (mL/min/1.73m2) >60 >=60 mL/min/1.7 3m2 08/29/2024 11:56 AM EDT [facility] Comment:ESTIMATED GFR IS NOT ACCURATE CREATININE CLEARANCE IN PREDICTING GLOMERULAR FILTRATION RATE. ESTIMATED GFR IS NOT APPLICABLE FOR DIALYSIS PATIENTS. Blood Venipuncture / Unknown 08/29/2024 11:13 AM EDT 08/29/2024 11:22 AM EDT us Renan Donald REGULATORY CONSULTANT LAB BLOOD ORDERABLES Final Result [facility] [address] [place] [address], [facility] [phone] from Last 3 Months [facility] Care Teams Cable Television Installer Relationship Specialty Start Date End Date Jo Barragan, ABEBA [address] [place] [address] PCP - General Nurse Practitioner 08/29/24
[2024-11-28 12:01] LABS: HCG,Quantitative < 2 mIU/ml (0-5.42)
[2024-11-29 08:28] LABS: Progesterone 1.1 ng/mL (.)
== END 2024-11-28 23:59 | disposition home or self-care (01) ==
LOC: LAB 10:36
PROVIDERS: PCP Nurse Practitioner Family; Visit Provider Obstetrics & Gynecology
DX: Z32.01 Encounter for pregnancy test, result positive (principal)
CPT/HCPCS: 36415; 84144; 84702

== ENCOUNTER 2024-12-21 13:50 | Outpatient (CLI) | payer OTHER, SELFPAY ==
--- OUTSIDE RECORDS SUMMARY | 2024-12-21 14:02 | XMS_ITS | Continuity of Care Document ---
Author Organization ID - [employer] [facility] Address [address] [place] [id number] Assessment No assessment recorded. Plan of Treatment Reminders Order Date Submit Date Provider Last Modified By Organization Details Last Modified Time Details Appointments NEW PATIENT 30 2024 09:30A M Paris Valle APRN Not available Not available Not available Lab urinalysi s, dipstick 2024 025 [facility], [address] [place] [address], [phone], 12/21/2024 10:26:38 Referral None recorded. Procedures None recorded. Surgeries None recorded. Imaging None recorded. Medication Orders amoxicill in 500 mg capsule 2024 025 [facility], [address] [place] [address], [id number], 12/21/2024 11:57:50 prednison e 10 mg tablet 2024 025 [facility], [address] [place] [address], [id number], 12/21/2024 11:57:50 Patient TargetsNo targets recorded. Patient InstructionsNo instructions recorded. Reason for Referral None Reported. Results Created Date Observation Date Name Description Value Unit Range Abnormal Flag Note LastModifiedBy Organization Detail LastModifiedTime 12/22/1912/21/2024 urina lysis , dipst ick Leukocytes Negati ve Not Available [address], [address], 12/21/2024 10:20:35 12/22/19 25 12/21/2024 urina lysis , dipst ick Nitrite negati ve Not Available [address], [address], 12/21/2024 10:20:35 12/22/19 25 12/21/2024 urina lysis , dipst ick Urobilinogen .2 Not Available [address], [address], 12/21/2024 10:20:35 12/22/19 25 12/21/2024 urina lysis , dipst ick Protein Negati ve Not Available [address], [address], 12/21/2024 10:20:35 12/22/19 25 12/21/2024 urina lysis , dipst ick pH 6.0 Not Available [address], [address], 12/21/2024 10:20:35 12/22/19 25 12/21/2024 urina lysis , dipst ick Blood Modera te Not Available [address], [address], 12/21/2024 10:20:35 12/22/19 25 12/21/2024 urina lysis , dipst ick Specific Start 1.000 Not Available [address], [address], 12/21/2024 10:20:35 12/22/19 25 12/21/2024 urina lysis , dipst ick Ketone Negati ve Not Available [address], [address], 12/21/2024 10:20:35 12/22/19 25 12/21/2024 urina lysis , dipst ick Bilirubin Negati ve Not Available [address], [address], 12/21/2024 10:20:35 12/22/19 25 12/21/2024 urina lysis , dipst ick Glucose Negati ve Not Available [address], [address], 12/21/2024 10:20:35 12/22/19 25 12/21/2024 urina lysis , dipst ick Appearance Clear Not Available [address], [address], 12/21/2024 10:20:35 12/22/19 25 12/21/2024 urina lysis , dipst ick Color Yellow Not Available [address], [address], 12/21/2024 10:20:35 Result Notes None recorded. Problems Name Problem SNOMED Code Status Onset Date Resolution Date Notes Provider Name and Address Organization Details Recorded Time Acute frontal sinusiti s [id number] Completed 201808/29/2019 Problem Code: J01.10; Problem Code Type: ICD-10; Not Available [facility] 22:52:27 Diarrhea 97984229 Active 2018 Problem Code: R19.7; Problem Code Type: ICD-10; Not Available [facility] 22:52:28 [id number] Completed 201812/03/2019 Problem Code: Z68.53; Problem Code Type: ICD-10; Not Available [facility] 09/05/202 2 22:52:29 Nausea and vomiting 58552827 Active 2019 Problem Code: R11.2; Problem Code Type: ICD-10; Not Available [facility] 2 22:52:28 Concussi on injury of brain 383462305 Completed 201908/29/2019 Problem Code: S06.0X0D ; Problem Code Type: ICD-10; Not Available [facility] 2 22:52:28 Childhoo d obesity 071144568 Active 2019 Problem Code: Z68.54; Problem Code Type: ICD-10; Not Available [facility] 2 22:52:29 Disorder of upper respirat ory system 062154016 Completed 201908/29/2019 Problem Code: J06.9; Problem Code Type: ICD-10; Not Available [facility] 2 22:52:27 Noninfec tious gastroen teritis 75031416 Active 2019 Not Available [facility] 2 22:52:27 Bilatera l obstruct ion of Eustachi an tubes 07528363690 57334 Active 2019 Not Available [facility] 2 22:52:27 Adjustme nt disorder with anxious mood 07730312 Active 2019 Problem Code: F43.22; Problem Code Type: ICD-10; Not Available [facility] 2 22:52:28 Dizzines s and giddines s 196663047 Completed 201912/03/2019 Problem Code: R42; Problem Code Type: ICD-10; Not Available [facility] 2 22:52:28 Eruption 258508194 Completed 201902/27/2020 Problem Code: R21; Problem Code Type: ICD-10; Not Available [facility] 2 22:52:28 Pain of shoulder region 84355111 Active 2019 Not Available [facility] 2 22:52:28 Tingling of skin 966817848 Active 2019 Problem Code: R20.2; Problem Code Type: ICD-10; Not Available [facility] 2 22:52:28 Abdomina l pain 90954528 Completed 201903/14/2020 Problem Code: R10.9; Problem Code Type: ICD-10; Not Available [facility] 22:52:28 Syphilis test finding 160057726 Active 2019 Problem Code: Z11.3; Problem Code Type: ICD-10; Not Available [facility] 22:52:30 Acute respirat ory infectio ns 268288457 Active 2019 Problem Code: J22; Problem Code Type: ICD-10; Not Available [facility] 22:52:27 Cough 74743220 Active 2019 Problem Code: R05; Problem Code Type: ICD-10; Not Available [facility] 22:52:28 Problem Notes None recorded. Procedures Surgical History Date Name Laterality Status Provider Name and Address Organization Details Recorded Time 07/09/19 21 cholecystectomy completed [facility] 12/21/2024 09:53:50 06/06/18 74 screening colonoscopy completed [facility] 12/21/2024 09:54:11 06/06/18 74 exploratory laparotomy completed [facility] 12/21/2024 09:54:43 Imaging Results None recorded. Procedure Notes None recorded. Medical Equipment None Reported. Allergies No known drug allergies Medications Name Sig Start Date Stop Date Status Note LastModified by Organization Details LastModified Time amoxicillin 500 mg capsule Take 1 capsule twice a day by oral route for 7 days. 2024 active Not Available Not Available Not Avai lable Aviane 0.1 mg-20 mcg tablet take 1 tablet by oral route once daily 12/21 completed Not Available Not Available Not Available prednisone 10 mg tablet Take 1 tablet 3 times a day by oral route for 3 days. 2024 active Not Available Not Available Not Avai lable loperamide 2 mg capsule take 2 capsules (4 mg) by oral route after 1st loose stool, followed by 1 capsule after each subsequen t loose stool not to exceed 16 mg/day 06/19 completed Not Available Not Available Not Available azithromyci n 250 mg tablet take 2 tablets (500 mg) by oral route once daily for 1 day then 1 tablet (250 mg) by oral route once daily for 4 days 12/21 completed Not Available Not Available Not Available ibuprofen 800 mg tablet TAKE ONE TABLET BY MOUTH EVERY 8 HOURS NEEDED FOR PAIN active Not Available Not Available No t Available hydrocodone 5 mg-acetamin ophen 325 mg tablet TAKE ONE TABLET BY MOUTH EVERY 6 HOURS NEEDED FOR PAIN MAY CAUSE DROWSINES S active Not Available Not Available No t Available omeprazole 40 mg capsule,del ayed release take 1 capsule (40 mg) by oral route once daily before a meal 12/21 completed Not Available Not Available Not Available Vistaril 25 mg capsule take 1 capsule (25 mg) by oral route 3 times per day 12/21 completed Not Available Not Available Not Available fluticasone propionate 50 mcg/actuati on nasal spray,suspe nsion inhale 1 spray (50 mcg) in each nostril by intranasa l route 2 times per day 12/21 completed Not Available Not Available Not Available amoxicillin 500 mg-potassiu m clavulanate 125 mg tablet take 1 tablet by oral route every 12 hours 12/21 completed Not Available Not Available Not Available Nexplanon 68 mg subdermal implant 02/26 completed Not Available Not Available Not Available Vitals Date Recorded Body height Body mass index (BMI) Body weight Body temperature Heart rate Oxygen saturation Oxygen saturation in Arterial blood by Pulse oximetry Systolic And Diastolic Provider Name and Address Organization Details Last Updated DateTime 5 160.02 cm 31.9 kg/m2 58376.0 3 g 98.6 [degF] 88 /min 98 % 98 % 107/74 mm[Hg] Phylicia Singh [facility] Shoot it! [facility]. 5 09:53:23 Social History Question Answer Notes LastModified by Organizat ion Details LastModified Time Tobacco Smoking Status Never Smoker SocialHi Sukhdeep rico: 'Tobacco /Alcohol /Supplem ents'; Hi Alexa payton: 'Never Smoker'; Not Available [employer] 02/10/2022 22:57:13 Do You Have An Advance Directive? No Information not available 12/21/2024 Is Your Home Air Conditioned? Yes Information not available 12/21/2024 If You Are , What Was Your Level Of Alcohol Consumption Prior To ? None Information not available 12/21/2024 Do You Wear A Helmet When Biking? No Information not available 12/21/2024 Are You Blind Or Do You Have Difficulty Seeing? No Information not available 12/21/2024 What Is Your Level Of Caffeine Consumption? Heavy Information not available 12/21/2024 What Type Of Grades 1 Thru 5 Teacher Do You Use? [employer]care[employer]chool Information not available 12/21/2024 Are You Deaf Or Do You Have Serious Difficulty Hearing? No Information not available 12/21/2024 What Type Of Diet Are You Following? REGULAR Information not available 12/21/2024 What Is The Highest Grade Or Level Of School You Have Completed Or The Highest Degree You Have Received? MW02344-9 Information not available 12/21/2024 How Many Days Of Moderate To Strenuous Exercise, Like A Brisk Walk, Did You Do In The Last 7 Days? 2 Information not available 12/21/2024 Have There Been Any Changes To Your Family Or Social Situation? No Information not available 12/21/2024 Are There Any Guns Present In Your Home? No Information not available 12/21/2024 Which Of Your Hands Is Dominant? Right Information not available 12/21/2024 What Is Your Home Situation? Both Parents Information not available 12/21/2024 Do You Have A Medical Power Of Machine Design Teacher? No Information not available 12/21/2024 What Was The Date Of Your Most Recent Tobacco Screening? 12/21/2024 Information not available 12/21/2024 Do You Have Any Pets? No Information not available 12/21/2024 Do You Use Protection During Sex? No Information not available 12/21/2024 What Is Your Relationship Status? Information not available 12/21/2024 Have You Repeated Any Grades? No Information not available 12/21/2024 Do You Use Your Seat Belt Or Car Seat Routinely? Yes Information not available 12/21/2024 Are You Sexually Active? Yes Information not available 12/21/2024 Do You Have Any Siblings? 4 Information not available 12/21/2024 Do You Have Smoke And Carbon Monoxide Detectors In Your Home? Yes Information not available 12/21/2024 Are You Passively Exposed To Smoke? No Information not available 12/21/2024 Are There Any Smokers In Your House? No Information not available 12/21/2024 Do You Use Sunscreen Routinely? Yes Information not available 12/21/2024 Do You Have Difficulty Walking Or Climbing Stairs? No Information not available 12/21/2024 Sex: Unknown Functional Status Question Answer Note LastModified by Organizat ion Details LastModified Time Do you use any illicit or recreational drugs? No Information not available 12/21/2024 What is your level of alcohol consumption? None Information not available 12/21/2024 Are you currently employed? No Information not available 12/21/2024 Are you able to walk? YESWOREST Information not available 12/21/2024 Do you have difficulty doing errands alone? No Information not available 12/21/2024 Are you able to care for yourself? Yes Information n ot available 12/21/2024 Do you have difficulty dressing or bathing? No Information not available 12/21/2024 What is your exercise level? Occasional Information not available 12/21/2024 Mental Status Question Answer Note LastModified by Organization D etails LastModified Time Do you have difficulty concentrating, remembering or making decisions? No Information no t available 12/21/2024 Are you or have you been involved with bullying? No Information not available 12/21/2024 Family History Nothing Reported Notes:*Procedure Description : Documented family medical history in mother*Relative: Mother *Procedure Description: Documented family medical history in father*Relative: Father *Procedure Description: Family medical history unremarkable*Relative: Unspecified Relation *Problem: Relative: ''; Medical History Condition Response Polyps Y Gynecological History Statement/Question Response Abnormal Pap N Flow Moderate Frequency of Cycle (Q days) 28 Menses Monthly Y HPV Vaccine Y Duration of Flow (days) 3 Date of Last Pap Smear Age at Menarche 13 Age at First Child 20 Obstetrics History GPAL:G 3 P 2 0 1 0 Type Value Full Term 2 Spontaneous 1 Total 3 Immunizations Vaccine Type Date Status Note Provider Nam e and Address Organization Details Recorded Time Hep A, ped/adol, 2 dose 3 completed Not Available [facility] 02/10/2022 23:36:08 Hep A, ped/adol, 2 dose 8 completed Not Available [facility] 02/10/2022 23:36:08 Hib (PRP-T) 3 completed Not Available [facility] 02/10/2022 23:36:08 Hib (PRP-T) 2 completed Not Available [facility] 02/10/2022 23:36:08 HPV9 3 completed Not Available [facility] 02/10/2022 23:36:08 Pneumococcal conjugate PCV 13 2 completed Not Available [facility] 02/10/2022 23:36:08 Pneumococcal conjugate PCV 13 2 completed Not Available [facility] 02/10/2022 23:36:08 Pneumococcal conjugate PCV 13 2 completed Not Available [facility] 02/10/2022 23:36:08 XDjK-Otd-JEZ 2 completed Not Available [facility] 02/10/2022 23:36:08 DTaP 6 completed Not Available [facility] 02/10/2022 23:36:09 DTaP 3 completed Not Available [facility] 02/10/2022 23:36:09 MMR 6 completed Not Available [facility] 02/10/2022 23:36:09 MMR 3 completed Not Available [facility] 02/10/2022 23:36:09 IPV 6 completed Not Available [facility] 02/10/2022 23:36:09 IPV 3 completed Not Available [facility] 02/10/2022 23:36:09 Tdap 3 completed Not Available [facility] 02/10/2022 23:36:09 varicella 3 completed Not Available [facility] 02/10/2022 23:36:09 varicella 3 completed Not Available [facility] 02/10/2022 23:36:09 DTaP-Hep B-IPV 2 completed Not Available [facility] 02/10/2022 23:36:09 Hep B, adolescent or pediatric 2 completed Not Available [facility] 02/10/2022 23:36:09 Hep B, adolescent or pediatric 3 completed Not Available [facility] 02/10/2022 23:36:09 meningococcal MCV4P 3 completed Not Available [facility] 02/10/2022 23:36:10 DTaP-Hib 2 completed Not Available [facility] 12/21/2024 09:39:34 meningococcal MCV4P 8 completed Not Available [facility] 12/21/2024 09:39:34 COVID-19, mRNA, LNP-S, PF, 30 mcg/0.3 mL dose 2 completed Not Available [facility] 12/21/2024 09:39:34 COVID-19, mRNA, LNP-S, PF, 30 mcg/0.3 mL dose, pedrito-sucrose 2 completed Not Available [facility] 12/21/2024 09:39:34 Past Encounters Encounter ID Performer Location Encounter Start Date Encounter Closed Date Diagnosis/Indication Diagnosis SNOMED-CT Code Diagnosis ICD10 Code Diagnosis Note [id number] Saarh Valle [address] [address] 12/21/2024 09:25:06 12/21/2024 10:23:12 Dysuria 82992023 R30.0 Acute bact erial sinusitis 18665255 J01.90 B96.89 Body mass index 30+ - obesity 547571362 Z68.31 Health Concerns Section Related Observation LastModified by Organization Detai ls LastModified Time None Recorded Concern Status LastModified by Organization Details LastModified Time None Recorded Payers Encounter Date Sequence Insurance Name Policy Number Policy Rodriguez Covered Member ID Rodriguez Member ID Guarantor Name 12/21/2024 1 [employer] (MEDICAID HMO) Anai Gray [id number] Anai Wilfredvijaya Notes Date Note Type Note Provider Name and Address Organization Details Recorded Time 12/21/2024 text/html pt here today with c/o dysuria, abd pain, cough, drainage, congestion and nausea x2 days. UA neg for UTI. on exam, ears WNL, throat red, lungs with congestion. i will order abx and steroids. educated pt on new meds. pt voiced understanding. increase fluids. return for worsening symptoms. Sarah Valle, RETURNER [address] [facility], [place], [address], [facility] [employer] 12/21/2024 12:32:17 OBGyn Episode No OBEpisode recorded.
--- OUTSIDE RECORDS SUMMARY | 2024-12-21 14:02 | XMS_ITS | Data Portability ---
Author Organization [facility] [employer] [facility] Address [address] [place] [address] Assessment No assessment recorded. Plan of Treatment Reminders Order Date Submit Date Provider Last Modified By Organization Details Last Modified Time Details Appointments NEW PATIENT 30 2024 09:30A M Paris Valle APRN Not available Not available Not available Lab urinalysi s, dipstick [address], [address] [place] [address], [phone], 12/21/2024 10:26:38 Referral None recorded. Procedures None recorded. Surgeries None recorded. Imaging None recorded. Medication Orders amoxicill in 500 mg capsule 2024 025 [facility], [address] [place] [address], [id number], 12/21/2024 11:57:50 prednison e 10 mg tablet 2024 025 [facility], [address] [place] [address], [id number], 12/21/2024 11:57:50 Patient TargetsNo targets recorded. Patient InstructionsNo instructions recorded. Reason for Referral None Reported. Results Created Date Observation Date Name Description Value Unit Range Abnormal Flag Note LastModifiedBy Organization Detail LastModifiedTime 12/22/1912/21/2024 urina lysis , dipst ick Leukocytes Negati ve Not Available [address], [address], 12/21/2024 10:20:35 12/22/19 25 12/21/2024 urina lysis , dipst ick Nitrite negati ve Not Available [address], [address], 12/21/2024 10:20:35 12/22/19 25 12/21/2024 urina lysis , dipst ick Urobilinogen .2 Not Available [address], [address], 12/21/2024 10:20:35 12/22/19 25 12/21/2024 urina lysis , dipst ick Protein Negati ve Not Available [address], [address], 12/21/2024 10:20:35 12/22/19 25 12/21/2024 urina lysis , dipst ick pH 6.0 Not Available [address], [address], 12/21/2024 10:20:35 12/22/19 25 12/21/2024 urina lysis , dipst ick Blood Modera te Not Available [address], [address], 12/21/2024 10:20:35 12/22/19 25 12/21/2024 urina lysis , dipst ick Specific [place] 1.000 Not Available [address], [address], 12/21/2024 10:20:35 12/22/19 25 12/21/2024 urina lysis , dipst ick Ketone Negati ve Not Available [address], [address], 12/21/2024 10:20:35 12/22/19 25 12/21/2024 urina lysis , dipst ick Bilirubin Negati ve Not Available [address], [address], 12/21/2024 10:20:35 12/22/19 25 12/21/2024 urina lysis , dipst ick Glucose Negati ve Not Available [address], [address], 12/21/2024 10:20:35 12/22/19 25 12/21/2024 urina lysis , dipst ick Appearance Clear Not Available [address], [address], 12/21/2024 10:20:35 12/22/19 25 12/21/2024 urina lysis , dipst ick Color Yellow Not Available [address], [address], 12/21/2024 10:20:35 Result Notes None recorded. Problems Name Problem SNOMED Code Status Onset Date Resolution Date Notes Provider Name and Address Organization Details Recorded Time Acute frontal sinusiti s 94204281 Completed 201808/29/2019 Problem Code: J01.10; Problem Code Type: ICD-10; Not Available [facility] 22:52:27 Diarrhea 08378312 Active 2018 Problem Code: R19.7; Problem Code Type: ICD-10; Not Available [facility] 2 22:52:28 [place] [facility] d [id number] Completed 201812/03/2019 Problem Code: Z68.53; Problem Code Type: ICD-10; Not Available [facility] 2 22:52:29 Nausea and vomiting 79345396 Active 2019 Problem Code: R11.2; Problem Code Type: ICD-10; Not Available [facility] 22:52:28 Concussi on injury of brain 089603316 Completed 201908/29/2019 Problem Code: S06.0X0D ; Problem Code Type: ICD-10; Not Available [facility] 2 22:52:28 Childhoo d obesity 310378001 Active 2019 Problem Code: Z68.54; Problem Code Type: ICD-10; Not Available [facility] 2 22:52:29 Disorder of upper respirat ory system 717347762 Completed 201908/29/2019 Problem Code: J06.9; Problem Code Type: ICD-10; Not Available [facility] 2 22:52:27 Noninfec tious gastroen teritis 24426635 Active 2019 Not Available [facility] 2 22:52:27 Bilatera l obstruct ion of [place] an tubes 13663821581 54449 Active 2019 Not Available [facility] 2 22:52:27 Adjustme nt disorder with anxious mood 70190490 Active 2019 Problem Code: F43.22; Problem Code Type: ICD-10; Not Available [facility] 2 22:52:28 Dizzines s and giddines s 296032655 Completed 201912/03/2019 Problem Code: R42; Problem Code Type: ICD-10; Not Available [facility] 2 22:52:28 Eruption 819366436 Completed 201902/27/2020 Problem Code: R21; Problem Code Type: ICD-10; Not Available [facility] 2 22:52:28 Pain of shoulder region 79595405 Active 2019 Not Available [facility] 2 22:52:28 Tingling of skin 986337253 Active 2019 Problem Code: R20.2; Problem Code Type: ICD-10; Not Available [facility] 2 22:52:28 Abdomina l pain 28745444 Completed 201903/14/2020 Problem Code: R10.9; Problem Code Type: ICD-10; Not Available [facility] 22:52:28 Syphilis test finding 396992009 Active 2019 Problem Code: Z11.3; Problem Code Type: ICD-10; Not Available [facility] 2 22:52:30 Acute respirat ory infectio ns 723350336 Active 2019 Problem Code: J22; Problem Code Type: ICD-10; Not Available [facility] 2 22:52:27 Cough 18148307 Active 2019 Problem Code: R05; Problem Code Type: ICD-10; Not Available [facility] 22:52:28 Problem Notes None recorded. Procedures Surgical History Date Name Laterality Status Provider Name and Address Organization Details Recorded Time 07/09/19 21 cholecystectomy completed [facility] 12/21/2024 09:53:50 06/06/18 74 screening colonoscopy completed [facility] 12/21/2024 09:54:11 06/06/18 74 exploratory laparotomy completed [facility] 12/21/2024 09:54:43 Imaging Results None recorded. Procedure [...] Updated DateTime 5 160.02 cm 31.9 kg/m2 77494.0 3 g 98.6 [degF] 88 /min 98 % 98 % 107/74 mm[Hg] Phylicia Singh [facility] [place] [employer] 5 09:53:23 Social History Question Answer Notes LastModified by Organizat ion Details LastModified Time Tobacco Smoking Status Never Smoker SocialHi Sukhdeep rico: 'Tobacco /Alcohol /Supplem ents'; Marbin payton: 'Never Smoker'; Not Available [employer] 02/10/2022 [...] Information not available 12/21/2024 What Type Of Theatrical Dresser Do You Use? [employer] Information not available 12/21/2024 Are You Deaf Or Do You Have Serious Difficulty Hearing? No Information not available 12/21/2024 What Type Of Diet Are You Following? REGULAR Information not available 12/21/2024 What Is The Highest Grade Or Level Of School You Have Completed Or The Highest Degree You Have Received? [id number] Information not available 12/21/2024 How Many Days [...] Do You Have A Medical Power Of Elementary Principal? No Information not available 12/21/2024 What Was [...] ped/adol, 2 dose 3 completed Not Available [facility] 02/10/2022 23:36:08 Hep A, ped/adol, 2 dose 8 completed Not Available [facility] 02/10/2022 23:36:08 Hib (PRP-T) 3 completed Not Available [facility] 02/10/2022 23:36:08 Hib (PRP-T) 2 completed Not Available [facility] 02/10/2022 23:36:08 HPV9 3 completed Not Available [facility] 02/10/2022 23:36:08 Pneumococcal conjugate PCV 13 2 completed Not Available [facility] 02/10/2022 23:36:08 Pneumococcal conjugate PCV 13 2 completed Not Available [facility] 02/10/2022 23:36:08 Pneumococcal conjugate PCV 13 2 completed Not Available [facility] 02/10/2022 23:36:08 RUnH-Lmt-XNC 2 completed Not Available [facility] 02/10/2022 23:36:08 DTaP 6 completed Not Available [facility] 02/10/2022 23:36:09 DTaP 3 completed Not Available [facility] 02/10/2022 23:36:09 MMR 6 completed Not Available [facility] 02/10/2022 23:36:09 MMR 3 completed Not Available [facility] 02/10/2022 23:36:09 IPV 6 completed Not Available [facility] 02/10/2022 23:36:09 IPV 3 completed Not Available [facility] 02/10/2022 23:36:09 Tdap 3 completed Not Available [facility] 02/10/2022 23:36:09 varicella 3 completed Not Available [facility] 02/10/2022 23:36:09 varicella 3 completed Not Available [facility] 02/10/2022 23:36:09 DTaP-Hep B-IPV 2 completed Not Available [facility] 02/10/2022 23:36:09 Hep B, adolescent or pediatric 2 completed Not Available [facility] 02/10/2022 23:36:09 Hep B, adolescent or pediatric 3 completed Not Available [facility] 02/10/2022 23:36:09 meningococcal MCV4P 3 completed Not Available [facility] 02/10/2022 23:36:10 DTaP-Hib 2 completed Not Available [facility] 12/21/2024 09:39:34 meningococcal MCV4P 8 completed Not Available [facility] 12/21/2024 09:39:34 COVID-19, mRNA, LNP-S, PF, 30 mcg/0.3 mL dose 2 completed Not Available [facility] 12/21/2024 09:39:34 COVID-19, mRNA, LNP-S, PF, 30 mcg/0.3 mL dose, pedrito-sucrose 2 completed Not Available [facility] 12/21/2024 09:39:34 Past Encounters Encounter ID Performer Location Encounter Start Date Encounter Closed Date Diagnosis/Indication Diagnosis SNOMED-CT Code Diagnosis ICD10 Code Diagnosis Note [id number] Sarah Valle[address] [phone] 12/21/2024 09:25:06 12/21/2024 10:23:12 Dysuria 98231836 R30.0 Acute bact erial sinusitis 20830563 J01.90 B96.89 Body mass index 30+ - obesity 321962065 Z68.31 Health Concerns Section Related Observation LastModified by Organization Detai ls LastModified Time None Recorded Concern Status LastModified by Organization Details LastModified Time None Recorded Advance Directives Directive N: Payers Insurance Date Sequence Insurance Name Policy Number Policy Rodriguez Covered Member ID Rodriguez Member ID Guarantor Name 12/21/2024 1 [employer] [facility] (MEDICAID HMO) Anai Gray [id number] Anai Duncan 12/21/2024 1 *SELF PAY* Dom Duncan Notes Date Note Type Note Provider Name [...] fluids. return for worsening symptoms. Sarah Valle, MAIL SUPERINTENDENT [address] [facility], [place], [address], [facility] [employer] 12/21/2024 12:32:17 OBGyn Episode No OBEpisode recorded.
--- OUTSIDE RECORDS SUMMARY | 2024-12-21 14:02 | XMS_ITS | Data Portability ---
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 Plan of Treatment Reminders Order Date Submit Date Provider Last Modified By Organization Details Last Modified Time Details Appointments None recorded. Lab CMP, serum or plasma 2023 024 [facility] (Lab Registration) , [address] [place] [address] [place], [address], 4 11:30:29 CBC w/ auto diff 2023 024 [facility] (Lab Registration) , [address] [place] [address] [place], [address], 4 11:05:08 H pylori urea breath test, co2 infrared 2023 024 [facility] (Lab Registration) , [address] [place] [address] [place], [address], 4 07:13:56 Referral None recorded. Procedures upper endoscopy procedure (EGD) (PROC) 2023 024 [email or web address] 4 Arian Ellington MD, [address], [place], [address], 4 14:59:45 colonoscopy procedure (PROC) 2023 024 [email or web address] 4 Arian Ellington MD, [address], [place], [address], 14:59:45 Surgeries None recorded. Imaging XR, kidney + ureter + bladder - Rule out stool burden 2023 024 [facility], [address] [facility], [address], [place], [address], 13:36:59 Medication Orders Miralax 17 gram/dose oral powder 2023 024 [email or web address] 4 Not available 14:40:26 Dulcolax (bisacodyl) 5 mg tablet,alona yed release 2023 024 [email or web address] 4 Not available 14:40:27 Patient TargetsNo targets recorded. Patient InstructionsNo instructions recorded. Reason for Referral None Reported. Results Created Date Observation Date Name Description Value Unit Range Abnormal Flag Note LastModifiedBy Organization Detail LastModifiedTime 09/16/19 24 09/16/2023 CBC AUTO W DIFF WBC 7.7 10 4.5-11 .5 Not Available [facility] (Lab Registration) [address] [place], [address], 09/16/2023 11:05:07 09/16/19 24 09/16/2023 CBC AUTO W DIFF RBC 4.57 10 4.25-5 .57 Not Available [facility] (Lab Registration) [address] [place], [address], 09/16/2023 11:05:07 09/16/19 24 09/16/2023 CBC AUTO W DIFF HGB 13.5 g/dL 12.0-1 5.7 Not Available [facility] (Lab Registration) [address] [place], [address], 09/16/2023 11:05:07 09/16/19 24 09/16/2023 CBC AUTO W DIFF HCT 39.8 % 36.0-4 7.0 Not Available [facility] (Lab Registration) [address] [place], [address], 09/16/2023 11:05:07 09/16/19 24 09/16/2023 CBC AUTO W DIFF MCV 87.1 fL 80-95 Not Available [facility] (Lab Registration) [address] [place], [address], 09/16/2023 11:05:07 09/16/19 24 09/16/2023 CBC AUTO W DIFF MCH 29.5 pg 27.0-3 4.0 Not Available [facility] (Lab Registration) [address] [place], [address], 09/16/2023 11:05:07 09/16/19 24 09/16/2023 CBC AUTO W DIFF MCHC 33.9 g/dL 32.0-3 6.0 Not Available [facility] (Lab Registration) [address] [place], [address], 09/16/2023 11:05:07 09/16/19 24 09/16/2023 CBC AUTO W DIFF platelet count 395 10 150-45 0 Not Available [facility] (Lab Registration) [address] [place], [address], 09/16/2023 11:05:07 09/16/19 24 09/16/2023 CBC AUTO W DIFF RDW 11.8 % 12.3-1 5.1 low Not Available [facility] (Lab Registration) [address] [place], [address], 09/16/2023 11:05:07 09/16/19 24 09/16/2023 CBC AUTO W DIFF MPV 9.1 fL 7.4-10 .4 Not Available [facility] (Lab Registration) [address] [place], [address], 09/16/2023 11:05:07 09/16/19 24 09/16/2023 CBC AUTO W DIFF granulocyte% 63.7 % 40-75 Not Available [facility] (Lab Registration) [address] [place], [address], 09/16/2023 11:05:07 09/16/19 24 09/16/2023 CBC AUTO W DIFF lymphocyte% 26.6 % 15-57 Not Available [facility] (Lab Registration) [address] [place], [address], 09/16/2023 11:05:07 09/16/19 24 09/16/2023 CBC AUTO W DIFF monocyte% 6.3 % 4.0-12 .0 Not Available [facility] (Lab Registration) [address] [place], [address], 09/16/2023 11:05:07 09/16/19 24 09/16/2023 CBC AUTO W DIFF eosinophil% 2.5 % 0.0-4. 0 Not Available [facility] (Lab Registration) [address] [place], [address], 09/16/2023 11:05:07 09/16/19 24 09/16/2023 CBC AUTO W DIFF basophil% 0.8 % 0.0-1. 0 Not Available [facility] (Lab Registration) [address] [place], [address], 09/16/2023 11:05:07 09/16/19 24 09/16/2023 CBC AUTO W DIFF immature granulocytes % 0.1 % 0.0-0. 8 Not Available [facility] (Lab Registration) [address] [place], [address], 09/16/2023 11:05:07 09/16/19 24 09/16/2023 CBC AUTO W DIFF granulocyte# 4.90 10 Not Available [facility] (Lab Registration) [address] [place], [address], 09/16/2023 11:05:07 09/16/19 24 09/16/2023 CBC AUTO W DIFF lymphocyte# 2.04 10 Not Available [facility] (Lab Registration) [address] [place], [address], 09/16/2023 11:05:07 09/16/19 24 09/16/2023 CBC AUTO W DIFF monocyte# 0.48 10 Not Available [facility] (Lab Registration) [address] [place], [address], 09/16/2023 11:05:07 09/16/19 24 09/16/2023 CBC AUTO W DIFF eosinophil# 0.19 10 Not Available [facility] (Lab Registration) [address] [place], [address], 09/16/2023 11:05:07 09/16/19 24 09/16/2023 CBC AUTO W DIFF basophil# 0.06 10 Not Available [facility] (Lab Registration) [address] [place], [address], 09/16/2023 11:05:07 09/16/19 24 09/16/2023 CBC AUTO W DIFF immature granulocytes # 0.01 10 Not Available [facility] (Lab Registration) [address] [place], [address], 09/16/2023 11:05:07 09/16/19 24 09/16/2023 CBC AUTO W DIFF manual differential NO Not Available [facility] (Lab Registration) [address] [place], [address], 09/16/2023 11:05:07 09/16/19 24 09/16/2023 CBC AUTO W DIFF note Unles s other bond noted testi ng perfo rmed at: [facility] [address] [place] [address] [phone] Nithin lynne MD CLIA: [id number] Not Available [facility] (Lab Registration) [address] [place], [address], 09/16/2023 11:05:07 09/16/19 24 09/16/2023 COMP METAB OLIC PANEL sodium 141 mmol/ L 136-14 5 Not Available [facility] (Lab Registration) [address] [place], [address], 09/16/2023 11:30:29 09/16/19 24 09/16/2023 COMP METAB OLIC PANEL potassium 4.0 mmol/ L 3.5-5. 1 Not Available [facility] (Lab Registration) [address] [place], [address], 09/16/2023 11:30:29 09/16/19 24 09/16/2023 COMP METAB OLIC PANEL chloride 106 mmol/ L 98-107 Not Available [facility] (Lab Registration) [address] [place], [address], 09/16/2023 11:30:29 09/16/19 24 09/16/2023 COMP METAB OLIC PANEL carbon dioxide 24 mmol/ L 21-32 Not Available [facility] (Lab Registration) [address] [place], [address], 09/16/2023 11:30:29 09/16/19 24 09/16/2023 COMP METAB OLIC PANEL anion gap 11.0 Not Available [facility] (Lab Registration) [address] [place], [address], 09/16/2023 11:30:29 09/16/19 24 09/16/2023 COMP METAB OLIC PANEL glucose 82 mg/dL 70-110 Not Available [facility] (Lab Registration) [address] [place], [address], 09/16/2023 11:30:29 09/16/19 24 09/16/2023 COMP METAB OLIC PANEL blood urea nitrogen 8 mg/dL 7-18 Not Available [facility] (Lab Registration) [address] [place], [address], 09/16/2023 11:30:29 09/16/19 24 09/16/2023 COMP METAB OLIC PANEL creatinine 0.8 mg/dL 0.6-1. 0 Not Available [facility] (Lab Registration) [address] [place], [address], 09/16/2023 11:30:29 09/16/19 24 09/16/2023 COMP METAB OLIC PANEL BUN/creatini ne ratio 10.0 ratio 9-21 Not Available [facility] (Lab Registration) [address] [place], [address], 09/16/2023 11:30:29 09/16/19 24 09/16/2023 COMP METAB OLIC PANEL estimated glom filtration rate 95 mL/mi n >60- Not Available [facility] (Lab Registration) [address] [place], [address], 09/16/2023 11:30:29 09/16/19 24 09/16/2023 COMP METAB OLIC PANEL total protein 7.5 g/dL 6.4-8. 2 Not Available [facility] (Lab Registration) [address] [place], [address], 09/16/2023 11:30:29 09/16/19 24 09/16/2023 COMP METAB OLIC PANEL albumin 4.0 g/dL 3.4-5. 0 Not Available [facility] (Lab Registration) [address] [place], [address], 09/16/2023 11:30:29 09/16/19 24 09/16/2023 COMP METAB OLIC PANEL calcium 9.3 mg/dL 8.5-10 .1 Not Available [facility] (Lab Registration) [address] [place], [address], 09/16/2023 11:30:29 09/16/19 24 09/16/2023 COMP METAB OLIC PANEL corrected calcium 9.3 mg/dL 8.5-10 .1 Not Available [facility] (Lab Registration) [address] [place], [address], 09/16/2023 11:30:29 09/16/19 24 09/16/2023 COMP METAB OLIC PANEL bilirubin total 0.3 mg/dL 0.4-1. 5 low Not Available [facility] (Lab Registration) [address] [place], [address], 09/16/2023 11:30:29 09/16/19 24 09/16/2023 COMP METAB OLIC PANEL AST (SGOT) 15 U/L 15-37 Not Available [facility] (Lab Registration) [address] [place], [address], 09/16/2023 11:30:29 09/16/19 24 09/16/2023 COMP METAB OLIC PANEL ALT (SGPT) 27 U/L 12-78 Not Available [facility] (Lab Registration) [address] [place], [address], 09/16/2023 11:30:29 09/16/19 24 09/16/2023 COMP METAB OLIC PANEL alk phosphatase 89 U/L 50-120 Not Available [facility] (Lab Registration) [address] [place], [address], 09/16/2023 11:30:29 09/16/19 24 09/16/2023 COMP METAB OLIC PANEL note Unles s other bond noted testi ng perfo rmed at: [facility] [address] [place] [address] [phone] Nithin lynne MD CLIA: [id number] Not Available [facility] (Lab Registration) [address] [place], [address], 09/16/2023 11:30:29 09/16/19 24 09/16/2023 H. PYLOR I BREAT H TEST note Unles s other bond noted testi ng perfo rmed at: [facility] [address] [place] [address] [phone] Nithin lynne MD CLIA: [id number] Not Available [facility] (Lab Registration) [address] [place], [address], 09/18/2023 07:13:56 09/16/19 24 09/18/2023 H. PYLOR I BREAT H TEST H pylori breath test NEGATI VE negati ve Perfo rmed at: [facility] [address] [facility], [facility], [place] [address] Lab Direc tor: Benjamin kelsey PhD, Phone : [phone] Not Available [facility] (Lab Registration) [address] [place], [address], 09/18/2023 07:13:56 10/13/19 24 10/13/2023 URINE PREGN PARAM TEST urine test NEGATI VE negati ve Not Available [facility] (Lab Registration) [address] [place], [address], 10/13/2023 08:04:31 10/13/19 24 10/13/2023 URINE PREGN PARAM TEST internal control PASS PASS Not Available [facility] (Lab Registration) [address] [place], [address], 10/13/2023 08:04:31 10/13/19 24 10/13/2023 URINE PREGN PARAM TEST note Unles s other bond noted testi ng perfo rmed at: [facility] [address] [place] [address] [phone] Nithin lynne MD CLIA: [id number] Not Available [facility] (Lab Registration) [address] [place], [address], 10/13/2023 08:04:31 09/16/19 24 09/16/2023 XR, kidne y + urete r + bladd er No observ ation record ed. [facility] (Radiology) [address] [place], [address], 09/17/2023 15:36:00 09/16/19 24 09/16/2023 XR, abdom en, 1 view [facility] [address] [facility] [place] [address] Phone: Fax: Name: TERESITAW LUBA VALDESISO N Exam Date: : 002 Age 23 years Gender : F Access ion: [id number] Physic marie: LATOSHA CARMICHAEL Facili ty: [facility] Facili ty HSV: Outpat ient Exam: ABD KUB 1V KUB. HISTOR Y: Stool burden . COMPAR JORGE ALBERTO: Septem 2019. FINDIN GS: A single view of the abdome n with a coned- down of the pelvis demons trates a nonspe cific bowel gas patter n. There is no signif icant retain ed stool. A surgic al clip is identi fied in the right upper quadra nt. No acute osseou s abnorm ality is identi fied. IMPRES DASH: Nonspe cific bowel gas patter n. The films were review ed, interp reted, and dictat ed by Dr. Galindo Transc ribed by Tulio Chowdhury PA-C Dictat ed By: FILI GALINDO Transc ribed By: FILI GALINDO ribed On: 1:31 PM Electr onical ly signed by: FILI GALINDO Thank you for referr ing EARLYW FRANCISCO VALDES N to [facility]. Legall y authen ticate d by POPE FILI Steinberg DO 09-15 13:31: 48 CC'ed Logic: Orderi ng Provid er: CHENG Javier CC Provid er: RAEANN MCNAIR Attend ing Provid er: CHENG Javier Referr ing Provid er: CHENG Javier Admitt ing Provid er: CHENG Javier [facility] (Radiology) [address] [place], [address], 09/17/2023 10:23:25 Result Notes Documentation Provider Name and Address Organization Details Recorded Time Xr, Abdomen, 1 View : [address] [place] [address] Name: ANAI BARRAZA Exam Date: 09/16/2023 : 2000 Age 23 years Gender: F Physician: FELECIA CARMICHAEL Facility: [facility] Facility HSV: Outpatient Exam: ABD KUB 1V KUB. HISTORY: Stool burden. COMPARISON: March 03, 2020. FINDINGS: A single view of the abdomen with a coned-down of the pelvis demonstrates a nonspecific bowel gas pattern. There is no significant retained stool. A surgical clip is identified in the right upper quadrant. No acute osseous abnormality is identified. IMPRESSION: Nonspecific bowel gas pattern. The films were reviewed, interpreted, and dictated by Dr. Galindo Transcribed by Luz Marina Chowdhury PA-C Dictated By: FILI GALINDO Transcribed By: FILI GALINDO Transcribed On: 09/16/2023 1:31 PM Electronically signed by: FILI GALINDO 09/16/2023 Thank you for referring ANAI BARRAZA to [facility]. Legally authenticated by POPE FILI Steinberg DO 2023-09-16 13:31:48 CC'ed Logic: Ordering Provider: CHENG MCGUIRE Provider: АНДРЕЙ MOYER Attending Provider: CHENG PHIPPS Referring Provider: CHENG PHIPPS Admitting Provider: CHENG Carmichael NP [address] [place] [address], [address], [place], [address] [[email or web address]] [place] [facility] [place] & [facility] 09/17/2023 10:13:06 Problems Name Problem SNOMED Code Status Onset Date Resolution Date Notes Provider Name and Address Organization Details Recorded Time Acne 71461889 Active 2023 Naina [place]ina, [place] - [facility] [place] [facility] [place] 11:09:30 Anxiety 54456678 Active 2023 Nain[place], [place] [facility] [place] [facility] 4 11:10:33 Depressive disorder 70981247 Active 2023 N[place], [place] [facility] [place] 4 11:10:38 Nausea 753847715 Active 2023 Felecia Carmichael NP [address], [address], [place], [address], [place] [facility] 4 12:21:37 Generalized abdominal pain 744935789 Active 2023 Felecia Carmichael NP [address], [address], [place], [address], [place] [facility] [place] & [facility] 4 12:21:37 Irritable bowel syndrome 11362525 Active 2023 Felecia Carmichael NP [address], [address], [place], [address], [place] [facility] & [place] 4 12:21:44 Irritable bowel syndrome characterized by constipation 098197782 Active 2023 Felecia Carmichael NP [address], [address], [place], [address], [place] - [facility] & [place] 4 21:48:05 Gastro-esophag eal reflux disease with esophagitis 533767190 Active 2023 Felecia Carmichael NP [address], [address], [place], [address], [place] - [facility] & [place] 4 21:48:13 Polyp of colon 34261950 Active 2023 Felecia Carmichael NP [address], [address], [place], [address], [place] [facility] & [place] 4 21:49:41 Problem Notes None recorded. Procedures Surgical History Date Name Laterality Status Provider Name and Address Organization Details Recorded Time 10/13/19 24 EGD/Endoscopy completed Radha STERN - [facility] - [place] [facility] [place] 10/25/2023 16:56:19 10/13/19 24 Colonoscopy completed Radha STERN - [facility] - [place] & [facility] 10/25/2023 16:56:32 Cholecystectomy completed Naina Drummond - [facility] 09/15/2023 10:55:39 Imaging Results None recorded. Procedure Notes None recorded. Medical Equipment None Reported. Allergies No known drug allergies Medications Name Sig Start Date Stop Date Status Note LastModified by Organization Details LastModified Time amoxicillin 500 mg capsule 09/14 completed Not Available Not Available Not Available ibuprofen 800 mg tablet TAKE ONE TABLET BY MOUTH EVERY 8 HOURS NEEDED FOR PAIN active Not Available Not Available No t Available hydrocodone 5 mg-acetamin ophen 325 mg tablet TAKE ONE TABLET BY MOUTH EVERY 6 HOURS NEEDED FOR PAIN MAY CAUSE DROWSINES S active Not Available Not Available No t Available sumatriptan 25 mg tablet 09/14 completed Not Available Not Available Not Available clindamycin HCl 150 mg capsule 09/14 completed Not Available Not Available Not Available sulfamethox azole 800 mg-trimetho prim 160 mg tablet active Not Available Not Available Not Available famotidine 20 mg tablet 09/14 completed Not Available Not Available Not Available amitriptyli ne 25 mg tablet active Not Available Not Available Not Available rizatriptan 10 mg disintegrat ing tablet active Not Available Not Available N ot Available cephalexin 500 mg capsule Take 1 capsule every 6 hours by oral route. active Not Available Not Available No t Available pantoprazol e 40 mg tablet,alona yed release active Not Available Not Available Not Available ibuprofen 400 mg tablet 09/14 completed Not Available Not Available Not Available sertraline 25 mg tablet 09/14 completed Not Available Not Available Not Available omeprazole 20 mg capsule,del ayed release Take 1 capsule every day by oral route. active Not Available Not Available No t Available bisacodyl 5 mg tablet,alona yed release Take 2 tablets by oral route for 1 day. active Not Available Not Available No t Available polyethylen e glycol 3350 17 gram/dose oral powder Take 17 g by oral route for 2 days. active Not Available Not Available No t Available levofloxaci n 750 mg tablet active Not Available Not Available Not Available bromphenira mine-pseudo ephedrine-D M 2 mg-30 mg-10 mg/5 mL oral syrup active Not Available Not Available Not Available ondansetron 4 mg disintegrat ing tablet active Not Available Not Available N ot Available sertraline 50 mg tablet active Not Available Not Available Not Available amoxicillin 500 mg-potassiu m clavulanate 125 mg tablet active Not Available Not Available Not Available hydroxyzine pamoate 25 mg capsule 09/14 completed Not Available Not Available Not Available Sprintec (28) 0.25 mg-0.035 mg tablet active Not Available Not Available Not Available nitrofurant oin monohydrate /macrocryst als 100 mg capsule 09/14 completed Not Available Not Available Not Available FeroSul 325 mg (65 mg iron) tablet 09/14 completed Not Available Not Available Not Available EnilloRing 0.12 mg-0.015 mg/24 hr vaginal ring active Not Available Not Available Not Available Vitals Date Recorded Body height Body mass index (BMI) Body weight Body temperature Oxygen saturation Oxygen saturation in Arterial blood by Pulse oximetry Heart rate Provider Name and Address Organization Details Last Updated DateTime 4 160.02 cm 35.4 kg/m2 44690.4 7 g 97.6 [degF] 97 % 97 % 82 /min [facility] 4 11:06:57 Date Recorded Body height Body mass index (BMI) Body weight Body temperature Oxygen saturation Oxygen saturation in Arterial blood by Pulse oximetry Heart rate Provider Name and Address Organization Details Last Updated DateTime 4 160.02 cm 35.8 kg/m2 45466.6 6 g 97.6 [degF] 98 % 98 % 86 /min [facility] 4 14:08:02 Social History None recorded. Functional Status Question Answer Note LastModified by Organizat ion Details LastModified Time Do you use any illicit or recreational drugs? No [email or web address] Information not available 09/15/2023 What is your level of alcohol consumption? None [email or web address] Information not available 09/15/2023 Mental Status None recorded. Family History Relationship Description Onset Age of this Age Resolved Age Notes LastModified by Organization Details LastModified Time Father No current problems or disability [email or web address] Not available 09/14 11:31:02 Mother No current problems or disability [email or web address] Not available 09/14 11:31:02 Notes:maternal great grandmo ther with possible stomach cancer Medical History Condition Response Anxiety Disorder Y Depression Y Gynecological HistoryNo gynecological history recorded. Obstetrics History GPAL:G 0 P 0 0 0 0 Past Encounters Encounter ID Performer Location Encounter Start Date Encounter Closed Date Diagnosis/Indication Diagnosis SNOMED-CT Code Diagnosis ICD10 Code Diagnosis Note [id number] Felecia Carmichael NP [facility] [address] [place] [phone] 09/15/2023 10:40:18 09/23/2023 09:11:55 Generalized abdominal pain 710167196 R10.84 generalize d abdominal pain worse in the left lower quadrant, daily episodes. Reports recent CT completed [facility], records have been requested for review. History cholecyste ctomy. reports negative evaluation with Gynecology . Plan for labs today as well as x-ray abdomen KUB to rule out underlying stool burden. Recommend comprehens jed evaluation with EGD / colonoscop y to rule out underlying IBD, IBS, celiac, other. Nausea 434169174 R11.0 Occasional episodes of nausea. Plan for H pylori breath test today. Plan for EGD as above for comprehens jed evaluation . History cholecyste ctomy. Irritable bowel syndrome 33848617 K58.9 Alternatin g constipati on with episodes of diarrhea. Failed treatment with MiraLax, stool softeners as well as fiber. Recommend trial of Linzess 72 mcg, 145 mcg to 290 mcg samples 8 days each provided to patient clinic today. Will send prescripti on based on response sample medication . [id number] Felecia Carmichael NP [facility] [address] [place] [phone] 11/24/2023 13:59:08 11/25/2023 08:51:23 Irritable bowel syndrome characterized by constipation 133930276 K58.1 colonoscop y 10/13/2023 with negative random colon biopsies. Patient reports feeling significan tly better for 1-2 weeks following colonoscop y with improved left lower quadrant pain. Currently experienci ng recurrent symptoms at this time. Failed treatment with MiraLax, stool softeners as well as fiber. Recommend trial of Linzess 72 mcg, 145 mcg to 290 mcg samples 8 days each provided to patient clinic today. Will send prescripti on based on response sample medication . Gastro-eso phageal reflux disease with esophagitis 480394970 K21.00 reflux esophagiti s noted on EGD, confirmed with pathology. Recommend continued use of pantoprazo le 40 mg daily as prescribed following procedure for 90 days. I have recommende d reflux precaution s Health Concerns Section Related Observation LastModified by Organization Detai ls LastModified Time None Recorded Concern Status LastModified by Organization Details LastModified Time None Recorded Advance Directives Directive None Recorded Payers Insurance Date Sequence Insurance Name Policy Number Policy Rodriguez Covered Member ID Rodriguez Member ID Guarantor Name 04/02/2024 1 [employer] [facility] (MEDICAID HMO) Anai Barraza [id number] Anai Barraza Notes Date Note Type Note Provider Name and Address Organization Details Recorded Time 09/15/2023 text/html 23-year-old sylvester turner with a past medical history IBS and cholecystectomy. Presents today for evaluation of IBS. Reports alternating constipation and diarrhea with recent worsening symptoms. She may go a day or two without having bowel movement passing small hard stool and loose liquid to follow. She drinks plenty of water. She denies blood in stool. She has tried MiraLax and dsht-nro-htabajk stool softener. Describes lower abdominal pain off and on throughout the day. She had CT scan at [facility]. She has followed up with Gynecology.She reports feeling nauseous.She has family history of stomach cancer in maternal great grandmother. Felecia Carmichale NP [address], [address], [place], [address], [facility] [place] [facility] [place] 09/20/2023 13:09:19 11/24/2023 text/html Patient returns to clinic today for follow-up post upper and lower endoscopy completed 10/13/2023. EGD was significant for reflux esophagitis, confirmed with pathology. Negative H pylori or celiac. Patient was prescribed pantoprazole 40 mg daily following procedure which she continues today. Episodes of nausea and GERD have improved at this time. Colonoscopy appeared normal with a small polyp resected from the ascending colon. Negative random colon biopsies. X-ray abdomen KUB normal from 09/16/2023. She continues to report episodes of left lower quadrant pain prior to bowel movements. Previously given samples of Linzess for treatment of constipation however she is uncertain response to medication. She does report feeling significantly better for 1-2 weeks following colonoscopy. Felecia Carmichael NP [address] [place] [address], [address], [place], [address], [facility] [place] 11/24/2023 21:50:19 OBGyn Episode No OBEpisode recorded.
== END 2024-12-21 23:59 | disposition home or self-care (01) ==
LOC: LAB 13:51
PROVIDERS: PCP Nurse Practitioner Family; Visit Provider Obstetrics & Gynecology
DX: Z34.90 Encounter for supervision of normal pregnancy, unspecified, unspecified trimester (principal)
CPT/HCPCS: 36415; 84144; 84702

== ENCOUNTER 2024-12-24 12:14 | Outpatient (CLI) | payer OTHER, SELFPAY ==
--- OUTSIDE RECORDS SUMMARY | 2024-12-24 12:17 | XMS_ITS | Data Portability ---
Author Organization [facility] Address [address] [place] [address] Assessment No assessment recorded. Plan of Treatment Reminders Order Date Submit Date Provider Last Modified By Organization Details Last Modified Time Details Appointments None recorded. Lab urinalysis, dipstick [email or web address], [address], 5 16:44:45 Referral None recorded. Procedures None recorded. Surgeries None recorded. Imaging None recorded. Medication Orders amoxicillin 500 mg capsule 2024 025 [facility], [address] [place] [address], [id number], 5 11:57:50 prednisone 10 mg tablet 2024 025 [facility], [address] [place] [address], [address], 5 11:57:50 Patient TargetsNo targets recorded. Patient InstructionsNo instructions recorded. Reason for Referral None Reported. Results Created Date Observation Date Name Description Value Unit Range Abnormal Flag Note LastModifiedBy Organization Detail LastModifiedTime 12/22/1912/21/2024 urina lysis , dipst ick Leukocytes Negati ve Not Available [address], [address], 12/21/2024 10:20:35 12/22/19 25 12/21/2024 urina lysis , dipst ick Nitrite negati ve Not Available [address], [address], 12/21/2024 10:20:35 12/22/19 25 12/21/2024 urina lysis , dipst ick Urobilinogen .2 Not Available [address], [address], 12/21/2024 10:20:35 12/22/19 25 12/21/2024 urina lysis , dipst ick Protein Negati ve Not Available [address], [address], 12/21/2024 10:20:35 12/22/19 25 12/21/2024 urina lysis , dipst ick pH 6.0 Not Available [address], [address], 12/21/2024 10:20:35 12/22/19 25 12/21/2024 urina lysis , dipst ick Blood Modera te Not Available [address], [address], 12/21/2024 10:20:35 12/22/19 25 12/21/2024 urina lysis , dipst ick Specific Galt 1.000 Not Available [address], [address], 12/21/2024 10:20:35 12/22/19 25 12/21/2024 urina lysis , dipst ick Ketone Negati ve Not Available [address], [address], 12/21/2024 10:20:35 12/22/19 25 12/21/2024 urina lysis , dipst ick Bilirubin Negati ve Not Available [address], [address], 12/21/2024 10:20:35 12/22/19 25 12/21/2024 urina lysis , dipst ick Glucose Negati ve Not Available [address], [address], 12/21/2024 10:20:35 12/22/19 25 12/21/2024 urina lysis , dipst ick Appearance Clear Not Available [address], [address], 12/21/2024 10:20:35 12/22/19 25 12/21/2024 urina lysis , dipst ick Color Yellow Not Available [address], [address], 12/21/2024 10:20:35 Result Notes None recorded. Problems Name Problem SNOMED Code Status Onset Date Resolution Date Notes Provider Name and Address Organization Details Recorded Time Acute frontal sinusiti s 35364290 Completed 201808/29/2019 Problem Code: J01.10; Problem Code Type: ICD-10; Not Available [facility] 22:52:27 Diarrhea 92309935 Active 2018 Problem Code: R19.7; Problem Code Type: ICD-10; Not Available [facility] 22:52:28 [place] ht in childhoo d 662075849 Completed 201812/03/2019 Problem Code: Z68.53; Problem Code Type: ICD-10; Not Available [facility] 22:52:29 Nausea and vomiting 93850110 Active 2019 Problem Code: R11.2; Problem Code Type: ICD-10; Not Available [facility] 2 22:52:28 Concussi on injury of brain 092418068 Completed 201908/29/2019 Problem Code: S06.0X0D ; Problem Code Type: ICD-10; Not Available Counts include 234 beds at the [facility] 2 22:52:28 Childhoo d obesity 810540856 Active 2019 Problem Code: Z68.54; Problem Code Type: ICD-10; Not Available Counts include 234 beds at the [facility] 2 22:52:29 Disorder of upper respirat ory system 103322770 Completed 201908/29/2019 Problem Code: J06.9; Problem Code Type: ICD-10; Not Available Counts include 234 beds at the [facility] 2 22:52:27 Noninfec tious gastroen teritis 01182583 Active 2019 Not Available Counts include 234 beds at the [facility] 2 22:52:27 Bilatera l obstruct ion of Eustachi an tubes [id number] 76587 Active 2019 Not Available [facility] 2 22:52:27 Adjustme nt disorder with anxious mood 19752441 Active 2019 Problem Code: F43.22; Problem Code Type: ICD-10; Not Available Counts include 234 beds at the [facility] 2 22:52:28 Dizzines s and giddines s 111161992 Completed 201912/03/2019 Problem Code: R42; Problem Code Type: ICD-10; Not Available [facility] 2 22:52:28 Eruption 067148520 Completed 201902/27/2020 Problem Code: R21; Problem Code Type: ICD-10; Not Available [facility] 2 22:52:28 Pain of shoulder region 03135447 Active 2019 Not Available [facility] 2 22:52:28 Tingling of skin 886578449 Active 2019 Problem Code: R20.2; Problem Code Type: ICD-10; Not Available [facility] 2 22:52:28 Abdomina l pain 44154521 Completed 201903/14/2020 Problem Code: R10.9; Problem Code Type: ICD-10; Not Available Counts include 234 beds at the [facility] 22:52:28 Syphilis test finding 481287407 Active 2019 Problem Code: Z11.3; Problem Code Type: ICD-10; Not Available Counts include 234 beds at the [facility] 2 22:52:30 Acute respirat ory infectio ns 731429184 Active 2019 Problem Code: J22; Problem Code Type: ICD-10; Not Available Counts include 234 beds at the [facility] 22:52:27 Cough 45487675 Active 2019 Problem Code: R05; Problem Code Type: ICD-10; Not Available Counts include 234 beds at the [facility] 22:52:28 Problem Notes None recorded. Procedures Surgical History Date Name Laterality Status Provider Name and Address Organization Details Recorded Time 07/09/19 21 cholecystectomy completed [facility] 12/21/2024 09:53:50 06/06/18 74 screening colonoscopy completed [facility] 12/21/2024 09:54:11 06/06/18 74 exploratory laparotomy completed [facility] 12/21/2024 09:54:43 Imaging Results None recorded. Procedure [...] Updated DateTime 5 160.02 cm 31.9 kg/m2 03483.0 3 g 98.6 [degF] 88 /min 98 % 98 % 107/74 mm[Hg] [facility]. 5 09:53:23 Social History Question Answer Notes LastModified by Organizat ion Details LastModified Time Tobacco Smoking Status Never Smoker SocialHi Sukhdeep rico: 'Tobacco /Alcohol /Supplem ents'; Marbin payton: 'Never Smoker'; Not Available [facility] 02/10/2022 22:57:13 Do You Have An Advance [...] Information not available 12/21/2024 What Type Of Manager General Do You Use? Daycare[employer]chool Information not available 12/21/2024 Are You Deaf Or Do You Have Serious Difficulty Hearing? No Information not available 12/21/2024 What Type Of Diet Are You Following? REGULAR Information not available 12/21/2024 What Is The Highest Grade Or Level Of School You Have Completed Or The Highest Degree You Have Received? [id number] Information not available 12/21/2024 How Many Days [...] Do You Have A Medical Power Of Cold Press Operator? No Information not available 12/21/2024 What Was [...] ped/adol, 2 dose 3 completed Not Available Counts include 234 beds at the [facility] 02/10/2022 23:36:08 Hep A, ped/adol, 2 dose 8 completed Not Available Counts include 234 beds at the [facility] 02/10/2022 23:36:08 Hib (PRP-T) 3 completed Not Available Counts include 234 beds at the [facility] 02/10/2022 23:36:08 Hib (PRP-T) 2 completed Not Available Counts include 234 beds at the [facility] 02/10/2022 23:36:08 HPV9 3 completed Not Available Counts include 234 beds at the [facility] 02/10/2022 23:36:08 Pneumococcal conjugate PCV 13 2 completed Not Available Counts include 234 beds at the [facility] 02/10/2022 23:36:08 Pneumococcal conjugate PCV 13 2 completed Not Available Counts include 234 beds at the [facility] 02/10/2022 23:36:08 Pneumococcal conjugate PCV 13 2 completed Not Available Counts include 234 beds at the [facility] 02/10/2022 23:36:08 NDzU-Yru-TOA 2 completed Not Available Counts include 234 beds at the [facility] 02/10/2022 23:36:08 DTaP 6 completed Not Available Counts include 234 beds at the [facility] 02/10/2022 23:36:09 DTaP 3 completed Not Available Counts include 234 beds at the [facility] 02/10/2022 23:36:09 MMR 6 completed Not Available Counts include 234 beds at the [facility] 02/10/2022 23:36:09 MMR 3 completed Not Available Counts include 234 beds at the [facility] 02/10/2022 23:36:09 IPV 6 completed Not Available Counts include 234 beds at the [facility] 02/10/2022 23:36:09 IPV 3 completed Not Available Counts include 234 beds at the [facility] 02/10/2022 23:36:09 Tdap 3 completed Not Available Counts include 234 beds at the [facility] 02/10/2022 23:36:09 varicella 3 completed Not Available Counts include 234 beds at the [facility] 02/10/2022 23:36:09 varicella 3 completed Not Available Counts include 234 beds at the [facility] 02/10/2022 23:36:09 DTaP-Hep B-IPV 2 completed Not Available Counts include 234 beds at the [facility] 02/10/2022 23:36:09 Hep B, adolescent or pediatric 2 completed Not Available Counts include 234 beds at the [facility] 02/10/2022 23:36:09 Hep B, adolescent or pediatric 3 completed Not Available Counts include 234 beds at the [facility] 02/10/2022 23:36:09 meningococcal MCV4P 3 completed Not Available Counts include 234 beds at the [facility] 02/10/2022 23:36:10 DTaP-Hib 2 completed Not Available Counts include 234 beds at the [facility] 12/21/2024 09:39:34 meningococcal MCV4P 8 completed Not Available Counts include 234 beds at the [facility] 12/21/2024 09:39:34 COVID-19, mRNA, LNP-S, PF, 30 mcg/0.3 mL dose 2 completed Not Available Counts include 234 beds at the [facility] 12/21/2024 09:39:34 COVID-19, mRNA, LNP-S, PF, 30 mcg/0.3 mL dose, pedrito-sucrose 2 completed Not Available Counts include 234 beds at the [facility] 12/21/2024 09:39:34 Past Encounters Encounter ID Performer Location Encounter Start Date Encounter Closed Date Diagnosis/Indication Diagnosis SNOMED-CT Code Diagnosis ICD10 Code Diagnosis Note [id number] Sarah Valle APRN [address] [address] 12/21/2024 09:25:06 12/21/2024 10:23:12 Dysuria 00852867 R30.0 Acute bact erial sinusitis 56797059 J01.90 B96.89 Body mass index 30+ - obesity 994455360 Z68.31 Health Concerns Section Related Observation LastModified by Organization Detai ls LastModified Time None Recorded Concern Status LastModified by Organization Details LastModified Time None Recorded Advance Directives Directive N: Payers Insurance Date Sequence Insurance Name Policy Number Policy Rodriguez Covered Member ID Rodriguez Member ID Guarantor Name 12/21/2024 1 [employer] [facility] (MEDICAID HMO) Anai Gray [id number] Anai Duncan 12/21/2024 1 *SELF PAY* Dom meyer Perla Notes Date Note Type Note Provider Name [...] fluids. return for worsening symptoms. Sarah Valle, DELIO [address] [place] [address], [place], [address], [facility] [email or web address] 12/21/2024 12:32:17 OBGyn Episode No OBEpisode recorded.
--- OUTSIDE RECORDS SUMMARY | 2024-12-24 12:17 | XMS_ITS | Data Portability ---
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 Plan of Treatment Reminders Order Date Submit Date Provider Last Modified By Organization Details Last Modified Time Details Appointments None recorded. Lab CMP, serum or plasma 2023 024 [facility] (Lab Registration) , [address] [place] [address] [place], [address], 4 11:30:29 CBC w/ auto diff 2023 024 [facility] (Lab Registration) , [address] [place] [address] [place], [address], 4 11:05:08 H pylori urea breath test, co2 infrared 2023 024 [facility] (Lab Registration) , [address] [place] [address] [place], [address], 4 07:13:56 Referral None recorded. Procedures upper endoscopy procedure (EGD) (PROC) 2023 024 [email or web address] 4 Arian Ellington MD, [address], [place], [address], 4 14:59:45 colonoscopy procedure (PROC) 2023 024 [email or web address] 4 Arian Ellington MD, [address], [place], [address], 14:59:45 Surgeries None recorded. Imaging XR, kidney + ureter + bladder - Rule out stool burden [address] [facility], [address] [facility], [address], [place], [address], 13:36:59 Medication Orders Miralax 17 gram/dose oral powder 2023 024 [email or web address] 4 Not available 14:40:26 Dulcolax (bisacodyl) 5 mg tablet,alona yed release 2023 024 [email or web address] 4 Not available 14:40:27 Patient TargetsNo targets recorded. Patient InstructionsNo instructions recorded. Reason for Referral None Reported. Results Created Date Observation Date Name Description Value Unit Range Abnormal Flag Note LastModifiedBy Organization Detail LastModifiedTime 09/16/19 24 09/16/2023 CBC AUTO W DIFF WBC 7.7 10 4.5-11 .5 Not Available [facility] (Lab Registration) [address] [place], [address], 09/16/2023 11:05:07 09/16/19 24 09/16/2023 CBC AUTO W DIFF RBC 4.57 10 4.25-5 .57 Not Available [facility] (Lab Registration) [address] [place], [address], 09/16/2023 11:05:07 09/16/19 24 09/16/2023 CBC AUTO W DIFF HGB 13.5 g/dL 12.0-1 5.7 Not Available [facility] (Lab Registration) [address] [place], [address], 09/16/2023 11:05:07 09/16/19 24 09/16/2023 CBC AUTO W DIFF HCT 39.8 % 36.0-4 7.0 Not Available [facility] (Lab Registration) [address] [place], [address], 09/16/2023 11:05:07 09/16/19 24 09/16/2023 CBC AUTO W DIFF MCV 87.1 fL 80-95 Not Available [facility] (Lab Registration) [address] [place], [address], 09/16/2023 11:05:07 09/16/19 24 09/16/2023 CBC AUTO W DIFF MCH 29.5 pg 27.0-3 4.0 Not Available [facility] (Lab Registration) [address] [place], [address], 09/16/2023 11:05:07 09/16/19 24 09/16/2023 CBC AUTO W DIFF MCHC 33.9 g/dL 32.0-3 6.0 Not Available [facility] (Lab Registration) [address] [place], [address], 09/16/2023 11:05:07 09/16/19 24 09/16/2023 CBC AUTO W DIFF platelet count 395 10 150-45 0 Not Available [facility] (Lab Registration) [address] [place], [address], 09/16/2023 11:05:07 09/16/19 24 09/16/2023 CBC AUTO W DIFF RDW 11.8 % 12.3-1 5.1 low Not Available [facility] (Lab Registration) [address] [place], [address], 09/16/2023 11:05:07 09/16/19 24 09/16/2023 CBC AUTO W DIFF MPV 9.1 fL 7.4-10 .4 Not Available [facility] (Lab Registration) [address] [place], [address], 09/16/2023 11:05:07 09/16/19 24 09/16/2023 CBC AUTO W DIFF granulocyte% 63.7 % 40-75 Not Available [facility] (Lab Registration) [address] [place], [address], 09/16/2023 11:05:07 09/16/19 24 09/16/2023 CBC AUTO W DIFF lymphocyte% 26.6 % 15-57 Not Available [facility] (Lab Registration) [address] [place], [address], 09/16/2023 11:05:07 09/16/19 24 09/16/2023 CBC AUTO W DIFF monocyte% 6.3 % 4.0-12 .0 Not Available [facility] (Lab Registration) [address] [place], [address], 09/16/2023 11:05:07 09/16/19 24 09/16/2023 CBC AUTO W DIFF eosinophil% 2.5 % 0.0-4. 0 Not Available [facility] (Lab Registration) [address] [place], [address], 09/16/2023 11:05:07 09/16/19 24 09/16/2023 CBC AUTO W DIFF basophil% 0.8 % 0.0-1. 0 Not Available [facility] (Lab Registration) [address] [place], [address], 09/16/2023 11:05:07 09/16/19 24 09/16/2023 CBC AUTO W DIFF immature granulocytes % 0.1 % 0.0-0. 8 Not Available [facility] (Lab Registration) [address] [place], [address], 09/16/2023 11:05:07 09/16/19 24 09/16/2023 CBC AUTO W DIFF granulocyte# 4.90 10 Not Available [facility] (Lab Registration) [address] [place], [address], 09/16/2023 11:05:07 09/16/19 24 09/16/2023 CBC AUTO W DIFF lymphocyte# 2.04 10 Not Available [facility] (Lab Registration) [address] [place], [address], 09/16/2023 11:05:07 09/16/19 24 09/16/2023 CBC AUTO W DIFF monocyte# 0.48 10 Not Available [facility] (Lab Registration) [address] [place], [address], 09/16/2023 11:05:07 09/16/19 24 09/16/2023 CBC AUTO W DIFF eosinophil# 0.19 10 Not Available [facility] (Lab Registration) [address] [place], [address], 09/16/2023 11:05:07 09/16/19 24 09/16/2023 CBC AUTO W DIFF basophil# 0.06 10 Not Available [facility] (Lab Registration) [address] [place], [address], 09/16/2023 11:05:07 09/16/19 24 09/16/2023 CBC AUTO W DIFF immature granulocytes # 0.01 10 Not Available [facility] (Lab Registration) [address] [place], [address], 09/16/2023 11:05:07 09/16/19 24 09/16/2023 CBC AUTO W DIFF manual differential NO Not Available [facility] (Lab Registration) [address] [place], [address], 09/16/2023 11:05:07 09/16/19 24 09/16/2023 CBC AUTO W DIFF note Unles s other bond noted testi ng perfo rmed at: [facility] [address] [place] [place] [address] [phone] Nithin lynne MD CLIA: [id number] Not Available [facility] (Lab Registration) [address] [place], [address], 09/16/2023 11:05:07 09/16/19 24 09/16/2023 COMP METAB OLIC PANEL sodium 141 mmol/ L 136-14 5 Not Available [facility] (Lab Registration) [address] [place], [address], 09/16/2023 11:30:29 09/16/19 24 09/16/2023 COMP METAB OLIC PANEL potassium 4.0 mmol/ L 3.5-5. 1 Not Available [facility] (Lab Registration) [address] [place], [address], 09/16/2023 11:30:29 09/16/19 24 09/16/2023 COMP METAB OLIC PANEL chloride 106 mmol/ L 98-107 Not Available [facility] (Lab Registration) [address] [place], [address], 09/16/2023 11:30:29 09/16/19 24 09/16/2023 COMP METAB OLIC PANEL carbon dioxide 24 mmol/ L 21-32 Not Available [facility] (Lab Registration) [address] [place], [address], 09/16/2023 11:30:29 09/16/19 24 09/16/2023 COMP METAB OLIC PANEL anion gap 11.0 Not Available [facility] (Lab Registration) [address] [place], [address], 09/16/2023 11:30:29 09/16/19 24 09/16/2023 COMP METAB OLIC PANEL glucose 82 mg/dL 70-110 Not Available [facility] (Lab Registration) [address] [place], [address], 09/16/2023 11:30:29 09/16/19 24 09/16/2023 COMP METAB OLIC PANEL blood urea nitrogen 8 mg/dL 7-18 Not Available [facility] (Lab Registration) [address] [place], [address], 09/16/2023 11:30:29 09/16/19 24 09/16/2023 COMP METAB OLIC PANEL creatinine 0.8 mg/dL 0.6-1. 0 Not Available [facility] (Lab Registration) [address] [place], [address], 09/16/2023 11:30:29 09/16/19 24 09/16/2023 COMP METAB OLIC PANEL BUN/creatini ne ratio 10.0 ratio 9-21 Not Available [facility] (Lab Registration) [address] [place], [address], 09/16/2023 11:30:29 09/16/19 24 09/16/2023 COMP METAB OLIC PANEL estimated glom filtration rate 95 mL/mi n >60- Not Available [facility] (Lab Registration) [address] [place], [address], 09/16/2023 11:30:29 09/16/19 24 09/16/2023 COMP METAB OLIC PANEL total protein 7.5 g/dL 6.4-8. 2 Not Available [facility] (Lab Registration) [address] [place], [address], 09/16/2023 11:30:29 09/16/19 24 09/16/2023 COMP METAB OLIC PANEL albumin 4.0 g/dL 3.4-5. 0 Not Available [facility] (Lab Registration) [address] [place], [address], 09/16/2023 11:30:29 09/16/19 24 09/16/2023 COMP METAB OLIC PANEL calcium 9.3 mg/dL 8.5-10 .1 Not Available [facility] (Lab Registration) [address] [place], [address], 09/16/2023 11:30:29 09/16/19 24 09/16/2023 COMP METAB OLIC PANEL corrected calcium 9.3 mg/dL 8.5-10 .1 Not Available [facility] (Lab Registration) [address] [place], [address], 09/16/2023 11:30:29 09/16/19 24 09/16/2023 COMP METAB OLIC PANEL bilirubin total 0.3 mg/dL 0.4-1. 5 low Not Available [facility] (Lab Registration) [address] [place], [address], 09/16/2023 11:30:29 09/16/19 24 09/16/2023 COMP METAB OLIC PANEL AST (SGOT) 15 U/L 15-37 Not Available [facility] (Lab Registration) [address] [place], [address], 09/16/2023 11:30:29 09/16/19 24 09/16/2023 COMP METAB OLIC PANEL ALT (SGPT) 27 U/L 12-78 Not Available [facility] (Lab Registration) [address] [place], [address], 09/16/2023 11:30:29 09/16/19 24 09/16/2023 COMP METAB OLIC PANEL alk phosphatase 89 U/L 50-120 Not Available [facility] (Lab Registration) [address] [place], [address], 09/16/2023 11:30:29 09/16/19 24 09/16/2023 COMP METAB OLIC PANEL note Unles s other bond noted testi ng perfo rmed at: [facility] [address] [place] [address] [phone] Nithin lynne MD CLIA: [id number] Not Available [facility] (Lab Registration) [address] [place], [address], 09/16/2023 11:30:29 09/16/19 24 09/16/2023 H. PYLOR I BREAT H TEST note Unles s other bond noted testi ng perfo rmed at: [facility] [address] [place] [address] [phone] Nithin lynne MD CLIA: [id number] Not Available [facility] (Lab Registration) [address] [place], [address], 09/18/2023 07:13:56 09/16/19 24 09/18/2023 H. PYLOR I BREAT H TEST H pylori breath test NEGATI VE negati ve Perfo rmed at: [facility] [address] [facility], [place] [address] Lab Direc tor: Benjamin kelsey PhD, Phone : [phone] Not Available [facility] (Lab Registration) [address] [place], [address], 09/18/2023 07:13:56 10/13/19 24 10/13/2023 URINE PREGN PARAM TEST urine test NEGATI VE negati ve Not Available [facility] (Lab Registration) [address] [place], [address], 10/13/2023 08:04:31 10/13/19 24 10/13/2023 URINE PREGN PARAM TEST internal control PASS PASS Not Available [facility] (Lab Registration) [address] [place], [address], 10/13/2023 08:04:31 10/13/19 24 10/13/2023 URINE PREGN PARAM TEST note Unles s other bond noted testi ng perfo rmed at: [facility] [address] [facility] [place] [address] [phone] Nithin lynne MD CLIA: [id number] Not Available [facility] (Lab Registration) [address] [place], [address], 10/13/2023 08:04:31 09/16/19 24 09/16/2023 XR, kidne y + urete r + bladd er No observ ation record ed. [facility] (Radiology) [address] [place], [address], 09/17/2023 15:36:00 09/16/19 24 09/16/2023 XR, abdom en, 1 view [facility] [address] [facility] [place] [address] Phone: Fax: Name: TERESITAW LUBA VALDESISO N Exam Date: : 002 Age 23 years Gender : F Access ion: [id number] Physic marie: LATOSHA CARMICHAEL Facili ty: [facility] Facili ty HSV: Outpat ient Exam: ABD [...] GALINDO Thank you for referr ing EARLYW FRANCSICO VALDES N to [facility]. Legall y authen ticate d by POPE FILI Steinberg DO 09-15 13:31: 48 CC'ed Logic: Orderi ng Provid er: CHENG Javier CC Provid er: RAEANN MCNAIR Attend ing Provid er: CHENG Javier Referr ing Provid er: CHENG Javier Admitt ing Provid er: CHENG Javier [facility] (Radiology) [address] [place], [address], 09/17/2023 10:23:25 Result Notes Documentation Provider Name and Address Organization Details Recorded Time Xr, Abdomen, 1 View : [address] [place] [address] Name: ANAI BARRAZA Exam Date: 09/16/2023 : 2000 Age 23 years Gender: F Physician: FELECIA CARMICHAEL Facility: [facility] Facility HSV: Outpatient Exam: ABD KUB 1V [...] Thank you for referring ANAI BARRAZA to [facility]. Legally authenticated by POPE FILI Steinberg DO 2023-09-16 13:31:48 CC'ed Logic: Ordering Provider: CHENG MCGUIRE Provider: АНДРЕЙ MOYER Attending Provider: CHENG PHIPPS Referring Provider: CHENG PHIPPS Admitting Provider: CHENG Carmichael NP [address] [place] [address], [address], [place], [address] [place] - [facility] [place] [facility] [place] 09/17/2023 10:13:06 Problems Name Problem SNOMED Code Status Onset Date Resolution Date Notes Provider Name and Address Organization Details Recorded Time Acne 26716022 Active 2023 Naina [place]ina, [place] - [facility] [place] [facility] [place] 11:09:30 Anxiety 94977174 Active 2023 N[place], [place] [facility] [place] 4 11:10:33 Depressive disorder 81435913 Active 2023 [place] 4 11:10:38 Nausea 223540149 Active 2023 Felecia Carmichael NP [address], [address], [place], [address], [place] - [facility] 4 12:21:37 Generalized abdominal pain 349811016 Active 2023 Felecia Carmichael NP [address], [address], [place], [address], [place] - [facility] - [place] & [place] 4 12:21:37 Irritable bowel syndrome 20798746 Active 2023 Felecia Carmichael NP [address], [address], [place], [address], [place] - [facility] & [place] 4 12:21:44 Irritable bowel syndrome characterized by constipation 058475406 Active 2023 Felecia Carmichael NP [address], [address], [place], [address], [place] - [facility] & [place] 4 21:48:05 Gastro-esophag eal reflux disease with esophagitis 439687744 Active 2023 Felecia Carmichael NP [address], [address], [place], [address], [place] - [facility] & [place] 4 21:48:13 Polyp of colon 46419809 Active 2023 Felecia Carmichael NP [address], [address], [place], [address], [place] - [facility] & [place] 4 21:49:41 Problem Notes None recorded. Procedures Surgical History Date Name Laterality Status Provider Name and Address Organization Details Recorded Time 10/13/19 24 EGD/Endoscopy completed Radha STERN - [facility] - [place] [facility] [place] 10/25/2023 16:56:19 10/13/19 24 Colonoscopy completed Radha STERN - [facility] - [place] & [place] 10/25/2023 16:56:32 Cholecystectomy completed Naina Drummond - [facility] 09/15/2023 10:55:39 Imaging Results None recorded. [...] Updated DateTime 4 160.02 cm 35.4 kg/m2 23737.4 7 g 97.6 [degF] 97 % 97 % 82 /min [facility] 4 11:06:57 Date Recorded Body height Body mass index (BMI) Body weight Body temperature Oxygen saturation Oxygen saturation in Arterial blood by Pulse oximetry Heart rate Provider Name and Address Organization Details Last Updated DateTime 4 160.02 cm 35.8 kg/m2 85332.6 6 g 97.6 [degF] 98 % 98 % 86 /min [facility] 4 14:08:02 Social History None recorded. Functional Status Question Answer Note LastModified by Organizat ion Details LastModified Time Do you use any illicit or recreational drugs? No [email or web address] Information not available 09/15/2023 What is your level of alcohol consumption? None Information not available 09/15/2023 Mental Status None recorded. Family History Relationship Description Onset Age of this Age Resolved Age Notes LastModified by Organization Details LastModified Time Father No current problems or disability Not available 09/14 11:31:02 Mother No current problems or disability [email or web address] Not available 09/14 11:31:02 Notes:maternal great grandmo ther with possible stomach cancer Medical History Condition Response Anxiety Disorder Y Depression Y Gynecological HistoryNo gynecological history recorded. Obstetrics History GPAL:G 0 P 0 0 0 0 Past Encounters Encounter ID Performer Location Encounter Start Date Encounter Closed Date Diagnosis/Indication Diagnosis SNOMED-CT Code Diagnosis ICD10 Code Diagnosis Note [id number] Felecia Carmichael NP [facility] [address] [place] [phone] 09/15/2023 10:40:18 09/23/2023 09:11:55 Generalized abdominal pain 348606032 R10.84 generalize d abdominal pain worse in the left lower quadrant, daily episodes. Reports recent CT completed [facility], records have been requested for review. History cholecyste ctomy. reports negative evaluation with Gynecology . Plan for labs today as well as x-ray abdomen KUB to rule out underlying stool burden. Recommend comprehens jed evaluation with EGD / colonoscop y to rule out underlying IBD, IBS, celiac, other. Nausea 054114439 R11.0 Occasional episodes of nausea. Plan for H pylori breath test today. Plan for EGD as above for comprehens jed evaluation . History cholecyste ctomy. Irritable bowel syndrome 49136527 K58.9 Alternatin g constipati on with episodes of diarrhea. Failed treatment with MiraLax, stool softeners as well as fiber. Recommend trial of Linzess 72 mcg, 145 mcg to 290 mcg samples 8 days each provided to patient clinic today. Will send prescripti on based on response sample medication . [id number] Felecia Carmichael NP [facility] [address] [place] [phone] 11/24/2023 13:59:08 11/25/2023 08:51:23 Irritable bowel syndrome characterized by constipation 887140327 K58.1 colonoscop y 10/13/2023 with negative random [...] . Gastro-eso phageal reflux disease with esophagitis 576044201 K21.00 reflux esophagiti s noted on EGD, [...] Member ID Guarantor Name 04/02/2024 1 [employer] [facility] (MEDICAID HMO) Anai Barraza [id number] Anai Barraza Notes Date Note Type Note [...] in stool. She has tried MiraLax and [id number] stool softener. Describes lower abdominal pain off and on throughout the day. She had CT scan at [facility]. She has followed up with Gynecology.She reports feeling nauseous.She has family history of stomach cancer in maternal great grandmother. Felecia Carmichael NP [address], [address], [place], [address], [facility] [place] [facility] [place] 09/20/2023 13:09:19 11/24/2023 text/html Patient returns to [...] 1-2 weeks following colonoscopy. Felecia Carmichael NP [address] [place] [address], [address], [place], [address], [facility] - [facility] - [place] & [place] 11/24/2023 21:50:19 OBGyn Episode No OBEpisode recorded.
--- OUTSIDE RECORDS SUMMARY | 2024-12-24 12:17 | XMS_ITS | Referral Summary ---
Author Organization [employer] ([place], [place], [place], [place]) Address [address] [place] [address] Care Team Providers Care Help Desk Engineer Name Role Phone Jo Barragan NP Primary [...] - Plan of Treatment Not on file Insurance [employer]ENA [facility] Care Teams Help Desk Engineer Relationship Specialty Start Date End Date Jo Barragan, ABEBA [address] [place] [address] PCP - General Nurse Practitioner 08/29/24
--- OUTSIDE RECORDS SUMMARY | 2024-12-24 12:17 | XMS_ITS | Clinical Summary ---
Author Organization [employer] ([place], [place], [place], [place]) Address [address] [place] [address] Care Team Providers Care Unit Assembler Name Role Phone Jo Barragan NP Primary [...] Panel 2021 Pap Smear 2022 COVID-19 VACCINE ( - 2023- season) 2024 Influenza Vaccine (#1) 2025 Insurance [employer] [facility] Care Teams Unit Assembler Relationship Specialty Start Date End Date Jo Barragan, ABEBA [address] [place] [address] PCP - General Nurse Practitioner 08/29/24
--- OUTSIDE RECORDS SUMMARY | 2024-12-24 12:17 | XMS_ITS | Continuity of Care Document ---
Author Organization [facility], [place], [facility] Address [address] [place] [phone] Assessment No assessment recorded. Plan of Treatment Reminders Order Date Submit Date Provider Last Modified By Organization Details Last Modified Time Details Appointments None recorded. Lab urinalysis, dipstick 2024 025 [facility], [place], [facility], [address] [place] [address], [phone], 5 16:44:45 Referral None recorded. Procedures None recorded. Surgeries None recorded. Imaging None recorded. Medication Orders amoxicillin 500 mg capsule 2024 025 [facility], [address] [place] [address], [id number], 5 11:57:50 prednisone 10 mg tablet 2024 025 [facility], [address] [place] [address], [id number], 5 11:57:50 Patient TargetsNo targets recorded. Patient InstructionsNo instructions recorded. Reason for Referral None Reported. Results Created Date Observation Date Name Description Value Unit Range Abnormal Flag Note LastModifiedBy Organization Detail LastModifiedTime 12/22/1912/21/2024 urina lysis , dipst ick Leukocytes Negati ve Not Available [address], [address], 12/21/2024 10:20:35 12/22/19 25 12/21/2024 urina lysis , dipst ick Nitrite negati ve Not Available [address], [address], 12/21/2024 10:20:35 12/22/19 25 12/21/2024 urina lysis , dipst ick Urobilinogen .2 Not Available [address], [address], 12/21/2024 10:20:35 12/22/19 25 12/21/2024 urina lysis , dipst ick Protein Negati ve Not Available [address], [address], 12/21/2024 10:20:35 12/22/19 25 12/21/2024 urina lysis , dipst ick pH 6.0 Not Available [address], [address], 12/21/2024 10:20:35 12/22/19 25 12/21/2024 urina lysis , dipst ick Blood Modera te Not Available [address], [address], 12/21/2024 10:20:35 12/22/19 25 12/21/2024 urina lysis , dipst ick Specific Keavy 1.000 Not Available [address], [address], 12/21/2024 10:20:35 12/22/19 25 12/21/2024 urina lysis , dipst ick Ketone Negati ve Not Available [address], [address], 12/21/2024 10:20:35 12/22/19 25 12/21/2024 urina lysis , dipst ick Bilirubin Negati ve Not Available [address], [address], 12/21/2024 10:20:35 12/22/19 25 12/21/2024 urina lysis , dipst ick Glucose Negati ve Not Available [address], [address], 12/21/2024 10:20:35 12/22/19 25 12/21/2024 urina lysis , dipst ick Appearance Clear Not Available [address], [address], 12/21/2024 10:20:35 12/22/19 25 12/21/2024 urina lysis , dipst ick Color Yellow Not Available [address], [address], 12/21/2024 10:20:35 Result Notes None recorded. Problems Name Problem SNOMED Code Status Onset Date Resolution Date Notes Provider Name and Address Organization Details Recorded Time Acute frontal sinusiti s 23923564 Completed 201808/29/2019 Problem Code: J01.10; Problem Code Type: ICD-10; Not Available [facility] 22:52:27 Diarrhea 85714082 Active 2018 Problem Code: R19.7; Problem Code Type: ICD-10; Not Available [facility] 22:52:28 Overweig ht in childhoo d 753577495 Completed 201812/03/2019 Problem Code: Z68.53; Problem Code Type: ICD-10; Not Available [facility] 22:52:29 Nausea and vomiting 83291224 Active 2019 Problem Code: R11.2; Problem Code Type: ICD-10; Not Available [facility] 22:52:28 Concussi on injury of brain 432468777 Completed 201908/29/2019 Problem Code: S06.0X0D ; Problem Code Type: ICD-10; Not Available [facility] 2 22:52:28 Childhoo d obesity 052169836 Active 2019 Problem Code: Z68.54; Problem Code Type: ICD-10; Not Available [facility] 2 22:52:29 Disorder of upper respirat ory system 032949998 Completed 201908/29/2019 Problem Code: J06.9; Problem Code Type: ICD-10; Not Available [facility] 2 22:52:27 Noninfec tious gastroen teritis 26700046 Active 2019 Not Available [facility] 2 22:52:27 Bilatera l obstruct ion of Eustachi an tubes 40787261978 16649 Active 2019 Not Available [facility] 2 22:52:27 Adjustme nt disorder with anxious mood 89903252 Active 2019 Problem Code: F43.22; Problem Code Type: ICD-10; Not Available [facility] 2 22:52:28 Dizzines s and giddines s 054731899 Completed 201912/03/2019 Problem Code: R42; Problem Code Type: ICD-10; Not Available [facility] 2 22:52:28 Eruption 147535727 Completed 201902/27/2020 Problem Code: R21; Problem Code Type: ICD-10; Not Available [facility] 2 22:52:28 Pain of shoulder region 75536351 Active 2019 Not Available [facility] 2 22:52:28 Tingling of skin 275369007 Active 2019 Problem Code: R20.2; Problem Code Type: ICD-10; Not Available [facility] 2 22:52:28 Abdomina l pain 22785558 Completed 201903/14/2020 Problem Code: R10.9; Problem Code Type: ICD-10; Not Available [facility] 2 22:52:28 Syphilis test finding 672935517 Active 2019 Problem Code: Z11.3; Problem Code Type: ICD-10; Not Available [facility] 2 22:52:30 Acute respirat ory infectio ns 100362409 Active 2019 Problem Code: J22; Problem Code Type: ICD-10; Not Available [facility] 2 22:52:27 Cough 02100197 Active 2019 Problem Code: R05; Problem Code Type: ICD-10; Not Available [facility] 22:52:28 Problem Notes None recorded. Procedures Surgical History Date Name Laterality Status Provider Name and Address Organization Details Recorded Time 07/09/19 21 cholecystectomy completed bepretty 12/21/2024 09:53:50 06/06/18 74 screening colonoscopy completed bepretty 12/21/2024 09:54:11 06/06/18 74 exploratory laparotomy completed bepretty 12/21/2024 09:54:43 Imaging Results None recorded. Procedure [...] Updated DateTime 5 160.02 cm 31.9 kg/m2 37830.0 3 g 98.6 [degF] 88 /min 98 % 98 % 107/74 mm[Hg] Phylicia Singh [facility] [employer]. 5 09:53:23 Social History Question Answer Notes LastModified by Organizat ion Details LastModified Time Tobacco Smoking Status Never Smoker Hi Sukhdeep rico: 'Tobacco /Alcohol /Supplem ents'; Marbin payton: 'Never Smoker'; Not Available [facility] 02/10/2022 22:57:13 Do You [...] Information not available 12/21/2024 What Type Of Market Master Do You Use? [employer]care[employer] Information not available 12/21/2024 Are You Deaf Or Do You Have Serious Difficulty Hearing? No Information not available 12/21/2024 What Type Of Diet Are You Following? REGULAR Information not available 12/21/2024 What Is The Highest Grade Or Level Of School You Have Completed Or The Highest Degree You Have Received? [id number] Information not available 12/21/2024 How Many Days [...] Do You Have A Medical Power Of Buffing Machine Operator? No Information not available 12/21/2024 What [...] ped/adol, 2 dose 3 completed Not Available [facility] 02/10/2022 23:36:08 Hep A, ped/adol, 2 dose 8 completed Not Available [facility] 02/10/2022 23:36:08 Hib (PRP-T) 3 completed Not Available [facility] 02/10/2022 23:36:08 Hib (PRP-T) 2 completed Not Available [facility] 02/10/2022 23:36:08 HPV9 3 completed Not Available [facility] 02/10/2022 23:36:08 Pneumococcal conjugate PCV 13 2 completed Not Available [facility] 02/10/2022 23:36:08 Pneumococcal conjugate PCV 13 2 completed Not Available [facility] 02/10/2022 23:36:08 Pneumococcal conjugate PCV 13 2 completed Not Available [facility] 02/10/2022 23:36:08 UHdN-Hks-GXM 2 completed Not Available [facility] 02/10/2022 23:36:08 DTaP 6 completed Not Available [facility] 02/10/2022 23:36:09 DTaP 3 completed Not Available [facility] 02/10/2022 23:36:09 MMR 6 completed Not Available [facility] 02/10/2022 23:36:09 MMR 3 completed Not Available [facility] 02/10/2022 23:36:09 IPV 6 completed Not Available [facility] 02/10/2022 23:36:09 IPV 3 completed Not Available [facility] 02/10/2022 23:36:09 Tdap 3 completed Not Available [facility] 02/10/2022 23:36:09 varicella 3 completed Not Available [facility] 02/10/2022 23:36:09 varicella 3 completed Not Available [facility] 02/10/2022 23:36:09 DTaP-Hep B-IPV 2 completed Not Available [facility] 02/10/2022 23:36:09 Hep B, adolescent or pediatric 2 completed Not Available [facility] 02/10/2022 23:36:09 Hep B, adolescent or pediatric 3 completed Not Available [facility] 02/10/2022 23:36:09 meningococcal MCV4P 3 completed Not Available [facility] 02/10/2022 23:36:10 DTaP-Hib 2 completed Not Available [facility] 12/21/2024 09:39:34 meningococcal MCV4P 8 completed Not Available [facility] 12/21/2024 09:39:34 COVID-19, mRNA, LNP-S, PF, 30 mcg/0.3 mL dose 2 completed Not Available [facility] 12/21/2024 09:39:34 COVID-19, mRNA, LNP-S, PF, 30 mcg/0.3 mL dose, pedrito-sucrose 2 completed Not Available [facility] 12/21/2024 09:39:34 Past Encounters Encounter ID Performer Location Encounter Start Date Encounter Closed Date Diagnosis/Indication Diagnosis SNOMED-CT Code Diagnosis ICD10 Code Diagnosis Note [id number] Sarah Valle APRN [address] [address] 12/21/2024 09:25:06 12/21/2024 10:23:12 Dysuria 00539581 R30.0 Acute bact erial sinusitis 76886994 J01.90 B96.89 Body mass index 30+ - obesity 980217078 Z68.31 Health Concerns Section Related Observation LastModified by Organization Detai ls LastModified Time None Recorded Concern Status LastModified by Organization Details LastModified Time None Recorded Payers Encounter Date Sequence Insurance Name Policy Number Policy Rodriguez Covered Member ID Rodriguez Member ID Guarantor Name 12/21/[address] [facility] (MEDICAID HMO) Anai Gray [id number] Anai Perla Notes Date Note Type Note Provider [...] fluids. return for worsening symptoms. Sarah Valle, [employer] [address] [facility], [place], [address], [facility] [employer] 12/21/2024 12:32:17 OBGyn Episode No OBEpisode recorded.
== END 2024-12-24 23:59 | disposition home or self-care (01) ==
LOC: LAB 12:15
PROVIDERS: PCP Nurse Practitioner Family; Visit Provider Obstetrics & Gynecology
DX: Z34.90 Encounter for supervision of normal pregnancy, unspecified, unspecified trimester (principal)
CPT/HCPCS: 84702

== ENCOUNTER 2025-01-26 11:02 | Outpatient (CLI) | payer OTHER, SELFPAY ==
--- OUTSIDE RECORDS SUMMARY | 2025-01-29 11:44 | XMS_ITS | Referral Summary ---
Author Organization [employer] ([place], [place], [place], [place]) Address [address] [place] [address] Care Team Providers Care Application Release Manager Name Role Phone Jo Barragan NP Primary [...] of Treatment Not on file Insurance AENA [facility] Care Teams Application Release Manager Relationship Specialty Start Date End Date Jo Barragan, ABEBA [address] [place] [address] PCP - General Nurse Practitioner 08/29/24
--- OUTSIDE RECORDS SUMMARY | 2025-01-29 11:44 | XMS_ITS | Clinical Summary ---
Author Organization [employer] ([place], [place], [place], [place]) Address [address] [place] [address] Care Team Providers Care Winder Contort Operator Name Role Phone Jo Barragan NP Primary [...] 2024 Influenza Vaccine (#1) 2025 Insurance AETNA [facility] Care Teams Winder Contort Operator Relationship Specialty Start Date End Date Jo Barragan, ABEBA [address] [place] [address] PCP - General Nurse Practitioner 08/29/24
== END 2025-01-26 23:59 | disposition home or self-care (01) ==
LOC: LAB.DROPOF 01-29 11:03
PROVIDERS: PCP Obstetrics & Gynecology; Visit Provider Obstetrics & Gynecology
DX: Z34.91 Encounter for supervision of normal pregnancy, unspecified, first trimester (principal)
CPT/HCPCS: 87086

== ENCOUNTER 2025-01-29 17:16 | Emergency (ER) | payer OTHER, SELFPAY ==
--- NOTE | 2025-01-29 17:25 | ED_ITS ---
<Statement entered by Cally Donaldson DO - 01/30/25 21:18> I was consulted by the HELENE, and we discussed the complexity of problems being addressed. I approve the treatment and management plan for this patient's care in the emergency department, thus performing a substantial portion of the medical decision making. Cally Donaldson DO Discharge Plan Disposition Patient Disposition: Home, Self-Care Condition: Good Prescriptions Prescriptions: New pyridoxine (vitamin B6) [Vitamin B-6] 25 mg tablet 25 mg PO BID Qty: 60 0RF No Action Classic 28 mg iron- 800 mcg tablet 1 tab PO DAILY promethazine 12.5 mg tablet 12.5 mg PO Q8H Qty: 30 0RF metoclopramide HCl [Reglan] 10 mg tablet 10 mg PO Q8H Qty: 90 0RF Rx Instructions: administer 30 minutes before meals ondansetron 4 mg tablet,disintegrating 4 mg PO Q4H Qty: 90 0RF Referrals Follow up/Referrals: Nuria Ivan DO [Staff Physician, [employer]] - See instructions Sarah Valle APRN [Primary Care Provider, Medical] - See instructions Activity Restrictions/Add. Instructions Additional Instructions/Restrictions: Please return to the emergency department with any worsening signs or symptoms, please follow-up with your [employer]PER[employer] in the upcoming days, please take your medication as needed for nausea vomiting and morning sickness, we will call you with the results of your urine and your hormone if need for action. Clinical Impressions Clinical Impression: Hyperemesis gravidarum Instructions Patient Instructions: DI for Hyperemesis Gravidarum Print Language Print Language: Hungarian Discharge ED Provider: Cally Donaldson General Adult HPI General Chief complaint: Nausea/Vomiting/Diarrhea Stated complaint: Sent By Dr Ivan for Fluids Time Seen by Provider: 01/29/25 17:25 Mode of Arrival: Ambulatory Source of Information: Patient Limitations: No Limitations History of Present Illness HPI narrative: 24-year-old A1 female, at approximately 9 weeks gestation, presents the emergency department at the request of her [employer] physician for IV fluids , patient was seen by her [employer] SUPERVISOR on 01/26/2025 patient has persistent hyperemesis gravidarum with nausea and vomiting for the last 3 weeks, she has been on promethazine, Reglan and Zofran taking medication as prescribed last dose of Zofran was this a.m., he has had worsening nausea vomiting cannot keep anything down , for last 3 days, thus prompted emergency department visit. Patient Nuys any fever chills chest pain shortness of breath, denies any abdominal pain, denies any constipation diarrhea, denies any vaginal bleeding vaginal discharge, no dysuria, initial triage vitals grossly unremarkable, patient denies any tobacco alcohol or drug use, no other real relevant past medical history takes no other medication at home with the exception of prenatals. Of note, patient had urinalysis performed at [employer] office on Wednesday, did have some blood , in her urine, but no bacteria or concerns for UTI at that time according to patient. Please note that above description of symptoms, in this electronic medical record under categorization of recalled from ER triage doctor by RN are reflective of an initial nursing assessment, however, is not reflective of my full history and physical exam that was personally taken and clarified. Consequentially, this preceding description of symptoms, which may include the patient's categorized chief complaint in the EMR, do not reflect my personal clinical impression, and the ultimate description of history of present illness and patient stated complaints should be deferred to this section of the note. Unless stated otherwise or congruent with this section of the note, additional signs, symptoms, or incongruence should be interpreted as inaccurate with my clinical impression. Onset (ago): week(s) Related Data Home Medications ?Medication ?Instructions ?Recorded ?Confirmed vits no.126-ferrous fum 1 tab PO DAILY 01/26/25 28 mg iron-folic acid 800 mcg tablet (Classic ) Previous Rx's ?Medication ?Instructions ?Recorded promethazine 12.5 mg tablet 12.5 mg PO Q8H #30 tabs metoclopramide HCl 10 mg tablet 10 mg PO Q8H #90 tabs 01/26/25 (Reglan) ondansetron 4 mg disintegrating 4 mg PO Q4H #90 tabs 0 01/26/25 tablet pyridoxine (vitamin B6) 25 mg 25 mg PO BID #60 tabs tablet (Vitamin B-6) Allergies Allergy/AdvReac Type Severity Reaction Status Date / Time No Known Allergies Allergy Verified 01/26/25 14:[address] [facility] Disclaimer: The information contained in this section may have been updated after the patient was seen, as this information can be updated by other users. Medical History (Updated 01/29/25 @ 19:02 by MILLIE Dangelo) History of pre-eclampsia in prior , currently Dysmenorrhea Irregular periods/menstrual cycles Endometriosis Dyspareunia Lightheadedness Dyspnea Cholelithiasis Dizziness Edema Surgical History Hx of laparoscopy History of cholecystectomy Family History Other Brain tumor Cancer Social History Smoking Status: Never smoker second hand exposure: Yes alcohol intake: never substance use type: denies use current occupational status: employed Travel in the last 8 weeks?: None household members: family housing: house marital status: current occupation: [employer] current occupational exposures/hazards: No caffeine: Yes Have you lived/traveled outside US in past 30 days?: No Contact w/someone who lives/traveled outside US past 30 days?: No Exposure to someone with infectious disease in past 14 days?: No Do you have a fever (greater than 100.4 F or 38 C)?: No Have you tested positive for COVID-19?: No Exposed to someone with COVID-19 in past 14 days?: No Do you have a sore throat?: No Do you have a cough?: No Do you have any weakness?: No Do you have any diarrhea?: No Are you experiencing any unusual bleeding?: No Do you have any muscle aches/pain?: No Do you have any abdominal pain?: No Are you experiencing loss of taste or smell?: No Other Medical History Have you received the Flu Vaccine for this season: No Have you received the Pneumonia Vaccine: No ROS Obtained: Yes All systems reviewed & no additional complaints except as documented Physical Exam General General appearance: alert and in no apparent distress Head Head exam: atraumatic and normocephalic Eye Eye exam: Present PERRL and EOMI ENT ENT exam: Present mucous membranes moist Neck Neck exam: Present normal inspection Chest Chest inspection: Present normal inspection and symmetric chest wall rise Respiratory Respiratory exam: Present normal lung sounds bilaterally; Absent respiratory distress Cardiovascular Cardiovascular exam: Present regular rate and normal rhythm Abdominal Exam Abdominal exam: Present soft; Absent tenderness, guarding, rebound or rigidity Extremities Exam Extremities exam: Present normal inspection Neurological Exam Neurological exam: Present alert and oriented X3 Psychiatric Psychiatric exam: Present normal affect Skin Skin exam: Present warm and dry Medical Decision Making Medical Records Medical records reviewed: Yes I reviewed the patient's medical records. Screening: Per USPSTF and CDC recommendations, given the prevalence of disease in our region, it is our hospital?s policy to screen for HIV and viral Hepatitis for all patients aged 18 and over and those with ongoing risk factors. Baljeet Inquiry Pt receiving controlled substance: No Baljeet was queried for this patient: No Vital Signs: 01/29/25 17:28 Temperature 99.0 F Temperature Source Oral Pulse Rate [Right Radial] 57 L Respiratory Rate 20 Blood Pressure [Right Arm] 120/74 Blood Pressure Mean [Right Arm] 89 Blood Pressure Source [Right Arm] Automatic Cuff Blood Pressure Position [Right Arm] Sitting 02 Sat by Pulse Oximetry 100 Lab Data Lab results reviewed: Yes I reviewed the patient's lab results. Lab Results 01/29/25 17:30: Urine Color Yellow, Urine Appearance Clear, Urine pH 6.0, Ur Specific Red Bud 1.010, Urine Protein Negative, Urine Glucose (UA) Negative, Urine Ketones Negative, Urine Blood 2+ A, Urine Nitrate Negative, Urine Bilirubin Negative, Urine Urobilinogen 0.2, Ur Leukocyte Esterase Negative 01/29/25 17:35: WBC 9.7, RBC 4.50, Hgb 13.4, Hct 39.3, MCV 87.3, MCH 29.8, MCHC 34.1, RDW 11.6, Plt Count 345, MPV 9.8, Neut % (Auto) 67.2, Lymph % (Auto) 23.1, [place] % (Auto) 6.8, Eos % (Auto) 1.9, Baso % (Auto) 0.5, Neut # (Auto) 6.5, Lymph # (Auto) 2.2, [place] # (Auto) 0.7, Eos # (Auto) 0.2, Baso # (Auto) 0.1, Sodium 136, Potassium 3.6, Chloride 104, Carbon Dioxide 25, Anion Gap 10.6, BUN 5 L, Creatinine 0.60, Estimated Creat Clear 182, Estimated GFR 124, Est GFR ( Amer) 150, Glucose 60 L, Calcium 8.9, Total Bilirubin 0.3, AST 23, ALT 20, Alkaline Phosphatase 43, Total Protein 7.4, Albumin 4.5, Globulin 2.9, Albumin/Globulin Ratio 1.6 01/29/25 17:35 01/29/25 17:35 Orders (Tests/Meds): ED MEDICATIONS Discontinued Medications Generic Name Dose Route Start Last Admin Trade Name Edmund PRN Reason Stop Dose Admin Lactated Ringer's 1,000 mls @ 999 mls/hr 01/29/25 17:42 01/29/25 18:56 Lactated Ringer's 1000 Ml Bag IV 01/29/25 18:42 Infused .Q1H1M ONE Infusion Ondansetron HCl 4 mg 01/29/25 17:42 01/29/25 17:55 Ondansetron 4mg/2ml Vial IV 01/29/25 17:43 4 mg ONCE ONE Administration ORDERS Category Date Time Status Complete Blood Count Auto Diff Stat Lab 01/29/25 17:35 Completed Comprehensive Metabolic Panel Stat Lab 01/29/25 17:35 Completed HCG,Quantitative Stat Lab 01/29/25 17:35 Received Urinalysis and Microscopic Stat Lab 01/29/25 17:30 Results Medical Decision Narrative: 24-year-old female A1, at 9 weeks gestation, documented IUP, presents the emergency department nausea vomiting for multiple weeks, differential diagnose include but not limited to, hyperemesis gravidarum, cardiac arrhythmia, electrolyte disturbance, hypovolemia, UTI, acute kidney injury among others. I discussed the patient case with the attending physician Dr. Donaldson Will obtain base, laboratory studies, hCG quantitative, urinalysis, will give 1 L LR IV and give 4 mg IV Zofran for nausea vomiting. CBC unremarkable UA is notable for 2+ hematuria, negative nitrites negative leukocyte Estrace. CMP unremarkable Reexamination of the patient at approximately 6:50 PM, patient is resting comfortably in bed, would like to be discharged home to self-care, patient is finished 1 L LR IV, nausea and vomiting have improved, patient has not yet had her hCG quant resulted in her microscopic urinalysis, will call patient with results of these, shared decision-making was utilized I think appropriate for DC at this time patient has remained hemodynamically stable throughout her time in the emergency department. Patient will follow-up with [employer] physician in the upcoming days,/weeks, continue to take her antiemetics as prescribed for her hyperemesis gravidarum. Patient was given strict ED return precautions we will call patient with any actionable results. Patient voiced understanding and agreement with current treatment plan/discharge plan, I will call in some vitamin B6 (doxylamine) as needed for nausea vomiting the patient's pharmacy. Patient voiced understanding. Critical Care Critical Care Time Critical Care Time: No
[2025-01-29 17:28] VITALS: BP 120/74; PULSE 57; RESP 20; TEMP 37.2; O2SAT 100; BMI 30.8
--- OUTSIDE RECORDS SUMMARY | 2025-01-29 17:34 | XMS_ITS | Referral Summary ---
Author Organization [employer] ([place], [place], [place], [place]) Address [address] [place] [address] Care Team Providers Care Public Area Attendant Name Role Phone Jo Barragan NP Primary [...] of Treatment Not on file Insurance AENA [facility] Care Teams Public Area Attendant Relationship Specialty Start Date End Date Jo Barragan, ABEBA [address] [place] [address] PCP - General Nurse Practitioner 08/29/24
--- OUTSIDE RECORDS SUMMARY | 2025-01-29 17:34 | XMS_ITS | Clinical Summary ---
Author Organization [employer] ([place], [place], [place], [place]) Address [address] [place] [address] Care Team Providers Care Building Performance Consultant Name Role Phone Jo Barragan NP Primary [...] 2024 Influenza Vaccine (#1) 2025 Insurance AETNA [facility] Care Teams Building Performance Consultant Relationship Specialty Start Date End Date Jo Barragan, ABEBA [address] [place] [address] PCP - General Nurse Practitioner 08/29/24
[2025-01-29 17:46] LABS: Microscopic, Urine URINE MICROSCOPIC (MICROSCOPIC)
[2025-01-29] MEDS: LACTATED RINGERS 1000ML 1,000 ML 999 ML IV (17:53)
[2025-01-29] MEDS: ONDANSETRON 4MG/2ML VIAL 4 MG IV (17:55)
[2025-01-29 17:56] LABS: Hematocrit 39.3 % (37.0-47.0); Hemoglobin 13.4 g/dL (12.2-16.2); Immature Granulocytes % 0.5 %; Mean Corpuscular HGB Conc 34.1 g/dL (31.8-35.4); Mean Corpuscular Hemoglobin 29.8 pg (27.0-31.2); Mean Corpuscular Volume 87.3 fl (81-99); Nucleated Red Blood Cells % 0 %; Platelet Count 345 K/mm3 (142-424); Red Blood Count 4.50 M/mm3 (4.20-5.40); Red Cell Distribution Width-SD 37.4 fL; White Blood Count 9.7 K/mm3 (4.8-10.8)
--- NOTE | 2025-01-29 18:00 | ECG_ITS ---
APPROVED REPORT Exam: Resting ECG HR:56 bpm ECG Measurements Heart Rate 56 AXES [place] 143 P 54 QRSd 75 QRS 66 QT 366 T 39 QTc 358 Conclusion SINUS BRADYCARDIA WITH SINUS ARRHYTHMIA LOW QRS VOLTAGE IN PRECORDIAL LEADS [QRS DEFLECTION < 1.0 mV IN CHEST LEADS] BORDERLINE ECG UNCONFIRMED REPORT Electronically signed by : HUBER RIVAS, 01/29/2025 23:16:19
[2025-01-29 18:03] LABS: Bilirubin,Urine Negative (Negative); Color,Urine YELLOW (Yellow); Glucose,Urine (UA) Negative (Negative); Ketones,Urine Negative (Negative); Leukocyte Esterase,Urine Negative (Negative); PH,Urine 6.0 (5.0-8.5); Protein,Urine Negative (Negative); Specific Gravity, Urine 1.010 (1.005-1.030); Urobilinogen,Urine 0.2 EU/dl (0.2)
[2025-01-29 18:19] LABS: Albumin Level 4.5 g/dl (3.5-5.0); Chloride 104 mmol/L (98-107); Potassium 3.6 mmoL/L (3.5-5.1); Sodium 136 mmol/L (136-145)
[2025-01-29 18:21] LABS: Blood Urea Nitrogen 5 mg/dl (7-17); Creatinine Clearance Estimated 182 mL/min (50-200); Creatinine,Serum 0.60 mg/dl (0.52-1.04); Estimated Glomerular Filt Rate 124 ml/min (>60); GFR (African American) 150 ML/MIN (>60)
[2025-01-29 18:22] LABS: Alanine Aminotransferase 20 U/L (12-78); Albumin/Globulin Ratio 1.6 (1.1-1.8); Alkaline Phosphatase 43 U/L (38-126); Anion Gap 10.6 mEq/L (5-15); Aspartate Amino Transferase 23 U/L (14-36); Bilirubin,Total 0.3 mg/dl (0.2-1.3); Calcium 8.9 mg/dl (8.4-10.2); Carbon Dioxide 25 mmol/L (22.0-30.0); Globulin 2.9 g/dL (1.3-3.2); Glucose 60 mg/dl (74-100); Total Protein,Serum 7.4 g/dl (6.3-8.2)
[2025-01-29 19:02] LABS: RBC,Urine Occasional #/hpf (0-3); WBC,Urine Occasional #/hpf (0-3)
[2025-01-29 19:03] LABS: Bacteria,Urine Trace /lpf; Squamous Epithelial Cell,Urine Occasional #/hpf (0-5)
[2025-01-29 19:09] VITALS: BP 106/59; PULSE 70; RESP 18; TEMP 36.7; O2SAT 100
== END 2025-01-29 19:07 | disposition home or self-care (01) ==
PROVIDERS: Physician Assistant; Emergency Provider Student in an Organized Health Care Education/Training Program; PCP Nurse Practitioner
DX: O21.0 Mild hyperemesis gravidarum (principal); Z3A.09 9 weeks gestation of pregnancy
CPT/HCPCS: 80053; 81001; 84702; 85025; 93005; 96361; 96374; 99284; J2405; J7120

== ENCOUNTER 2025-02-03 17:12 | Emergency (ER) | payer OTHER, SELFPAY ==
[2025-02-03 17:22] VITALS: BP 111/62; PULSE 80; RESP 15; TEMP 36.9; O2SAT 100; BMI 30.8
--- NOTE | 2025-02-03 17:22 | HMH.EDGENADL ---
Discharge Plan Disposition Patient Disposition: Home, Self-Care Prescriptions Prescriptions: No Action Classic 28 mg iron- 800 mcg tablet 1 tab PO DAILY promethazine 12.5 mg tablet 12.5 mg PO Q8H Qty: 30 0RF metoclopramide HCl [Reglan] 10 mg tablet 10 mg PO Q8H Qty: 90 0RF Rx Instructions: administer 30 minutes before meals ondansetron 4 mg tablet,disintegrating 4 mg PO Q4H Qty: 90 0RF pyridoxine (vitamin B6) [Vitamin B-6] 25 mg tablet 25 mg PO BID Qty: 60 0RF Referrals Follow up/Referrals: Sarah Valle APRN [Primary Care Provider, Medical] - See instructions Activity Restrictions/Add. Instructions Additional Instructions/Restrictions: You were found to have a small area of bleeding called a subchorionic hemorrhage. I encourage you to follow-up with Dr. Ivan as scheduled on the to discuss your bleeding and your continued nausea and vomiting. Continue taking your Zofran and Reglan as prescribed and continue to hydrate as much as possible. If you develop any new or worsening symptoms, such as worsening bleeding and abdominal pain, fever, or if you become concerned for your health for any reason, return to the emergency department for evaluation. Clinical Impressions Clinical Impression: Subchorionic hemorrhage, Dehydration, Hyperemesis gravidarum Instructions Patient Instructions: DI for Hyperemesis Gravidarum, Subchorionic Hemorrhage Print Language Print Language: Kyrgyz Discharge ED Provider: Vik Augustin General Adult HPI General Chief complaint: Nausea/Vomiting/Diarrhea Stated complaint: Here for fluids for dehydration,10 weeks Time Seen by Provider: 02/03/25 17:20 Mode of Arrival: Ambulatory Source of Information: Patient Limitations: No Limitations History of Present Illness HPI narrative: Anai Gray is a 24y female with a history of hyperemesis gravidarum with each who presents to the emergency department for complaints of dehydration and vaginal bleeding. Patient states that over the last 4 weeks, she has had constant nausea and vomiting. She is followed by Dr. Ivan with [facility]. Patient states that on the , she was started on Zofran and Reglan and had been on Compazine prior to this. She states that the Zofran and Reglan helped for couple days, but now she is back to constant nausea and vomiting, stating that every 5 minutes she is vomiting. She does report occasionally having some blood in her vomit but this is normal for her. She states that she has also had some intermittent lower abdominal cramping that is unchanged at this time. She does state that today at approximately 1 PM, after wiping she noticed some spotting on the toilet paper. She states that she urinated again here but did not have any blood when she wiped this time. She states that has otherwise been uncomplicated other than the vomiting. Related Data Home Medications ?Medication ?Instructions ?Recorded ?Confirmed vits no.126-ferrous fum 1 tab PO DAILY 01/26/25 01/26/25 28 mg iron-folic acid 800 mcg tablet (Classic ) Previous Rx's ?Medication ?Instructions ?Recorded promethazine 12.5 mg tablet 12.5 mg PO Q8H #30 tabs 01/11/25 metoclopramide HCl 10 mg tablet 10 mg PO Q8H #90 tabs 01/26/25 (Reglan) ondansetron 4 mg disintegrating 4 mg PO Q4H #90 tabs 01/26/25 tablet pyridoxine (vitamin B6) 25 mg 25 mg PO BID #60 tabs 01/29/25 tablet (Vitamin B-6) Allergies Allergy/AdvReac Type Severity Reaction Status Date / Time No Known Allergies Allergy Verified 01/26/25 14:27 [facility] Disclaimer: The information contained in this section may have been updated after the patient was seen, as this information can be updated by other users. Medical History (Updated 02/03/25 @ 18:44 by Vik Augustin MD) History of pre-eclampsia in prior , currently Dysmenorrhea Irregular periods/menstrual cycles Endometriosis Dyspareunia Lightheadedness Dyspnea Cholelithiasis Dizziness Edema Surgical History Hx of laparoscopy History of cholecystectomy Family History Other Brain tumor Cancer Social History Smoking Status: Never smoker second hand exposure: Yes alcohol intake: never substance use type: denies use current occupational status: employed Travel in the last 8 weeks?: None household members: family housing: house marital status: current occupation: [employer] current occupational exposures/hazards: No caffeine: Yes Have you lived/traveled outside US in past 30 days?: No Contact w/someone who lives/traveled outside US past 30 days?: No Exposure to someone with infectious disease in past 14 days?: No Do you have a fever (greater than 100.4 F or 38 C)?: No Have you tested positive for COVID-19?: No Exposed to someone with COVID-19 in past 14 days?: No Do you have a sore throat?: No Do you have a cough?: No Do you have any weakness?: No Do you have any diarrhea?: No Are you experiencing any unusual bleeding?: No Do you have any muscle aches/pain?: No Do you have any abdominal pain?: Yes Are you experiencing loss of taste or smell?: No Other Medical History Have you received the Flu Vaccine for this season: No Have you received the Pneumonia Vaccine: No ROS Obtained: Yes Systems reviewed as appropriate & no additional complaints except as documented Physical Exam General General appearance: alert and in no apparent distress Head Head exam: atraumatic Eye Eye exam: Present normal appearance ENT ENT exam: Present normal external ear exam Neck Neck exam: Present full ROM Chest Chest inspection: Present symmetric chest wall rise Respiratory Respiratory exam: Present normal lung sounds bilaterally; Absent respiratory distress Cardiovascular Cardiovascular exam: Present regular rate and normal rhythm Abdominal Exam Abdominal exam: Present soft and tenderness (LLQ); Absent distention, guarding or rigidity Extremities Exam Extremities exam: Present normal inspection Back Exam Back exam: Present normal inspection Neurological Exam Neurological exam: Present alert and oriented X3 Psychiatric Psychiatric exam: Present normal affect Skin Skin exam: Present warm and dry Medical Decision Making Medical Records Screening: Per USPSTF and CDC recommendations, given the prevalence of disease in our region, it is our hospital?s policy to screen for HIV and viral Hepatitis for all patients aged 18 and over and those with ongoing risk factors. Baljeet Inquiry Pt receiving controlled substance: No Vital Signs: 02/03/25 17:22 02/03/25 17:37 02/03/25 18:00 Temperature 98.5 F Temperature Source Oral Pulse Rate 85 65 Pulse Rate [Right Radial] 80 Respiratory Rate 15 Blood Pressure 98/59 L Blood Pressure [Right Arm] 111/62 Blood Pressure Mean [Right Arm] 78 Blood Pressure Source [Right Arm] Automatic Cuff Blood Pressure Position [Right Arm] Supine 02 Sat by Pulse Oximetry 100 99 99 Oxygen Delivery Method Room Air 02/03/25 18:52 02/03/25 19:08 Temperature 98.4 F Temperature Source Pulse Rate 63 71 Pulse Rate [Right Radial] Respiratory Rate 16 Blood Pressure 107/56 L 107/64 L Blood Pressure [Right Arm] Blood Pressure Mean [Right Arm] Blood Pressure Source [Right Arm] Blood Pressure Position [Right Arm] 02 Sat by Pulse Oximetry 96 100 Oxygen Delivery Method Room Air Lab Data Lab Results 02/03/25 17:28: Urine Color Yellow, Urine Appearance Clear, Urine pH 6.0, Ur Specific [place] >= 1.030, Urine Protein 1+ A, Urine Glucose (UA) Negative, Urine Ketones 3+, Urine Blood 3+ A, Urine Nitrate Negative, Urine Bilirubin 2+ A, Urine Urobilinogen 2.0, Ur Leukocyte Esterase Negative, Urine RBC 20-50, Urine WBC Occasional, Ur Squamous Epith Cells 20-50, Ur Transition Epith Cell 10-20, Urine Bacteria None 02/03/25 17:29: WBC 11.5 H, RBC 4.73, Hgb 14.1, Hct 39.9, MCV 84.4, MCH 29.8, MCHC 35.3, RDW 11.2 L, Plt Count 331, MPV 9.7, Neut % (Auto) 80.9 H, Lymph % (Auto) 13.1, Nuckolls % (Auto) 4.7, Eos % (Auto) 0.7, Baso % (Auto) 0.3, Neut # (Auto) 9.3 H, Lymph # (Auto) 1.5, Nuckolls # (Auto) 0.5, Eos # (Auto) 0.1, Baso # (Auto) 0.0, Sodium 133 L, Potassium 3.7, Chloride 102, Carbon Dioxide 22, Anion Gap 12.7, BUN 9, Creatinine 0.60, Estimated Creat Clear 182, Estimated GFR 124, Est GFR ( Amer) 150, Glucose 84, Calcium 9.4, Total Bilirubin 1.2, AST 35, ALT 27, Alkaline Phosphatase 57, Total Protein 7.7, Albumin 4.6, Globulin 3.1, Albumin/Globulin Ratio 1.5, HCG, Quant [id number] H 02/03/25 18:00: Blood Type A Positive, Antibody Screen Negative 02/03/25 17:29 02/03/25 17:29 Orders (Tests/Meds): ED MEDICATIONS Discontinued Medications Generic Name Dose Route Start Last Admin Trade Name Edmund PRN Reason Stop Dose Admin Lactated Ringer's 1,000 mls @ 999 mls/hr 02/03/25 17:41 02/03/25 19:05 Lactated Ringer's 1000 Ml Bag IV 02/03/25 18:41 Infused .Q1H1M ONE Infusion Ondansetron HCl 4 mg 02/03/25 17:43 02/03/25 17:55 Ondansetron 4mg/2ml Vial IV 02/03/25 17:44 4 mg ONCE ONE Administration ORDERS Category Date Time Status Type and Screen Stat BBK 02/03/25 18:00 Completed CBC w/Auto Diff [Complete Blood Count Auto Diff] Stat Lab 02/03/25 17:29 Completed CMP [Comprehensive Metabolic Panel] Stat Lab 02/03/25 17:29 Completed HCG,Quantitative Stat Lab 02/03/25 17:29 Completed UA [Urinalysis and Microscopic] Stat Lab 02/03/25 17:28 Completed US OB transvaginal Stat Ultrasound 02/03/25 17:41 Completed Medical Decision Narrative: Anai Gray is a 24y female with a history of hyperemesis gravidarum with each who presents to the emergency department for complaints of dehydration and vaginal bleeding. Patient states that over the last 4 weeks, she has had constant nausea and vomiting. She is followed by Dr. Ivan with [facility] [facility]. Patient states that on the , she was started on Zofran and Reglan and had been on Compazine prior to this. She states that the Zofran and Reglan helped for couple days, but now she is back to constant nausea and vomiting, stating that every 5 minutes she is vomiting. She does report occasionally having some blood in her vomit but this is normal for her. She states that she has also had some intermittent lower abdominal cramping that is unchanged at this time. She does state that today at approximately 1 PM, after wiping she noticed some spotting on the toilet paper. She states that she urinated again here but did not have any blood when she wiped this time. She states that has otherwise been uncomplicated other than the vomiting. She denies any urinary symptoms, such as dysuria or hematuria. On arrival, patient is normotensive, heart rate within normal limits, afebrile, oxygen saturation 100% SpO2. Physical exam, as stated above, revealed an overall well-appearing female in no distress. She appears mildly dehydrated. Abdomen with some left lower quadrant tenderness without guarding or rebound. No peritonitis. Differential diagnosis includes, but is not limited to: Hyperemesis gravidarum, electrolyte derangement, metabolic derangement, threatened , miscarriage, subchorionic hemorrhage, among others. The most morbid conditions were considered and workup was based on these. Workup in the emergency department included: CBC with differential, type and screen, CMP, quantitative beta-hCG, urinalysis, transvaginal ultrasound. Will give 1 L lactated ringer as well as 4 mg of IV Zofran. Patient did state that she was unable to take her dissolvable Zofran or Reglan today secondary to significant vomiting. Transvaginal ultrasound interpreted by me personally. Patient appears to have a small subchorionic hemorrhage, viable intrauterine measuring 10 weeks 1 day. heart rate in the 160s. See final radiology report for details. Urinalysis without evidence of infection or bacteria. Patient does have hematuria with 20-50 red blood cells, which was present on previous urinalyses as well. Patient's laboratory studies show mild hyponatremia of 133 but electrolytes otherwise within normal limits. No LOUISE. Mild leukocytosis of 11.5 but CBC otherwise unremarkable nonactionable Patient's blood type is A+, no indication for RhoGAM. Patient's beta-hCG is mildly downtrending at 86,177 from 89,901, however she is in the 10th week the and I do expect it to start downtrending at this point. Patient's symptoms were controlled here in the emergency department with fluids and IV Zofran. I discussed with patient that she does have a small subchorionic hemorrhage that we will need close follow-up. I did give return precautions for any worsening bleeding, abdominal pain fever. She does have an appointment with Dr. Ivan on 02/08/2025. I did encourage her to attend this appointment as scheduled. I did encourage her to continue taking her antiemetics at home and to hydrate as much as possible. All questions were answered. She demonstrated understanding and was in agreement this plan. She was then discharged from the emergency department in stable condition. Critical Care Critical Care Time Critical Care Time: No
[2025-02-03 17:32] LABS: Microscopic, Urine URINE MICROSCOPIC (MICROSCOPIC)
[2025-02-03 17:33] LABS: Color,Urine YELLOW (Yellow); Glucose,Urine (UA) Negative (Negative); Ketones,Urine 3+ (Negative); Leukocyte Esterase,Urine Negative (Negative); PH,Urine 6.0 (5.0-8.5); Protein,Urine 1+ (Negative); Specific Gravity, Urine >= 1.030 (1.005-1.030); Urobilinogen,Urine 2.0 EU/dl (0.2)
[2025-02-03 17:37] VITALS: PULSE 85; O2SAT 99
--- OUTSIDE RECORDS SUMMARY | 2025-02-03 17:39 | XMS_ITS | Clinical Summary ---
Author Organization [employer] ([place], [place], [place], [place]) Address [address] [place] [address] Care Team Providers Care Telephone Maintainer Name Role Phone Jo Barragan NP Primary [...] 2024 Influenza Vaccine (#1) 2025 Insurance AETNA [facility] Care Teams Telephone Maintainer Relationship Specialty Start Date End Date Jo Barragan, ABEBA [address] [place] [address] PCP - General Nurse Practitioner 08/29/24
--- OUTSIDE RECORDS SUMMARY | 2025-02-03 17:39 | XMS_ITS | Referral Summary ---
Author Organization [employer] ([place], [place], [place], [place]) Address [address] [place] [address] Care Team Providers Care Coil Winding Supervisor Name Role Phone Jo Barragan NP Primary [...] of Treatment Not on file Insurance AENA [facility] Care Teams Coil Winding Supervisor Relationship Specialty Start Date End Date Jo Barragan, ABEBA [address] [place] [address] PCP - General Nurse Practitioner 08/29/24
[2025-02-03 17:40] LABS: Bilirubin,Urine 2+ (Negative); RBC,Urine 20-50 #/hpf (0-3); Squamous Epithelial Cell,Urine 20-50 #/hpf (0-5); WBC,Urine Occasional #/hpf (0-3)
--- NOTE | 2025-02-03 17:41 | US_ITS ---
PROCEDURE INFORMATION: Exam: US , Transvaginal Exam date and time: 02/03/2025 6:05 PM Age: 24 years old Clinical indication: Lmp or gestational age (in weeks): 10w1d; Antepartum complications; Bleeding; ; Additional info: 10wks , vaginal bleeding TECHNIQUE: Imaging protocol: Real-time transvaginal obstetrical ultrasound of the maternal pelvis with image documentation. Transvaginal imaging was used for better evaluation of the fetus, adnexa, and/or cervix. COMPARISON: US OB TRANSVAGINAL 01/01/2024 4:29 PM FINDINGS: Gestation: Single intrauterine gestation. Yolk sac normal in size and morphology. pole with a crown-rump length of 31.3 mm. heart rate: 167 bpm Placenta: Small subchorionic bleed measuring 0.6 x 1.2 cm. BIOMETRY: Gestational age (AUA): 10 weeks 1 day MATERNAL: Cervix: Closed. Right ovary/adnexa: Unremarkable right ovary. Probable corpus luteal cyst. No mass. Vascular flow present. No identifiable adnexal mass. Left ovary/adnexa: Unremarkable left ovary. No mass. Vascular flow present. No identifiable adnexal mass. IMPRESSION: 1. Single live intrauterine gestation measuring 10 weeks 1 day. 2. Small subchorionic bleed.
[2025-02-03] MEDS: ONDANSETRON 4MG/2ML VIAL 4 MG IV (17:55)
[2025-02-03] MEDS: LACTATED RINGERS 1000ML 1,000 ML 999 ML IV (17:56)
[2025-02-03 17:59] LABS: Hematocrit 39.9 % (37.0-47.0); Hemoglobin 14.1 g/dL (12.2-16.2); Immature Granulocytes % 0.3 %; Mean Corpuscular HGB Conc 35.3 g/dL (31.8-35.4); Mean Corpuscular Hemoglobin 29.8 pg (27.0-31.2); Mean Corpuscular Volume 84.4 fl (81-99); Nucleated Red Blood Cells % 0 %; Platelet Count 331 K/mm3 (142-424); Red Blood Count 4.73 M/mm3 (4.20-5.40); Red Cell Distribution Width-SD 34.6 fL; White Blood Count 11.5 K/mm3 (4.8-10.8)
[2025-02-03 18:00] VITALS: BP 98/59; PULSE 65; O2SAT 99
[2025-02-03 18:03] LABS: Albumin Level 4.6 g/dl (3.5-5.0); Chloride 102 mmol/L (98-107); Potassium 3.7 mmoL/L (3.5-5.1); Sodium 133 mmol/L (136-145)
[2025-02-03 18:05] LABS: Blood Urea Nitrogen 9 mg/dl (7-17); Creatinine Clearance Estimated 182 mL/min (50-200); Creatinine,Serum 0.60 mg/dl (0.52-1.04); Estimated Glomerular Filt Rate 124 ml/min (>60); GFR (African American) 150 ML/MIN (>60)
[2025-02-03 18:06] LABS: Alanine Aminotransferase 27 U/L (12-78); Albumin/Globulin Ratio 1.5 (1.1-1.8); Alkaline Phosphatase 57 U/L (38-126); Anion Gap 12.7 mEq/L (5-15); Aspartate Amino Transferase 35 U/L (14-36); Bilirubin,Total 1.2 mg/dl (0.2-1.3); Calcium 9.4 mg/dl (8.4-10.2); Carbon Dioxide 22 mmol/L (22.0-30.0); Globulin 3.1 g/dL (1.3-3.2); Glucose 84 mg/dl (74-100); Total Protein,Serum 7.7 g/dl (6.3-8.2)
--- NOTE | 2025-02-03 18:11 | PC.NURSE ---
pt to US
[2025-02-03 18:52] VITALS: BP 107/56; PULSE 63; O2SAT 96
[2025-02-03 19:08] VITALS: BP 107/64; PULSE 71; RESP 16; TEMP 36.9; O2SAT 100
[2025-02-03 20:26] VITALS: BP 108/68; PULSE 64; RESP 18; TEMP 36.7; O2SAT 99
== END 2025-02-03 20:27 | disposition home or self-care (01) ==
PROVIDERS: Emergency Provider Student in an Organized Health Care Education/Training Program; PCP Nurse Practitioner
DX: O26.811 Pregnancy related exhaustion and fatigue, first trimester (principal); E86.0 Dehydration; O46.8X9 Other antepartum hemorrhage, unspecified trimester
CPT/HCPCS: 36415; 76817; 80053; 81001; 84702; 85025; 86850; 96361; 96374; 99284; J2405; J7120

== ENCOUNTER 2025-02-07 08:45 | Outpatient (CLI) | payer OTHER, SELFPAY ==
--- OUTSIDE RECORDS SUMMARY | 2025-02-07 09:03 | XMS_ITS | Clinical Summary ---
Author Organization [employer] ([place], [place], [place], [place]) Address [address] [place] [address] Care Team Providers Care Buckle Frame Shaper Name Role Phone Jo Barragan NP Primary [...] 2024 Influenza Vaccine (#1) 2025 Insurance AETNA [facility] Care Teams Buckle Frame Shaper Relationship Specialty Start Date End Date Jo Barragan, ABEBA [address] [place] [address] PCP - General Nurse Practitioner 08/29/24
--- OUTSIDE RECORDS SUMMARY | 2025-02-07 09:03 | XMS_ITS | Referral Summary ---
Author Organization [employer] ([place], [place], [place], [place]) Address [address] [place] [address] Care Team Providers Care Insole Tack Puller Hand Name Role Phone Jo Barragan NP Primary [...] Plan of Treatment Not on file Insurance AETNA [facility] Care Teams Insole Tack Puller Hand Relationship Specialty Start Date End Date Jo Barragan, ABEBA [address] [place] [address] PCP - General Nurse Practitioner 08/29/24
[2025-02-07 09:19] LABS: Hematocrit 36.7 % (37.0-47.0); Hemoglobin 13.0 g/dL (12.2-16.2); Immature Granulocytes % 0.3 %; Mean Corpuscular HGB Conc 35.4 g/dL (31.8-35.4); Mean Corpuscular Hemoglobin 30.0 pg (27.0-31.2); Mean Corpuscular Volume 84.6 fl (81-99); Nucleated Red Blood Cells % 0 %; Platelet Count 304 K/mm3 (142-424); Red Blood Count 4.34 M/mm3 (4.20-5.40); Red Cell Distribution Width-SD 35.1 fL; White Blood Count 9.0 K/mm3 (4.8-10.8)
[2025-02-07 11:27] LABS: Hepatitis C Ab Qual. W/ RFX NEGATIVE (Negative)
[2025-02-07 13:35] LABS: RPR W/RFX Titers Nonreactive (Nonreactive)
[2025-02-08 09:43] LABS: Rubella Antibodies, IgG <0.90 index (Immune >0.99)
[2025-02-08 10:48] LABS: Hepatitis B Surface Antigen Negative (Negative)
== END 2025-02-07 23:59 | disposition home or self-care (01) ==
LOC: LAB 08:46
PROVIDERS: PCP Nurse Practitioner; Visit Provider Obstetrics & Gynecology
DX: Z34.91 Encounter for supervision of normal pregnancy, unspecified, first trimester (principal); Z3A.00 Weeks of gestation of pregnancy not specified
CPT/HCPCS: 36415; 85025; 86592; 86762; 86803; 86850; 87340; 87389

== ENCOUNTER 2025-02-08 11:00 | Outpatient (CLI) | payer OTHER, SELFPAY ==
--- OUTSIDE RECORDS SUMMARY | 2025-02-12 09:12 | XMS_ITS | Clinical Summary ---
Author Organization [employer] ([place], [place], [place], [place]) Address [address] [place] [address] Care Team Providers Care Computer Forensics Technician Name Role Phone Jo Barragan NP Primary [...] 2022 COVID-19 VACCINE ( - 2023- season) 2025 Influenza Vaccine (#1) 2025 Insurance AETNA [facility] Care Teams Computer Forensics Technician Relationship Specialty Start Date End Date Jo Barragan, ABEBA [address] [place] [address] PCP - General Nurse Practitioner 08/29/24
--- OUTSIDE RECORDS SUMMARY | 2025-02-12 09:12 | XMS_ITS | Referral Summary ---
Author Organization [employer] ([place], [place], [place], [place]) Address [address] [place] [address] Care Team Providers Care Spar Finisher Name Role Phone Jo Barragan NP Primary [...] of Treatment Not on file Insurance AETNA [facility] Care Teams Spar Finisher Relationship Specialty Start Date End Date Jo Barragan, ABEBA [address] [place] [address] PCP - General Nurse Practitioner 08/29/24
== END 2025-02-08 23:59 ==
LOC: LAB.DROPOF 02-12 09:00
PROVIDERS: PCP Obstetrics & Gynecology; Visit Provider Obstetrics & Gynecology
DX: O09.299 Supervision of pregnancy with other poor reproductive or obstetric history, unspecified trimester (principal); O21.0 Mild hyperemesis gravidarum; O46.8X9 Other antepartum hemorrhage, unspecified trimester; E86.0 Dehydration; Z3A.00 Weeks of gestation of pregnancy not specified
CPT/HCPCS: 87086

== ENCOUNTER 2025-02-09 10:22 | Outpatient (CLI) | payer OTHER, SELFPAY ==
--- OUTSIDE RECORDS SUMMARY | 2025-02-09 10:25 | XMS_ITS | Referral Summary ---
Author Organization [employer] ([place], [place], [place], [place]) Address [address] [place] [address] Care Team Providers Care Greeting Card Editor Name Role Phone Jo Barragan NP Primary [...] of Treatment Not on file Insurance AETNA [facility] Care Teams Greeting Card Editor Relationship Specialty Start Date End Date Jo Barragan, ABEBA [address] [place] [address] PCP - General Nurse Practitioner 08/29/24
--- OUTSIDE RECORDS SUMMARY | 2025-02-09 10:25 | XMS_ITS | Clinical Summary ---
Author Organization [employer] ([place], [place], [place], [place]) Address [address] [place] [address] Care Team Providers Care Furrier Shop Supervisor Name Role Phone Jo Barragan NP [...] 2024 Influenza Vaccine (#1) 2025 Insurance AETNA [facility] Care Teams Furrier Shop Supervisor Relationship Specialty Start Date End Date Jo Barragan, ABEBA [address] [place] [address] PCP - General Nurse Practitioner 08/29/24
[2025-02-09 11:03] VITALS: BP 102/69; PULSE 79; RESP 18; TEMP 36.9; O2SAT 100
[2025-02-09] MEDS: MVI, ADULT NO.1 WITH VIT K 10 ML, THIAMINE HCL 100 MG, MAGNESIUM SULFATE 2 GM in LACTAT... 125 ML IV (11:03)
[2025-02-09 15:11] VITALS: BP 107/71; PULSE 85; RESP 18; O2SAT 100
== END 2025-02-09 15:11 | disposition home or self-care (01) ==
LOC: INF 10:23
PROVIDERS: PCP Nurse Practitioner; Visit Provider Obstetrics & Gynecology
DX: Z01.818 Encounter for other preprocedural examination (principal)
CPT/HCPCS: 96365; 96366; J3411; J3475; J7120

== ENCOUNTER 2025-02-21 09:06 | Outpatient (CLI) | payer OTHER, SELFPAY ==
[2025-02-21 09:15] VITALS: BP 105/55; PULSE 73; RESP 18; O2SAT 99
[2025-02-21] MEDS: MVI, ADULT NO.1 WITH VIT K 10 ML, THIAMINE HCL 100 MG, MAGNESIUM SULFATE 2 GM in LACTAT... 250 ML IV (09:15)
[2025-02-21 10:15] VITALS: BP 110/67; PULSE 71
[2025-02-21 11:15] VITALS: BP 113/67; PULSE 80
[2025-02-21 12:15] VITALS: BP 119/72; PULSE 84
[2025-02-21 13:25] VITALS: BP 113/69; PULSE 89; O2SAT 99
--- NOTE | 2025-02-21 14:43 | US_ITS ---
PROCEDURE: US OB <= 14 WEEKS FETUS CLINICAL INDICATION: severe pain /crampin in early COMPARISON: US US OB TRANSVAGINAL from 02/03/2025 FINDINGS: Transvaginal sonographic images of the pelvis were obtained. From her last menstrual period she is 12weeks 5days. An intrauterine gestational sac is present with a pole with a crown-rump length of 6.45cm This correlates to a gestational age of 12weeks 6days. The placenta is seen and is located posteriorly. heart tones are present with an FHR of 149bpm. The cervix appears long closed The right ovary is seen and appears normal. There is a follicle measuring 1.5 cm x 1.1 cm The left ovary is seen and appears normal. There are several small peripheral follicles. There is no fluid in the cul-de-sac. IMPRESSION: 1. Viable fetus within the uterine cavity. heart rate activity and movement is seen. 2. The placenta appears to be forming posteriorly. 3. size is consistent with the dates. 4. Both ovaries are seen and appear normal. 5. No fluid in the cul-de-sac. Dictated by: Rodo Church MD 02/22/2025 06:50 Rodo Church MD in OV 02/22/2025 06:50
== END 2025-02-21 13:35 | disposition home or self-care (01) ==
PROVIDERS: PCP Nurse Practitioner; Visit Provider Obstetrics & Gynecology
DX: O21.0 Mild hyperemesis gravidarum (principal); O20.8 Other hemorrhage in early pregnancy; O09.291 Supervision of pregnancy with other poor reproductive or obstetric history, first trimester; O26.891 Other specified pregnancy related conditions, first trimester; R10.9 Unspecified abdominal pain; Z3A.12 12 weeks gestation of pregnancy
CPT/HCPCS: 76801; 96365; 96366; J3411; J3475; J7120

== ENCOUNTER 2025-02-28 10:48 | Outpatient (CLI) | payer OTHER, SELFPAY ==
--- OUTSIDE RECORDS SUMMARY | 2025-03-02 10:50 | XMS_ITS | Clinical Summary ---
Author Organization [email or web address] ([place], [place], [place], [place]) Address [address] [place] [address] Care Team Providers Care Survey Research Analyst Name Role Phone Jo Barragan NP Primary [...] 2025 Influenza Vaccine (#1) 2025 Insurance AETNA [facility] Care Teams Survey Research Analyst Relationship Specialty Start Date End Date Jo Barragan, ABEBA [address] [place] [address] PCP - General Nurse Practitioner 08/29/24
--- OUTSIDE RECORDS SUMMARY | 2025-03-02 10:50 | XMS_ITS | Referral Summary ---
Author Organization [employer] ([place], [place], [place], [place]) Address [address] [place] [address] Care Team Providers Care Home Decorator Name Role Phone Jo Barragan NP Primary [...] of Treatment Not on file Insurance AENA [facility] Care Teams Home Decorator Relationship Specialty Start Date End Date Jo Barragan, ABEBA [address] [place] [address] PCP - General Nurse Practitioner 08/29/24
== END 2025-02-28 23:59 ==
LOC: LAB.DROPOF 03-02 10:48
PROVIDERS: PCP Nurse Practitioner; Visit Provider Obstetrics & Gynecology
DX: O99.891 Other specified diseases and conditions complicating pregnancy (principal); M54.9 Dorsalgia, unspecified; Z3A.00 Weeks of gestation of pregnancy not specified
CPT/HCPCS: 87086

== ENCOUNTER 2025-03-09 12:56 | Outpatient (CLI) | payer OTHER, SELFPAY ==
--- OUTSIDE RECORDS SUMMARY | 2025-03-09 12:58 | XMS_ITS | Clinical Summary ---
Author Organization [employer] ([place], [place], [place], [place]) Address [address] [place] [address] Care Team Providers Care Wood Boat Builder Supervisor Name Role Phone Jo Barragan NP [...] 2025 Influenza Vaccine (#1) 2025 Insurance AETNA [facility] Care Teams Wood Boat Builder Supervisor Relationship Specialty Start Date End Date Jo Barragan, ABEBA [address] [place] [address] PCP - General Nurse Practitioner 08/29/24
--- OUTSIDE RECORDS SUMMARY | 2025-03-09 12:58 | XMS_ITS | Referral Summary ---
Author Organization [employer] ([place], [place], [place], [place]) Address [address] [place] [address] Care Team Providers Care Technical Business Systems Analyst Name Role Phone Jo Barragan NP [...] of Treatment Not on file Insurance AENA [facility] Care Teams Technical Business Systems Analyst Relationship Specialty Start Date End Date Jo Barragan, ABEBA [address] [place] [address] PCP - General Nurse Practitioner 08/29/24
[2025-03-09 13:23] LABS: Chloride 103 mmol/L (98-107)
[2025-03-09 13:24] LABS: Albumin Level 3.8 g/dl (3.5-5.0); Potassium 3.9 mmoL/L (3.5-5.1); Sodium 134 mmol/L (136-145)
[2025-03-09 13:26] LABS: Blood Urea Nitrogen 2 mg/dl (7-17); Creatinine,Serum 0.50 mg/dl (0.52-1.04); Estimated Glomerular Filt Rate 153 ml/min (>60); GFR (African American) 185 ML/MIN (>60)
[2025-03-09 13:27] LABS: Alanine Aminotransferase 17 U/L (12-78); Albumin/Globulin Ratio 1.2 (1.1-1.8); Alkaline Phosphatase 57 U/L (38-126); Anion Gap 11.9 mEq/L (5-15); Aspartate Amino Transferase 21 U/L (14-36); Bilirubin,Total 0.1 mg/dl (0.2-1.3); Calcium 9.5 mg/dl (8.4-10.2); Carbon Dioxide 23 mmol/L (22.0-30.0); Globulin 3.3 g/dL (1.3-3.2); Glucose 63 mg/dl (74-100); Total Protein,Serum 7.1 g/dl (6.3-8.2)
== END 2025-03-09 23:59 | disposition home or self-care (01) ==
LOC: LAB 12:56
PROVIDERS: PCP Nurse Practitioner; Visit Provider Obstetrics & Gynecology
DX: O99.712 Diseases of the skin and subcutaneous tissue complicating pregnancy, second trimester (principal); L29.9 Pruritus, unspecified; Z3A.20 20 weeks gestation of pregnancy
CPT/HCPCS: 36415; 80053; 82239

== ENCOUNTER 2025-03-26 11:56 | Outpatient (CLI) | payer OTHER, SELFPAY ==
[2025-03-26 12:58] LABS: Alanine Aminotransferase 13 U/L (12-78); Albumin Level 3.4 g/dl (3.5-5.0); Albumin/Globulin Ratio 1.3 (1.1-1.8); Alkaline Phosphatase 61 U/L (38-126); Anion Gap 9.3 mEq/L (5-15); Aspartate Amino Transferase 18 U/L (14-36); Bilirubin,Total 0.4 mg/dl (0.2-1.3); Blood Urea Nitrogen 3 mg/dl (7-17); Calcium 8.8 mg/dl (8.4-10.2); Carbon Dioxide 23 mmol/L (22.0-30.0); Chloride 105 mmol/L (98-107); Creatinine,Serum 0.60 mg/dl (0.52-1.04); Estimated Glomerular Filt Rate 124 ml/min (>60); GFR (African American) 150 ML/MIN (>60); Globulin 2.6 g/dL (1.3-3.2); Glucose 63 mg/dl (74-100); Potassium 4.3 mmoL/L (3.5-5.1); Sodium 133 mmol/L (136-145); Total Protein,Serum 6.0 g/dl (6.3-8.2)
== END 2025-03-26 23:59 | disposition home or self-care (01) ==
LOC: LAB 11:57
PROVIDERS: PCP Nurse Practitioner; Visit Provider Obstetrics & Gynecology
DX: O21.0 Mild hyperemesis gravidarum (principal); O26.899 Other specified pregnancy related conditions, unspecified trimester; R12 Heartburn
CPT/HCPCS: 36415; 80053; 82239

== ENCOUNTER 2025-03-26 17:21 | Emergency (ER) | payer OTHER, SELFPAY ==
[2025-03-26 17:24] VITALS: BP 129/64; PULSE 66; RESP 18; TEMP 36.4; O2SAT 100; BMI 31.5
--- NOTE | 2025-03-26 17:43 | ED_ITS ---
<Statement entered by Cally Donaldson DO - 03/27/25 00:13> I was consulted by the HELENE, and we discussed the complexity of problems being addressed. I approve the treatment and management plan for this patient's care in the emergency department, thus performing a substantial portion of the medical decision making. Cally Donaldson DO Discharge Plan Disposition Patient Disposition: Home, Self-Care Prescriptions Prescriptions: No Action Classic 28 mg iron- 800 mcg tablet 1 tab PO DAILY promethazine 25 mg tablet 25 mg PO Q6H PRN (Reason: nausea and vomiting) Qty: 30 2RF pantoprazole [Protonix] 40 mg tablet,delayed release (DR/EC) 40 mg PO DAILY Qty: 30 2RF metoclopramide HCl [Reglan] 10 mg tablet 10 mg PO Q8H Qty: 90 0RF Rx Instructions: administer 30 minutes before meals ondansetron 4 mg tablet,disintegrating 4 mg PO Q4H Qty: 90 0RF ursodiol 300 mg capsule 300 mg PO BID Qty: 60 2RF Referrals Follow up/Referrals: Sarah Valle APRN [Primary Care Provider, Medical] - See instructions Activity Restrictions/Add. Instructions Additional Instructions/Restrictions: Thank you for allowing us to care for you today. Your labs show you are a bit dehydrated. Please increase your oral intake including fluids that contain electrolytes such as Gatorade or Powerade. When you are changing positions such as going from laying to sitting, or sitting to standing, please take time to allow your body to catch up prior to ambulating. If symptoms worsen, please follow-up with the ETHOLOGIST. Clinical Impressions Clinical Impression: Dehydration during , Positional lightheadedness Instructions Patient Instructions: Dehydration, DI for Dehydration in Adults Print Language Print Language: [place]rugu[place] Discharge ED Provider: Calyl Donaldson General Adult HPI General Chief complaint: Dizziness Stated complaint: 17 weeks AP / dizziness & weakness Time Seen by Provider: 03/26/25 17:41 Mode of Arrival: Ambulatory Source of Information: Patient Description of Symptoms (Recalled from ER Triage Doc. by RN): Pt 17 wks presents with c/o dizziness and lightheaded feeling. Pt complains of a headache as well but denies any other symptoms History of Present Illness HPI narrative: This is a 24-year-old female currently 17w3d presenting to the emergency department today for evaluation of lightheadedness and dizziness. Patient reports symptoms for the last 2 days. It is worse with changing positions from sitting to standing. Patient reports she has been trying to stay well-hydrated and has been eating normal meals. She was evaluated by her ETHOLOGIST today who did not seem overly concerned about this. Patient then called the office back to let them know she was still feeling this way and they recommended ED evaluation. Patient has not had any chest pain or shortness of breath. She has not had any abdominal pain, vaginal bleeding, diarrhea. Patient reports a history of preeclampsia in a previous . Thus far she has had a healthy . I reviewed ETHOLOGIST note from her visit earlier today. No proteinuria. No elevated blood pressure. Measuring appropriately for dates. Related Data Home Medications ?Medication ?Instructions ?Recorded ?Confirmed vits no.126-ferrous fum 1 tab PO DAILY 03/26/25 28 mg iron-folic acid 800 mcg tablet (Classic ) Previous Rx's ?Medication ?Instructions ?Recorded metoclopramide HCl 10 mg tablet 10 mg PO Q8H #90 tabs 01/26/25 (Reglan) ondansetron 4 mg disintegrating 4 mg PO Q4H #90 tabs 0 01/26/25 tablet promethazine 25 mg tablet 25 mg PO Q6H PRN nausea and 02/08/25 vomiting #30 tabs pantoprazole 40 mg tablet,delayed 40 mg PO DAILY #30 t abs 02/28/25 release (Protonix) ursodiol 300 mg capsule 300 mg PO BID #60 caps 03/12 Allergies Allergy/AdvReac Type Severity Reaction Status Date / Time No Known Allergies Allergy Verified 03/26/25 11:14 [facility] Disclaimer: The information contained in this section may have been updated after the patient was seen, as this information can be updated by other users. Medical History Heartburn during History of pre-eclampsia in prior , currently Dysmenorrhea Irregular periods/menstrual cycles Endometriosis Dyspareunia Lightheadedness Dyspnea Cholelithiasis Dizziness Edema Surgical History Hx of laparoscopy History of cholecystectomy Family History Other Brain tumor Cancer Social History Smoking Status: Never smoker second hand exposure: Yes alcohol intake: never substance use type: denies use current occupational status: employed Travel in the last 8 weeks?: None household members: family housing: house marital status: current occupation: [employer] current occupational exposures/hazards: No caffeine: Yes Have you lived/traveled outside US in past 30 days?: No Contact w/someone who lives/traveled outside US past 30 days?: No Exposure to someone with infectious disease in past 14 days?: No Do you have a fever (greater than 100.4 F or 38 C)?: No Have you tested positive for COVID-19?: No Exposed to someone with COVID-19 in past 14 days?: No Do you have a sore throat?: No Do you have a cough?: No Do you have any weakness?: No Do you have any diarrhea?: No Are you experiencing any unusual bleeding?: No Do you have any muscle aches/pain?: No Do you have any abdominal pain?: No Are you experiencing loss of taste or smell?: No Other Medical History Have you received the Flu Vaccine for this season: No Have you received the Pneumonia Vaccine: No ROS Obtained: Yes Systems reviewed as appropriate & no additional complaints except as documented Physical Exam General General appearance: alert and in no apparent distress Comment: Well-appearing, no acute distress. Sitting comfortably on hospital stretcher. Interacting appropriately. Head Head exam: atraumatic and normocephalic Eye Eye exam: Present PERRL and EOMI ENT ENT exam: Present normal exam and mucous membranes moist Neck Neck exam: Present full ROM Respiratory Respiratory exam: Present normal lung sounds bilaterally; Absent respiratory distress or wheezes Cardiovascular Cardiovascular exam: Present regular rate and normal rhythm Abdominal Exam Abdominal exam: Present soft; Absent distention or tenderness Neurological Exam Neurological exam: Present alert and oriented X3 Medical Decision Making Medical Records Screening: Per USPSTF and CDC recommendations, given the prevalence of disease in our region, it is our hospital?s policy to screen for HIV and viral Hepatitis for all patients aged 18 and over and those with ongoing risk factors. [place]je[place] Inquiry Pt receiving controlled substance: No Vital Signs: 03/26/25 17:24 03/26/25 17:47 03/26/25 18:00 Temperature 97.6 F Temperature Source Temporal Artery Scan Pulse Rate 63 Pulse Rate [Orthostatic Lying] 70 Pulse Rate [Orthostatic Sitting] 68 Pulse Rate [Orthostatic Standing] 74 Pulse Rate [Right] 66 Respiratory Rate 18 Blood Pressure 108/69 L Blood Pressure [Orthostatic Lying Left Arm] 122/74 Blood Pressure [Orthostatic Sitting Left Arm] 120/66 Blood Pressure [Orthostatic Standing Left Arm] 132/82 Blood Pressure [Right Arm] 129/64 Blood Pressure Mean 77 Blood Pressure Mean [Right Arm] 85 Blood Pressure Source [Right Arm] Automatic Cuff Blood Pressure Position [Right Arm] Sitting 02 Sat by Pulse Oximetry 100 Oxygen Delivery Method Room Air 03/26/25 18:30 Temperature Temperature Source Pulse Rate 65 Pulse Rate [Orthostatic Lying] Pulse Rate [Orthostatic Sitting] Pulse Rate [Orthostatic Standing] Pulse Rate [Right] Respiratory Rate Blood Pressure 102/57 L Blood Pressure [Orthostatic Lying Left Arm] Blood Pressure [Orthostatic Sitting Left Arm] Blood Pressure [Orthostatic Standing Left Arm] Blood Pressure [Right Arm] Blood Pressure Mean Blood Pressure Mean [Right Arm] Blood Pressure Source [Right Arm] Blood Pressure Position [Right Arm] 02 Sat by Pulse Oximetry 99 Oxygen Delivery Method Lab Data Lab Results 03/26/25 17:38: WBC 9.6, RBC 4.12 L, Hgb 12.5, Hct 36.6 L, MCV 88.8, MCH 30.3, MCHC 34.2, RDW 12.1, Plt Count 377, MPV 9.6, Neut % (Auto) 68.2, Lymph % (Auto) 22.5, [place] % (Auto) 5.5, Eos % (Auto) 3.0, Baso % (Auto) 0.3, Neut # (Auto) 6.5, Lymph # (Auto) 2.2, [place] # (Auto) 0.5, Eos # (Auto) 0.3, Baso # (Auto) 0.0, S odium 134 L, Potassium 3.7, Chloride 103, Carbon Dioxide 25, Anion Gap 9.7, BUN 3 L, Creatinine 0.50 L, Estimated Creat Clear 223, Estimated GFR 153, Est GFR ( Amer) 185 D, Glucose 85 D, Calcium 8.8, Total Bilirubin 0.2, AST 23 D, ALT 15, Alkaline Phosphatase 59, Total Protein 7.0, Albumin 3.7, Globulin 3.3 H, Albumin/Globulin Ratio 1.1 03/26/25 18:22: SARS-CoV-2 (PCR) Not detected, Influenza A Untype (PCR) Not detected, Influenza Type B (PCR) Not detected 03/26/25 17:38 03/26/25 17:38 Orders (Tests/Meds): ED MEDICATIONS Discontinued Medications Generic Name Dose Route Start Last Admin Trade Name Freq PRN Reason Stop Dose Admin Sodium Chloride 1,000 mls @ 999 mls/hr 03/26/25 18:02 03/26/25 18:18 Sod Chlor 0.9% 1000ml Bag IV 03/26/25 19:02 999 mls/hr .Q1H1M ONE Administration Sodium Chloride 1,000 ml 03/26/25 17:42 03/26/25 17:58 Sodium Chloride 0.9% 500ml Bag IV 03/26/25 17:43 Not Given ONCE ONE ORDERS Category Date Time Status CBC w/Auto Diff [Complete Blood Count Auto Diff] Stat Lab 03/26/25 17:38 Completed CMP [Comprehensive Metabolic Panel] Stat Lab 03/26/25 17:38 Completed Rapid PCR Covid and Flu A/B Stat Lab 03/26/25 18:22 Completed Troponin I Q3H Lab 03/26/25 20:45 Ordered Troponin I Q3H Lab 03/26/25 23:45 Ordered Medical Decision Narrative: In summary, this is a 24-year-old female currently 17w3d who presents to the emergency department today for evaluation of lightheadedness and dizziness that has been ongoing for the last several days. This is worse with change in position. Patient has been trying to stay well-hydrated and has been tolerating oral intake. She had routine follow-up with her ETHOLOGIST today with normal exam. There is no proteinuria on urinalysis at that visit and patient had normal blood pressure. On exam patient is well-appearing and in no acute distress. Sitting comfortably on hospital stretcher. Vital signs are normal. Respiratory rate and effort are nonlabored and lungs are clear to auscultation bilaterally without adventitious sounds. Normal S1, S2. Capillary refill less than 2 seconds. Mucous membranes moist. Abdomen soft, nondistended, nontender to palpation. Lower extremities normal without swelling. Differential diagnoses include but are not limited to dehydration, electrolyte abnormality, orthostatic hypotension, anemia, viral illness, among others. Will obtain CBC and CMP to evaluate for anemia and electrolyte abnormalities. We will give fluid bolus for rehydration. CBC nonactionable. Hemoglobin normal. CMP with mildly low sodium of 134. Electrolytes otherwise normal. 7:10 PM On reassessment patient remains well-appearing and in no acute distress. She is sitting comfortably on hospital stretcher. Fluid bolus nearly complete. Workup has been reassuring. Will reassess following fluid bolus. 8:25 PM Patient remains at baseline. She is appropriate for safe discharge home at this time. She will continue oral rehydration at home and will implement fluids that contain electrolytes and salts. Patient will follow-up with her ETHOLOGIST if symptoms are persistent. She will return to the emergency department if anything worsens. Critical Care Critical Care Time Critical Care Time: No
[2025-03-26 17:47] VITALS: BP 120/66; BP 122/74; BP 132/82; PULSE 68; PULSE 70; PULSE 74
[2025-03-26 17:56] LABS: Hematocrit 36.6 % (37.0-47.0); Hemoglobin 12.5 g/dL (12.2-16.2); Immature Granulocytes % 0.5 %; Mean Corpuscular HGB Conc 34.2 g/dL (31.8-35.4); Mean Corpuscular Hemoglobin 30.3 pg (27.0-31.2); Mean Corpuscular Volume 88.8 fl (81-99); Nucleated Red Blood Cells % 0 %; Platelet Count 377 K/mm3 (142-424); Red Blood Count 4.12 M/mm3 (4.20-5.40); Red Cell Distribution Width-SD 39.4 fL; White Blood Count 9.6 K/mm3 (4.8-10.8)
[2025-03-26 18:00] VITALS: BP 108/69; PULSE 63
--- NOTE | 2025-03-26 18:04 | ECG_ITS ---
APPROVED REPORT Exam: Resting ECG HR:61 bpm ECG Measurements Heart Rate 61 AXES WY 146 P 62 QRSd 82 QRS 75 QT 372 T 46 QTc 375 Conclusion Sinus rhythm without acute ST or T wave changes concerning for ischemia Electronically signed by : Cally Donaldson, 03/27/2025 00:40:01
[2025-03-26 18:10] LABS: Albumin Level 3.7 g/dl (3.5-5.0); Chloride 103 mmol/L (98-107); Potassium 3.7 mmoL/L (3.5-5.1); Sodium 134 mmol/L (136-145)
[2025-03-26 18:12] LABS: Blood Urea Nitrogen 3 mg/dl (7-17)
[2025-03-26 18:13] LABS: Alanine Aminotransferase 15 U/L (12-78); Albumin/Globulin Ratio 1.1 (1.1-1.8); Alkaline Phosphatase 59 U/L (38-126); Anion Gap 9.7 mEq/L (5-15); Aspartate Amino Transferase 23 U/L (14-36); Bilirubin,Total 0.2 mg/dl (0.2-1.3); Calcium 8.8 mg/dl (8.4-10.2); Carbon Dioxide 25 mmol/L (22.0-30.0); Creatinine Clearance Estimated 223 mL/min (50-200); Creatinine,Serum 0.50 mg/dl (0.52-1.04); Estimated Glomerular Filt Rate 153 ml/min (>60); GFR (African American) 185 ML/MIN (>60); Globulin 3.3 g/dL (1.3-3.2); Glucose 85 mg/dl (74-100); Total Protein,Serum 7.0 g/dl (6.3-8.2)
[2025-03-26] MEDS: 0.9 % SODIUM CHLORIDE 1000ML 1,000 ML 999 ML IV (18:18)
[2025-03-26 18:30] VITALS: BP 102/57; PULSE 65; O2SAT 99
[2025-03-26 19:00] LABS: Coronavirus 19, PCR Not Detected (NotDetected); Influenza A, PCR Not Detected (NotDetected); Influenza B, PCR Not Detected (NotDetected)
[2025-03-26 20:34] VITALS: BP 108/59; PULSE 66; RESP 18; TEMP 37.1; O2SAT 97
== END 2025-03-26 20:41 | disposition home or self-care (01) ==
PROVIDERS: Physician Assistant; Emergency Provider Student in an Organized Health Care Education/Training Program; PCP Nurse Practitioner
DX: O26.892 Other specified pregnancy related conditions, second trimester (principal); E86.0 Dehydration; E87.1 Hypo-osmolality and hyponatremia; R42 Dizziness and giddiness; Z3A.17 17 weeks gestation of pregnancy
CPT/HCPCS: 80053; 85025; 87636; 93005; 96360; 99284; J7030

== ENCOUNTER 2025-04-13 08:44 | Outpatient (CLI) | payer OTHER, SELFPAY ==
--- OUTSIDE RECORDS SUMMARY | 2025-04-13 08:54 | XMS_ITS | Clinical Summary ---
Author Organization [facility] ([place], [place], [place], [place], [place]) Address [address] [place] [address] Care Team Providers Care Looper Fixer Name Role Phone Jo Barragan NP Primary [...] 2025 Influenza Vaccine (#1) 2025 Insurance [employer] [facility] Care Teams Looper Fixer Relationship Specialty Start Date End Date Jo Barragan NP [address] [place] [address] PCP - General Nurse Practitioner 08/29/24
--- OUTSIDE RECORDS SUMMARY | 2025-04-13 08:54 | XMS_ITS | Referral Summary ---
Author Organization [employer] ([place], [place], [place], [place], [place]) Address [address] [place] [address] Care Team Providers Care Barrel And Receiver Aligner Name Role Phone oJ Barragan NP Primary Care Provider Allergies No [...] of Treatment Not on file Insurance [employer] [facility] Care Teams Barrel And Receiver Aligner Relationship Specialty Start Date End Date Jo Barragan, ABEBA [address] [place] [address] PCP - General Nurse Practitioner 08/29/24
--- NOTE | 2025-04-13 09:00 | US_ITS ---
PROCEDURE: US OB /MATERNAL DETAIL CLINICAL INDICATION: 20 week anatomy scan COMPARISON: US US OB TRANSVAGINAL from 02/03/2025 US US OB <= 14 WEEKS FETUS from 02/21/2025 FINDINGS: Transabdominal sonographic images of the pelvis were obtained. From her established due date she is 20 weeks 0 days. Single viable intrauterine gestation. Breech position. The anterior placenta is overlying the internal cervical os at the start of the exam but it was well away from the placenta on further inspection at the end of the exam.. Placenta: Anteriorplacenta grade 1. There is a collection of fluid that the inferior end of the placenta measuring 2.3 cm x 1.4 cm. It appears to be a separation of the amnion. There is an average amount of fluid. The cervix appears satisfactory. Closed and measuring 4.21 cm in length. Complete survey performed and was unremarkable on the submitted images as in PACS. No discrete anomalies identified on survey imaging by technologist. Active fetus. Three-vessel cord with satisfactory umbilical cord insertion. 4- chamber heart noted. Situs, aortic arch, LVOT, RVOT, three-vessel view appear normal. Survey of brain & ventricles Unremarkable. Cerebellum, thalamus, choroid plexus, cisterna magna appear normal. Face and neck survey unremarkable. Profile, nasion, lips and nose appeared normal. Diaphragm and chest views unremarkable. Abdomen: Both kidneys noted and unremarkable. Stomach and bladder noted and satisfactory. Spine: Survey of the spine satisfactory with no anomalies identified nor imaged. Cervical, thoracic, lower spine appear normal. Both arms and legs noted. Amniotic Fluid: Adequate. MVP 3.86 cm. Measurements: Average ultrasound age 20weeks 0 days. Estimated due date by ultrasound age 0308/31/2025. Estimated weight 324g BPD = 19weeks 5days HC = 19weeks 6days AC = 20weeks 1day FL = 20weeks 0 days Growth Percentile= 43 Heart Rate = 133bpm Cerebellum = 19weeks 4days Humerus = 19weeks 6days HC/AC is 1.17 FL/BPD is 0.71 FL/AC is 0.22 IMPRESSION: 1. Viable fetus in the breech presentation with an anterior placenta grade 1. Initially the placenta was thought to cover the internal os but throughout the exam on examination the placenta was well away from the internal cervical os. 2. There was a small collection of fluid on the inferior placenta measuring 2.3 cm in size. It appears to be a small separation of the amnion. 3. The fluid is within normal limits with an MVP 3.36. 4. Anatomical scan appears normal. 5. biometry is consistent with the dates. 6. Would suggest repeat scan at 20 weeks to look at this collection of fluid in the inferior aspect of the placenta. Dictated by: Rodo Church MD 04/13/2025 15:15 Rodo Church MD in [place] 04/13/2025 15:15
== END 2025-04-13 23:59 | disposition home or self-care (01) ==
LOC: RAD 08:45
PROVIDERS: PCP Obstetrics & Gynecology; Visit Provider Obstetrics & Gynecology
DX: O28.3 Abnormal ultrasonic finding on antenatal screening of mother (principal); O32.1XX0 Maternal care for breech presentation, not applicable or unspecified; O21.0 Mild hyperemesis gravidarum; O09.292 Supervision of pregnancy with other poor reproductive or obstetric history, second trimester; Z3A.20 20 weeks gestation of pregnancy
CPT/HCPCS: 76811

== ENCOUNTER 2025-04-14 18:37 | Outpatient (CLI) | payer OTHER, SELFPAY ==
--- OUTSIDE RECORDS SUMMARY | 2025-04-14 18:39 | XMS_ITS | Referral Summary ---
Author Organization [employer] ([place], [place], [place], [place], [place]) Address [address] [place] [address] Care Team Providers Care Clinic Specialist Name Role Phone Jo Barragan NP Primary [...] of Treatment Not on file Insurance [employer] [facility] Care Teams Clinic Specialist Relationship Specialty Start Date End Date Jo Barragan, ABEBA [address] [place] [address] PCP - General Nurse Practitioner 08/29/24
--- OUTSIDE RECORDS SUMMARY | 2025-04-14 18:39 | XMS_ITS | Clinical Summary ---
Author Organization [email or web address] ([place], [place], [place], [place], [place]) Address [address] [place] [address] Care Team Providers Care Coring Machine Operator Name Role Phone Jo Barragan NP [...] 2025 Influenza Vaccine (#1) 2025 Insurance [employer] [facility] Care Teams Coring Machine Operator Relationship Specialty Start Date End Date Jo Barragan NP [address] [place] [address] PCP - General Nurse Practitioner 08/29/24
[2025-04-14 18:51] VITALS: BP 138/79; PULSE 75; RESP 16; TEMP 36.8; O2SAT 97; BMI 30.5
[2025-04-14 19:02] LABS: Bilirubin,Urine Negative (Negative); Color,Urine YELLOW (Yellow); Glucose,Urine (UA) Negative (Negative); Ketones,Urine Negative (Negative); Leukocyte Esterase,Urine NEGATIVE (Negative); PH,Urine 5.5 (5.0-8.5); Protein,Urine NEGATIVE (Negative); Specific Gravity, Urine <= 1.005 (1.005-1.030); Urobilinogen,Urine 0.2 EU/dl (0.2)
[2025-04-14 19:06] LABS: Microscopic, Urine URINE MICROSCOPIC (MICROSCOPIC)
[2025-04-14 19:15] VITALS: BP 145/73
[2025-04-14 19:30] VITALS: BP 139/77
[2025-04-14] MEDS: ACETAMINOPHEN 500MG TAB 1000 MG PO (19:57)
[2025-04-14] MEDS: LACTATED RINGERS 1000ML 1,000 ML 999 ML IV (19:58)
[2025-04-18 22:36] LABS: Mycoplasma genitalium, NAA Negative (Negative); Neisseria gonorrhoeae, NAA Negative (Negative)
[2025-04-24 12:20] LABS: Bacterial Vaginosis Associated 0
== END 2025-04-14 21:19 | disposition home or self-care (01) ==
LOC: OBOUT 18:38 → OB 18:38
PROVIDERS: PCP Obstetrics & Gynecology; Visit Provider Obstetrics & Gynecology
DX: O99.891 Other specified diseases and conditions complicating pregnancy (principal); N89.8 Other specified noninflammatory disorders of vagina; R25.2 Cramp and spasm; Z3A.20 20 weeks gestation of pregnancy
CPT/HCPCS: 81001; 81003; 81015; 87491; 87563; 87591; 87661; 87798; 87801; 96360; 99212; 99213; G0463; J7120

== ENCOUNTER 2025-05-07 16:24 | Emergency (ER) | payer OTHER, SELFPAY ==
--- OUTSIDE RECORDS SUMMARY | 2025-04-20 09:30 | XMS_ITS | Encounter Summary ---
Author Organization [facility] Address [address] [id number] Care Team Providers Care Prescription Benefit Specialist Name Role Phone Provider, No Known Primary Care Provider Unavail able Reason for Referral * Diagnostic Imaging (Routine) - Closed Specialty Diagnoses / Procedures Referred By Cristine goodman Referred To Contact Radiology Diagnoses Abnormal amnion, second trimester, not applicable or unspecified fetus Hx of preeclampsia, prior , currently , unspecified gestational age Procedures [facility] Diagnostic Allison Shane Ivan DO [address] [place] [address] Phone: tel: fax: [facility] [address] [facility] [address] Phone: tel: Referral ID Status Reason Start Date Expiration Date Visits Re quested Visits Authorized [id number] Closed 04/16/2025 07/16/2026 1 1 Reason for Visit * Diagnostic Imaging (Routine) - Closed Specialty Diagnoses / Procedures Referred By Cristine goodman Referred To Contact Radiology Diagnoses Abnormal amnion, second trimester, not applicable or unspecified fetus Hx of preeclampsia, prior , currently , unspecified gestational age Procedures [facility] Diagnostic Allison Shane Ivan DO [address] [place] [address] Phone: tel: fax: [facility] [address] [facility] [place] [address] Phone: tel: Referral ID Status Reason Start Date Expiration Date Visits Re quested Visits Authorized [id number] Closed 04/16/2025 07/16/2026 1 1 Encounter Details Date Type Department Care Team (Latest Contact Info) Description 04/20/2025 9:30 AM EST - 04/20/2025 11:59 PM [facility] Hospital Encounter [facility] [address] [place] [id number] Shane Ivan DO [address] [facility] [address] [place] [address] Abnormal amnion, second trimester, not applicable or unspecified fetus; Hx of preeclampsia, prior , currently ; , unspecified gestational age Discharge Disposition: Home or Self Care Social History Tobacco Use Types Packs/Day Years Used Date Smoking Tobacco: Never Passive Smoke Exposure: Never Smokeless Tobacco: Never Alcohol Use Standard Drinks/Week Comments Never 0 (1 standard drink = 0.6 oz pur e alcohol) PHQ-2 Answer Date Recorded Retired PHQ-9: Brief Depression Severity Measure Score 0 12/04/2022 PHQ-2 Answer Date Recorded Retired PHQ-9: Brief Depression Severity Measure Score 0 12/04/2022 Estimated Date of Delivery Comme nts Yes 08/31/2025 Date entered krista or to episode creation Sex and Gender Information Value Date Recorded Sex Assigned at Not on file Legal Sex Female 9:33 AM EDT Gender Identity Not on file Sexual Orientation Not on file documented as of this encounter Medications at Time of Discharge clindamycin (CLEOCIN) 150 MG capsule Take 1 capsule by mouth 4 (Four) Times a Day. For 7 days; dental prescription ibuprofen (ADVIL,MOTRIN) 400 MG tablet 3 Iron, Ferrous Sulfate, 325 (65 Fe) MG tablet Take 1 tablet by mouth Daily. 3 ondansetron ODT (ZOFRAN-ODT) 4 MG disintegrating tablet 5 ursodiol (ACTIGALL) 300 MG capsule 5 documented as of this encounter Plan of Treatment Not on file documented as of this encounter Procedures Procedure Name Priority Date/Time Associated Diagnosis Comments [facility] Routine 04/20/2025 10:55 AM EST Abnormal amnion, second trimester, not applicable or unspecified fetus Hx of preeclampsia, prior , currently , unspecified gestational age documented in this encounter Results * [facility] (04/20/2025 10:55 AM EST) Anatomical Region Laterality Modality Ultrasound 04/20/2025 10:0 7 AM EST Narrative 04/20/2025 11:02 AM EST PAT NAME: ALEXA BAKER [facility] REC#: [id number] DA: [id number] PAT GEND: F PAT TYPE: O EXAM ANNAMARIA: [id number] REF PHYS SHANE IVAN Comparison Studies There are no relevant prior studies to which this study is being compared Patient Status Outpatient Indication ======== ? Amnion separation Maternal Assessment Height 163 cm Height (ft) 5 ft Height (in) 4 in Weight 82 kg Weight (lb) 181 lb BMI 31.07 kg/m Method ======= Transabdominal ultrasound examination, Transabdominal ultrasound examination. View: Good view ========= Betts . Number of fetuses: 1 Dating ====== Method of dating: based on stated SHABNAM GA by prior assessment 21 w + 0 d SHABNAM by prior assessment: 08/31/2025 Ultrasound examination on: 04/20/2025 GA by U/S based upon: AC, BPD, Femur, HC GA by U/S 20 w + 3 d SHABNAM by U/S: 09/04/2025 Assigned: based on stated SHABNAM, selected on 04/20/2025 Assigned GA 21 w + 0 d Assigned SHABNAM: 08/31/2025 length 280 d Biometry Standard BPD 46.4 mm 20w 0d 14% Hadlock OFD 65.9 mm 22w 2d 88% Landon HC 180.6 mm 20w 3d 19% Hadlock Cerebellum tr 20.8 mm 19w 6d 21% Hill Nuchal fold 6.0 mm AC 166.9 mm 21w 5d 67% Hadlock Femur 30.8 mm 19w 4d 6% Hadlock Humerus 32.2 mm 20w 6d 37% Landon HC / AC 1.08 9% Hadlock EFW 369 g 20w 4d 29% Hadlock EFW (lb) 0 lb EFW (oz) 13 oz EFW by: Hadlock ([id number]) Extended Tibia 28.5 mm 20w 3d 27% Landon Fibula 28.6 mm 20w 1d 29% Landon Radius 28.2 mm 20w 4d 47% Landon Ulna 31.6 mm 22w 0d 60% Landon Cav. septi pel. tr 4.2 mm Barrel Ribs Solderer 5.9 mm CM 6.0 mm 75% Nicolaides Nasal bone 6.6 mm Head / Face / Neck Cephalic index 0.70 <1% Nicolaides Extremities / Bony Struc FL / BPD 0.66 7% Hadlock FL / HC 0.17 1% Hadlock FL / AC 0.18 <1% Hadlock Other Structures FHR 154 bpm General Evaluation Cardiac activity present. FHR 154 bpm. movements present. Presentation breech. Placenta Placental site: anterior. Umbilical cord Cord vessels: 3 vessel cord. Insertion site: placental insertion: normal. Amniotic fluid Amount of AF: normal. MVP 3.3 cm. Anatomy Cranium: Appears normal Midline falx: Appears normal Cavum septi pellucidi: Appears normal Cerebellum: Appears normal Cisterna magna: Appears normal Head / Neck Rt lateral ventricle: Appears normal Lt lateral ventricle: Appears normal Rt choroid plexus: Appears normal Lt choroid plexus: Appears normal Vermis: Appears normal Neck: Appears normal Nuchal fold: Appears normal Lips: Appear normal Profile: Appears normal Nose: Appears normal Face Nose: Nasal bone present Palate: Appears normal Orbits: Appears normal Lens: Normal 4-chamber view: Appears normal RVOT view: Appears normal LVOT view: Appears normal Heart / Thorax Aortic arch view: Appears normal Ductal arch view: Appears normal SVC: normal IVC: normal 3-vessel view: Appears normal 4-sqtsnc-ciembvs view: Appears normal Rt lung: Appears normal Lt lung: normal Diaphragm: Appears normal Diaphragm: Intact Cord insertion: Appears normal Stomach: Appears normal Bladder: Appears normal Abdomen Rt kidney: normal Lt kidney: normal Liver: normal Small bowel: normal Large bowel: normal Cervical spine: suboptimal Thoracic spine: suboptimal Lumbar spine: suboptimal Sacral spine: suboptimal Spine: spine down Arms: Appears normal Legs: Appears normal Rt upper arm: Appears normal Rt forearm: Appears normal Rt hand: Appears normal Lt upper arm: Appears normal Lt forearm: Appears normal Lt hand: Appears normal Rt upper leg: Appears normal Rt lower leg: Appears normal Rt foot: Appears normal Lt upper leg: Appears normal Lt lower leg: Appears normal Lt foot: Appears normal Gender: male Wants to know gender: yes Maternal Structures Uterus / Cervix Cervix: Visualized Approach: Transabdominal Cervical length 34.5 mm Ovaries / Tubes / Adnexa Rt ovary: Suboptimal Lt ovary: Suboptimal Impression Today's exam reveals a SIUP with biometry consistent with dates. anatomic survey appears normal. Fluid is normal. The placenta is anterior without evidence of abruption or amnion/chorion separation. The TA cervical length appears adequate Recommendation Follow-up as clinically indicated. Coding ======= Description: 12459-33 Detailed Sales Driver: Leonidas Celeste RDMS Physician: Ghassan Gallagher MD, FACOG Electronically signed by: Ghassan Gallagher MD, FACOG at: 11:02 Procedure Note Ghassan Gallagher MD - 04/20/2025 PAT NAME: ALEXA BAKER MED REC#: [id number] DA: 2000 PAT GEND: F PAT TYPE: O EXAM ANNAMARIA: [id number] REF PHYS SHANE IVAN Comparison Studies There are no relevant prior studies to which this study is beingcompared Patient Status Outpatient Indication ======== ? Amnion separation Maternal Assessment Uskiii130 cm Height (ft)5 ft Height (in)4 in Zhgmsi66 kg Weight (lb)181 lb BMI31.07 kg/m Method ======= Transabdominal ultrasound examination, Transabdominal ultrasoundexamination. View: Good view ========= Betts . Number of fetuses: 1 Dating ====== Method of dating:based on stated SHABNAM GA by prior [id number] w + 0 d SHABNAM by prior assessment:08/31/2025 Ultrasound examination on:04/20/2025 GA by U/S based upon:AC, BPD, Femur, HC GA by U/S20 w + 3 d SHABNAM by U/S:09/04/2025 Assigned:based on stated SHABNAM, selected on 04/20/2025 Assigned GA21 w + 0 d Assigned SHABNAM:08/31/2025 [id number] d Biometry Standard BPD46.4 mm 20w 0d 14% Hadlock OFD65.9 mm 22w 2d 88% Landon HC180.6 mm 20w 3d 19% Hadlock Cerebellum tr20.8 mm 19w 6d 21% Hill Nuchal fold6.0 mm AC166.9 mm 21w 5d 67% Hadlock Femur30.8 mm 19w 4d 6% Hadlock Tyxgqni91.2 mm 20w 6d 37% Landon HC / AC1.08 9% Hadlock GWC938 g 20w 4d 29% Hadlock EFW (lb)0 lb EFW (oz)13 oz EFW by:Hadlock ([id number]-[id number]-FL) Extended Tibia28.5 mm 20w 3d 27% Landon Ncjwsh31.6 mm 20w 1d 29% Landon Vvnojh24.2 mm 20w 4d 47% Landon Ulna31.6 mm 22w 0d 60% Landon Cav. septi pel. tr4.2 mm Vp5.9 mm CM6.0 mm 75% Nicolaides Nasal bone6.6 mm Head / Face / Neck Cephalic index0.70 <1% Nicolaides Extremities / Bony Struc FL / BPD0.66 7% Hadlock FL / HC0.17 1% Hadlock FL / AC0.18 <1% Hadlock Other Structures [id number] bpm General Evaluation Cardiac activity present. FHR 154 bpm. movements present. Presentation breech. Placenta Placental site: anterior. Umbilical cord Cord vessels: 3 vessel cord. Insertion site: placentalinsertion: normal. Amniotic fluid Amount of AF: normal. MVP 3.3 cm. Anatomy Cranium:Appears normal Midline falx:Appears normal Cavum septi pellucidi:Appears normal Cerebellum:Appears normal Cisterna magna:Appears normal Head / Neck Rt lateral ventricle:Appears normal Lt lateral ventricle:Appears normal Rt choroid plexus:Appears normal Lt choroid plexus:Appears normal Vermis:Appears normal Neck:Appears normal Nuchal fold:Appears normal Lips:Appear normal Profile:Appears normal Nose:Appears normal Face Nose:Nasal bone present Palate:Appears normal Orbits:Appears normal Lens:Normal 4-chamber view:Appears normal RVOT view:Appears normal LVOT view:Appears normal Heart / Thorax Aortic arch view:Appears normal Ductal arch view:Appears normal SVC:normal IVC:normal 3-vessel view:Appears normal 4-vugprd-btbeqpi view:Appears normal Rt lung:Appears normal Lt lung:normal Diaphragm:Appears normal Diaphragm:Intact Cord insertion:Appears normal Stomach:Appears normal Bladder:Appears normal Abdomen Rt kidney:normal Lt kidney:normal Liver:normal Small bowel:normal Large bowel:normal Cervical spine:suboptimal Thoracic spine:suboptimal Lumbar spine:suboptimal Sacral spine:suboptimal Spine:spine down Arms:Appears normal Legs:Appears normal Rt upper arm:Appears normal Rt forearm:Appears normal Rt hand:Appears normal Lt upper arm:Appears normal Lt forearm:Appears normal Lt hand:Appears normal Rt upper leg:Appears normal Rt lower leg:Appears normal Rt foot:Appears normal Lt upper leg:Appears normal Lt lower leg:Appears normal Lt foot:Appears normal Gender:male Wants to know gender:yes Maternal Structures Uterus / Cervix Cervix:Visualized Approach:Transabdominal Cervical .5 mm Ovaries / Tubes / Adnexa Rt ovary:Suboptimal Lt ovary:Suboptimal Impression Today's exam reveals a SIUP with biometry consistent with dates. Fetalanatomic survey appears normal. Fluid is normal. The placenta is anteriorwithout evidence of abruption or amnion/chorion separation. The TA cervical length appearsadequate Recommendation Follow-up as clinically indicated. Coding ======= Description:[id number] Detailed Sales Driver: Leonidas Celeste RDMS Physician: Ghassan Gallagher MD, FACOG Electronically signed by: Ghassan Gallagher MD, FACOG at: 11:02 us Shane Ivan DO IMG US ORDERABLES Final Result documented in this encounter Visit Diagnoses Diagnosis Abnormal amnion, second trimester, not applicable or unspecified fetus Hx of preeclampsia, prior , currently with other poor obstetric history , unspecified gestational age documented in this encounter Care Teams Prescription Benefit Specialist Relationship Specialty Start Date End Date Provider, [place] [address] PCP - General 04/20/25 documented as of this encounter
--- OUTSIDE RECORDS SUMMARY | 2025-04-20 09:30 | XMS_ITS | Encounter Summary ---
Author Organization [facility] Address [address] [place] [id number] Care Team Providers Care Psychology Fellow Name Role Phone Provider, No Known Primary Care Provider Unavail able Reason for Visit * Reason Comments Amnion Separation, HX preeclampsia Encounter Details Date Type Department Care Team (Late st Contact Info) Description 04/20/2025 9:30 AM EST Office Visit [facility] [address] [place] [address] [id number] Ghassan Gallagher MD [address] [facility] [address] [id number] History of pre-eclampsia in prior , currently (Primary Dx) Social History Tobacco Use Types Packs/Day Years Used Date Smoking Tobacco: Never Passive Smoke Exposure: Never Smokeless Tobacco: Never Tobacco Cessation:Counseling Given: No Alcohol Use Standard Drinks/Week Comments Never 0 [...] on file documented as of this encounter Last Filed Vital Signs Vital Sign Reading Time Taken Comments Blood Pressure 110/63 04/20/2025 9:59 AM EST Pulse - - Temperature - - Respiratory Rate - - Oxygen Saturation - - Inhaled Oxygen Concentration - - Weight 82.5 kg (181 lb 12.8 oz) 04/20/2025 9:59 AM EST Height - - Body Mass Index 31.21 12/04/2022 4:24 PM EDT documented in this encounter Progress Notes * Sejal Hanson, RN - 04/20/2025 9:30 AM EST Denies vaginal bleeding, leaking fluid, and contractions Endorses normal movement NIPT low risk Next OB follow up appointment with Dr. Ventura on 04/30/25 * Ghassan Gallagher MD - 04/20/2025 9:30 AM EST Documentation of the ultrasound findings, images, and interpretations will be available in the patient's Viewpoint report which is located in the imaging tab in chart review. documented in this encounter Plan of Treatment Not on file documented as of this encounter Visit Diagnoses Diagnosis History of pre-eclampsia in prior , currently - Primary with other poor obstetric history documented in this encounter Care Teams Psychology Fellow Relationship Specialty Start Date End Date Provider, [place] [address] PCP - General 04/20/25 documented as of this encounter
[2025-05-07] VITALS (8 sets, daily range): BP systolic 110–125; BP diastolic 62–78; PULSE 64–85; RESP 15–20; TEMP 36.9–37; O2SAT 96–99; BMI 32.9
--- NOTE | 2025-05-07 16:30 | ED_ITS ---
<Statement entered by Vik Augustin MD - 05/08/25 12:46> I was consulted by the HELENE, and we discussed the complexity of the problems being addressed. I approve the treatment and management plan for this patient's care in the emergency department, thus performing a substantive portion of the medical decision making. Vik Augustin MD Discharge Plan Disposition Patient Disposition: Home, Self-Care Condition: Good Prescriptions Prescriptions: No Action Classic 28 mg iron- 800 mcg tablet 1 tab PO DAILY pantoprazole [Protonix] 40 mg tablet,delayed release (DR/EC) 40 mg PO DAILY Qty: 30 2RF ondansetron 4 mg tablet,disintegrating 4 mg PO Q4H Qty: 90 0RF ursodiol 300 mg capsule 300 mg PO BID Qty: 60 2RF Referrals Follow up/Referrals: Nuria Ivan DO [Primary Care Provider, [facility]] - See instructions Activity Restrictions/Add. Instructions Additional Instructions/Restrictions: Please return to the emergency department with any worsening signs or symptoms. Please continue to take all your medications as prescribed. Please call the [facility] office above first thing in the morning to get in for a follow-up later this week Clinical Impressions Clinical Impression: Atypical chest pain Instructions Patient Instructions: DI for Atypical Chest Pain Print Language Print Language: Botswanan Discharge ED Provider: Vik Augustin General Adult HPI General Chief complaint: Chest Pain Stated complaint: 23 weeks AP SOA & Chest Pain Time Seen by Provider: 05/07/25 16:27 Mode of Arrival: Ambulatory Source of Information: Patient and Medical Record Limitations: No Limitations History of Present Illness HPI narrative: 24-year-old female, A1, at approximately 23 weeks gestation presents to the emergency department accompanied by her significant other with a chief complaint of waxing and waning chest pain that is substernal rating to the left arm, with associated dyspnea that first occurred on 05-01/- at maximal pain is an 8 of 10, currently a 6 out of 10, patient has any fever chills cough congestion sore throat no recent sick contacts, no trauma or injury per history no nausea vomiting abdominal pain, patient does not have any preprandial or postprandial symptoms associated with this, does have some vaginal discharge, that the patient's [facility] provider is following, no vaginal bleeding, no urinary symptomatology, patient is a non-smoker denies any alcohol or drug use, other past medical history is consistent hyperemesis gravidarum, GERD, cholestasis, initial triage vitals unremarkable Please note that above description of symptoms, in this electronic medical record under categorization of recalled from ER triage doctor by RN are reflective of an initial nursing assessment, however, is not reflective of my full history and physical exam that was personally taken and clarified. Consequentially, this preceding description of symptoms, which may include the patient's categorized chief complaint in the EMR, do not reflect my personal clinical impression, and the ultimate description of history of present illness and patient stated complaints should be deferred to this section of the note. Unless stated otherwise or congruent with this section of the note, additional signs, symptoms, or incongruence should be interpreted as inaccurate with my clinical impression. Onset (ago): day(s) Related Data Home Medications ?Medication ?Instructions ?Recorded ?Confirmed vits no.126-ferrous fum 1 tab PO DAILY 04/30/25 28 mg iron-folic acid 800 mcg tablet (Classic ) Previous Rx's ?Medication ?Instructions ?Recorded ondansetron 4 mg disintegrating 4 mg PO Q4H #90 tabs 0 01/26/25 tablet pantoprazole 40 mg tablet,delayed 40 mg PO DAILY #30 t abs 02/28/25 release (Protonix) ursodiol 300 mg capsule 300 mg PO BID #60 caps 03/12 Allergies Allergy/AdvReac Type Severity Reaction Status Date / Time No Known Allergies Allergy Verified 04/30/25 15:51 PFSH PFS Disclaimer: The information contained in this section may have been updated after the patient was seen, as this information can be updated by other users. Medical History Intrahepatic cholestasis of Heartburn during History of pre-eclampsia in prior , currently Dysmenorrhea Irregular periods/menstrual cycles Endometriosis Dyspareunia Lightheadedness Dyspnea Cholelithiasis Dizziness Edema Surgical History Hx of laparoscopy History of cholecystectomy Family History Other Brain tumor Cancer Social History Smoking Status: Never smoker second hand exposure: Yes alcohol intake: never substance use type: denies use current occupational status: employed Travel in the last 8 weeks?: None household members: family housing: house marital status: current occupation: [employer] current occupational exposures/hazards: No caffeine: Yes Have you lived/traveled outside US in past 30 days?: No Contact w/someone who lives/traveled outside US past 30 days?: No Exposure to someone with infectious disease in past 14 days?: No Do you have a fever (greater than 100.4 F or 38 C)?: No Have you tested positive for COVID-19?: No Exposed to someone with COVID-19 in past 14 days?: No Do you have a sore throat?: No Do you have a cough?: No Do you have any weakness?: No Do you have any diarrhea?: No Are you experiencing any unusual bleeding?: No Do you have any muscle aches/pain?: No Do you have any abdominal pain?: No Are you experiencing loss of taste or smell?: No Other Medical History Have you received the Flu Vaccine for this season: No Have you received the Pneumonia Vaccine: No ROS Obtained: Yes All systems reviewed & no additional complaints except as documented Physical Exam General General appearance: alert and in no apparent distress Head Head exam: atraumatic and normocephalic Eye Eye exam: Present normal appearance, PERRL and EOMI Neck Neck exam: Present full ROM; Absent meningismus Chest Chest inspection: Present normal inspection Respiratory Respiratory exam: Absent respiratory distress, wheezes, stridor, accessory muscle use or prolonged expiratory phase Cardiovascular Cardiovascular exam: Present normal rhythm and other (Pulses equal and symmetric in bilateral upper and lower extremities) Abdominal Exam Abdominal exam: Absent distention Extremities Exam Extremities exam: Absent edema Neurological Exam Neurological exam: Present alert Psychiatric Psychiatric exam: Present normal affect Skin Skin exam: Present warm and dry Medical Decision Making Medical Records Medical records reviewed: Yes I reviewed the patient's medical records. Screening: Per USPSTF and CDC recommendations, given the prevalence of disease in our region, it is our hospital?s policy to screen for HIV and viral Hepatitis for all patients aged 18 and over and those with ongoing risk factors. Baljeet Inquiry Pt receiving controlled substance: No Baljeet was queried for this patient: No Vital Signs: 05/07/25 16:25 05/07/25 16:25 05/07/25 16:32 Temperature 98.4 F 98.4 F Temperature Source Oral Oral Pulse Rate 64 Pulse Rate [Right] 64 Respiratory Rate 18 18 Blood Pressure 112/77 112/77 Blood Pressure [Right Arm] 112/77 Blood Pressure Mean 91 Blood Pressure Mean [Right Arm] 88 Blood Pressure Source Automatic Cuff Blood Pressure Source [Right Arm] Automatic Cuff Blood Pressure Position Supine Blood Pressure Position [Right Arm] Supine 02 Sat by Pulse Oximetry 96 96 Oxygen Delivery Method Room Air Room Air 05/07/25 17:00 05/07/25 17:30 05/07/25 18:00 Temperature Temperature Source Pulse Rate 85 74 78 Pulse Rate [Right] Respiratory Rate 20 16 18 Blood Pressure 110/76 125/78 110/62 Blood Pressure [Right Arm] Blood Pressure Mean 87 85 78 Blood Pressure Mean [Right Arm] Blood Pressure Source Blood Pressure Source [Right Arm] Blood Pressure Position Blood Pressure Position [Right Arm] 02 Sat by Pulse Oximetry 97 99 98 Oxygen Delivery Method 05/07/25 18:30 05/07/25 18:40 Temperature Temperature Source Pulse Rate 71 76 Pulse Rate [Right] Respiratory Rate 15 Blood Pressure 116/69 Blood Pressure [Right Arm] Blood Pressure Mean 76 Blood Pressure Mean [Right Arm] Blood Pressure Source Blood Pressure Source [Right Arm] Blood Pressure Position Blood Pressure Position [Right Arm] 02 Sat by Pulse Oximetry 98 Oxygen Delivery Method Lab Data Lab results reviewed: Yes I reviewed the patient's lab results. Lab Results 05/07/25 16:30: WBC 12.4 H, RBC 4.27, Hgb 13.0, Hct 38.6, MCV 90.4, MCH 30.4, MCHC 33.7, RDW 12.4, Plt Count 351, MPV 9.5, Neut % (Auto) 74.1, Lymph % (Auto) 17.0, [place] % (Auto) 5.6, Eos % (Auto) 2.1, Baso % (Auto) 0.4, Neut # (Auto) 9.2 H, Lymph # (Auto) 2.1, [place] # (Auto) 0.7, Eos # (Auto) 0.3, Baso # (Auto) 0.1, PT 10.4, INR 0.93, D-Dimer 1.02 H, Sodium 138, Potassium 4.0, Chloride 103, Carbon Dioxide 22, Anion Gap 17.0 H, BUN 5 L, Creatinine 0.70, Estimated GFR 104, Est GFR ( Amer) 125, Glucose 66 L, Calcium 9.1, Magnesium 1.8, Total Bilirubin 0.3, AST 23, ALT 15, Alkaline Phosphatase 58, Troponin I < 0.01, NT-Pro-B Natriuret Pep 48.8, Total Protein 7.9, Albumin 4.3, Globulin 3.6 H, Albumin/Globulin Ratio 1.2, Lipase 24, HCG, Quant 8528 H, HCV Ab BRIDGETT w/Rflx PCR Qn Negative 05/07/25 18:34: Urine Color Yellow, Urine Appearance Clear, Urine pH 6.5, Ur Specific [place] <= 1.005, Urine Protein Negative, Urine Glucose (UA) Negative, Urine Ketones Negative, Urine Blood 1+ A, Urine Nitrate Negative, Urine Bilirubin Negative, Urine Urobilinogen 0.2, Ur Leukocyte Esterase Negative, Urine RBC None, Urine WBC None, Ur Squamous Epith Cells None, Urine Bacteria None 05/07/25 16:30 05/07/25 16:30 Orders (Tests/Meds): ED MEDICATIONS Discontinued Medications Generic Name Dose Route Start Last Admin Trade Name Freq PRN Reason Stop Dose Admin Glucose 15 gm 05/07/25 16:58 05/07/25 17:44 Dextrose 15gm Packet PO 05/07/25 16:59 15 gm ONCE ONE Administration Iopamidol 70 ml 05/07/25 17:34 05/07/25 17:35 Iopamidol-370 (76%);100ml Bottle IV 05/07/25 17:35 70 ml ONCE ONE Administration Sodium Chloride 50 ml 05/07/25 17:34 05/07/25 17:35 0.9 % Sodium Chloride 50 Ml Vial IV 05/07/25 17:35 50 ml ONCE ONE Administration Sodium Chloride 10 ml 05/07/25 17:34 05/07/25 17:35 Sodium Chloride 0.9% 10ml Syr (Rad Only) IV 05/07/25 17:35 10 ml ONCE ONE Administration ORDERS Category Date Time Status CT angio chest PE protocol Stat Cat Scan 05/07/25 17:21 Completed POCUS Point of Care (ER Only) Stat Exams 05/07/25 17:43 Taken Complete Blood Count Auto Diff Stat Lab 05/07/25 16:30 Completed Comprehensive Metabolic Panel Stat Lab 05/07/25 16:30 Completed D-Dimer Stat Lab 05/07/25 16:30 Completed HCG,Quantitative Stat Lab 05/07/25 16:30 Completed HIV Combo Stat Lab 05/07/25 16:30 Received Hepatitis C Ab Qual. W/ RFX Stat Lab 05/07/25 16:30 Completed Lipase Stat Lab 05/07/25 16:30 Completed Magnesium Stat Lab 05/07/25 16:30 Completed NT Pro Brain Natriuretic Pep. Stat Lab 05/07/25 16:30 Completed PT INR [Prothrombin Time INR] Stat Lab 05/07/25 16:30 Completed Troponin I Q3H Lab 05/07/25 19:45 Ordered Troponin I Q3H Lab 05/07/25 22:45 Ordered Troponin I Stat Lab 05/07/25 16:30 Completed Urinalysis and Microscopic Stat Lab 05/07/25 18:34 Completed Medical Decision Narrative: 24-year-old female who is A 123 weeks gestation presents emerged from with waxing waning chest pain that has been ongoing for the last 5 to 6 days, differential diagnose include but not limited to, ACS, cardiac arrhythmia, electrolyte disturbance, costochondritis, pneumonia, PE, anxiety, panic attack among others. I discussed this patient's case with the attending physician Will obtain basic laboratory studies, hCG quantitative, D-dimer, lipase level magnesium level proBNP, coags, troponin, urinalysis, EKG, will elicit heart tones. CBC is noted for mild leukocytosis 12.4 otherwise unremarkable CBC. Coags within normal limit CMP is noted for mild hyperglycemia at 66, lipase within normal limits, will give glucose gel here in the emergency department proBNP within normal limits Initial troponin is less than 0.01. D-dimer is elevated at 1.02, unfortunately because of the patient's elevated D- dimer and history cannot rule out VTE/PE in this patient. I had a long discussion with the patient and family the bedside offered them advanced imaging studies to include angiographic studies at the chest to rule out PE the patient's elevated D-dimer history of and waxing waning chest pain and dyspnea shared decision making was utilized patient and family member at the bedside are in agreement to proceed with CTA of the chest with and without contrast PE protocol to rule out PE/VTE, all risk and benefits of obtaining advanced imaging studies while being were discussed with the patient and with the bedside patient and family elected to proceed. hCG is elevated at 8528, which is in line with the patient's current gestation. Limited OB ultrasound Indication: [] Identified structures: [-Uterus Findings: Uterus: [Definitive IUP] FHR: [152] Cul de sac: [-free fluid absent] Impression: -IUP: [present] - heart rate: [152] -Ectopic : [absent] -Free fluid: [absent] Images [were saved] to permanent archive The study [was] technically adequate [facility] Transabdominal: 31675-45 This study was performed by me, and I personally interpreted all images/videos. Based on my clinical judgement, these images were [adequate] and [did not] necessitate further imaging. I reviewed the patient's CTA chest with and without contrast PE protocol, along the corresponding radiologic report, no CT evidence of pulmonary embolism, liver lesion and low risk patient this lesion is most likely be benign and no further follow-up is recommended and high risk patient follow-up MRI 36 months. There is 1+ hematuria noted on UA, however there is no RBCs no WBCs no squamous epithelial cells and no urine bacteria negative nitrites and negative leukocyte esterase. I discussed this patient's case with patient's OB on-call at approximately 6:55 PM, she recommends follow-up in the OB clinic in the upcoming days, would not treat the patient's urinalysis for 1+ hematuria since negative for bacteria, negative white cells, no RBCs, no leukocyte esterase no nitrates, and no urinary type symptomatology patient's chest pain could be musculoskeletal/anxiety related in nature as troponin is negative proBNP within normal limits, and CTA chest shows no pulmonary embolism or any pathology in the lung parenchyma. I discussed these results with the patient and family at the bedside patient and family are in agreement with current discharge plan/treatment plan. Strict ED return precautions were given to patient pain with the bedside patient and family are in agreement with current plan to follow-up with [facility] physician and remain on all current medications and therapies. Heart score of 0 Critical Care Critical Care Time Critical Care Time: No
--- NOTE | 2025-05-07 16:38 | ECG_ITS ---
APPROVED REPORT Exam: Resting ECG HR:79 bpm ECG Measurements Heart Rate 79 AXES OK 128 P 63 QRSd 81 QRS 73 QT 341 T 32 QTc 376 Conclusion SINUS RHYTHM WITH MARKED SINUS ARRHYTHMIA BORDERLINE ECG Electronically signed by : KEVIN VILLA, 05/08/2025 17:16:40
[2025-05-07 16:42] LABS: Hematocrit 38.6 % (37.0-47.0); Hemoglobin 13.0 g/dL (12.2-16.2); Immature Granulocytes % 0.8 %; Mean Corpuscular HGB Conc 33.7 g/dL (31.8-35.4); Mean Corpuscular Hemoglobin 30.4 pg (27.0-31.2); Mean Corpuscular Volume 90.4 fl (81-99); Nucleated Red Blood Cells % 0 %; Platelet Count 351 K/mm3 (142-424); Red Blood Count 4.27 M/mm3 (4.20-5.40); Red Cell Distribution Width-SD 40.6 fL; White Blood Count 12.4 K/mm3 (4.8-10.8)
--- OUTSIDE RECORDS SUMMARY | 2025-05-07 16:46 | XMS_ITS | Encounter Summary ---
[facility] Address [address] [place] [id number] Care Team Providers Care Refinisher Name Role Phone Provider, No Known Primary Care Provider Unavail able Encounter Details Date Type Department Care Team (Latest Contact Info) Description 04/20/2025 Travel Social History Tobacco Use Types Packs/Day Years [...] on file documented as of this encounter Plan of Treatment Not on file documented as of this encounter Visit Diagnoses Not on filedocumented in this encounter Care Teams Refinisher Relationship Specialty Start Date End Date Provider, [place] [address] PCP - General 04/20/25 documented as of this encounter
--- OUTSIDE RECORDS SUMMARY | 2025-05-07 16:46 | XMS_ITS | Clinical Summary ---
Author Organization [facility] Address [address] [place] [address] Place [place] [id number] Care Team Providers Care Garage Worker Name Role Phone Provider, No Known Primary Care Provider Unavail able Allergies No known active allergies Medications Iron, Ferrous Sulfate, 325 (65 Fe) MG tablet Take 1 tablet by mouth Daily. 12/04/19 23 Active ibuprofen (ADVIL,MOTRIN) 400 MG tablet 11/19/19 23 Active clindamycin (CLEOCIN) 150 MG capsule Take 1 capsule by mouth 4 (Four) Times a Day. For 7 days; dental prescription Active ondansetron ODT (ZOFRAN-ODT) 4 MG disintegrating tablet 01/27/20 25 Active ursodiol (ACTIGALL) 300 MG capsule 03/12/20 25 Active Active Problems Problem Noted Date Diagnosed Date Vaginal bleeding in , second trimester 07/06/2022 Ingrown toenail of left foot with infection 06/2021 History of pre-eclampsia in prior , currently 06/07/2020 Overview (08/31/2022): at the end of last History of asthma 06/07/2015 Overview (08/31/2022): sports induced Estimated Date of Delivery Comme nts Yes 08/31/2025 Date entered krista or to episode creation Resolved Problems Problem Noted Date Diagnosed Date Resolved Date Ingrown toenail of right foot 01/05/2022 01/05/2022 Encounters Date Type Department Care Team Description 04/20/2025 9:30 AM EST - 04/20/2025 11:59 PM EST Hospital Encounter [facility] [address] [place] [address] Shane Ivan DO Abnormal amnion, second trimester, not applicable or unspecified fetus; Hx of preeclampsia, prior , currently ; , unspecified gestational age Discharge Disposition: Home or Self Care 04/20/2025 9:30 AM EST Office Visit [facility] [address] [facility] [address] [place] [address] Ghassan Gallagher MD History of pre-eclampsia in prior , currently (Primary Dx) 04/20/2025 Travel from Last 3 Months Immunizations Immunization Administration Dates Next Due DTaP 08/04/2005,04/02/2003 DTaP / HiB 03/09/2002 DTaP / HiB / IPV 2001 DTaP/IPV/Hib/Hep B 2001 HPV Quadrivalent 01/12/2013 Hep A, 2 Dose 02/02/2018,01/12/2013 Hep B / HiB 08/10/2002 Hep B, Adolescent or Pediatric 2001 IPV 08/04/2005,08/10/2002 MMR 08/04/2005,04/02/2003 Meningococcal Conjugate 01/12/2013 Meningococcal MCV4P (Menactra) 02/02/2018 PEDS-Pneumococcal Conjugate (PCV7) 2001, Pneumococcal Conjugate 13-Valent (PCV13) 002 Tdap 01/12/2013 Varicella 01/12/2013,08/10/2002 Social History Tobacco Use Types Packs/Day Years [...] Pressure 110/63 04/20/2025 9:59 AM EST Pulse 90 12/04/2022 4:24 PM EDT Temperature 36.7 C (98.1 F) 12/04/2022 4:24 PM EDT Respiratory Rate - - Oxygen Saturation 98% 12/04/2022 4:24 PM EDT Inhaled Oxygen Concentration - - Weight 82.5 kg (181 lb 12.8 oz) 04/20/2025 9:59 AM EST Height 162.6 cm (5' 4 ) 12/04/2022 4:24 PM EDT Body Mass Index 31.21 12/04/2022 4:24 PM EDT Plan of Treatment Health Maintenance Due Date Last Done Comments Annual Gynecologic Pelvic an d Breast Exam 2001 HPV VACCINES (2 - 2-dose series) 07/15/2013 01/12/2013 MENINGOCOCCAL B VACCINE (1 o f 2 - Standard) 2017 ANNUAL PHYSICAL 12/29/2021 CHLAMYDIA SCREENING 12/29/2021 HEPATITIS C SCREENING 12/29/2021 PAP SMEAR 2022 TDAP/TD VACCINES (2 - Td or Tdap) 01/12/2023 01/12/2013 INFLUENZA VACCINE 01/05/2025 RSV Vaccine - Adults (1 - Ri sk 1-dose series) 07/06/2025 Pneumococcal Vaccine 0-49 Aged Out 2001, 2001, 2001 No longer eligible based on patient's age to complete this topic Procedures Procedure Name Priority Date/Time Associated Diagnosis Comments COUNTS INCLUDE 234 BEDS AT [facility] Routine 04/20/2025 10:55 AM EST Abnormal amnion, second trimester, not applicable or unspecified fetus Hx of preeclampsia, prior , currently , unspecified gestational age from Last 3 Months Results * [facility] (04/20/2025 10:55 AM EST) Anatomical Region Laterality Modality Ultrasound 04/20/2025 10:0 7 AM EST Narrative 04/20/2025 11:02 AM EST PAT NAME: ANAI BAKER [facility] REC#: [id number] DA: 2000 PAT GEND: F PAT TYPE: O EXAM ANNAMARIA: [id number] REF PHYS SHANE IVAN Comparison Studies There [...] EFW (oz) 13 oz EFW by: Hadlock (BSJ-BQ-CZ-FL) Extended Tibia 28.5 mm 20w 3d 27% Alndon Fibula 28.6 mm 20w 1d 29% Landon Radius 28.2 mm 20w 4d 47% Landon Ulna 31.6 mm 22w 0d 60% Landon Cav. septi pel. tr 4.2 mm Video System Repairer 5.9 mm CM 6.0 mm 75% Nicolaides [...] normal IVC: normal 3-vessel view: Appears normal 9-sxjqay-knopagf view: Appears normal Rt lung: Appears normal [...] Follow-up as clinically indicated. Coding ======= Description: 85458-05 Detailed Toy Electric Train Repairer: Leonidas Celeste RDMS Physician: Ghassan Gallagher MD, FACOG Electronically signed by: Ghassan Gallagher MD, FACOG at: 11:02 Procedure Note Ghassan Gallagher MD - 04/20/2025 PAT NAME: ANAI BAKER MED REC#: [id number] DA: 2000 PAT GEND: F PAT TYPE: O EXAM ANNAMARIA: [id number] REF PHYS SHANE IVAN Comparison Studies There are no relevant prior studies to which this study is beingcompared Patient Status Outpatient Indication ======== ? Amnion separation Maternal Assessment Audvjz477 cm Height (ft)5 ft Height (in)4 in Vwccwj23 kg Weight (lb)181 lb BMI31.07 kg/m Method ======= Transabdominal ultrasound examination, Transabdominal ultrasoundexamination. View: Good view ========= Betts . Number of fetuses: 1 Dating ====== Method of dating:based on stated SHABNAM GA by prior cvhysdryof47 w + 0 d SHABNAM by prior assessment:08/31/2025 Ultrasound examination on:04/20/2025 GA by U/S based upon:AC, BPD, Femur, HC GA by U/S20 w + 3 d SHABNAM by U/S:09/04/2025 Assigned:based on stated SHABNAM, selected on 04/20/2025 Assigned GA21 w + 0 d Assigned SHABNAM:08/31/2025 azdipc246 d Biometry Standard BPD46.4 mm 20w 0d 14% Hadlock OFD65.9 mm 22w 2d 88% Landon HC180.6 mm 20w 3d 19% Hadlock Cerebellum tr20.8 mm 19w 6d 21% Hill Nuchal fold6.0 mm AC166.9 mm 21w 5d 67% Hadlock Femur30.8 mm 19w 4d 6% Hadlock Oxmjkqi46.2 mm 20w 6d 37% Landon HC / AC1.08 9% Hadlock BWN978 g 20w 4d 29% Hadlock EFW (lb)0 lb EFW (oz)13 oz EFW by:Hadlock (LND-DP-HC-FL) Extended Tibia28.5 mm 20w 3d 27% Landon Qqegxt39.6 mm 20w 1d 29% Landon Vtgpjp85.2 mm 20w 4d 47% Landon Ulna31.6 mm 22w 0d 60% Landon Cav. septi pel. tr4.2 mm Vp5.9 mm CM6.0 mm 75% Nicolaides Nasal bone6.6 mm Head / Face / Neck Cephalic index0.70 <1% Nicolaides Extremities / Bony Struc FL / BPD0.66 7% Hadlock FL / HC0.17 1% Hadlock FL / AC0.18 <1% Hadlock Other Structures QJW237 bpm General Evaluation Cardiac activity present. FHR [...] view:Appears normal SVC:normal IVC:normal 3-vessel view:Appears normal 1-ncltgr-nlnezjf view:Appears normal Rt lung:Appears normal Lt lung:normal [...] Structures Uterus / Cervix Cervix:Visualized Approach:Transabdominal Cervical qklmuf28.5 mm Ovaries / Tubes / Adnexa Rt ovary:Suboptimal Lt ovary:Suboptimal Impression Today's exam reveals a SIUP with biometry consistent with dates. Fetalanatomic survey appears normal. Fluid is normal. The placenta is anteriorwithout evidence of abruption or amnion/chorion separation. The TA cervical length appearsadequate Recommendation Follow-up as clinically indicated. Coding ======= Description:31413-26 Detailed Toy Electric Train Repairer: Leonidas Celeste RDMS Physician: Ghassan Gallagher MD, FACOG Electronically signed by: Ghassan Gallagher MD, FACOG at: 11:02 us Shane Marzena DO G US ORDERABLES Final Result from Last [address] [place] [address] [place] [address] Care Teams Garage Worker Relationship Specialty Start Date End Date Provider, No Known [facility] [place] [address] PCP - General 04/20/25
--- OUTSIDE RECORDS SUMMARY | 2025-05-07 16:46 | XMS_ITS | Referral Summary ---
Author Organization [employer] ([place], [place], [place], [place], [place]) Address [address] [place] [address] Care Team Providers Care Surgical Supervisor Name Role Phone Jo Barragan NP [...] of Treatment Not on file Insurance [employer] [facility] Care Teams Surgical Supervisor Relationship Specialty Start Date End Date Jo Barragan, ABEBA [address] [place] [address] PCP - General Nurse Practitioner 08/29/24
--- OUTSIDE RECORDS SUMMARY | 2025-05-07 16:46 | XMS_ITS | Clinical Summary ---
Author Organization [employer] ([place], [place], [place], [place], [place]) Address [address] [place] [address] Care Team Providers Care Chief Sales Officer Name Role Phone Jo Barragan NP Primary [...] 2025 Influenza Vaccine (#1) 2025 Insurance [employer] [facility] Care Teams Chief Sales Officer Relationship Specialty Start Date End Date Jo Barragan NP [address] [place] [address] PCP - General Nurse Practitioner 08/29/24
[2025-05-07 16:50] LABS: Chloride 103 mmol/L (98-107); Sodium 138 mmol/L (136-145)
[2025-05-07 16:51] LABS: INR 0.93 (0.9-1.1); Potassium 4.0 mmoL/L (3.5-5.1); Prothrombin Time 10.4 seconds (10.1-12.5)
[2025-05-07 16:52] LABS: Lipase 24 U/L (23-300)
[2025-05-07 16:53] LABS: Alanine Aminotransferase 15 U/L (12-78); Alkaline Phosphatase 58 U/L (38-126); Aspartate Amino Transferase 23 U/L (14-36); Bilirubin,Total 0.3 mg/dl (0.2-1.3); Blood Urea Nitrogen 5 mg/dl (7-17); Creatinine,Serum 0.70 mg/dl (0.52-1.04); Estimated Glomerular Filt Rate 104 ml/min (>60); GFR (African American) 125 ML/MIN (>60); Magnesium 1.8 mg/dl (1.6-2.3); Total Protein,Serum 7.9 g/dl (6.3-8.2)
[2025-05-07 16:54] LABS: Calcium 9.1 mg/dl (8.4-10.2); Glucose 66 mg/dl (74-100)
[2025-05-07 17:02] LABS: NT Pro Brain Natriuretic Pep. 48.8 pg/mL (0-125)
[2025-05-07 17:04] LABS: D-Dimer 1.02 ug/mL (0.0-0.5)
[2025-05-07 17:05] LABS: Troponin I < 0.01 ng/ml (0.00-0.034)
--- NOTE | 2025-05-07 17:21 | CT_ITS ---
PROCEDURE INFORMATION: Exam: CTA Chest With Contrast Exam date and time: 05/07/2025 5:33 PM Age: 24 years old Clinical indication: Shortness of breath; Additional info: SOA, cp, elevated d-dimer, TECHNIQUE: Imaging protocol: Computed tomographic angiography of the chest with contrast. Exam focused on the arteries. 3D rendering (Not supervised by radiologist): MIP and/or 3D reconstructed images were created by the technologist. Radiation optimization: All CT scans at this facility use at least one of these dose optimization techniques: automated exposure control; mA and/or kV adjustment per patient size (includes targeted exams where dose is matched to clinical indication); or iterative reconstruction. Contrast material: ISO 370; Contrast volume: 70 ml; Contrast route: INTRAVENOUS (IV); COMPARISON: No relevant prior studies available. FINDINGS: Pulmonary arteries: No pulmonary embolism. Aorta: Unremarkable. No aneurysm. Lungs: No consolidation. Pleural spaces: No significant pleural effusion. No pneumothorax. Heart: No cardiomegaly. No pericardial effusion. Lymph nodes: No pathologically enlarged lymph nodes. Liver: < 1.0 cm enhancing lesion. Gallbladder and biliary ducts: Cholecystectomy. Bones/joints: No acute fracture. Soft tissues: Unremarkable. IMPRESSION: 1. No CT evidence of pulmonary embolism. 2. Liver lesion. In a low-risk patient, this lesion is most likely to be benign and no further follow-up is recommended. In a high-risk patient, recommend follow-up MRI in 3-6 months (or earlier if warranted by the patient's specific clinical circumstances).
[2025-05-07] MEDS: IOPAMIDOL-370 (76%);100ML BOTTLE 70 ML IV (17:35)
[2025-05-07] MEDS: 0.9 % SODIUM CHLORIDE 50 ML VIAL IV (17:35)
[2025-05-07] MEDS: SODIUM CHLORIDE 0.9% 10ML SYR (RAD ONLY) 10 ML IV (17:35)
[2025-05-07 17:37] LABS: Albumin Level 4.3 g/dl (3.5-5.0); Albumin/Globulin Ratio 1.2 (1.1-1.8); Anion Gap 17.0 mEq/L (5-15); Carbon Dioxide 22 mmol/L (22.0-30.0); Globulin 3.6 g/dL (1.3-3.2)
[2025-05-07] MEDS: DEXTROSE 15GM PACKET 15 GM PO (17:44)
[2025-05-07 18:15] LABS: Hepatitis C Ab Qual. W/ RFX NEGATIVE (Negative)
[2025-05-07 18:41] LABS: Microscopic, Urine URINE MICROSCOPIC (MICROSCOPIC)
[2025-05-07 18:44] LABS: Bilirubin,Urine Negative (Negative); Color,Urine YELLOW (Yellow); Glucose,Urine (UA) Negative (Negative); Ketones,Urine Negative (Negative); Leukocyte Esterase,Urine Negative (Negative); PH,Urine 6.5 (5.0-8.5); Protein,Urine Negative (Negative); Specific Gravity, Urine <= 1.005 (1.005-1.030); Urobilinogen,Urine 0.2 EU/dl (0.2)
== END 2025-05-07 19:15 | disposition home or self-care (01) ==
PROVIDERS: Physician Assistant; Emergency Provider Student in an Organized Health Care Education/Training Program; PCP Obstetrics & Gynecology
DX: O26.892 Other specified pregnancy related conditions, second trimester (principal); R07.89 Other chest pain; R06.02 Shortness of breath; Z3A.23 23 weeks gestation of pregnancy
CPT/HCPCS: 71275; 80053; 81001; 83690; 83735; 83880; 84484; 84702; 85025; 85378; 85610; 86803; 87389; 93005; 99285; Q9967